=== PATIENT | male | born 1960 | race Caucasian/White ===

== ENCOUNTER 2020-11-11 09:45 | Inpatient (IN) | payer BC, SELFPAY ==
[2020-11-11] VITALS (10 sets, daily range): BP systolic 91–133; BP diastolic 55–73; PULSE 76–99; RESP 13–18; TEMP 36.5–36.7; O2SAT 94–99; BMI 23.7
--- NOTE | ~2020-11-11 | XR_ITS ---
EXAMINATION: XR FOOT, RIGHT CLINICAL INFORMATION: Wound. Evaluate for osteomyelitis. COMPARISON: None TECHNIQUE: Right foot is imaged in 3 views. There is a our pointing towards the lateral foot at level metatarsals. FINDINGS: There is no visible acute or healing fracture, dislocation, or destructive process. There is no periostitis. No gas tracking in the soft tissues. Bony attenuation appears normal. There is bulky circumscribed ossification in the distal Achilles along with posterior and borderline plantar calcaneal spur. The retrocalcaneal recess is preserved. XR/XR foot RT min 3V IMPRESSION: 1. No fracture or destructive process. No gas tracking in soft tissues. 2. Calcaneal spurs with ossification distal Achilles.
--- NOTE | 2020-11-11 10:53 | ED_ITS ---
HPI - General Adult General Chief complaint: Extremity Injury, Lower Stated complaint: rt foot pain ?ulcer Time Seen by Provider: 11/11/20 10:27 Source: patient Mode of arrival: ambulatory Limitations: no limitations History of Present Illness HPI narrative: 60-year-old male with a past medical history of coronary artery disease status post CABG, high cholesterol, hypertension, AFib on AC therapy, IDDM here with complaints of wound to the right foot. Patient tells me that he noticed a blister initially about 4 days ago and then over the last few days he has had redness and swelling and increasing pain over the site. He denies any fevers or chills. 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 Related Data Home Medications Medication Instructions Recorded Confirmed apixaban 5 mg tablet (Eliquis) 1 tab PO BID 11/11/20 11/11/20 aspirin 81 mg tablet 81 mg PO DAILY 11/11/20 11/11/20 atorvastatin 80 mg tablet 1 tab PO DAILY 11/11/20 11/11/20 carvedilol 6.25 mg tablet 1 tab PO BID 11/11/20 11/11/20 dapagliflozin 10 mg tablet 1 tab PO DAILY 11/11/20 11/11/20 (Farxiga) insulin glargine 100 unit/mL (3 40 unit SUBCUT BEDTIME 11/11/20 11/11/20 mL) subcutaneous pen (Basaglar KwikPen U-100 Insulin) lisinopril 10 mg tablet 1 tab PO DAILY 11/11/20 11/11/20 metformin 850 mg tablet 1 tab PO BID 11/11/20 11/11/20 tamsulosin 0.4 mg capsule 1 cap PO DAILY 11/11/20 11/11/20 Allergies Allergy/AdvReac Type Severity Reaction Status Date / Time codeine [Codeine] AdvReac Unknown SHAKING Unverified 10/31/19 15:56 codine Allergy Unknown Uncoded 11/15/18 00:00 Review of Systems Review of Systems: Yes all other systems are reviewed and are negative Constitutional: Constitutional: Reports no additional constitutional complaints, Denies body ache(s), Denies chills, Denies fever(s), Denies hea dache(s) and Denies weakness Eyes: Eyes: Reports no additional eye complaints and Denies change in vision ENT: Reports system reviewed and no additional complaints, except as documented, Denies dizziness, Denies headache(s), Denies nasal congestion, Denies nasal discharge and Denies neck pain Cardiovascular: Cardiovascular: Reports no additional cardiovascular complaints, Denies chest pain, Denies leg edema and Denies dyspnea Respiratory: Respiratory: Reports no additional respiratory complaints, Denies cough and Denies dyspnea Gastrointestinal: Gastrointestinal: Reports no additional gastrointestinal complaints, Denies abdominal pain, Denies diarrhea, Denies nausea and Denies vomiting Genitourinary: Genitourinary: Denies urinary incontinence Musculoskeletal: Musculoskeletal: Reports no additional musculoskeletal complaints, Denies back pain, Denies arthralgias, Denies joint swelling, Denies neck pain, Denies numbness and Denies tingling Integumentary/Breasts: Skin/Breast: Reports system reviewed and no additional complaints, except as docu, Reports swelling, Reports erythema and Denies rash Neurologic: Reports system reviewed and no additional complaints, except as documented, Denies Abnormal speech present, Denies dizziness, Denies headache (s), Denies numbness, Denies tingling and Denies weakness [facility] Past Medical History Attestation statement: The following information was validated with the patient. Source: old records reviewed and nursing notes reviewed Medical History CAD (coronary artery disease) Diabetes HLD (hyperlipidemia) HTN (hypertension) PAF (paroxysmal atrial fibrillation) Surgical History Hx of CABG Family History Family History (Updated 11/11/20 @ 14:03 by Fred Brand MD) Mother Colon cancer Father Diabetes Social History Social History Patient Tobacco Use Status: Current someday Tobacco user Smoked in Last 30 Days: Yes Advance Directives: No Physical Exam Vital Signs: Vital Signs: Last Vital Signs Temp 97.9 F 11/11/20 12:14 Pulse 81 11/11/20 13:07 Resp 18 11/11/20 13:07 BP 106/68 11/11/20 13:07 Pulse Ox 97 11/11/20 12:14 Body Mass Index 23.7 Const: General: cooperative, healthy appearing, comfortable and no acute distress Orientation/consciousness: patient oriented x3 Limitations: no limitations HENMT: Head: Yes normal to inspection Ears: hearing grossly normal bilaterally General nose exam: Normal external nose present Face and sinus: Yes normal facial exam Mouth: Normal oral and palatal mucosa present Throat: Yes posterior oropharynx normal Eyes: General: appearance normal, both eyes and all related structures Pupils: Equal, round and reactive pupils present Neck: Neck: Yes normal visual inspection Chest: Chest palpation & inspection: normal inspection of the chest Resp: Effort & Inspection: normal respiratory effort Auscultation: clear to auscultation bilaterally Cardio: Rate: regular rate Rhythm: regular rhythm Peripheral pulses: Peripheral pulses 2+ throughout GI: Inspection: Yes normal to inspection Palpation (GI): Soft to palpation and nontender Auscultation: normal bowel sounds Back/Spine/Pelvis: Thoracic/Lumbar Spine: thoracic and lumbar spine normal to inspection Skin: General skin exam: no rashes or lesions noted Neuro: General: patient oriented x3, no focal motor deficits and normal sensation to monofilament Cranial nerves: Yes Equal, round and reactive pupils present Cognition (Neuro): normal cognition Speech: No Abnormal speech present Gait exam (Neuro): Normal gait present Motor exam (neuro): 5/5 motor strength present throughout Extrem: Other: Warmth, redness, tenderness over the dorsal aspect of the foot. Palpable pulses. Sensation is intact General: Yes normal to inspection Course Course Course Narrative: 60-year-old male who is an insulin-dependent diabetic care with a wound to the right foot with redness, swelling, pain on exam. Exam is consistent with the diabetic wound with a local cellulitis. The patient will need labs including blood cultures and lactic acid, x-ray of the foot. At this time infection is suspected. Antibiotics ordered. Patient will require admission 1220-call out to medicine to discuss for admission. Medical Decision Making Medical Records Medical records reviewed: Yes I reviewed the patient's medical records. Lab Data Lab results reviewed: Yes I reviewed the patient's lab results. Result diagrams: 11/11/20 11:07 11/11/20 11:07 Labs: Lab Results 11/11/20 11/11/20 11/11/20 Range/Units 11:06 11:06 11:07 WBC 15.6 H (4.8-10.8) X10*3/uL RBC 4.37 L (4.60-5.80) X10*6/uL Hgb 14.2 (14.0-18.0) g/dl Hct 42.6 (42-52) % MCV 97.5 (80-98) fL MCH 32.5 (27.0-33.0) pg MCHC 33.3 (31.0-36.0) g/dl RDW 12.7 (11.0-16.0) % Plt Count 262 (160-400) X10*3/uL MPV 10.0 (9.4-12.4) fL Immature Gran % (Auto) 0.4 (0.0-0.4) % Neut % (Auto) 68.4 (45-73) % Lymph % (Auto) 18.1 L (20-40) % [place] % (Auto) 10.7 (2-11) % Eos % (Auto) 2.0 (0-4) % Baso % (Auto) 0.4 (0-2) % Lymph # (Auto) 2.8 (1.2-4.9) X10*3/uL [place] # (Auto) 1.7 H (0.1-1.2) X10*3/uL Eos # (Auto) 0.3 (0.0-0.4) X10*3/uL Baso # (Auto) 0.1 (0.0-0.2) X10*3/uL Abs Immat Gran (auto) 0.07 H (0.00-0.03) X10*3/uL Absolute Neuts (auto) 10.7 H (2.0-8.3) X10*3/uL Absolute Nucleated RBC 0.000 (0.0-0.012) X10*3/uL Nucleated RBC % (auto) 0.0 (0.0-0.2) /100WBC Smear Tech's Comments VERIFIED Sodium (135-145) mmol/L Potassium (3.3-5.1) mmol/L Chloride (96-108) mmol/L Carbon Dioxide (22-29) mmol/L Anion Gap (12-20) BUN (9-16) mg/dL Creatinine (0.5-1.4) mg/dL Estim Creat Clear Calc Estimated GFR Random Glucose (60-115) mg/dL Lactic Acid 1.2 (0.5-2.0) mmol/L Calcium (8.4-10.2) mg/dL Total Bilirubin (0.0-1.0) mg/dL Direct Bilirubin (0.0-0.5) mg/dL AST (5-37) U/L ALT (0-40) U/L Alkaline Phosphatase (39-117) U/L Total Protein (6.5-8.0) g/dL Albumin (3.5-5.0) g/dL COVID-19 (PAULINE) Negative (Negative) COVID-19 Clin Com See Note 11/11/20 Range/Units 11:07 WBC (4.8-10.8) X10*3/uL RBC (4.60-5.80) X10*6/uL Hgb (14.0-18.0) g/dl Hct (42-52) % MCV (80-98) fL MCH (27.0-33.0) pg MCHC (31.0-36.0) g/dl RDW (11.0-16.0) % Plt Count (160-400) X10*3/uL MPV (9.4-12.4) fL Immature Gran % (Auto) (0.0-0.4) % Neut % (Auto) (45-73) % Lymph % (Auto) (20-40) % [place] % (Auto) (2-11) % Eos % (Auto) (0-4) % Baso % (Auto) (0-2) % Lymph # (Auto) (1.2-4.9) X10*3/uL [place] # (Auto) (0.1-1.2) X10*3/uL Eos # (Auto) (0.0-0.4) X10*3/uL Baso # (Auto) (0.0-0.2) X10*3/uL Abs Immat Gran (auto) (0.00-0.03) X10*3/uL Absolute Neuts (auto) (2.0-8.3) X10*3/uL Absolute Nucleated RBC (0.0-0.012) X10*3/uL Nucleated RBC % (auto) (0.0-0.2) /100WBC Smear Tech's Comments Sodium 138 (135-145) mmol/L Potassium 4.1 (3.3-5.1) mmol/L Chloride 105 (96-108) mmol/L Carbon Dioxide 24 (22-29) mmol/L Anion Gap 13 (12-20) BUN 16 (9-16) mg/dL Creatinine 1.10 (0.5-1.4) mg/dL Estim Creat Clear Calc 78.6 Estimated GFR > 60 Random Glucose 165 H (60-115) mg/dL Lactic Acid (0.5-2.0) mmol/L Calcium 9.2 (8.4-10.2) mg/dL Total Bilirubin < 0.2 (0.0-1.0) mg/dL Direct Bilirubin < 0.2 (0.0-0.5) mg/dL AST 10 (5-37) U/L ALT < 6 (0-40) U/L Alkaline Phosphatase 136 H (39-117) U/L Total Protein 6.8 (6.5-8.0) g/dL Albumin 4.2 (3.5-5.0) g/dL COVID-19 (PAULINE) (Negative) COVID-19 Clin Com Imaging Data foot xray: Attestation: I personally reviewed and interpreted this imaging study as follows: Radiologist's impression: [place] [id number] XRay Report Signed Patient: Mik Roblero MR#: [id number] : 1960 Acct:[id number] Age/Sex: 60 / M ADM Date: 11/11/20 Loc: HO.ED Attending Dr: Ordering Physician: Heather Rios NP Date of Service: 11/11/20 Procedure(s): XR foot RT min 3V Accession Number(s): [id number] cc: Heather Rios NP~ EXAMINATION: XR FOOT, RIGHT CLINICAL INFORMATION: Wound. Evaluate for osteomyelitis.? COMPARISON: None? TECHNIQUE: Right foot is imaged in 3 views. There is a our pointing towards the lateral foot at level metatarsals. FINDINGS: There is no visible acute or healing fracture, dislocation, or destructive process. There is no periostitis. No gas tracking in the soft tissues. Bony attenuation appears normal. There is bulky circumscribed ossification in the distal Achilles along with posterior and borderline plantar calcaneal spur. The retrocalcaneal recess is preserved.? XR/XR foot RT min 3V IMPRESSION: ? 1. No fracture or destructive process. No gas tracking in soft tissues. 2. Calcaneal spurs with ossification distal Achilles. ? Discharge Plan Discharge Clinical Impression: Diabetic ulcer of foot associated with diabetes mellitus due to underlying condition, limited to breakdown of skin, Cellulitis, Leukocytosis Patient Disposition: Admitted As Inpatient Prescriptions: No Action atorvastatin 80 mg tablet 1 tab PO DAILY RF: 0 carvedilol 6.25 mg tablet 1 tab PO BID RF: 0 metformin 850 mg tablet 1 tab PO BID RF: 0 tamsulosin 0.4 mg capsule 1 cap PO DAILY RF: 0 lisinopril 10 mg tablet 1 tab PO DAILY RF: 0 Basaglmanoj Martinez U-100 Insulin 100 unit/mL (3 mL) insulin pen 40 unit subcut BEDTIME RF: 0 Eliquis 5 mg tablet 1 tab PO BID RF: 0 Farxiga 10 mg tablet 1 tab PO DAILY RF: 0 aspirin 81 mg Tablet 81 mg PO DAILY RF: 0
[2020-11-11] MEDS: Morphine Sulfate 4 MG/ML CARTRIDGE IVPUSH ×2 (11:18→12:02)
[2020-11-11 11:19] LABS: Basophils Absolute Auto 0.1 X10*3/uL (0.0-0.2); Basophils Percent Auto 0.4 % (0-2); Eosinophils Absolute Auto 0.3 X10*3/uL (0.0-0.4); Hematocrit 42.6 % (42-52); Hemoglobin 14.2 g/dl (14.0-18.0); Imm Gran Abs Auto 0.07 X10*3/uL (0.00-0.03); Imm Gran Pct Auto 0.4 % (0.0-0.4); Lymphocytes Absolute Auto 2.8 X10*3/uL (1.2-4.9); Lymphocytes Percent Auto 18.1 % (20-40); MANUAL DIFF FLAG SCAN; Mean Corpuscular HGB Conc 33.3 g/dl (31.0-36.0); Mean Corpuscular Hemoglobin 32.5 pg (27.0-33.0); Mean Corpuscular Volume 97.5 fL (80-98); Monocytes Absolute Auto 1.7 X10*3/uL (0.1-1.2); Monocytes Percent Auto 10.7 % (2-11); Neutrophils Absolute Auto 10.7 X10*3/uL (2.0-8.3); Neutrophils Percent Auto 68.4 % (45-73); Platelet Count 262 X10*3/uL (160-400); Red Blood Count 4.37 X10*6/uL (4.60-5.80); Red Cell Distribution Width 12.7 % (11.0-16.0); SCAN SMEAR FLAG 1; White Blood Count 15.6 X10*3/uL (4.8-10.8)
[2020-11-11 11:24] LABS: Lactic Acid 1.2 mmol/L (0.5-2.0)
[2020-11-11 11:32] LABS: COVID-19 Test Negative (Negative); IDNOW Serial# 9DD0AD1C
[2020-11-11 11:38] LABS: Alanine Aminotransferase < 6 U/L (0-40); Albumin Level 4.2 g/dL (3.5-5.0); Alkaline Phosphatase 136 U/L (39-117); Anion Gap 13 (12-20); Aspartate Amino Transferase 10 U/L (5-37); Bilirubin Direct < 0.2 mg/dL (0.0-0.5); Bilirubin Total < 0.2 mg/dL (0.0-1.0); Blood Urea Nitrogen 16 mg/dL (9-16); Calcium 9.2 mg/dL (8.4-10.2); Carbon Dioxide 24 mmol/L (22-29); Chloride 105 mmol/L (96-108); Creatinine Clr Calc Pharmacy 78.6; Estimated Glomerular Filt Rate > 60; Glucose Random 165 mg/dL (60-115); Potassium 4.1 mmol/L (3.3-5.1); Sodium 138 mmol/L (135-145); Total Protein 6.8 g/dL (6.5-8.0)
[2020-11-11] MEDS: Piperacillin Sodium/Tazobactam 3.375 GM in 0.9 % Sodium Chloride 50 ML IV (11:53)
[2020-11-11 12:09] LABS: SLIDE REVIEW VERIFIED
[2020-11-11] MEDS: vancomycin HCL 1,250 MG in 0.9 % Sodium Chloride 250 ML 166.67 MG IV (13:06)
--- NOTE | 2020-11-11 13:59 | P.HPHOSP_ITS ---
History of Present Illness Date of Service: 11/11/20 60 year male with CAD s/p stent, diabetes controlled on insulin, HLD managed with statin, PAF rate controlled and anticoagulation with Eliquis. He presents to the ED with an infected blister that he developped from friction from his new work boot.. The area has become increasing more erythematous over the last 4 days and associated with pain. He has no fever. WBC is high. Xray of the foot is unremarkable. Review of Systems Review of Systems: Gen: no fever Resp: no sob, no cough CV: no chest, no HERNANDEZ, no leg edema GI: No n/v, no abd pain Neuro: No confusion MSK: pain in the foot Yes all other systems are reviewed and are negative [facility] Medical History CAD (coronary artery disease) Diabetes HLD (hyperlipidemia) HTN (hypertension) PAF (paroxysmal atrial fibrillation) Family History (Updated 11/11/20 @ 14:03 by Fred Brand MD) Mother Colon cancer Father Diabetes Pertinent family history: . Surgical History Hx of CABG Social History Patient Tobacco Use Status: Current someday Tobacco user Smoked in Last 30 Days: Yes Advance Directives: No Meds Allergies Allergy/AdvReac Type Severity Reaction Status Date / Time codeine [Codeine] AdvReac Unknown SHAKING Unverified 10/31/19 15:56 codine Allergy Unknown Uncoded 11/15/18 00:00 Active Medications: Current Medications Vancomycin HCl 1,250 mg/ (Sodium Chloride) 250 mls @ 166.667 mls/hr IV ONCE ONE Stop: 11/11/20 14:06 Last Admin: 11/11/20 13:06 Dose: 166.67 mls/hr Documented by: Pharmacy Consult (Consult Rx Perform Med Rec) 1 each MISCELLANE ONCE PRN PRN Reason: Consult order Home Medications Medication Instructions Recorded Confirmed Last Taken Type apixaban 5 mg tablet (Eliquis) 1 tab PO BID 11/11/20 11/11/20 11/11/20 History aspirin 81 mg tablet 81 mg PO DAILY 11/11/20 11/11/20 11/11/20 History atorvastatin 80 mg tablet 1 tab PO DAILY 11/11/20 11/11/20 11/11/20 History carvedilol 6.25 mg tablet 1 tab PO BID 11/11/20 11/11/20 11/11/20 History dapagliflozin 10 mg tablet 1 tab PO DAILY 11/11/20 11/11/20 11/11/20 History ([facility]) insulin glargine 100 unit/mL (3 40 unit SUBCUT BEDTIME 11/11/20 11/11/20 11/11/20 History mL) subcutaneous pen (Basaglar KwikPen U-100 Insulin) lisinopril 10 mg tablet 1 tab PO DAILY 11/11/20 11/11/20 11/11/20 History metformin 850 mg tablet 1 tab PO BID 11/11/20 11/11/20 11/11/20 History tamsulosin 0.4 mg capsule 1 cap PO DAILY 11/11/20 11/11/20 11/11/20 History Physical Exam Vital Signs and Narrative: Vital Signs: Last Vital Signs Temp 97.9 F 11/11/20 12:14 Pulse 81 11/11/20 13:07 Resp 18 11/11/20 13:07 BP 106/68 11/11/20 13:07 Pulse Ox 97 11/11/20 12:14 Body Mass Index 23.7 Constitutional Awake and Alert, No apparent distress Neck Supple, No lymphadenopathy Cardiovascular RRR, No M/R/G, S1 S2, No S3 S4, No pedal edema Respiratory Lungs clear, No respiratory distress Gastrointestinal Non tender, Non-distended Skin No rash Neuro: Non focal Heme/onc no lymphadenopathy Results Labs CBC and Chem 7: 11/11/20 11:07 11/11/20 11:07 Labs: Laboratory Results - last 24 hr 11/11/20 11/11/20 11/11/20 11:06 11:06 11:07 MCV 97.5 MCH 32.5 MCHC 33.3 RDW 12.7 Plt Count 262 MPV 10.0 Immature Gran % (Auto) 0.4 Neut % (Auto) 68.4 Lymph % (Auto) 18.1 L [place] % (Auto) 10.7 Eos % (Auto) 2.0 Baso % (Auto) 0.4 Lymph # (Auto) 2.8 [place] # (Auto) 1.7 H Eos # (Auto) 0.3 Baso # (Auto) 0.1 Abs Immat Gran (auto) 0.07 H Absolute Neuts (auto) 10.7 H Absolute Nucleated RBC 0.000 Nucleated RBC % (auto) 0.0 Smear Tech's Comments VERIFIED Anion Gap Estim Creat Clear Calc Estimated GFR Random Glucose Lactic Acid 1.2 Calcium Total Bilirubin Direct Bilirubin AST ALT Alkaline Phosphatase Total Protein Albumin COVID-19 (PAULINE) Negative COVID-19 Clin Com See Note 11/11/20 11:07 MCV MCH MCHC RDW Plt Count MPV Immature Gran % (Auto) Neut % (Auto) Lymph % (Auto) [place] % (Auto) Eos % (Auto) Baso % (Auto) Lymph # (Auto) [place] # (Auto) Eos # (Auto) Baso # (Auto) Abs Immat Gran (auto) Absolute Neuts (auto) Absolute Nucleated RBC Nucleated RBC % (auto) Smear Tech's Comments Anion Gap 13 Estim Creat Clear Calc 78.6 Estimated GFR > 60 Random Glucose 165 H Lactic Acid Calcium 9.2 Total Bilirubin < 0.2 Direct Bilirubin < 0.2 AST 10 ALT < 6 Alkaline Phosphatase 136 H Total Protein 6.8 Albumin 4.2 COVID-19 (PAULINE) COVID-19 Clin Com Imaging Radiologist's Impressions: Impressions Foot X-Ray 11/11/20 10:45 IMPRESSION: 1. No fracture or destructive process. No gas tracking in soft tissues. 2. Calcaneal spurs with ossification distal Achilles. Assessment and Plan (1) PAF (paroxysmal atrial fibrillation): Status: Acute (2) HLD (hyperlipidemia): Status: Acute (3) HTN (hypertension): Status: Acute (4) Hx of CABG: Status: Acute (5) CAD (coronary artery disease): Status: Acute (6) Cellulitis in diabetic foot: Status: Acute 59 yo male with CAD, HLD, DM, HTN, here with Cellulitis in diabetic foot. 1/ Cellulitis in diabetic foot, limb threatening and immunocompromised d/t diab ete -Treat with IV Doxy and Ceftriaxone -Oxycodone for pain 2/CAD--no angian, continue Statin, BB and no ASA d/t eliquis 3/PAF--rate controlled on Coreg, continue Eliquis for anticoagulation 4/ HTN--controlled, continue Lisinopril, Coreg 5/HLD--Statin 6/Diabetes--continue Metformin, lantus, Hold Farxiga (not formulary), SSI and diabetic diet 7/DVT Eliquis Quality Stroke Does the patient have a stroke diagnosis?: No VTE Prior VTE?: No VTE Risk Level:: Medical - low VTE Device Contraindication: Treatment Not Indicated VTE Drug Contraindication: N/A - Med Ordered
[2020-11-11] MEDS: cefTRIAXone sodium 1 GM in 0.9 % Sodium Chloride 50 ML IV (15:25)
[2020-11-11 16:19] LABS: Glucose, Whole Blood 157 mg/dL (60-115)
[2020-11-11] MEDS: Acetaminophen 325 MG TABLET 650 MG PO ×2 (17:36→22:42)
--- NOTE | 2020-11-11 18:50 | PC.NURSE ---
Report given to Aruna Louis. military technology specialist to coordinate transfer to floor.
[2020-11-11] MEDS: Insulin Glargine,Hum.rec.anlog 100 UNIT/ML 10 ML VIAL 40 UNIT SUBCUT (22:14)
[2020-11-11] MEDS: Apixaban 5 MG TABLET PO (22:14)
[2020-11-11] MEDS: carvediloL 6.25 MG TABLET PO (22:14)
[2020-11-11] MEDS: metFORMIN HCl 850 MG TABLET PO (22:14)
[2020-11-11] MEDS: Doxycycline Hyclate 100 MG in 0.9 % Sodium Chloride 250 ML 166.67 MG IV (22:15)
[2020-11-11 22:27] LABS: Glucose, Whole Blood 220 mg/dL (60-115)
[2020-11-11] MEDS: Insulin Lispro 100 UNIT/ML 3 ML VIAL SUBCUT (22:42)
[2020-11-12] VITALS (8 sets, daily range): BP systolic 76–114; BP diastolic 53–75; PULSE 79–97; RESP 16–18; TEMP 36.3–36.8; O2SAT 97–100
[2020-11-12 08:13] LABS: Glucose, Whole Blood 71 mg/dL (60-115)
[2020-11-12] MEDS: metFORMIN HCl 850 MG TABLET PO ×2 (09:22→21:23)
[2020-11-12] MEDS: Apixaban 5 MG TABLET PO ×2 (09:23→21:23)
[2020-11-12] MEDS: Aspirin Enteric Coated 81 MG TABLET.DR PO (09:23)
[2020-11-12] MEDS: carvediloL 6.25 MG TABLET PO (09:23)
[2020-11-12] MEDS: Atorvastatin Calcium 80 MG TABLET PO (09:23)
[2020-11-12] MEDS: lisinopriL 10 MG TABLET PO (09:23)
[2020-11-12] MEDS: Doxycycline Hyclate 100 MG in 0.9 % Sodium Chloride 250 ML 166.67 MG IV ×2 (09:24→21:22)
[2020-11-12] MEDS: 0.9 % Sodium Chloride Flush 3 ML SYRINGE IVFLUSH ×2 (09:24→14:33)
--- NOTE | 2020-11-12 10:04 | HO.PM.IMPN ---
Subjective Subjective Date of Service: 11/13/20 Interval History: Seem in f/u up cellulitis and abscess of foot, erythema is better, but has persistent pain Review of Systems no fever foot pain Physical Exam Vital Signs: Vital Signs: Last Vital Signs Temp 97.4 F 11/12/20 07:30 Pulse 86 11/12/20 07:30 Resp 18 11/12/20 07:30 BP 108/75 11/12/20 07:30 Pulse Ox 98 11/12/20 07:30 Body Mass Index 23.7 General: AO X 3, no acute distress Resp: CTA bilateral CVS: S1,S2,RRR GI: +BS, NT, no distention Skin: No rash Neuro: motor grossly intact Psych: appropriate affect Objective Data Active Medications Acetaminophen (Acetaminophen 325 Mg Tablet) 650 mg PO Q6H PRN PRN Reason: Pain, Mild (Pain Scale 1-3) Last Admin: 11/11/20 22:42 Dose: 650 mg Documented by: DREW Apixaban (Apixaban 5 Mg Tablet) 5 mg PO BID [facility] Last Admin: 11/12/20 09:23 Dose: 5 mg Documented by: PITA Aspirin (Aspirin Enteric Coated 81 Mg Tablet.) 81 mg PO DAILY [facility] Last Admin: 11/12/20 09:23 Dose: 81 mg Documented by: PITA Atorvastatin Calcium (Atorvastatin Calcium 80 Mg Tablet) 80 mg PO DAILY [facility] Last Admin: 11/12/20 09:23 Dose: 80 mg Documented by: PITA Carvedilol (Carvedilol 6.25 Mg Tablet) 6.25 mg PO BID [facility]; Protocol Last Admin: 11/12/20 09:23 Dose: 6.25 mg Documented by: PITA Doxycycline Hyclate 100 mg/ (Sodium Chloride) 250 mls @ 166.67 mls/hr IV Q12H [facility] Last Admin: 11/12/20 09:24 Dose: 166.67 mls/hr Documented by: PITA Ceftriaxone Sodium 1 gm/ (Sodium Chloride) 50 mls @ 100 mls/hr IV Q24H [facility] Last Infusion: 11/11/20 15:55 Dose: 0 mls/hr Documented by: ROCK Insulin Glargine (Insulin Glargine,Hum.Rec.Anlog 100 Unit/Ml 10 Ml Vial) 40 unit SUBCUT BEDTIME [facility] Last Admin: 11/11/20 22:14 Dose: 40 unit Documented by: DREW Insulin Human Lispro (Insulin Lispro 100 Unit/Ml 3 Ml Vial) 0 unit SUBCUT QIDACHS [facility]; Protocol Last Admin: 11/12/20 07:41 Dose: Not Given Documented by: PITA Non-Admin Reason: No Insulin Coverage Lisinopril (Lisinopril 10 Mg Tablet) 10 mg PO DAILY [facility]; Protocol Last Admin: 11/12/20 09:23 Dose: 10 mg Documented by: PITA Metformin HCl (Metformin Hcl 850 Mg Tablet) 850 mg PO BID [facility] Last Admin: 11/12/20 09:22 Dose: 850 mg Documented by: PITA Pharmacy Consult (Consult Rx Perform Med Rec) 1 each MISCELLANE ONCE PRN PRN Reason: Consult order Sodium Chloride (0.9 % Sodium Chloride Flush 3 Ml Syringe) 3 ml IVFLUSH QSHIFT [facility] Last Admin: 11/12/20 09:24 Dose: 3 ml Documented by: IPTA Tamsulosin HCl (Tamsulosin Hcl 0.4 Mg Capsule) 0.4 mg PO DAILY [facility] Labs CBC & Chem 7: 11/11/20 11:07 11/11/20 11:07 Assessment and Plan (1) Diabetic ulcer of foot associated with diabetes mellitus due to underlying condition, limited to breakdown of skin: Status: Acute (2) Cellulitis: Status: Acute Assessment and Plan: 60 yo male with? CAD, HLD, DM, HTN, here with Cellulitis in diabetic foot. 1/ Cellulitis in diabetic foot, limb threatening and immunocompromised d/t diabete -Treat with IV Doxy and Ceftriaxone -Oxycodone for pain -Surgery for possible debridment 2/CAD--no angian, continue Statin, BB and no ASA d/t eliquis 3/PAF--rate controlled on Coreg, continue Eliquis for anticoagulation 4/ HTN--controlled, continue Lisinopril, Coreg 5/HLD--Statin 6/Diabetes--continue Metformin,? lantus, Hold Farxiga (not formulary), SSI and diabetic diet 7/DVT Eliquis Quality Stroke Does the patient have a stroke diagnosis?: No VTE Prior VTE?: No VTE Risk Level:: Medical - low VTE Device Contraindication: Treatment Not Indicated VTE Drug Contraindication: N/A - Med Ordered
[2020-11-12] MEDS: oxyCODONE HCl Immed Release 5 MG TABLET PO ×3 (10:20→19:47)
--- NOTE | 2020-11-12 10:36 | MHC.CDI.CONC ---
CDI Concurrent Query Documentation Clarification: PHYSICIAN'S DOCUMENTATION REQUEST Date of Query: 11/12/20 1037 Patient Name: Mik Roblero Admit Date: 11/11/20 Dear Doctor, A review of the medical record indicates additional documentation may be needed. Please review below and update the documentation accordingly. Risk Factors/Clinical Indicators/Treatments Cellulitis in Diabetic right foot. Controlled Insulin dependent diabetic foot IV Doxy, Ceftriaxone Please clarify the relationship between these conditions: Yes, [ ] with / associated with / due to [ ] No, [ ] is not related to / associated with / due to [ ] Unable to determine Use of terms such as suspected, likely, concern for, or probable (associated with a specific diagnosis that is being evaluated, monitored, or treated as if it exists) are acceptable and can be coded in the inpatient setting, when documented at the time of discharge. Thank you, Dolores Lawton [facility], CDIS Extension: [phone] Please use your independent medical judgment in providing your response. THIS QUERY IS PART OF THE PERMANENT MEDICAL RECORD Provider Response: Other Other Diagnosis: Cellulitis in diabetes patient, possibly related to diabetes
[2020-11-12 11:53] LABS: Glucose, Whole Blood 175 mg/dL (60-115)
--- NOTE | 2020-11-12 12:03 | MHC.CM.PN ---
Addendum entered by Melissa Plascencia 11/12/20 12:05: CORRECTION: NO IMM WAS DELIVERED. PT DOES NOT HAVE MEDICARE AND IS STILL EMPLOYED Original Note: CM MET WITH PT WHO REPORTS HE LIVES WITH HIS PT REPORTS BEING INDEPENDENT WITH ALL CARE PT DENIES USE OF DME OR HOME SERVICES PT REPORTS HE HAS A HCP NAMING HIS , DEEPA, HIS AGENT PT CONFIRMS HIS PCP IS PAWEL RAYMOND. IMM DELIVERED CURRENT DC PLAN IS HOME WITH NO SERVICES PTS CAR IS IN LOT
[2020-11-12] MEDS: Insulin Lispro 100 UNIT/ML 3 ML VIAL SUBCUT (12:11)
[2020-11-12] MEDS: cefTRIAXone sodium 1 GM in 0.9 % Sodium Chloride 50 ML IV (14:31)
[2020-11-12 16:31] LABS: Glucose, Whole Blood 125 mg/dL (60-115)
[2020-11-12] MEDS: Tamsulosin HCL 0.4 MG CAPSULE PO (16:34)
[2020-11-12 20:52] LABS: Glucose, Whole Blood 139 mg/dL (60-115)
[2020-11-12] MEDS: Insulin Glargine,Hum.rec.anlog 100 UNIT/ML 10 ML VIAL 40 UNIT SUBCUT (21:22)
[2020-11-13] MEDS: oxyCODONE HCl Immed Release 5 MG TABLET PO ×5 (00:10→22:49)
[2020-11-13] MEDS: 0.9 % Sodium Chloride Flush 3 ML SYRINGE IVFLUSH ×4 (00:11→23:44)
[2020-11-13 03:37] VITALS: BP 100/52; PULSE 86; RESP 17; TEMP 36.7; O2SAT 96
[2020-11-13 07:06] VITALS: BP 123/68; PULSE 90; RESP 17; TEMP 36.2; O2SAT 99
[2020-11-13 07:27] LABS: Glucose, Whole Blood 97 mg/dL (60-115)
[2020-11-13] MEDS: carvediloL 6.25 MG TABLET PO ×2 (07:41→20:43)
[2020-11-13] MEDS: Apixaban 5 MG TABLET PO ×2 (07:42→20:43)
[2020-11-13] MEDS: metFORMIN HCl 850 MG TABLET PO ×3 (07:42→20:48)
[2020-11-13] MEDS: Atorvastatin Calcium 80 MG TABLET PO (07:42)
[2020-11-13] MEDS: lisinopriL 10 MG TABLET PO (07:42)
[2020-11-13] MEDS: Aspirin Enteric Coated 81 MG TABLET.DR PO (07:42)
[2020-11-13] MEDS: Doxycycline Hyclate 100 MG in 0.9 % Sodium Chloride 250 ML 166.66 MG IV (07:43)
[2020-11-13 11:12] VITALS: BP 100/59; PULSE 78; RESP 17; TEMP 36.9; O2SAT 98
[2020-11-13 11:29] LABS: Glucose, Whole Blood 158 mg/dL (60-115)
[2020-11-13] MEDS: Insulin Lispro 100 UNIT/ML 3 ML VIAL SUBCUT (11:44)
--- NOTE | 2020-11-13 12:19 | P.PNIM_ITS ---
Subjective Subjective Date of Service: 11/13/20 Interval History: Seen in f/u for diabetic foot ulcer. Cellulitis. Erythema seemed to be bett Review of Systems No fever Pain in the foot. Physical Exam Vital Signs: Vital Signs: Last Vital Signs Temp 98.4 F 11/13/20 11:12 Pulse 78 11/13/20 11:12 Resp 17 11/13/20 11:12 BP 100/59 L 11/13/20 11:12 Pulse Ox 98 11/13/20 11:12 Body Mass Index 23.7 General: AO X 3, no acute distress Resp: CTA bilateral CVS: S1,S2,RRR GI: +BS, NT, no distention Skin: Neuro: motor grossly intact Psych: appropriate affect Objective Data Active Medications Acetaminophen (Acetaminophen 325 Mg Tablet) 650 mg PO Q6H PRN PRN Reason: Pain, Mild (Pain Scale 1-3) Last Admin: 11/11/20 22:42 Dose: 650 mg Documented by: DREW Apixaban (Apixaban 5 Mg Tablet) 5 mg PO BID [facility] Last Admin: 11/13/20 07:42 Dose: 5 mg Documented by: CIRA Aspirin (Aspirin Enteric Coated 81 Mg Tablet.) 81 mg PO DAILY [facility] Last Admin: 11/13/20 07:42 Dose: 81 mg Documented by: CIRA Atorvastatin Calcium (Atorvastatin Calcium 80 Mg Tablet) 80 mg PO DAILY [facility] Last Admin: 11/13/20 07:42 Dose: 80 mg Documented by: CIRA Carvedilol (Carvedilol 6.25 Mg Tablet) 6.25 mg PO BID [facility]; Protocol Last Admin: 11/13/20 07:41 Dose: 6.25 mg Documented by: CIRA Doxycycline Hyclate 100 mg/ (Sodium Chloride) 250 mls @ 166.67 mls/hr IV Q12H [facility] Last Infusion: 11/13/20 09:29 Dose: 0 mls/hr Documented by: CIRA Ceftriaxone Sodium 1 gm/ (Sodium Chloride) 50 mls @ 100 mls/hr IV Q24H [facility] Last Infusion: 11/12/20 15:03 Dose: 0 mls/hr Documented by: DABCk Insulin Glargine (Insulin Glargine,Hum.Rec.Anlog 100 Unit/Ml 10 Ml Vial) 40 unit SUBCUT BEDTIME [facility] Last Admin: 11/12/20 21:22 Dose: 40 unit Documented by: DREW Insulin Human Lispro (Insulin Lispro 100 Unit/Ml 3 Ml Vial) 0 unit SUBCUT QIDACHS [facility]; Protocol Last Admin: 11/13/20 11:44 Dose: 2 unit Documented by: CIRA Lisinopril (Lisinopril 10 Mg Tablet) 10 mg PO DAILY [facility]; Protocol Last Admin: 11/13/20 07:42 Dose: 10 mg Documented by: CIRA Metformin HCl (Metformin Hcl 850 Mg Tablet) 850 mg PO BID [facility] Last Admin: 11/13/20 07:42 Dose: 850 mg Documented by: CIRA Oxycodone HCl (Oxycodone Hcl Immed Release 5 Mg Tablet) 5 mg PO Q4H PRN PRN Reason: Pain, Severe (Pain Scale 7-10) Last Admin: 11/13/20 11:43 Dose: 5 mg Documented by: CIRA Pharmacy Consult (Consult Rx Perform Med Rec) 1 each MISCELLANE ONCE PRN PRN Reason: Consult order Sodium Chloride (0.9 % Sodium Chloride Flush 3 Ml Syringe) 3 ml IVFLUSH QSHIFT [facility] Last Admin: 11/13/20 07:43 Dose: 3 ml Documented by: CIRA Tamsulosin HCl (Tamsulosin Hcl 0.4 Mg Capsule) 0.4 mg PO DAILY@1700 [facility] Last Admin: 11/12/20 16:34 Dose: 0.4 mg Documented by: PITA Labs CBC & Chem 7: 11/11/20 11:07 11/11/20 11:07 Labs: Laboratory Results - last 24 hr 11/12/20 11/12/20 11/13/20 16:20 20:24 07:05 POC Glucose 125 H 139 H 97 11/13/20 11:13 POC Glucose 158 H Microbiology Microbiology Results: Microbiology 11/11/20 11:10 Blood Culture - Preliminary Blood - Venous No growth after 24 hours. 11/11/20 11:09 Blood Culture - Preliminary Blood - Venous No growth after 24 hours. Assessment and Plan (1) Diabetic ulcer of foot associated with diabetes mellitus due to underlying condition, limited to breakdown of skin: Status: Acute (2) Cellulitis: Status: Acute Assessment and Plan: 60 yo male with? CAD, HLD, DM, HTN, here with Cellulitis in diabetic foot. 1/ Cellulitis of foot associated with diabetic , limb threatening and immunocompromised d/t diabete -Treat with IV Doxy and Ceftriaxone D3 -Oxycodone for pain -Surgery for possible debridment 2/CAD--no angian, continue Statin, BB and no ASA d/t eliquis 3/PAF--rate controlled on Coreg, continue Eliquis for anticoagulation 4/ HTN--controlled, continue Lisinopril, Coreg 5/HLD--Statin 6/Diabetes--continue Metformin,? lantus, Hold Farxiga (not formulary), SSI and diabetic diet 7/DVT Eliquis Quality Stroke Does the patient have a stroke diagnosis?: No VTE Prior VTE?: No VTE Risk Level:: Medical - low VTE Device Contraindication: Treatment Not Indicated VTE Drug Contraindication: N/A - Med Ordered
[2020-11-13] MEDS: Morphine Sulfate 4 MG/ML CARTRIDGE IVPUSH (13:21)
--- NOTE | 2020-11-13 13:40 | PM.CNGS ---
History of Present Illness Consult details Consult date: 11/13/20 Narrative: 60-year-old male referred for a right foot ulcer. He was admitted on 11/11, because of on his right foot. He was noted to have an area of cellulitis with an ulcer with an eschar as well. He is a known diabetic. He says that the area of the ulcer was very painful at that time. The scar seemed to have persisted and he was referred to me. He does state that his cellulitis has improved. He says he wears this particular working both all the time and feels that this may be ill-fitting causing the ulcer. He says his blood sugar control is ?so-so? Review of Systems Constitutional: Constitutional: Denies chills and Denies fever(s) Cardiovascular: Cardiovascular: Denies chest pain, Denies dyspnea and Denies dyspnea on exertion Respiratory: Respiratory: Denies cough, Denies dyspnea and Denies dyspnea on exertion Gastrointestinal: Gastrointestinal: Denies hematochezia and Denies change in bowel habits Genitourinary: Genitourinary: Denies hematuria and Denies difficulty urinating Musculoskeletal: Musculoskeletal: Denies back pain and Denies limited range of motion Neurologic: Denies focal weakness and Denies convulsions Psychiatric: Psychiatric: Denies depression and Denies mood swings [facility] Past Medical History Medical History (Updated 11/13/20 @ 13:43 by Kuldip Richards MD) CAD (coronary artery disease) Diabetes Eschar of foot HLD (hyperlipidemia) HTN (hypertension) PAF (paroxysmal atrial fibrillation) Family History Family History Mother Colon cancer Father Diabetes Surgical History Surgical History Hx of CABG Social History Social History Household Members: Spouse Housing: House Do you presently have visiting nurse or other home services: No Patient Tobacco Use Status: Current someday Tobacco user Tobacco use type: Cigarette Cigarettes Per Day: 3 Smoked in Last 30 Days: Yes Patient Interested in Nicotine Replacement: Yes Patient Given Instructions on How to Stop Smoking: No Use of substances other than those prescribed or required for medical reasons: No Currently Displaying Signs/Symptoms of Drug Intoxication Withdrawal: No Have you been hit, kicked, punched, or otherwise hurt by someone within the past year? If so, by whom?: No Do you feel safe in your current relationship?: Yes Is there a partner from a previous relationship who is making you feel unsafe now?: No Are you made to feel afraid or neglected: No Advance Directives: No Do you have thoughts of harming others: None Do you have a plan to hurt others: No Plan Recently lost weight without trying: No How much weight loss: Not applicable Eating poorly because of decreased appetite: No Nutrition screen score: 0 Nutrition Risks: No Nutritional Risk Poor oral hygiene: No Current occupational status: employed Meds Allergies Allergy/AdvReac Type Severity Reaction Status Date / Time codeine [Codeine] AdvReac Unknown SHAKING Unverified 10/31/19 15:56 codine Allergy Unknown Uncoded 11/15/18 00:00 Active Medications: Current Medications Acetaminophen (Acetaminophen 325 Mg Tablet) 650 mg PO Q6H PRN PRN Reason: Pain, Mild (Pain Scale 1-3) Last Admin: 11/11/20 22:42 Dose: 650 mg Documented by: Apixaban (Apixaban 5 Mg Tablet) 5 mg PO BID [facility]S [facility]CLUDE 234 BEDS AT THE [facility] Last Admin: 11/13/20 07:42 Dose: 5 mg Documented by: Aspirin (Aspirin Enteric Coated 81 Mg Tablet.Dr) 81 mg PO DAILY COUNTS INCLUDE 234 BEDS AT THE [facility] Last Admin: 11/13/20 07:42 Dose: 81 mg Documented by: Atorvastatin Calcium (Atorvastatin Calcium 80 Mg Tablet) 80 mg PO DAILY COUNTS INCLUDE 234 BEDS AT THE [facility] Last Admin: 11/13/20 07:42 Dose: 80 mg Documented by: Carvedilol (Carvedilol 6.25 Mg Tablet) 6.25 mg PO BID COUNTS INCLUDE 234 BEDS AT THE [facility]; Protocol Last Admin: 11/13/20 07:41 Dose: 6.25 mg Documented by: Doxycycline Hyclate 100 mg/ (Sodium Chloride) 250 mls @ 166.67 mls/hr IV Q12H COUNTS INCLUDE 234 BEDS AT THE [facility] Last Infusion: 11/13/20 09:29 Dose: Infused Documented by: Ceftriaxone Sodium 1 gm/ (Sodium Chloride) 50 mls @ 100 mls/hr IV Q24H COUNTS INCLUDE 234 BEDS AT THE [facility] Last Infusion: 11/12/20 15:03 Dose: Infused Documented by: Insulin Glargine (Insulin Glargine,Hum.Rec.Anlog 100 Unit/Ml 10 Ml Vial) 40 unit SUBCUT BEDTIME COUNTS INCLUDE 234 BEDS AT THE [facility] Last Admin: 11/12/20 21:22 Dose: 40 unit Documented by: Insulin Human Lispro (Insulin Lispro 100 Unit/Ml 3 Ml Vial) 0 unit SUBCUT QIDACHS COUNTS INCLUDE 234 BEDS AT THE [facility]; Protocol Last Admin: 11/13/20 11:44 Dose: 2 unit Documented by: Lisinopril (Lisinopril 10 Mg Tablet) 10 mg PO DAILY COUNTS INCLUDE 234 BEDS AT THE [facility]; Protocol Last Admin: 11/13/20 07:42 Dose: 10 mg Documented by: Metformin HCl (Metformin Hcl 850 Mg Tablet) 850 mg PO BID COUNTS INCLUDE 234 BEDS AT THE [facility] Last Admin: 11/13/20 07:42 Dose: 850 mg Documented by: Oxycodone HCl (Oxycodone Hcl Immed Release 5 Mg Tablet) 5 mg PO Q4H PRN PRN Reason: Pain, Severe (Pain Scale 7-10) Last Admin: 11/13/20 11:43 Dose: 5 mg Documented by: Pharmacy Consult (Consult Rx Perform Med Rec) 1 each MISCELLANE ONCE PRN PRN Reason: Consult order Sodium Chloride (0.9 % Sodium Chloride Flush 3 Ml Syringe) 3 ml IVFLUSH [facility] Last Admin: 11/13/20 07:43 Dose: 3 ml Documented by: Tamsulosin HCl (Tamsulosin Hcl 0.4 Mg Capsule) 0.4 mg PO DAILY@1700 COUNTS INCLUDE 234 BEDS AT THE [facility] Last Admin: 11/12/20 16:34 Dose: 0.4 mg Documented by: Home Medications Medication Instructions Recorded Confirmed Last Taken Type apixaban 5 mg tablet (Eliquis) 1 tab PO BID 11/11/20 11/11/20 11/11/20 History aspirin 81 mg tablet 81 mg PO DAILY 11/11/20 11/11/20 11/11/20 History atorvastatin 80 mg tablet 1 tab PO DAILY 11/11/20 11/11/20 11/11/20 History carvedilol 6.25 mg tablet 1 tab PO BID 11/11/20 11/11/20 11/11/20 History dapagliflozin 10 mg tablet 1 tab PO DAILY 11/11/20 11/11/20 11/11/20 History ([facility]) insulin glargine 100 unit/mL (3 40 unit SUBCUT BEDTIME 11/11/20 11/11/20 11/11/20 History mL) subcutaneous pen (Ariana Martinez U-100 Insulin) lisinopril 10 mg tablet 1 tab PO DAILY 11/11/20 11/11/20 11/11/20 History metformin 850 mg tablet 1 tab PO BID 11/11/20 11/11/20 11/11/20 History tamsulosin 0.4 mg capsule 1 cap PO DAILY 11/11/20 11/11/20 11/11/20 History Physical Exam Vital Signs: Vital Signs: Last Vital Signs Temp 98.4 F 11/13/20 11:12 Pulse 78 11/13/20 11:12 Resp 17 11/13/20 11:12 BP 100/59 L 11/13/20 11:12 Pulse Ox 98 11/13/20 11:12 Body Mass Index 23.7 Const: General: comfortable and no acute distress Orientation/consciousness: patient oriented x3 Neck: Neck: Yes no lymphadenopathy Resp: Auscultation: clear to auscultation bilaterally Cardio: Rhythm: regular rhythm GI: Palpation (GI): Soft to palpation, nontender and no guarding Neuro: General: patient oriented x3 Extrem: Other: Lateral aspect of right foot near the metatarsal so phalangeal area is note of an ulcer with the thick eschar measuring 3 cm in diameter by about 2 cm. There was note of cellulitis surrounding this ulcer. Results Labs Result diagrams: 11/11/20 11:07 11/11/20 11:07 Labs: Abnormal lab results 11/12/20 11/12/20 11/13/20 Range/Units 16:20 20:24 11:13 POC Glucose 125 H 139 H 158 H (60-115) mg/dL All other labs normal. Assessment and Plan (1) Eschar of foot: Status: Acute He has had diabetic foot ulcer with a thick eschar as described above. This seems to involve the full-thickness skin and part of subcutaneous layer. This has an associated cellulitis. I therefore explained to him it would be best to sharply debride eschar. Explained him the technique of this procedure. He understood this and agreed to proceed. He was placed in lateral decubitus position to expose the also on the right foot. He was given morphine 4 mg IV. I infiltrated the area with lidocaine 1%. This area of the ulcer was prepped and draped. I then excised this ulcer using fine scissors. Again this appeared to involved the full-thickness of skin, part of subcutaneous layer. This seemed to have some foul smell as well. I continued to do sharp excisional debridement of this entire eschar down to viable looking tissue. I then applied wet to dry dressings. I wrapped the foot in Kerlix roll. He tolerated procedure well. There were no complication noted. He will require daily dressing changes with either silver alginate or wet to dry for now. He can follow-up with me in the office down the line after discharge. I did explain to him the discharge instructions. He will likely need a visiting nurse to help with the dressings. Procedures Date of Service Date of Service: 11/13/20
[2020-11-13] MEDS: cefTRIAXone sodium 1 GM in 0.9 % Sodium Chloride 50 ML IV (14:16)
[2020-11-13] MEDS: ondansetron HCL 4 MG/2 ML VIAL IVPUSH (14:35)
[2020-11-13 15:18] VITALS: BP 102/62; PULSE 73; RESP 18; TEMP 36.1; O2SAT 98
[2020-11-13 16:05] LABS: Glucose, Whole Blood 83 mg/dL (60-115)
[2020-11-13] MEDS: Tamsulosin HCL 0.4 MG CAPSULE PO (16:34)
[2020-11-13 19:04] VITALS: BP 126/69; PULSE 79; RESP 18; TEMP 36.5; O2SAT 99
[2020-11-13 20:07] LABS: Glucose, Whole Blood 110 mg/dL (60-115)
[2020-11-13 20:43] VITALS: BP 126/69; PULSE 79
[2020-11-13] MEDS: Doxycycline Hyclate 100 MG in 0.9 % Sodium Chloride 250 ML 166.67 MG IV (20:44)
[2020-11-13] MEDS: Insulin Glargine,Hum.rec.anlog 100 UNIT/ML 10 ML VIAL 40 UNIT SUBCUT ×2 (20:45→20:47)
[2020-11-13] MEDS: Acetaminophen 325 MG TABLET 650 MG PO (21:00)
[2020-11-14] VITALS: BP 98/59; PULSE 81; RESP 18; TEMP 36.6; O2SAT 95
[2020-11-14 04:00] VITALS: BP 98/53; PULSE 84; RESP 18; TEMP 36.6; O2SAT 98
--- NOTE | 2020-11-14 04:59 | PM.DS ---
DS: Providers Provider Date of Service: 11/14/20 Date of admission: 11/11/20 14:20 Primary care physician: Arian Terrazas MD Consults: 11/12/20 10:02 Consult to General Surgery Routine Consulting Provider: Ambrose Clancy Reason for consultation: foot abscess ? need for debridment DS: Diagnosis Discharge Diagnosis (1) Eschar of foot: Status: Acute DS: Summary Hospital Course Hospital Course: 60 year male with CAD s/p stent, diabetes controlled on insulin, HLD managed with statin, PAF rate controlled and anticoagulation with? Eliquis. He presents to the ED with an infected blister that he developped from friction from his new work boot.. The area has become increasing more erythematous over the last 4 days and associated with pain. He has no fever.? WBC is high. Xray of the foot is unremarkable. Hospial course: Patient was admited and treated with IV Ceftriaxone and Doxycyline with signficant improvment, the eschar on the foot was debrided by Dr. paris who recommend wet to dry dressing or silver arginate dressing daily and to follow up with him a week. He is further instructed to avoid pressure to the area and avoid tight fitting work boots. He will be transition to oral Docyxyline for discharge. Blood cultures have been negative Time Spent with Patient Time attestation: Total time spent providing and/or coordinating discharge services: Discharge coordination time: Greater than 30 minutes Quality: Stroke Does the patient have a stroke diagnosis?: No Physical Exam Vital Signs: Vital Signs: Last Vital Signs Temp 98 F 11/14/20 04:00 Pulse 84 11/14/20 04:00 Resp 18 11/14/20 04:00 BP 98/53 L 11/14/20 04:00 Pulse Ox 98 11/14/20 04:00 Body Mass Index 23.7 General: AO X 3, no acute distress Resp: CTA bilateral CVS: S1,S2,RRR GI: +BS, NT, no distention Skin: No rash, wound d/c/i Neuro: motor grossly intact Psych: appropriate affect DS: Data Data Completed and Pending Labs on day of discharge: Laboratory Results - last 24 hr 11/13/20 11/13/20 11/13/20 07:05 11:13 15:57 POC Glucose 97 158 H 83 11/13/20 20:02 POC Glucose 110 Preliminary micro results at discharge 11/11/20 11:10 Blood Culture - Preliminary Blood - Venous No growth after 48 hours. 11/11/20 11:09 Blood Culture - Preliminary Blood - Venous No growth after 48 hours. Discharge Plan Discharge Anticipated Discharge Date/Time: 11/14/20 06:35 Patient Disposition: Home, Self-Care Discharge Diagnosis: Cellulitis of the foot Referrals: Kuldip Paris MD [Physician] - 1 Week Arian Terrazas MD [Primary Care Provider] - 1 Week Discharge Medications: New doxycycline hyclate 100 mg tablet 100 mg PO BID 14 Days Qty: 20 RF: 0 oxycodone 5 mg Tablet 5 mg PO Q4H PRN (Reason: Pain, Severe (Pain Scale 7-10)) Qty: 12 RF: 0 Continued atorvastatin 80 mg tablet 1 tab PO DAILY RF: 0 carvedilol 6.25 mg tablet 1 tab PO BID RF: 0 metformin 850 mg tablet 1 tab PO BID RF: 0 tamsulosin 0.4 mg capsule 1 cap PO DAILY RF: 0 lisinopril 10 mg tablet 1 tab PO DAILY RF: 0 Basaglar KwikPen U-100 Insulin 100 unit/mL (3 mL) insulin pen 40 unit subcut BEDTIME RF: 0 Eliquis 5 mg tablet 1 tab PO BID RF: 0 Farxiga 10 mg tablet 1 tab PO DAILY RF: 0 aspirin 81 mg Tablet 81 mg PO DAILY RF: 0 Discharge Orders: Discharge Order (Routine); Ordered 11/14/20 Ordered By: Fred Brand Diet: advance to usual diet and diabetic diet Activity on Discharge: As tolerated Stand Alone Forms: Patient Portal Discharge page Care Plan Goals: complete healing of diabetic foot ulcer and cellulitis Health Concerns: Diabetic foot ulcer and cellulitis Plan of Treatment: Take Doxycyline as recommended and follow up with your Doctor in a week, Follow up with Dr Paris in a week ?Daily dresing changes with silver alginate or wet to dry for now. Assessment: as above
[2020-11-14 07:31] VITALS: PULSE 69; TEMP 36.6
[2020-11-14] MEDS: Aspirin Enteric Coated 81 MG TABLET.DR PO (07:47)
[2020-11-14] MEDS: lisinopriL 10 MG TABLET PO (07:47)
[2020-11-14] MEDS: metFORMIN HCl 850 MG TABLET PO (07:47)
[2020-11-14] MEDS: carvediloL 6.25 MG TABLET PO (07:47)
[2020-11-14] MEDS: Apixaban 5 MG TABLET PO (07:47)
[2020-11-14] MEDS: Doxycycline Hyclate 100 MG in 0.9 % Sodium Chloride 250 ML 166.67 MG IV (07:48)
[2020-11-14 07:51] LABS: Glucose, Whole Blood 74 mg/dL (60-115)
[2020-11-14] MEDS: 0.9 % Sodium Chloride Flush 3 ML SYRINGE IVFLUSH (07:55)
--- NOTE | 2020-11-14 09:27 | MHC.CM.PN ---
Addendum entered by Melissa Plascencia 11/14/20 15:41: CM CONFIRMED WITH PTS NURSE THAT HE WAS PROVIDED WITH DRESSING MATERIALS AND EDUCATION PRIOR TO DC. [facility] ALSO MADE AWARE NO OTHER AGENCY FOUND Addendum entered by Melissa Plascencia 11/14/20 15:38: CM UNABLE TO FIND AN ACCEPTING [facility]NA THAT CAN SEE PT SOONER THAN MONDAY. Addendum entered by Melissa Plascencia 11/14/20 12:53: [facility] INDICATED THEY COULD NOT SEE PT TILL MONDAY OR MONDAY. A BROAD REFERRAL WAS SENT SEEKING A VNA THAT CAN ADMIT SOONER, HOWEVER MOST HAVE DECLINED. AWAITING REMAINING RESPONSES Original Note: PT CLEARED TO DC HOME TODAY WITH [facility] FOR [facility]. CM MET WITH PT WHO REPORTED HE HAS HAD VNA IN THE PAST AND DID NOT FIND THEM PARTICULARLY HELPFUL. PT REPORTS HIS WILL BE IN THE HOME AND CAN HELP WITH HIS DRESSING CHANGES. PT DID AGREE TO ALLOW CM TO ARRANGE FOR [facility] TO PROVIDE TEACHING, HE IS AWARE HE CAN CANCEL SERVICES AT ANY TIME. REFERRALS HAVE BEEN PLACED HOWEVER THERE ARE NO ACCEPTING AGENCIES AT THIS TIME. AWAITING FURTHER RESPONSES
== END 2020-11-14 09:45 | disposition home health service (06) | DRG 380 ==
LOC: HO.ED 14:24 → HO.EDOVER 14:50 → HO.S3 18:37
PROVIDERS: Nurse Practitioner Family; Admitting Provider Internal Medicine; Emergency Provider Emergency Medicine Emergency Medical Services; PCP Internal Medicine; Visit Provider Internal Medicine
DX: E11.621 Type 2 diabetes mellitus with foot ulcer (principal); L97.511 Non-pressure chronic ulcer of other part of right foot limited to breakdown of skin; I48.0 Paroxysmal atrial fibrillation; E11.628 Type 2 diabetes mellitus with other skin complications; L03.116 Cellulitis of left lower limb; I25.10 Atherosclerotic heart disease of native coronary artery without angina pectoris; E78.5 Hyperlipidemia, unspecified; F17.210 Nicotine dependence, cigarettes, uncomplicated; Z95.1 Presence of aortocoronary bypass graft; Z71.6 Tobacco abuse counseling; Z20.822 Contact with and (suspected) exposure to COVID-19; Z88.5 Allergy status to narcotic agent; Z79.4 Long term (current) use of insulin; Z79.82 Long term (current) use of aspirin; Z79.899 Other long term (current) drug therapy
CPT/HCPCS: 36415; 73630; 80048; 80076; 82947; 83605; 85025; 87040; 87635; 99285; J0696; J2270; J2405; J2543; J3370

== ENCOUNTER → 2020-11-19 11:22 | Outpatient (BNVA) | payer BC, SELFPAY | PROVIDERS: PCP Internal Medicine; Visit Provider Surgery ==

== ENCOUNTER → 2020-11-20 15:36 | Outpatient (BNVA) | payer BC, SELFPAY | PROVIDERS: PCP Internal Medicine; Visit Provider Surgery ==

== ENCOUNTER 2020-11-27 08:08 | Day surgery (SDC) | payer BC, SELFPAY ==
--- NOTE | 2020-11-26 14:31 | P.CONAN_ITS ---
Documented by User: Ya Suero NP 11/26/20 14:34 HPI - Anesthesia Eval Consult details Narrative: 60yo M for Right Excisional Debridement of Foot Ulcer Cardiac cleared Eliquis for afib - ok to continue per gen surg PMFSH Active Problems Active Problems: All Active Problems (Updated 11/24/20 @ 15:51 by Kuldip Richards MD) Pressure ulcer, unstageable, with eschar (Acute) Diabetic ulcer of foot associated with diabetes mellitus due to underlying condition, limited to breakdown of skin (Acute) Cellulitis (Acute) Past Medical History Medical History (Updated 11/27/20 @ 12:13 by Deborah Mojica MD) CAD (coronary artery disease) Cellulitis in diabetic foot Diabetes Eschar of foot HLD (hyperlipidemia) HTN (hypertension) PAF (paroxysmal atrial fibrillation) Pressure ulcer, unstageable, with eschar Family History Family History Mother Colon cancer Father Diabetes Surgical History Surgical History (Updated 11/27/20 @ 12:10 by Deborah Mojica MD) History of surgery on upper extremity Hx of CABG Hx of vascular surgery Social History Social History Household Members: Spouse Housing: House Do you presently have visiting nurse or other home services: No Patient Tobacco Use Status: Current someday Tobacco user Tobacco use type: Cigarette Cigarettes Per Day: 3 Current occupational status: employed Meds Allergies Allergy/AdvReac Type Severity Reaction Status Date / Time codeine [Codeine] AdvReac Unknown SHAKING Verified 11/19/20 15:59 Home Medications Medication Instructions Recorded Confirmed Last Taken Type apixaban 5 mg tablet (Eliquis) 1 tab PO BID 11/11/20 11/20/20 11/26/20 History aspirin 81 mg tablet 81 mg PO DAILY 11/11/20 11/20/20 11/26/20 History atorvastatin 80 mg tablet 1 tab PO DAILY 11/11/20 11/20/20 11/11/20 History carvedilol 6.25 mg tablet 1 tab PO BID 11/11/20 11/20/20 11/11/20 History dapagliflozin 10 mg tablet 1 tab PO DAILY 11/11/20 11/20/20 11/11/20 History ([facility]) insulin glargine 100 unit/mL (3 40 unit SUBCUT BEDTIME 11/11/20 11/20/20 11/11/20 History mL) subcutaneous pen (Basaglar KwikPen U-100 Insulin) lisinopril 10 mg tablet 1 tab PO DAILY 11/11/20 11/20/20 11/11/20 History metformin 850 mg tablet 1 tab PO BID 11/11/20 11/20/20 11/11/20 History tamsulosin 0.4 mg capsule 1 cap PO DAILY 11/11/20 11/20/20 11/11/20 History Exam Exam Date and Time: November 26, 2020 1431 Pertinent Lab Results Pertinent Lab Results: Laboratory Tests 11/11/20 11/11/20 11:07 11:07 WBC 15.6 H Hgb 14.2 Hct 42.6 Plt Count 262 Sodium 138 Potassium 4.1 Chloride 105 Carbon Dioxide 24 BUN 16 Creatinine 1.10 Assessment and Plan Assessment Anesthesia Assessment: Chart Reviewed Documented by User: Deborah Mojica MD 11/27/20 12:16 [facility] Past Medical History Medical History (Updated 11/27/20 @ 12:13 by Deborah Mojica MD) CAD (coronary artery disease) Cellulitis in diabetic foot Diabetes Eschar of foot HLD (hyperlipidemia) HTN (hypertension) PAF (paroxysmal atrial fibrillation) Pressure ulcer, unstageable, with eschar Family History Family History Mother Colon cancer Father Diabetes Family history of problems with anesthesia: No Surgical History Surgical History (Updated 11/27/20 @ 12:10 by Deborah Mojica MD) History of surgery on upper extremity Hx of CABG Hx of vascular surgery History of Problems with Anesthesia: No Social History Social History Household Members: Spouse Housing: House Do you presently have visiting nurse or other home services: No Patient Tobacco Use Status: Current someday Tobacco user Tobacco use type: Cigarette Cigarettes Per Day: 3 Current occupational status: employed Meds Allergies Allergy/AdvReac Type Severity Reaction Status Date / Time codeine [Codeine] AdvReac Unknown SHAKING Verified 11/19/20 15:59 Home Medications Medication Instructions Recorded Confirmed Last Taken Type apixaban 5 mg tablet (Eliquis) 1 tab PO BID 11/11/20 11/20/20 11/26/20 History aspirin 81 mg tablet 81 mg PO DAILY 11/11/20 11/20/20 11/26/20 History atorvastatin 80 mg tablet 1 tab PO DAILY 11/11/20 11/20/20 11/11/20 History carvedilol 6.25 mg tablet 1 tab PO BID 11/11/20 11/20/20 11/11/20 History dapagliflozin 10 mg tablet 1 tab PO DAILY 11/11/20 11/20/20 11/11/20 History ([facility]) insulin glargine 100 unit/mL (3 40 unit SUBCUT BEDTIME 11/11/20 11/20/20 11/11/20 History mL) subcutaneous pen (Basaglar KwikPen U-100 Insulin) lisinopril 10 mg tablet 1 tab PO DAILY 11/11/20 11/20/20 11/11/20 History metformin 850 mg tablet 1 tab PO BID 11/11/20 11/20/20 11/11/20 History tamsulosin 0.4 mg capsule 1 cap PO DAILY 11/11/20 11/20/20 11/11/20 History Exam Height,Weight and Vital Signs: Height 6 ft Weight 71.668 kg Vital Signs Temp Pulse Resp BP Pulse Ox 98.3 F 102 H 18 155/78 H 96 11/27/20 08:19 11/27/20 08:19 11/27/20 08:19 11/27/20 08:19 11/27/20 08:19 Pertinent Lab Results Pertinent Lab Results: Laboratory Tests 11/11/20 11/11/20 11:07 11:07 WBC 15.6 H Hgb 14.2 Hct 42.6 Plt Count 262 Sodium 138 Potassium 4.1 Chloride 105 Carbon Dioxide 24 BUN 16 Creatinine 1.10 Lab Results 11/27/20 Range/Units 08:15 POC Glucose 106 (60-115) mg/dL Airway Mallampati Class: II TM Dist: >3cm Neck ROM: Full Denture: Upper and Lower Loose/Missing/Broken Teeth: Yes (Edentulous) Heart: RRR Lungs: CTAB Assessment and Plan Assessment Anesthesia Assessment: Anesthesia Plan Discussed Final Anesthetic Review Family History of Problems with Anesthesia: No History of Problems with Anesthesia: No NPO: Yes ASA Class: III Final Preanesthetic Review: No Changes in Pt Med Stat, Meds/Allgs Chart Reviewed, Consent Obtained/Reviewed and Anes Risks/Benef Reviewed Patient Risk: Intermediate Procedure Risk: Low Assessment/Block/Sedation in SS: Assess/Block/Sedation-SS Anesthetic Plan Anesthetic Plan: GA Disposition: Standard PACU
[2020-11-27] VITALS (7 sets, daily range): BP systolic 93–155; BP diastolic 54–78; PULSE 85–102; RESP 16–20; TEMP 36.5–37.1; O2SAT 95–100; BMI 21.4
[2020-11-27 08:22] LABS: Glucose, Whole Blood 106 mg/dL (60-115)
[2020-11-27] MEDS: Lactated Ringers 1,000 ML 50 ML IVCONT (08:37)
--- NOTE | 2020-11-27 09:47 | MHC.SHP ---
Pre-Procedural Eval Section A Date of Service: 11/27/20 Section B Chief Complaint: pressure ulcer, unstageable, with eschar Allergies: Allergies Allergy/AdvReac Type Severity Reaction Status Date / Time codeine [Codeine] AdvReac Unknown SHAKING Verified 11/19/20 15:59 Plan I have reviewed the history and physical and performed a pertinent physical examination on my patient. No changes have occurred unless specified.
--- NOTE | 2020-11-27 10:37 | P.OP_ITS ---
Operative Note Operative Note Date of Service: 11/27/20 Narrative: Preop diagnosis: right foot ulcer with eschar Postop diagnosis right foot ulcer with eschar Procedure: Excisional debridement, right foot ulcer with eschar, including skin, subcutaneous fat and soft tissue Surgeon: Kuldip Richards MD [employer] Architect: DIANNA Levy The patient is a 60-year-old male, known diabetic, with an ulcer on the foot near the metatarsophalangeal area. He had been seen in the office and was noted to have a thick eschar. I had attempted to debride this in the office but he had significant pain and tenderness. I therefore scheduled him for excisional debridement in the operating room under anesthesia. He understood the technique of the procedure. He was ordered risks, benefits, and alternatives. He was brought to the operating room placed supine under general anesthesia via under mask airway. The right foot was prepped and draped in the usual sterile fashion. A surgical time-out was done. The patient cefazolin 2 g IV preoperatively. Examination of the right foot revealed the ulcer on the lateral aspect as described above. There was note of a thick eschar dark, dry, measuring about 3 x 2 cm. I proceeded to excise this sharply using a blade 15. As well as make curved Khan scissors. I removed this entire eschar including the underline tissue he did not appear viable. The distal metatarsal was actually visible and I had to use a curette to gently debride this as well. Some of these tissue were sent for pathology. I then irrigated the area. I noticed that there was minimal bleeding. The entire debrided surface was 4 x 3 cm at the end. I applied wet to dry dressings and wrapped the foot with Kerlix roll. The procedure was then completed The patient tolerated procedure well. There were no complications noted. Estimated blood loss was about less than 1 cc. The patient was then extubated and transferred to the recovery room with stable vital signs. I will refer the patient for vascular workup as well to Dr. Alas.
== END 2020-11-27 12:09 | disposition home or self-care (01) ==
PROVIDERS: PCP Internal Medicine; Visit Provider Surgery
PROC: (CPT 11044; principal; 2020-11-27 09:40)
DX: E11.621 Type 2 diabetes mellitus with foot ulcer (principal); L97.519 Non-pressure chronic ulcer of other part of right foot with unspecified severity; I10 Essential (primary) hypertension; I48.0 Paroxysmal atrial fibrillation; I25.10 Atherosclerotic heart disease of native coronary artery without angina pectoris; Z79.01 Long term (current) use of anticoagulants; Z79.82 Long term (current) use of aspirin; Z79.84 Long term (current) use of oral hypoglycemic drugs; Z79.899 Other long term (current) drug therapy; Z88.5 Allergy status to narcotic agent
CPT/HCPCS: 11044; 82947; 88304; J0690; J2370; J2405; J3010

== ENCOUNTER → 2020-12-08 12:51 | Outpatient (BNVA) | payer BC, SELFPAY | PROVIDERS: PCP Internal Medicine; Visit Provider Surgery Vascular Surgery ==

== ENCOUNTER 2020-12-08 13:37 | Inpatient (IN) | payer BC, SELFPAY ==
--- NOTE | ~2020-12-08 | NM_ITS ---
Myocardial perfusion study Indication: Preoperative cardiovascular exam to vascular surgery Technique: The patient was brought in for a Lexiscan perfusion study on 12/11/2020. Patient performed low-level exercise and was injected 0.4 mg of Lexiscan intravenously. Within a minute of injection, 25 mCi of sestamibi was given intravenously. Images were obtained using the SPECT gamma camera interlaced with the gating device. Images were obtained in supine position. Resting perfusion study was performed on 12/12/2020. Patient was administered 25 mCi of sestamibi intravenously at rest. Images were then obtained in supine position. Images obtained with and without CT attenuation. Total DLP 79 mGy-cm. Images were processed with the software and compared side to side in short axis, horizontal long axis and vertical long axis views. Findings: The stress perfusion study showed nonattenuated images show absent uptake in the basal inferior wall and mildly to moderately reduced uptake in the mid and apical inferior as well as mildly reduced uptake in the inferoseptal wall of the LV myocardium. Remainder of the LV myocardium is normally perfused. Attenuated corrected images show moderately reduced uptake in the apex as well as mildly reduced uptake in the inferoapical. Absent uptake in the basal inferior and mildly reduced uptake in the mid inferior wall of the LV myocardium. Is also moderately reduced uptake in the distal inferoseptal wall of the LV myocardium.. The gated study shows low normal LV systolic function with calculated LVEF of 50%. LV cavity is mildly dilated size. The gated study shows absent wall thickening and contraction of basal inferior segments with reduced wall motion of the mid inferior wall of the LV myocardium.. Resting study shows nontender images show absent uptake in the basal inferior wall of the LV myocardium with improved uptake in the inferoapical and distal septum of the LV myocardium. This findings are confirmed on attenuated corrected images. Gating at rest reveals basal and mid inferior wall motion abnormality with ejection fraction at 54%. The findings are consistent with basal inferior myocardial infarct segments with reversible ischemia of inferoapical and distal septum of the LV myocardium.. NM/NM ayan perf SPECT rest & str Impression: 1. Myocardial perfusion imaging study shows basal inferior myocardial infarct with ischemia and inferoapical and distal septum of the myocardium in RCA territory 2. Gated LVEF is 50% 3. Transient ischemic dilatation not present EKG is nondiagnostic for ischemia
--- NOTE | ~2020-12-08 | US_ITS ---
EXAMINATION: NONINVASIVE ASSESSMENT OF THE ARTERIES OF BOTH LOWER EXTREMITIES WITH PVR EXAM AND BILATERAL LOWER EXTREMITY DUPLEX CLINICAL INFORMATION: Nonhealing ulcer right foot TECHNIQUE: Ankle pulse volume recordings, ankle pressure measurements and ankle brachial indices were obtained of the lower extremity arterial system bilaterally in addition to duplex Doppler techniques with wave form analysis and measurement of velocities in the common femoral, profunda femoral, superficial femoral, popliteal and tibial arteries. The study was performed only at rest. COMPARISON: None FINDINGS: a) AT REST: RIGHT LE. The right ankle-brachial index is: 0.5 2. Right ankle pressure: Decreased 3. Right ankle PVR waveform: Dampened 4. Right direct duplex Doppler findings: There is evidence of atherosclerotic disease. There is severe narrowing of the distal superficial femoral artery. Multiple SFA collateral vessels are seen. * Common femoral artery: 150 cm/s, Diastolic flow reversal: No. Biphasic. * Superficial femoral artery (proximal, mid, distal): 96, 81 and 415 cm/s, Diastolic flow reversal: No. * Popliteal artery: 46 cm/s, Diastolic flow reversal: No. Biphasic. * Posterior tibial artery: 46 cm/s, Diastolic flow reversal: No. Monophasic. There is increased peak systolic velocity in the visualized proximal profunda femoral artery measuring 232 cm/s. LEFT LE. The left ankle-brachial index is: 0.7 2. Left ankle pressure: Decreased 3. Left ankle PVR waveform: Dampened 4. Left direct duplex Doppler findings: There is evidence of atherosclerotic disease. There is a patent bypass graft from the left common femoral artery/proximal superficial artery to the proximal posterior tibial artery. This demonstrates decreased monophasic flow distally. * Common femoral artery: 115 cm/s, Diastolic flow reversal: Yes * Superficial femoral artery (proximal, mid, distal): Occluded : * Popliteal artery: Occluded * Posterior tibial artery: 34 cm/s, Diastolic flow reversal: No. Monophasic VINCE Reference: * >0.97-1.25 = normal - no significant arterial disease * 0.75-0.96 = mild peripheral arterial disease * 0.5-0.74 = moderate peripheral arterial disease * <0.50 = severe peripheral arterial disease US/US arterial duplex LE BI IMPRESSION: Right: The right VINCE is 0.5 suggestive of moderate to severe atherosclerotic disease. Hemodynamically significant right distal SFA stenosis and visualized collateral vessels. Increased peak systolic velocity in the visualized proximal profunda femoral artery. Left: Occluded [place] left SFA and popliteal arteries. Patent left common femoral/proximal superficial femoral to posterior tibial artery bypass graft. The graft has decreased monophasic flow distally. There is decreased monophasic flow in the [place] left posterior tibial artery. The left VINCE is 0.7 suggestive of moderate obstructive atherosclerotic disease.
--- NOTE | ~2020-12-08 | CT_ITS ---
EXAMINATION: CT ANGIOGRAPHY LEGS WITH RUNOFF CLINICAL INFORMATION: Postop right femoropopliteal bypass. Question occluded bypass. COMPARISON: Previous angiogram 12/10/[address] of the abdomen and pelvis December 2016 TECHNIQUE: Axial images through the abdomen and pelvis and bilateral lower extremities following 100 mL Omnipaque 350 intravenous contrast. Sagittal and coronal reconstructions on the technologist workstation were performed. This CT examination was performed using dose optimization techniques as appropriate, variously including the following: *Automated exposure control *Adjustment of mA and/or kV according to patient size (this includes techniques or standardized protocols for targeted exams where dose is matched to indication/reason for exam; i.e. extremities or head) *Use of iterative reconstruction technique DLP: 757 mGy-cm FINDINGS: Vascular: There is evidence of severe atherosclerotic disease. There is significant atherosclerotic plaque seen in the mid and distal abdominal aorta. No focal aortic stenosis is seen. There is a moderate stenosis at the origin of the celiac axis. The celiac axis is otherwise patent. The SMA and GRANT are patent. There are single patent renal arteries bilaterally. There is a mild to moderate stenosis at the origin of the right common iliac artery. There are moderate to severe segmental stenoses of the right external iliac artery. There is no significant plaque and mild stenosis of the distal right external iliac left proximal right common femoral artery. There is a diffuse disease of the right internal iliac artery. There is a mild stenosis of the proximal left common iliac artery. There is a short segment stent in the mid and distal left common iliac artery is patent. There are mild to moderate segmental stenoses of the left external iliac artery. The left internal iliac artery is patent. The left common femoral artery is patent. Right: There is plaque and mild stenosis of the distal right external iliac artery/origin of the right common femoral artery. The remainder of the right common femoral artery is 8. There is a stenosis at the origin of the right profunda. There is severe diffuse disease of the [place] right SFA with segmental severe stenoses. There is a occlusion of the distal SFA. There is a new right femoral to above-knee popliteal bypass graft. No contrast opacification of the graft is seen suggestive of an occluded graft.. There is air in the surrounding soft tissues likely related to recent surgery. No fluid collection is seen. There is a severe disease/stenosis of the proximal above-knee popliteal artery. The more distal popliteal artery is small in caliber but patent. There is two-vessel anterior tibial and peroneal artery runoff to the right lower leg. Left: There is a mild stenosis of the distal left external iliac artery/origin of the left common femoral artery. The left common femoral artery is otherwise patent. The left profunda is patent. The left [place] SFA is occluded. There are several osseous densities in the left [place] SFA. There is a left common femoral to below-knee popliteal artery bypass graft that is patent. There is severe disease of the left above-knee popliteal artery. There is question of a stenosis of the below-knee popliteal artery at the distal anastomosis. There is three-vessel runoff to the left lower leg. Nonvascular:. There is dependent atelectasis at the lung bases. Liver and gallbladder are unremarkable. The spleen is unremarkable. The pancreas is unremarkable. The adrenal glands are unremarkable. There is a 2 cm cyst in the lower pole the right kidney. There may be a right extrarenal pelvis. There is mild left hydronephrosis. Left ureter does not appear dilated. There is a Champion catheter in the bladder. There is a small amount of urine seen in the bladder. The bladder wall appears diffusely thickened. The prostate gland does not appear enlarged. There is stool throughout the colon suggestive of constipation. Small and large bowel is otherwise unremarkable. The appendix is not seen. No ascites is seen. There is shotty right inguinal lymphadenopathy. No enlarged lymph nodes are seen. There is skin moris over the right groin and right medial thigh. Review at bone windows demonstrates mild degenerative changes of the spine. CT/CT angio abd aorta runoff IMPRESSION: Severe atherosclerotic disease of the abdominal aorta. No focal stenosis. Right: Mild proximal right common iliac stenosis. Moderate a segmental right external iliac stenoses. Mild stenosis of plaque at the junction of the distal right external iliac artery and origin of the right common femoral artery. The remainder of the right common femoral artery is patent. Severely diseased [place] SFA with multiple segmental segmental stenoses and distal SFA occlusion. Stenosis at the origin of the right profunda. Occluded right femoral to above-knee popliteal bypass graft. Severely diseased above-knee popliteal artery. Small caliber but patent below-knee popliteal artery. Two-vessel anterior tibial and peroneal artery runoff to the right lower leg. Left: Stent in the left common iliac artery. Moderate segmental left external iliac stenoses area of mild stenosis at the distal left external iliac/proximal common femoral artery. Patent profunda. Occluded left SFA. Patent left femoropopliteal vein graft found below-knee pop. Question stenosis of the below-knee popliteal artery at the distal anastomosis. Three-vessel runoff to the left lower leg. Nonvascular: Right renal cysts. Mild left hydronephrosis. This may represent a mild left UPJ obstruction. Champion catheter in the bladder. The bladder wall is diffusely thickened. Constipation. Findings were discussed with Dr. Evette siddiqui at the completion of the exam.
--- NOTE | ~2020-12-08 | XR_ITS ---
EXAMINATION: XR FOOT, RIGHT CLINICAL INFORMATION: Cellulitis. Rule out osteomyelitis. COMPARISON: None TECHNIQUE: AP, lateral, and oblique views of the right foot. FINDINGS: The ankle mortise and subtalar joints are normal. There is a small calcaneal heel and moderate-sized retrocalcaneal enthesophytes. The soft tissues are normal. XR/XR foot RT min 3V IMPRESSION: Large retrocalcaneal enthesophyte. Small calcaneal heel enthesophyte.
--- NOTE | ~2020-12-08 | US_ITS ---
EXAMINATION: NONINVASIVE ASSESSMENT OF THE ARTERIES OF BOTH LOWER EXTREMITIES WITH PVR EXAM AND BILATERAL LOWER EXTREMITY DUPLEX CLINICAL INFORMATION: Nonhealing ulcer right foot TECHNIQUE: Ankle pulse volume recordings, ankle pressure measurements and ankle brachial indices were obtained of the lower extremity arterial system bilaterally in addition to duplex Doppler techniques with wave form analysis and measurement of velocities in the common femoral, profunda femoral, superficial femoral, popliteal and tibial arteries. The study was performed only at rest. COMPARISON: None FINDINGS: a) AT REST: RIGHT LE. The right ankle-brachial index is: 0.5 2. Right ankle pressure: Decreased 3. Right ankle PVR waveform: Dampened 4. Right direct duplex Doppler findings: There is evidence of atherosclerotic disease. There is severe narrowing of the distal superficial femoral artery. Multiple SFA collateral vessels are seen. * Common femoral artery: 150 cm/s, Diastolic flow reversal: No. Biphasic. * Superficial femoral artery (proximal, mid, distal): 96, 81 and 415 cm/s, Diastolic flow reversal: No. * Popliteal artery: 46 cm/s, Diastolic flow reversal: No. Biphasic. * Posterior tibial artery: 46 cm/s, Diastolic flow reversal: No. Monophasic. There is increased peak systolic velocity in the visualized proximal profunda femoral artery measuring 232 cm/s. LEFT LE. The left ankle-brachial index is: 0.7 2. Left ankle pressure: Decreased 3. Left ankle PVR waveform: Dampened 4. Left direct duplex Doppler findings: There is evidence of atherosclerotic disease. There is a patent bypass graft from the left common femoral artery/proximal superficial artery to the proximal posterior tibial artery. This demonstrates decreased monophasic flow distally. * Common femoral artery: 115 cm/s, Diastolic flow reversal: Yes * Superficial femoral artery (proximal, mid, distal): Occluded : * Popliteal artery: Occluded * Posterior tibial artery: 34 cm/s, Diastolic flow reversal: No. Monophasic VINCE Reference: * >0.97-1.25 = normal - no significant arterial disease * 0.75-0.96 = mild peripheral arterial disease * 0.5-0.74 = moderate peripheral arterial disease * <0.50 = severe peripheral arterial disease US/US VINCE complete IMPRESSION: Right: The right VINCE is 0.5 suggestive of moderate to severe atherosclerotic disease. Hemodynamically significant right distal SFA stenosis and visualized collateral vessels. Increased peak systolic velocity in the visualized proximal profunda femoral artery. Left: Occluded [place] left SFA and popliteal arteries. Patent left common femoral/proximal superficial femoral to posterior tibial artery bypass graft. The graft has decreased monophasic flow distally. There is decreased monophasic flow in the [place] left posterior tibial artery. The left VINCE is 0.7 suggestive of moderate obstructive atherosclerotic disease.
[2020-12-08 13:43] VITALS: BP 108/74; PULSE 88; RESP 16; TEMP 36.6; O2SAT 98; BMI 22.5
--- NOTE | 2020-12-08 14:32 | ECG_ITS ---
Test Reason : lower extremity Blood Pressure : / mmHG Vent. Rate : 075 BPM Atrial Rate : 075 BPM P-R Int : 148 ms QRS Dur : 096 ms QT Int : 372 ms P-R-T Axes : 078 071 067 degrees QTc Int : 415 ms Normal sinus rhythm Normal ECG T wave inversion no longer evident in Inferior leads Referred By: Tom Nolasco Electronically Signed By:EDISON KING MD
--- NOTE | 2020-12-08 14:48 | ED.GENADULT ---
HPI - General Adult General Chief complaint: Extremity Injury, Lower Stated complaint: rt foot ulcer Time Seen by Provider: 12/08/20 14:08 Source: patient Mode of arrival: ambulatory Limitations: no limitations History of Present Illness HPI narrative: 60-year-old male came in for evaluation of diabetic infected foot. 60-year-old male with history of peripheral vascular disease, diabetes, chronic right foot ulcer, the wound has been followed by general surgery/vascular surgery. Due to worsening of the ulcer despite the recent debridement by Dr. Richards patient was sent to the ED for further evaluation. Related Data Home Medications Medication Instructions Recorded Confirmed apixaban 5 mg tablet (Eliquis) 1 tab PO BID 11/11/20 12/08/20 aspirin 81 mg tablet 81 mg PO DAILY 11/11/20 12/08/20 atorvastatin 80 mg tablet 1 tab PO DAILY 11/11/20 12/08/20 carvedilol 6.25 mg tablet 1 tab PO BID 11/11/20 12/08/20 dapagliflozin 10 mg tablet 1 tab PO DAILY 11/11/20 12/08/20 (Farxiga) insulin glargine 100 unit/mL (3 40 unit SUBCUT BEDTIME 11/11/20 12/08/20 mL) subcutaneous pen (Basaglar KwikPen U-100 Insulin) lisinopril 10 mg tablet 1 tab PO DAILY 11/11/20 12/08/20 metformin 850 mg tablet 1 tab PO BID 11/11/20 12/08/20 tamsulosin 0.4 mg capsule 1 cap PO DAILY 11/11/20 12/08/20 gabapentin 300 mg capsule 300 mg PO TID 12/08/20 12/08/20 Previous Rx's Medication Instructions Recorded ondansetron HCl 4 mg tablet 4 mg PO Q8H PRN #10 tab 11/30/20 (Zofran) oxycodone-acetaminophen 5 mg-325 2 tab PO Q4-6H PRN #30 tab 12/07/20 mg tablet (Percocet) Allergies Allergy/AdvReac Type Severity Reaction Status Date / Time codeine [Codeine] AdvReac Unknown SHAKING Verified 12/08/20 12:57 Review of Systems Review of Systems: All other systems are reviewed and are negative Constitutional: Reports as per HPI and Reports no additional constitutional complaints Eyes: Reports as per HPI and Reports no additional eye complaints Reports system reviewed and no additional complaints, except as documented Cardiovascular: Reports as per HPI and Reports no additional cardiovascular complaints Respiratory: Reports as per HPI and Reports no additional respiratory complaints Gastrointestinal: Reports as per HPI and Reports no additional gastrointestinal complaints Genitourinary: Reports no additional female genitourinary complaints Musculoskeletal: Reports no additional musculoskeletal complaints Skin/Breast: Reports system reviewed and no additional complaints, except as docu Psychiatric: Reports no additional psychiatric complaints Endocrine: Reports no additional endocrine complaints Hematologic/Lymphatic: Reports no additional hematologic/lymphatic complaints Allergic/Immunologic: Reports no additional allergic/immunologic complaints Reports system reviewed and no additional complaints, except as documented and Reports Abnormal speech present [facility] Past Medical History Medical History CAD (coronary artery disease) Cellulitis in diabetic foot Diabetes Eschar of foot HLD (hyperlipidemia) HTN (hypertension) PAF (paroxysmal atrial fibrillation) Pressure ulcer, unstageable, with eschar Surgical History History of surgery on upper extremity Hx of CABG Hx of vascular surgery Family History Family History Mother Colon cancer Father Diabetes Social History Social History Household Members: Spouse Housing: House Do you presently have visiting nurse or other home services: No Patient Tobacco Use Status: Current someday Tobacco user Tobacco use type: Cigarette Cigarettes Per Day: 3 Advance Directives: No Current occupational status: employed Physical Exam Vital Signs: Vital Signs: Last Vital Signs Temp 97.7 F 12/08/20 15:29 Pulse 75 12/08/20 15:29 Resp 18 12/08/20 15:29 BP 93/52 L 12/08/20 15:29 Pulse Ox 98 12/08/20 15:29 Body Mass Index 22.5 Vital signs have been reviewed as appeared to be correct. Blood pressure normal. Heart rate normal. Respiration rate normal. Temperature normal. Oxygen saturation normal. Appearance: Alert. Oriented X3. No acute distress. Head: Normal external exam. Normocephalic. Atraumatic. No Byrne signs noted. No raccoon eyes noted Eyes: PERRLA. EOMI. Conjunctiva and sclera normal. Eyelids normal. ENT: TM's Normal. Pharynx normal. Uvula midline. Moist mucous membranes. No trismus noted. No drooling noted. No muffled voice noted. Neck: Normal inspection. Neck supple. FROM. No adenopathy. Thyroid Normal. No meningeal signs. No neck mass noted. CVS: Normal heart rate and rhythm. Heart sound normal. No murmurs noted. Pulses normal throughout. Respiratory: No respiratory distress. Painless inspiration. Breath sounds normal. No wheezes/rales/rhonchi noted. Chest nontender. No accessory muscle usage noted or decreased air movement noted. Abdomen: Soft and nontender. Bowel sounds normal in all 4 quadrants. No distention noted. No organomegaly noted. No visible injury noted. Back: No CVA tenderness. Full range of motion noted. Skin: Skin warm and dry. Normal skin color. Normal skin turgor. No rashes/lesions/lacerations noted. Extremities: Right foot exam: Dorsal 4 x 5 cm area of erythema, redness, hotness with ulcerative lesion at the middle, no DP/PT pulsation, darkening of right 5th toe (wet gangrene). Neuro: Oriented X 3. Cranial nerve exam: II-XII are grossly intact No motor deficit. No sensory deficit. Reflexes normal. Course Course Course Narrative: Assessment and plan. Right foot cellulitis with chronic right foot ulcer. Patient will need vascular procedure to ensure blood supply to the right foot, case discussed with Dr. Alas who recommended to admit the patient treat medically 1st and he will consult as an inpatient. Medical Decision Making Medical Records Medical records reviewed: Yes I reviewed the patient's medical records. Lab Data Lab results reviewed: Yes I reviewed the patient's lab results. Result diagrams: 12/08/20 15:06 12/08/20 15:06 Labs: Lab Results 12/08/20 12/08/20 12/08/20 Range/Units 14:55 15:06 15:06 WBC 15.3 H (4.8-10.8) X10*3/uL RBC 4.31 L (4.60-5.80) X10*6/uL Hgb 13.5 L (14.0-18.0) g/dl Hct 41.5 L (42-52) % MCV 96.3 (80-98) fL MCH 31.3 (27.0-33.0) pg MCHC 32.5 (31.0-36.0) g/dl RDW 12.3 (11.0-16.0) % Plt Count 427 H D (160-400) X10*3/uL MPV 9.2 L (9.4-12.4) fL Immature Gran % (Auto) 0.5 H (0.0-0.4) % Neut % (Auto) 67.1 (45-73) % Lymph % (Auto) 21.2 (20-40) % [place] % (Auto) 8.1 (2-11) % Eos % (Auto) 2.8 (0-4) % Baso % (Auto) 0.3 (0-2) % Lymph # (Auto) 3.2 (1.2-4.9) X10*3/uL [place] # (Auto) 1.2 (0.1-1.2) X10*3/uL Eos # (Auto) 0.4 (0.0-0.4) X10*3/uL Baso # (Auto) 0.1 (0.0-0.2) X10*3/uL Abs Immat Gran (auto) 0.07 H (0.00-0.03) X10*3/uL Absolute Neuts (auto) 10.2 H (2.0-8.3) X10*3/uL Absolute Nucleated RBC 0.000 (0.0-0.012) X10*3/uL Nucleated RBC % (auto) 0.0 (0.0-0.2) /100WBC Sodium 136 (135-145) mmol/L Potassium 4.9 (3.3-5.1) mmol/L Chloride 99 (96-108) mmol/L Carbon Dioxide 28 (22-29) mmol/L Anion Gap 14 (12-20) BUN 24 H (9-16) mg/dL Creatinine 0.98 (0.5-1.4) mg/dL Estim Creat Clear Calc 83.2 Estimated GFR > 60 Random Glucose 139 H (60-115) mg/dL Lactic Acid (0.5-2.0) mmol/L Calcium 9.1 (8.4-10.2) mg/dL Total Bilirubin (0.0-1.0) mg/dL Direct Bilirubin (0.0-0.5) mg/dL AST (5-37) U/L ALT (0-40) U/L Alkaline Phosphatase (39-117) U/L Total Protein (6.5-8.0) g/dL Albumin (3.5-5.0) g/dL Lipase (8-78) U/L COVID-19 (PAULINE) Negative (Negative) COVID-19 Clin Com See Note 12/08/20 12/08/20 Range/Units 15:06 15:06 WBC (4.8-10.8) X10*3/uL RBC (4.60-5.80) X10*6/uL Hgb (14.0-18.0) g/dl Hct (42-52) % MCV (80-98) fL MCH (27.0-33.0) pg MCHC (31.0-36.0) g/dl RDW (11.0-16.0) % Plt Count (160-400) X10*3/uL MPV (9.4-12.4) fL Immature Gran % (Auto) (0.0-0.4) % Neut % (Auto) (45-73) % Lymph % (Auto) (20-40) % [place] % (Auto) (2-11) % Eos % (Auto) (0-4) % Baso % (Auto) (0-2) % Lymph # (Auto) (1.2-4.9) X10*3/uL [place] # (Auto) (0.1-1.2) X10*3/uL Eos # (Auto) (0.0-0.4) X10*3/uL Baso # (Auto) (0.0-0.2) X10*3/uL Abs Immat Gran (auto) (0.00-0.03) X10*3/uL Absolute Neuts (auto) (2.0-8.3) X10*3/uL Absolute Nucleated RBC (0.0-0.012) X10*3/uL Nucleated RBC % (auto) (0.0-0.2) /100WBC Sodium (135-145) mmol/L Potassium (3.3-5.1) mmol/L Chloride (96-108) mmol/L Carbon Dioxide (22-29) mmol/L Anion Gap (12-20) BUN (9-16) mg/dL Creatinine (0.5-1.4) mg/dL Estim Creat Clear Calc Estimated GFR Random Glucose (60-115) mg/dL Lactic Acid 1.1 (0.5-2.0) mmol/L Calcium (8.4-10.2) mg/dL Total Bilirubin 0.2 (0.0-1.0) mg/dL Direct Bilirubin < 0.2 (0.0-0.5) mg/dL AST 14 (5-37) U/L ALT 9 (0-40) U/L Alkaline Phosphatase 122 H (39-117) U/L Total Protein 7.5 (6.5-8.0) g/dL Albumin 4.2 (3.5-5.0) g/dL Lipase 29 (8-78) U/L COVID-19 (PAULINE) (Negative) COVID-19 Clin Com Imaging Data Right foot x-ray: Radiologist's impression: Large retrocalcaneal? enthesophyte. ? Small calcaneal heel enthesophyte. Discharge Plan Discharge Clinical Impression: Diabetic foot ulcer, Cellulitis, Peripheral vascular disease Patient Disposition: Admitted As Inpatient
[2020-12-08] MEDS: Morphine Sulfate 2 MG/ML CARTRIDGE 1 MG IVPUSH (15:08)
[2020-12-08] MEDS: Piperacillin Sodium/Tazobactam 3.375 GM in 0.9 % Sodium Chloride 50 ML IV ×2 (15:10→20:50)
[2020-12-08 15:13] LABS: MANUAL DIFF FLAG NO
[2020-12-08] MEDS: 0.9 % Sodium Chloride 1,000 ML 999 ML IVCONT (15:13)
[2020-12-08 15:14] LABS: Basophils Absolute Auto 0.1 X10*3/uL (0.0-0.2); Basophils Percent Auto 0.3 % (0-2); Eosinophils Absolute Auto 0.4 X10*3/uL (0.0-0.4); Eosinophils Percent Auto 2.8 % (0-4); Hematocrit 41.5 % (42-52); Hemoglobin 13.5 g/dl (14.0-18.0); Imm Gran Abs Auto 0.07 X10*3/uL (0.00-0.03); Imm Gran Pct Auto 0.5 % (0.0-0.4); Lymphocytes Absolute Auto 3.2 X10*3/uL (1.2-4.9); Lymphocytes Percent Auto 21.2 % (20-40); Mean Corpuscular HGB Conc 32.5 g/dl (31.0-36.0); Mean Corpuscular Hemoglobin 31.3 pg (27.0-33.0); Mean Corpuscular Volume 96.3 fL (80-98); Mean Platelet Volume 9.2 fL (9.4-12.4); Monocytes Absolute Auto 1.2 X10*3/uL (0.1-1.2); Monocytes Percent Auto 8.1 % (2-11); Neutrophils Absolute Auto 10.2 X10*3/uL (2.0-8.3); Neutrophils Percent Auto 67.1 % (45-73); Platelet Count 427 X10*3/uL (160-400); Red Blood Count 4.31 X10*6/uL (4.60-5.80); Red Cell Distribution Width 12.3 % (11.0-16.0); White Blood Count 15.3 X10*3/uL (4.8-10.8)
[2020-12-08 15:17] LABS: COVID-19 Test Negative (Negative); IDNOW Serial# 9DD0AD1C
[2020-12-08 15:28] LABS: Anion Gap 14 (12-20); Blood Urea Nitrogen 24 mg/dL (9-16); Calcium 9.1 mg/dL (8.4-10.2); Carbon Dioxide 28 mmol/L (22-29); Chloride 99 mmol/L (96-108); Creatinine Clr Calc Pharmacy 83.2; Estimated Glomerular Filt Rate > 60; Glucose Random 139 mg/dL (60-115); Potassium 4.9 mmol/L (3.3-5.1); Sodium 136 mmol/L (135-145)
[2020-12-08 15:29] VITALS: BP 93/52; PULSE 75; RESP 18; TEMP 36.5; O2SAT 98
[2020-12-08 15:31] LABS: Alanine Aminotransferase 9 U/L (0-40); Albumin Level 4.2 g/dL (3.5-5.0); Alkaline Phosphatase 122 U/L (39-117); Aspartate Amino Transferase 14 U/L (5-37); Bilirubin Direct < 0.2 mg/dL (0.0-0.5); Bilirubin Total 0.2 mg/dL (0.0-1.0); Lipase 29 U/L (8-78); Total Protein 7.5 g/dL (6.5-8.0)
[2020-12-08 15:32] LABS: Lactic Acid 1.1 mmol/L (0.5-2.0)
[2020-12-08] MEDS: vancomycin HCL 1,000 MG in 0.9 % Sodium Chloride 250 ML 270 MG IV (16:02)
--- NOTE | 2020-12-08 16:48 | PM.IMHP ---
History of Present Illness Date of Service: 12/08/20 Attending physician on admission: Tristen Canales Chief Complaint: Right foot pain 60-year-old male with history of peripheral vascular disease, diabetes on insulin, coronary artery disease status post stent recently discharged from [facility] on 11/14/20, after being treated for right foot cellulitis, and right foot ulcer, patient recently underwent debridement of right toe ulcer by Dr. Richards, patient came to emergency room due to worsening redness of right foot, and swelling, associated with significant pain , he also complaining of associated chills, no fevers, patient has been sleeping on a recliner since unable to sleep flat due to significant pain in right foot, emergency room physician discussed case with Dr. Alas who recommended to admit patient for further vascular testing, labs showed elevated WBC count, x-ray foot obtained that showed large retrocalcaneal enthesophyte. Review of Systems Review of Systems: General no headache no dizziness. no fever ,positive chills. CVS no chest pain, no palpitation. Respiratory no cough, no sputum production ,no respiratory distress. Gastrointestinal no nausea, no vomiting, no abdominal pain Yes all other systems are reviewed and are negative [facility] Medical History CAD (coronary artery disease) Cellulitis in diabetic foot Diabetes Eschar of foot HLD (hyperlipidemia) HTN (hypertension) PAF (paroxysmal atrial fibrillation) Pressure ulcer, unstageable, with eschar Family History Mother Colon cancer Father Diabetes Pertinent family history: No family history of premature coronary artery disease Surgical History History of surgery on upper extremity Hx of CABG Hx of vascular surgery Social History Household Members: Spouse Housing: House Do you presently have visiting nurse or other home services: No Patient Tobacco Use Status: Current someday Tobacco user Tobacco use type: Cigarette Cigarettes Per Day: 3 Advance Directives: No Current occupational status: employed Meds Allergies Allergy/AdvReac Type Severity Reaction Status Date / Time codeine [Codeine] AdvReac Unknown SHAKING Verified 12/08/20 12:57 Active Medications: Current Medications Acetaminophen (Acetaminophen 325 Mg Tablet) 650 mg PO Q6H PRN PRN Reason: Pain, Mild (Pain Scale 1-3) Apixaban (Apixaban 5 Mg Tablet) 5 mg PO BID [facility] Atorvastatin Calcium (Atorvastatin Calcium 80 Mg Tablet) 80 mg PO DAILY [facility] Carvedilol (Carvedilol 3.125 Mg Tablet) 3.125 mg PO BID [facility]; Protocol Dextrose (Dextrose 50 % 25 Gm/50 Ml Vial) 25 gm IVPUSH Q15M PRN; Protocol PRN Reason: per Hypoglycemia Standing Ord. Glucose (Glucose Gel 15 Gm Gel..Gram.) 15 gm PO Q15M PRN; Protocol PRN Reason: per Hypoglycemia Standing Ord. Piperacillin Sod/Tazobactam (Sod 3.375 gm/ Sodium Chloride) 50 mls @ 100 mls/hr IV Q6H [facility] Vancomycin HCl 1,000 mg/ (Sodium Chloride) 270 mls @ 270 mls/hr IV Q12H [facility] Insulin Human Lispro (Insulin Lispro 100 Unit/Ml 3 Ml Vial) 0 unit SUBCUT QIDACHS [facility]; Protocol Magnesium Hydroxide (Milk Of Magnesia 30 Ml Oral.Susp) 30 ml PO DAILY PRN PRN Reason: Constipation Morphine Sulfate (Morphine Sulfate 4 Mg/Ml Cartridge) 4 mg IVPUSH Q4H PRN; Protocol PRN Reason: Pain, Severe (Pain Scale 7-10) Ondansetron HCl (Ondansetron Hcl 4 Mg/2 Ml Vial) 4 mg IVPUSH Q8H PRN PRN Reason: Nausea and Vomiting Pharmacy Consult (Consult Rx Perform Med Rec) 1 each MISCELLANE ONCE PRN PRN Reason: Consult order Pharmacy Consult (Consult Rx Vancomycin Dosing) 1 each MISCELLANE DAILY PRN PRN Reason: Consult order Sodium Chloride (0.9 % Sodium Chloride Flush 3 Ml Syringe) [address] [facility] Tamsulosin HCl (Tamsulosin Hcl 0.4 Mg Capsule) 0.4 mg PO DAILY [facility] Home Medications Medication Instructions Recorded Confirmed Last Taken Type apixaban 5 mg tablet (Eliquis) 1 tab PO BID 11/11/20 12/08/20 11/26/20 History aspirin 81 mg tablet 81 mg PO DAILY 11/11/20 12/08/20 11/26/20 History atorvastatin 80 mg tablet 1 tab PO DAILY 11/11/20 12/08/20 11/11/20 History carvedilol 6.25 mg tablet 1 tab PO BID 11/11/20 12/08/20 11/11/20 History dapagliflozin 10 mg tablet 1 tab PO DAILY 11/11/20 12/08/20 11/11/20 History ([facility]) insulin glargine 100 unit/mL (3 40 unit SUBCUT BEDTIME 11/11/20 12/08/20 11/11/20 History mL) subcutaneous pen (Basaglar KwikPen U-100 Insulin) lisinopril 10 mg tablet 1 tab PO DAILY 11/11/20 12/08/20 11/11/20 History metformin 850 mg tablet 1 tab PO BID 11/11/20 12/08/20 11/11/20 History tamsulosin 0.4 mg capsule 1 cap PO DAILY 11/11/20 12/08/20 11/11/20 History gabapentin 300 mg capsule 300 mg PO TID 12/08/20 12/08/20 Unknown History Physical Exam Vital Signs and Narrative: Vital Signs: Last Vital Signs Temp 97.7 F 12/08/20 15:29 Pulse 75 12/08/20 15:29 Resp 18 12/08/20 15:29 BP 93/52 L 12/08/20 15:29 Pulse Ox 98 12/08/20 15:29 Body Mass Index 22.5 Const: Other: General alert oriented x3, no acute distress. Neck supple no JVD. CVS regular rate rhythm, Respiratory lungs clear to auscultation, no respiratory distress, no wheeze, no rhonchi. Gastrointestinal abdomen soft, nontender, bowel sounds audible, no guarding , no rigidity. Extremities bilateral pitting edema, right foot significant erythema dorsum of foot, purplish discoloration right small toe, tenderness to palpation, small open ulcer lateral margin right toe, no drainage noted, loss of hair Neuro nonfocal,speech clear. Skin no rash Psych appropriate affect Results Labs CBC and Chem 7: 12/08/20 15:06 12/08/20 15:06 Labs: Laboratory Results - last 24 hr 12/08/20 12/08/20 12/08/20 14:55 15:06 15:06 MCV 96.3 MCH 31.3 MCHC 32.5 RDW 12.3 Plt Count 427 H D MPV 9.2 L Immature Gran % (Auto) 0.5 H Neut % (Auto) 67.1 Lymph % (Auto) 21.2 [place] % (Auto) 8.1 Eos % (Auto) 2.8 Baso % (Auto) 0.3 Lymph # (Auto) 3.2 [place] # (Auto) 1.2 Eos # (Auto) 0.4 Baso # (Auto) 0.1 Abs Immat Gran (auto) 0.07 H Absolute Neuts (auto) 10.2 H Absolute Nucleated RBC 0.000 Nucleated RBC % (auto) 0.0 Anion Gap 14 Estim Creat Clear Calc 83.2 Estimated GFR > 60 Random Glucose 139 H Lactic Acid Calcium 9.1 Total Bilirubin Direct Bilirubin AST ALT Alkaline Phosphatase Total Protein Albumin Lipase COVID-19 (PAULINE) Negative COVID-19 Clin Com See Note 12/08/20 12/08/20 15:06 15:06 MCV MCH MCHC RDW Plt Count MPV Immature Gran % (Auto) Neut % (Auto) Lymph % (Auto) [place] % (Auto) Eos % (Auto) Baso % (Auto) Lymph # (Auto) [place] # (Auto) Eos # (Auto) Baso # (Auto) Abs Immat Gran (auto) Absolute Neuts (auto) Absolute Nucleated RBC Nucleated RBC % (auto) Anion Gap Estim Creat Clear Calc Estimated GFR Random Glucose Lactic Acid 1.1 Calcium Total Bilirubin 0.2 Direct Bilirubin < 0.2 AST 14 ALT 9 Alkaline Phosphatase 122 H Total Protein 7.5 Albumin 4.2 Lipase 29 COVID-19 (PAULINE) COVID-19 Clin Com Imaging Radiologist's Impressions: Impressions Foot X-Ray 12/08/20 15:05 IMPRESSION: Large retrocalcaneal enthesophyte. Small calcaneal heel enthesophyte. Assessment and Plan (1) Peripheral vascular disease: Status: Acute (2) Diabetic foot ulcer: Status: Acute (3) Hx of vascular surgery: Status: Acute (4) Cellulitis: Status: Acute 59 yo male with? CAD, HLD, DM, HTN, recently discharged from [facility] after being treated for right foot cellulitis with diabetic foot ulcer, patient noted to have worsening redness swelling and pain therefore presented to [place] ER and now being admitted for recurrent cellulitis and right small toe gangrene. 1/right foot Cellulitis /foot ulcer and right small toe gangrene in immunocompromised d/t diabetese No evidence of sepsis, elevated WBC count Will admit patient to medical floor will place him on IV Zosyn and vancomycin sarah underlying peripheral vascular disease will consult Dr. Alas for further testing Will place on oxycodone and IV morphine for pain control Will place on insulin sliding scale for better blood sugar control. Follow blood culture 2/CAD no chest pain, will continue Statin, lower dose of beta-blockers due to soft blood pressure, continue eliquis, hold aspirin 3/hypertension noticed to have soft blood pressure will hold lisinopril and lower dose of Coreg follow BP closely 4/hyperlipidemia continue statin 5/Diabetes as per patient blood sugars in 200s at home currently blood sugars around 100 will hold metformin and Farxiga (not formulary), will place on SSI and diabetic diet, will check hemoglobin A1c 6/DVT prophylaxis on Eliquis Quality Stroke Does the patient have a stroke diagnosis?: No VTE Prior VTE?: No VTE Risk Level:: Medical - moderate - high VTE Device Contraindication: Treatment Not Indicated VTE Drug Contraindication: N/A - Med Ordered
--- NOTE | 2020-12-08 17:09 | PHA.PROG ---
Admission Date/Time: December 08, 2020 16:38 Indication: Cellulitis w/ diabetic foot infection Weight in k.296 kg Adjusted body weight in K.679 [place] body weight in K.6 Serum Creatinine - Last 168 Hours 12/08/20 15:06 Creatinine 0.98 Estimated CrCl and GFR - Last 168 Hours 12/08/20 15:06 Estim Creat Clear Calc 83.2 Estimated GFR > 60 Vancomycin Loading Dose: 1000 mg Current Vancomycin Dosing Regimen: 750 mg Q12H Date and Time for next Vancomycin Level to be drawn: 12/09 @ 2300 Pharmacist Comments on Vancomycin Plan: Vancomycin 1000 mg given in the ED 12/08 @ 1602 Start maintenance dose in 8 hours to make up for low load dose. Given 750 mg Q12H on 12/09 at 0000. Expected AUC 443 with a trough of 14.4. Trough to be drawn prior to 4th dose Pharmacy to monitor renal function daily Thalia Gaviria PharmD Vancomycin dosing will take advantage of [employer] as a clinical decision support tool that uses Bayesian modeling to calculate individual patient's pharmacokinetic parameters and forecast the patient's drug concentration time course with the target goal AUC 24 range of 400 - 600 mg/L/hr.
[2020-12-08 18:19] VITALS: BP 100/63; PULSE 68; RESP 16; TEMP 36.6; O2SAT 99
[2020-12-08] MEDS: Morphine Sulfate 4 MG/ML CARTRIDGE IVPUSH (19:45)
[2020-12-08] MEDS: ondansetron HCL 4 MG/2 ML VIAL IVPUSH (19:45)
[2020-12-08 19:58] VITALS: BP 112/62; PULSE 75; RESP 15; TEMP 36.3; O2SAT 97
[2020-12-08 20:05] LABS: Glucose, Whole Blood 50 mg/dL (60-115)
[2020-12-08 20:30] LABS: Glucose, Whole Blood 71 mg/dL (60-115)
[2020-12-08 20:48] VITALS: BP 112/62; PULSE 75
[2020-12-08] MEDS: carvediloL 3.125 MG TABLET PO (20:48)
[2020-12-08] MEDS: Apixaban 5 MG TABLET PO (20:48)
[2020-12-08] MEDS: 0.9 % Sodium Chloride Flush 3 ML SYRINGE IVFLUSH (20:50)
[2020-12-08] MEDS: Tamsulosin HCL 0.4 MG CAPSULE PO (21:20)
[2020-12-08] MEDS: Acetaminophen 325 MG TABLET 650 MG PO (22:05)
[2020-12-08] MEDS: oxyCODONE HCl Immed Release 5 MG TABLET PO (22:05)
[2020-12-08 23:33] VITALS: BP 94/53; PULSE 80; RESP 16; TEMP 36.5; O2SAT 97
[2020-12-08] MEDS: vancomycin HCL 750 MG in 0.9 % Sodium Chloride 250 ML 265 MG IV (23:36)
[2020-12-09] MEDS: Morphine Sulfate 4 MG/ML CARTRIDGE IVPUSH ×5 (01:27→21:57)
[2020-12-09] MEDS: Piperacillin Sodium/Tazobactam 3.375 GM in 0.9 % Sodium Chloride 50 ML IV ×4 (02:07→21:59)
[2020-12-09] MEDS: oxyCODONE HCl Immed Release 5 MG TABLET 10 MG PO (03:30)
[2020-12-09 03:53] VITALS: BP 146/63; PULSE 80; RESP 17; TEMP 36.4; O2SAT 98
[2020-12-09 06:17] LABS: MANUAL DIFF FLAG NO
[2020-12-09 06:21] LABS: Basophils Percent Auto 0.3 % (0-2); Eosinophils Absolute Auto 0.5 X10*3/uL (0.0-0.4); Eosinophils Percent Auto 3.9 % (0-4); Hematocrit 38.4 % (42-52); Hemoglobin 12.3 g/dl (14.0-18.0); Imm Gran Abs Auto 0.05 X10*3/uL (0.00-0.03); Imm Gran Pct Auto 0.4 % (0.0-0.4); Lymphocytes Absolute Auto 2.1 X10*3/uL (1.2-4.9); Lymphocytes Percent Auto 17.8 % (20-40); Mean Corpuscular Hemoglobin 31.5 pg (27.0-33.0); Mean Corpuscular Volume 98.2 fL (80-98); Mean Platelet Volume 9.4 fL (9.4-12.4); Monocytes Absolute Auto 1.4 X10*3/uL (0.1-1.2); Monocytes Percent Auto 11.7 % (2-11); Neutrophils Absolute Auto 7.9 X10*3/uL (2.0-8.3); Neutrophils Percent Auto 65.9 % (45-73); Platelet Count 368 X10*3/uL (160-400); Red Blood Count 3.91 X10*6/uL (4.60-5.80); Red Cell Distribution Width 12.4 % (11.0-16.0)
[2020-12-09 06:36] LABS: Anion Gap 11 (12-20); Blood Urea Nitrogen 21 mg/dL (9-16); Calcium 8.9 mg/dL (8.4-10.2); Carbon Dioxide 29 mmol/L (22-29); Chloride 101 mmol/L (96-108); Creatinine Clr Calc Pharmacy 90.6; Estimated Glomerular Filt Rate > 60; Glucose Random 102 mg/dL (60-115); Potassium 5.4 mmol/L (3.3-5.1); Sodium 136 mmol/L (135-145)
--- NOTE | 2020-12-09 06:37 | MHC.PIE ---
late entry P: at 12/08, pt c/o pain and not due for the prn Morphine yet 09/22 I: Dr. Murillo was notified and Oxycodone 5 mg po was ordered E: PT verbalized some effect. P:[id number] pt c/o unrelieved pain 08/22 even after prn Morphine. I Dr. Murillo was notified and ordered Oxycodone 10 mg po E: Pt was asleep when revisited
[2020-12-09 07:25] VITALS: BP 95/55; PULSE 81; RESP 17; TEMP 36.4; O2SAT 99
[2020-12-09 07:28] LABS: Estimated Average Glucose 206 mg/dL; Hemoglobin A1c % 8.8 %
[2020-12-09 07:50] LABS: Glucose, Whole Blood 109 mg/dL (60-115)
[2020-12-09] MEDS: Tamsulosin HCL 0.4 MG CAPSULE PO (08:12)
[2020-12-09] MEDS: carvediloL 3.125 MG TABLET PO ×2 (08:12→22:03)
[2020-12-09] MEDS: Apixaban 5 MG TABLET PO (08:12)
[2020-12-09] MEDS: Atorvastatin Calcium 80 MG TABLET PO (08:12)
[2020-12-09] MEDS: 0.9 % Sodium Chloride Flush 3 ML SYRINGE IVFLUSH ×3 (08:13→22:05)
--- NOTE | 2020-12-09 09:09 | MHC.CM.PN ---
CM MET WITH PT WHO REPORTS HE LIVES AT HOME WITH HIS AND IS INDEPENDENT WITH CARE [facility] PT REPORTS HE USES NO DME. PT REPORTS BEING ACTIVE WITH [facility] SINCE LAST DC. PT CONFIRMS HIS PCP IS PAWEL RAYMOND PT REPORTS HE HAS A HCP NAMING HIS , DEEPA, HIS AGENT CURRENT DC PLAN IS HOME WITH RESUMPTION OF [facility] TO TRANSPORT
--- NOTE | 2020-12-09 10:15 | P.CONGS_ITS ---
History of Present Illness Consult details Consult date: 12/09/20 Reason for consult: wound care Narrative: 60-year-old gentleman who originally presented to the office yesterday with a nonhealing left leg 5th toe ulcer. He has a history diabetic foot ulcer and peripheral vascular disease. He has actually had right-sided fem distal bypass by Dr. Tobin at [facility]. He had an acute infection with cellulitis and drainage from that 5th toe. He was subsequently sent for admission. He feels significantly better. He has been started on antibiotics. Review of Systems Review of Systems: Yes all other systems are reviewed and are negative Constitutional: Constitutional: Reports no additional constitutional comp laints ENT: Reports Normal hearing present Cardiovascular: Cardiovascular: Denies chest pain, Denies chest pain at rest, Denies chest pain with activity and Denies pedal edema Respiratory: Respiratory: Denies cough Gastrointestinal: Gastrointestinal: Denies abdominal pain Musculoskeletal: Musculoskeletal: Denies abnormal gait, Denies muscle cramps and Denies radiating pain into limb Integumentary/Breasts: Skin/Breast: Denies skin ulcer and Denies wounds Neurologic: Reports Normal hearing present and Denies abnormal gait Psychiatric: Psychiatric: Reports no additional psychiatric complaints PMFSH Past Medical History Medical History CAD (coronary artery disease) Cellulitis in diabetic foot Diabetes Eschar of foot HLD (hyperlipidemia) HTN (hypertension) PAF (paroxysmal atrial fibrillation) Pressure ulcer, unstageable, with eschar Family History Family History Mother Colon cancer Father Diabetes Surgical History Surgical History History of surgery on upper extremity Hx of CABG Hx of vascular surgery Social History Social History Household Members: Spouse Housing: House Do you presently have visiting nurse or other home services: Yes Patient Tobacco Use Status: Current everyday Tobacco user Tobacco use type: Cigarette Cigarettes Per Day: 3 Advance Directives Date on File: 12/08/20 Current occupational status: employed Meds Allergies Allergy/AdvReac Type Severity Reaction Status Date / Time codeine [Codeine] AdvReac Unknown SHAKING Verified 12/08/20 12:57 Active Medications: Current Medications Acetaminophen (Acetaminophen 325 Mg Tablet) 650 mg PO Q6H PRN PRN Reason: Pain, Mild (Pain Scale 1-3) Last Admin: 12/08/20 22:05 Dose: 650 mg Documented by: Apixaban (Apixaban 5 Mg Tablet) 5 mg PO BID [facility] Last Admin: 12/09/20 08:12 Dose: 5 mg Documented by: Atorvastatin Calcium (Atorvastatin Calcium 80 Mg Tablet) 80 mg PO DAILY [facility] Last Admin: 12/09/20 08:12 Dose: 80 mg Documented by: Carvedilol (Carvedilol 3.125 Mg Tablet) 3.125 mg PO BID [facility]; Protocol Last Admin: 12/09/20 08:12 Dose: 3.125 mg Documented by: Dextrose (Dextrose 50 % 25 Gm/50 Ml Vial) 25 gm IVPUSH Q15M PRN; Protocol PRN Reason: per Hypoglycemia Standing Ord. Glucose (Glucose Gel 15 Gm Gel..Gram.) 15 gm PO Q15M PRN; Protocol PRN Reason: per Hypoglycemia Standing Ord. Piperacillin Sod/Tazobactam (Sod 3.375 gm/ Sodium Chloride) 50 mls @ 100 mls/hr IV Q6H [facility] Last Infusion: 12/09/20 08:57 Dose: Infused Documented by: Vancomycin HCl 750 mg/ Sodium (Chloride) 265 mls @ 265 mls/hr IV Q12H [facility] Last Infusion: 12/09/20 00:47 Dose: Infused Documented by: Insulin Human Lispro (Insulin Lispro 100 Unit/Ml 3 Ml Vial) 0 unit SUBCUT QIDACHS [facility]; Protocol Last Admin: 12/09/20 08:11 Dose: Not Given Documented by: Magnesium Hydroxide (Milk Of Magnesia 30 Ml Oral.Susp) 30 ml PO DAILY PRN PRN Reason: Constipation Morphine Sulfate (Morphine Sulfate 4 Mg/Ml Cartridge) 4 mg IVPUSH Q4H PRN; Protocol PRN Reason: Pain, Severe (Pain Scale 7-10) Last Admin: 12/09/20 08:12 Dose: 4 mg Documented by: Ondansetron HCl (Ondansetron Hcl 4 Mg/2 Ml Vial) 4 mg IVPUSH Q8H PRN PRN Reason: Nausea and Vomiting Last Admin: 12/08/20 19:45 Dose: 4 mg Documented by: Pharmacy Consult (Consult Rx Perform Med Rec) 1 each MISCELLANE ONCE PRN PRN Reason: Consult order Pharmacy Consult (Consult Rx Vancomycin Dosing) 1 each MISCELLANE DAILY PRN PRN Reason: Consult order Sodium Chloride (0.9 % Sodium Chloride Flush 3 Ml Syringe) 3 ml IVFLUSH QSHIFT [facility] Last Admin: 12/09/20 08:13 Dose: 3 ml Documented by: Tamsulosin HCl (Tamsulosin Hcl 0.4 Mg Capsule) 0.4 mg PO DAILY [facility] Last Admin: 12/09/20 08:12 Dose: 0.4 mg Documented by: Home Medications Medication Instructions Recorded Confirmed Last Taken Type apixaban 5 mg tablet (Eliquis) 1 tab PO BID 11/11/20 12/08/20 11/26/20 History aspirin 81 mg tablet 81 mg PO DAILY 11/11/20 12/08/20 11/26/20 History atorvastatin 80 mg tablet 1 tab PO DAILY 11/11/20 12/08/20 11/11/20 History carvedilol 6.25 mg tablet 1 tab PO BID 11/11/20 12/08/20 11/11/20 History dapagliflozin 10 mg tablet 1 tab PO DAILY 11/11/20 12/08/20 11/11/20 History (Farxiga) insulin glargine 100 unit/mL (3 40 unit SUBCUT BEDTIME 11/11/20 12/08/20 11/11/20 History mL) subcutaneous pen (Basaglar KwikPen U-100 Insulin) lisinopril 10 mg tablet 1 tab PO DAILY 11/11/20 12/08/20 11/11/20 History metformin 850 mg tablet 1 tab PO BID 11/11/20 12/08/20 11/11/20 History tamsulosin 0.4 mg capsule 1 cap PO DAILY 11/11/20 12/08/20 11/11/20 History gabapentin 300 mg capsule 300 mg PO TID 12/08/20 12/08/20 Unknown History Physical Exam Vital Signs: Vital Signs: Last Vital Signs Temp 97.5 F 12/09/20 07:25 Pulse 81 12/09/20 07:25 Resp 17 12/09/20 07:25 BP 95/55 L 12/09/20 07:25 Pulse Ox 99 12/09/20 07:25 Body Mass Index 22.5 Const: General: cooperative, healthy appearing and comfortable Orientation/consciousness: oriented to person, oriented to place and oriented to time HENMT: Head: Yes normal to inspection Neck: Neck: Yes normal visual inspection Carotids: no bruits Chest: Chest palpation & inspection: normal inspection of the chest Resp: Effort & Inspection: normal respiratory effort and able to speak in complete sentences Auscultation: clear to auscultation bilaterally, no c rackles, no rales, no rhonchi and no wheezes Cardio: Rate: regular rate Rhythm: regular rhythm Heart sounds: S1 normal heart sound present and S2 normal heart sound present Bruits: no carotid bruits Peripheral pulses: Peripheral pulses 2+ throughout GI: Inspection: Yes normal to inspection Skin: Other: Nonhealing [id number] toe ulcer Wounds: no wounds Hair: normal Neuro: General: oriented to person, oriented to place and oriented to time Cranial nerves: Yes CN's II-XII intact bilaterally and Yes Normal hearing present Cognition (Neuro): normal cognition Motor exam (neuro): 5/5 motor strength present throughout Extrem: Other: venous exam: No significant superficial varicosities or spider telangiectasias, minimal edema General: No clubbing, No cyanosis and No edema Psych: Appearance: grossly normal Mental Status: mental status grossly normal Speech and movement: Normal speech and movement present Results Labs Result diagrams: 12/09/20 05:51 12/09/20 05:51 Labs: Abnormal lab results 12/08/20 12/08/20 12/08/20 Range/Units 15:06 15:06 15:06 WBC 15.3 H (4.8-10.8) X10*3/uL RBC 4.31 L (4.60-5.80) X10*6/uL Hgb 13.5 L (14.0-18.0) g/dl Hct 41.5 L (42-52) % MCV (80-98) fL Plt Count 427 H D (160-400) X10*3/uL MPV 9.2 L (9.4-12.4) fL Immature Gran % (Auto) 0.5 H (0.0-0.4) % Lymph % (Auto) (20-40) % Graves % (Auto) (2-11) % Graves # (Auto) (0.1-1.2) X10*3/uL Eos # (Auto) (0.0-0.4) X10*3/uL Abs Immat Gran (auto) 0.07 H (0.00-0.03) X10*3/uL Absolute Neuts (auto) 10.2 H (2.0-8.3) X10*3/uL Potassium (3.3-5.1) mmol/L Anion Gap (12-20) BUN 24 H (9-16) mg/dL POC Glucose (60-115) mg/dL Random Glucose 139 H (60-115) mg/dL Alkaline Phosphatase 122 H (39-117) U/L 12/08/20 12/09/20 12/09/20 Range/Units 20:01 05:51 05:51 WBC 12.0 H (4.8-10.8) X10*3/uL RBC 3.91 L (4.60-5.80) X10*6/uL Hgb 12.3 L (14.0-18.0) g/dl Hct 38.4 L (42-52) % MCV 98.2 H (80-98) fL Plt Count (160-400) X10*3/uL MPV (9.4-12.4) fL Immature Gran % (Auto) (0.0-0.4) % Lymph % (Auto) 17.8 L (20-40) % Graves % (Auto) 11.7 H (2-11) % Graves # (Auto) 1.4 H (0.1-1.2) X10*3/uL Eos # (Auto) 0.5 H (0.0-0.4) X10*3/uL Abs Immat Gran (auto) 0.05 H (0.00-0.03) X10*3/uL Absolute Neuts (auto) (2.0-8.3) X10*3/uL Potassium 5.4 H (3.3-5.1) mmol/L Anion Gap 11 L (12-20) BUN 21 H (9-16) mg/dL POC Glucose 50 L* (60-115) mg/dL Random Glucose (60-115) mg/dL Alkaline Phosphatase (39-117) U/L Short CBC 12/08/20 12/09/20 Range/Units 15:06 05:51 WBC 15.3 H 12.0 H (4.8-10.8) X10*3/uL Hgb 13.5 L 12.3 L (14.0-18.0) g/dl Hct 41.5 L 38.4 L (42-52) % Plt Count 427 H D 368 (160-400) X10*3/uL BMP 12/08/20 12/09/20 15:06 05:51 Sodium 136 136 Potassium 4.9 5.4 H Chloride 99 101 Carbon Dioxide 28 29 BUN 24 H 21 H Creatinine 0.98 0.90 Calcium 9.1 8.9 Liver Function 12/08/20 Range/Units 15:06 Total Bilirubin 0.2 (0.0-1.0) mg/dL Direct Bilirubin < 0.2 (0.0-0.5) mg/dL AST 14 (5-37) U/L ALT 9 (0-40) U/L Alkaline Phosphatase 122 H (39-117) U/L Albumin 4.2 (3.5-5.0) g/dL All other labs normal. Assessment and Plan (1) Peripheral vascular disease: Status: Acute Patient notes nonhealing right foot ulcer. He is clinically improving and antibiotics seem to be helping. I have discussed the pathophysiology of peripheral vascular disease with the patient. I have also discussed risk factor modification. Arterial testing is pending. the patient would benefit from a rightleg endovascular peripheral angiogram with possible angioplasty, stent, and/or atherectomy. This has been discussed in detail with the patient along with risks, benefits, and complications. This includes but is not limited to bleeding, infection, heart attack, need for emergent surgical repair, limb ischemia, blood vessel damage, bleeding, puncture, kidney injury, bruising, allergic reaction, and skin reaction. The patient demonstrates a clear understanding. We will schedule for tomorrow. Thank you for allowing us to assist in this patient's care. Procedures Date of Service Date of Service: 12/09/20
--- NOTE | 2020-12-09 10:37 | P.CDIC_ITS ---
CDI Concurrent Query Documentation Clarification: PHYSICIAN'S DOCUMENTATION REQUEST Date of Query: 12/09/20 1037 Patient Name: Mik Roblero Admit Date: 12/08/20 Dear Doctor, A review of the medical record indicates additional documentation may be indicated. Please review below and update the documentation accordingly. Clinical Indicators: Risk Factors/Clinical Indicators/Treatments Per H&P: Right foot cellulitis/foot ulcer and right small toe gangrene due to diabetes Per Vascular consult: Acute PVD Based on the above, could you please provide, in the Progress Notes, further information regarding the ulcer/wound: * Type (etiology) of ulcer/wound: * Diabetic ulcer * Venous stasis ulcer * Arterial (ischemic) ulcer * Other * Unable to determine * For a non-pressure ulcer, please indicate the depth/severity: * Limited to the breakdown of skin * With fat layer exposed * With necrosis of muscle * With necrosis of bone * Other * Unable to determine *Source: National Pressure Ulcer Advisory Panel (NPUAP) Use of terms such as suspected, likely, concern for, or probable (associated with a specific diagnosis that is being evaluated, monitored, or treated as if it exists) are acceptable and can be coded in the inpatient setting, when docume nted at the time of discharge. Thank you, Rosalie Solorio RN Extension: [phone] Please use your independent medical judgment in providing your response. THIS QUERY IS PART OF THE PERMANENT MEDICAL RECORD Provider Response: Other Other Diagnosis: See note
--- NOTE | 2020-12-09 10:37 | MHC.CDI.CONC ---
CDI Concurrent Query Documentation Clarification: PHYSICIAN'S DOCUMENTATION REQUEST Date of Query: 12/09/20 1037 Patient Name: Mik Roblero Admit Date: 12/08/20 Dear Doctor, A review of the medical record indicates additional documentation may be indicated. Please review below and update the documentation accordingly. Clinical Indicators: Risk Factors/Clinical Indicators/Treatments Per H&P: Right foot cellulitis/foot ulcer and right small toe gangrene due to diabetes Per Vascular consult: Acute PVD Based on the above, could you please provide, in the Progress Notes, further information regarding the ulcer/wound: Type (etiology) of ulcer/wound: Diabetic ulcer Venous stasis ulcer Arterial (ischemic) ulcer Other Unable to determine For a non-pressure ulcer, please indicate the depth/severity: Limited to the breakdown of skin With fat layer exposed With necrosis of muscle With necrosis of bone Other Unable to determine *Source: National Pressure Ulcer Advisory Panel (NPUAP) Use of terms such as suspected, likely, concern for, or probable (associated with a specific diagnosis that is being evaluated, monitored, or treated as if it exists) are acceptable and can be coded in the inpatient setting, when documented at the time of discharge. Thank you, Rosalie Solorio RN Extension: [phone] Please use your independent medical judgment in providing your response. THIS QUERY IS PART OF THE PERMANENT MEDICAL RECORD Provider Response: Other Other Diagnosis: See note
--- NOTE | 2020-12-09 11:29 | P.PNIM_ITS ---
Subjective Subjective Date of Service: 12/09/20 Interval History: Being followed for right foot cellulitis and nonhealing diabetic ulcer, feeling better this morning with less pain and swelling slept well, noted to have serosanguineous drainage, no fevers, no chills no acute issues overnight. Review of Systems General no headache no dizziness. no fever ,no chills.? CVS no chest pain, no palpitation.? Respiratory no cough, no sputum production ,no respiratory distress.? Gastrointestinal no nausea, no vomiting, no abdominal pain Yes all other systems are reviewed and are negative Physical Exam Vital Signs: Vital Signs: Last Vital Signs Temp 97.5 F 12/09/20 07:25 Pulse 81 12/09/20 07:25 Resp 17 12/09/20 07:25 BP 95/55 L 12/09/20 07:25 Pulse Ox 99 12/09/20 07:25 Body Mass Index 22.5 General alert oriented x3, no acute distress.? Neck? supple no JVD. CVS? regular rate rhythm, Respiratory lungs clear to auscultation, no respiratory distress, no wheeze, no rhonchi. Gastrointestinal abdomen soft, nontender, bowel sounds audible, no guarding , no rigidity. Extremities bilateral pitting edema, decreased swelling and erythema dorsum of f oot, purplish discoloration right small toe, tenderness to palpation, small open ulcer lateral margin right toe, unable to specify depth, Serosanguineous drainage Neuro nonfocal,speech clear. Skin no rash Psych appropriate affect Objective Data Active Medications Acetaminophen (Acetaminophen 325 Mg Tablet) 650 mg PO Q6H PRN PRN Reason: Pain, Mild (Pain Scale 1-3) Last Admin: 12/08/20 22:05 Dose: 650 mg Documented by: AGAILLaz Apixaban (Apixaban 5 Mg Tablet) 5 mg PO BID [facility] Last Admin: 12/09/20 08:12 Dose: 5 mg Documented by: ANGIE Atorvastatin Calcium (Atorvastatin Calcium 80 Mg Tablet) 80 mg PO DAILY [facility] Last Admin: 12/09/20 08:12 Dose: 80 mg Documented by: ANGIE Carvedilol (Carvedilol 3.125 Mg Tablet) 3.125 mg PO BID [facility]; Protocol Last Admin: 12/09/20 08:12 Dose: 3.125 mg Documented by: ANGIE Dextrose (Dextrose 50 % 25 Gm/50 Ml Vial) 25 gm IVPUSH Q15M PRN; Protocol PRN Reason: per Hypoglycemia Standing Ord. Glucose (Glucose Gel 15 Gm Gel..Gram.) 15 gm PO Q15M PRN; Protocol PRN Reason: per Hypoglycemia Standing Ord. Piperacillin Sod/Tazobactam (Sod 3.375 gm/ Sodium Chloride) 50 mls @ 100 mls/hr IV Q6H [facility] Last Infusion: 12/09/20 08:57 Dose: 0 mls/hr Documented by: ANGIE Vancomycin HCl 750 mg/ Sodium (Chloride) 265 mls @ 265 mls/hr IV Q12H [facility] Last Infusion: 12/09/20 00:47 Dose: 0 mls/hr Documented by: CASTILM Sodium Chloride (Ns) 1,000 mls @ 100 mls/hr IVCONT .Q10H [facility] Insulin Human Lispro (Insulin Lispro 100 Unit/Ml 3 Ml Vial) 0 unit SUBCUT Q IDACHS [facility]; Protocol Last Admin: 12/09/20 08:11 Dose: Not Given Documented by: ANGIE Non-Admin Reason: No Insulin Coverage Magnesium Hydroxide (Milk Of Magnesia 30 Ml Oral.Susp) 30 ml PO DAILY PRN PRN Reason: Constipation Morphine Sulfate (Morphine Sulfate 4 Mg/Ml Cartridge) 4 mg IVPUSH Q4H PRN; Protocol PRN Reason: Pain, Severe (Pain Scale 7-10) Last Admin: 12/09/20 08:12 Dose: 4 mg Documented by: ANGIE Ondansetron HCl (Ondansetron Hcl 4 Mg/2 Ml Vial) 4 mg IVPUSH Q8H PRN PRN Reason: Nausea and Vomiting Last Admin: 12/08/20 19:45 Dose: 4 mg Documented by: SWEETIE Pharmacy Consult (Consult Rx Perform Med Rec) 1 each MISCELLANE ONCE PRN PRN Reason: Consult order Pharmacy Consult (Consult Rx Vancomycin Dosing) 1 each MISCELLANE DAILY PRN PRN Reason: Consult order Sodium Chloride (0.9 % Sodium Chloride Flush 3 Ml Syringe) 3 ml IVFLUSH QSHIFT [facility] Last Admin: 12/09/20 08:13 Dose: 3 ml Documented by: ANGIE Tamsulosin HCl (Tamsulosin Hcl 0.4 Mg Capsule) 0.4 mg PO DAILY [facility] Last Admin: 12/09/20 08:12 Dose: 0.4 mg Documented by: ANGIE Labs CBC & Chem 7: 12/09/20 05:51 12/09/20 05:51 Labs: Laboratory Results - last 24 hr 12/08/20 12/08/20 12/08/20 14:55 15:06 15:06 MCV 96.3 MCH 31.3 MCHC 32.5 RDW 12.3 Plt Count 427 H D MPV 9.2 L Immature Gran % (Auto) 0.5 H Neut % (Auto) 67.1 Lymph % (Auto) 21.2 Winston % (Auto) 8.1 Eos % (Auto) 2.8 Baso % (Auto) 0.3 Lymph # (Auto) 3.2 Winston # (Auto) 1.2 Eos # (Auto) 0.4 Baso # (Auto) 0.1 Abs Immat Gran (auto) 0.07 H Absolute Neuts (auto) 10.2 H Absolute Nucleated RBC 0.000 Nucleated RBC % (auto) 0.0 Anion Gap 14 Estim Creat Clear Calc 83.2 Estimated GFR > 60 POC Glucose Random Glucose 139 H Estimat Average Glucose Hemoglobin A1c % Lactic Acid Calcium 9.1 Total Bilirubin Direct Bilirubin AST ALT Alkaline Phosphatase Total Protein Albumin Lipase COVID-19 (PAULINE) Negative COVID-19 [employer] See Note 12/08/20 12/08/20 12/08/20 15:06 15:06 20:01 MCV MCH MCHC RDW Plt Count MPV Immature Gran % (Auto) Neut % (Auto) Lymph % (Auto) Winston % (Auto) Eos % (Auto) Baso % (Auto) Lymph # (Auto) Winston # (Auto) Eos # (Auto) Baso # (Auto) Abs Immat Gran (auto) Absolute Neuts (auto) Absolute Nucleated RBC Nucleated RBC % (auto) Anion Gap Estim Creat Clear Calc Estimated GFR POC Glucose 50 L* Random Glucose Estimat Average Glucose Hemoglobin A1c % Lactic Acid 1.1 Calcium Total Bilirubin 0.2 Direct Bilirubin < 0.2 AST 14 ALT 9 Alkaline Phosphatase 122 H Total Protein 7.5 Albumin 4.2 Lipase 29 COVID-19 (PAULINE) COVID-19 Clin Com 12/08/20 12/09/20 12/09/20 20:26 05:51 05:51 MCV 98.2 H MCH 31.5 MCHC 32.0 RDW 12.4 Plt Count 368 MPV 9.4 Immature Gran % (Auto) 0.4 Neut % (Auto) 65.9 Lymph % (Auto) 17.8 L Winston % (Auto) 11.7 H Eos % (Auto) 3.9 Baso % (Auto) 0.3 Lymph # (Auto) 2.1 Winston # (Auto) 1.4 H Eos # (Auto) 0.5 H Baso # (Auto) 0.0 Abs Immat Gran (auto) 0.05 H Absolute Neuts (auto) 7.9 Absolute Nucleated RBC 0.000 Nucleated RBC % (auto) 0.0 Anion Gap 11 L Estim Creat Clear Calc 90.6 Estimated GFR > 60 POC Glucose 71 Random Glucose 102 Estimat Average Glucose Hemoglobin A1c % Lactic Acid Calcium 8.9 Total Bilirubin Direct Bilirubin AST ALT Alkaline Phosphatase Total Protein Albumin Lipase COVID-19 (PAULINE) COVID-19 [employer] 12/09/20 12/09/20 05:51 07:28 MCV MCH MCHC RDW Plt Count MPV Immature Gran % (Auto) Neut % (Auto) Lymph % (Auto) Winston % (Auto) Eos % (Auto) Baso % (Auto) Lymph # (Auto) Winston # (Auto) Eos # (Auto) Baso # (Auto) Abs Immat Gran (auto) Absolute Neuts (auto) Absolute Nucleated RBC Nucleated RBC % (auto) Anion Gap Estim Creat Clear Calc Estimated GFR POC Glucose 109 Random Glucose Estimat Average Glucose 206 Hemoglobin A1c % 8.8 Lactic Acid Calcium Total Bilirubin Direct Bilirubin AST ALT Alkaline Phosphatase Total Protein Albumin Lipase COVID-19 (PAULINE) COVID-19 Clin [employer] Assessment and Plan (1) Diabetic foot ulcer: Status: Acute (2) Peripheral vascular disease: Status: Acute (3) Cellulitis: Status: Acute Assessment and Plan: 59 yo male with? CAD, HLD, DM, HTN, recently discharged from [facility] after being treated for right foot cellulitis with diabetic foot ulcer, patient noted to have worsening redness swelling and pain therefore presented to [place] ER and now being admitted for recurrent cellulitis and right small toe gangrene. 1/right foot Cellulitis /nonhealing foot ulcer and right small toe gangrene d/t diabetes Unable to specify depth of small diabetic foot ulcer Feeling better this morning with less pain and swelling, noted to have serosanguineous drainage ?? No evidence of sepsis, WBC trending down, no fevers overnight ?? on IV Zosyn and vancomycin day 2 follow BMP and vanco level closely ?? Patient seen by Dr. Alas duplex scan lower extremity obtained report pending, likely will undergo angioplasty tomorrow ?? Continue current pain medication with oxycodone and IV morphine ?? blood culture x2 pending Foot x-ray showed no osteo, will check CRP, ESR ,obtain ID eval 2/CAD no chest pain, will continue Statin, BP remains soft on low-dose beta- blockers hold Eliquis 3/hypertension noticed to have soft blood pressure will hold lisinopril and continue low-dose Coreg 3.125 mg b.i.d. follow BP closely 4/hyperlipidemia continue statin 5/Diabetes as per patient blood sugars in 200s at home currently blood sugars low,will hold metformin and Farxiga (not formulary), will place on SSI and diabetic diet, hemoglobin A1c 8.8 6/DVT prophylaxis were placed on Quality Stroke Does the patient have a stroke diagnosis?: No VTE Prior VTE?: No VTE Risk Level:: Medical - moderate - high VTE Device Contraindication: Treatment Not Indicated VTE Drug Contraindication: N/A - Med Ordered
[2020-12-09 12:00] LABS: Glucose, Whole Blood 136 mg/dL (60-115)
[2020-12-09 12:03] LABS: INTERNATIONAL NORM RATIO 1.1 (0.9-1.1); Prothrombin Time 12.1 SEC (9.9-13.0)
[2020-12-09 12:05] LABS: Partial Thromboplastin Time 45.2 SEC (24.1-38.0)
[2020-12-09] MEDS: vancomycin HCL 750 MG in 0.9 % Sodium Chloride 250 ML 265 MG IV (12:10)
[2020-12-09 16:13] LABS: Glucose, Whole Blood 197 mg/dL (60-115)
[2020-12-09] MEDS: Insulin Lispro 100 UNIT/ML 3 ML VIAL SUBCUT (16:30)
[2020-12-09 19:23] VITALS: BP 109/70; PULSE 86; RESP 15; TEMP 36.9; O2SAT 98
[2020-12-09 20:26] LABS: Glucose, Whole Blood 173 mg/dL (60-115)
[2020-12-09 22:03] VITALS: BP 140/65; PULSE 92
[2020-12-09 23:38] VITALS: BP 104/60; PULSE 88; RESP 17; TEMP 36.5; O2SAT 96
[2020-12-09 23:42] LABS: Vancomycin Trough 11.6 mcg/mL (10.0-20.0)
[2020-12-10] VITALS (13 sets, daily range): BP systolic 111–137; BP diastolic 64–75; PULSE 80–94; RESP 14–20; TEMP 36.5–37.2; O2SAT 95–100
[2020-12-10] MEDS: vancomycin HCL 750 MG in 0.9 % Sodium Chloride 250 ML 265 MG IV ×2 (00:24→11:41)
[2020-12-10] MEDS: Morphine Sulfate 4 MG/ML CARTRIDGE IVPUSH ×4 (01:51→21:55)
[2020-12-10] MEDS: Piperacillin Sodium/Tazobactam 3.375 GM in 0.9 % Sodium Chloride 50 ML IV ×4 (02:02→21:51)
[2020-12-10 06:40] LABS: Creatinine Clr Calc Pharmacy 83.2; Estimated Glomerular Filt Rate > 60
[2020-12-10 06:57] LABS: Glucose, Whole Blood 138 mg/dL (60-115)
--- NOTE | 2020-12-10 07:55 | PC.NURSE ---
Skin/Wound assessment completed. Patient has an unstageable diabetic ulcer to right later foot with 5th toe cellulitis. Silver alginate applied covered with gauze and roll gauze. No other skin issues or open areas noted at this time.
--- NOTE | 2020-12-10 09:52 | W.PM.OPN ---
Operative Note Operative Note Date of Service: 12/10/20 Narrative: Angiogram report from [facility] Preoperative diagnosis: Atherosclerosis of right lower extremity with nonhealing ulcer Postoperative diagnosis: Same Procedure: 1. Ultrasound-guided right common femoral access 2. Right lower extremity runoff Surgeon:Juan Francisco Alas M.D., FACS, RPVI Movie Theater Manager:None Anesthesia: Local with moderate conscious sedation. Total intraservice moderate sedation time was 37 minutes. I monitored the patient's level of consciousness and physiologic status continuously throughout the procedure. Specimens:none Drains:none Estimated blood loss: Less than 10 ml Implant: None Indications: 60-year-old gentleman presents to the hospital with a nonhealing right lower extremity ulcer. Of note he had a prior left-sided fem distal bypass performed at [facility]. He now presents for endovascular intervention of the right lower extremity. The patient has signed the informed consent after reviewing risks, complications, benefits, and alternatives previously discussed with the patient. The patient was given the opportunity to ask any additional questions or voice any concerns. All questions were answered to the patient's satisfaction. Procedure in detail: Patient was brought to the angiography suite prior to which a time-out was called for patient identification and site verification. Bilateral groins were prepped and draped in the standard surgical fashion. Under ultrasound guidance rightcommon femoral was punctured with micro puncture needle and wire. This was a downhill stick a precision 4 Swiss sheath was then placed. Micro wire was advanced down the vessel which ended up being the profundus femorals. We subsequently were able to remove the inner cannula with the [address] Runoff study was then undertaken through the 4 Swiss sheath. No intervention was possible. At this time sheath was removed and 10 minutes of direct pressure was held. Patient tolerated the procedure well returned to recovery with stable vitals. Interpretation of films: 1. Ultrasound demonstrates appropriate femoral puncture. Image of which was saved. 2. Right Leg Common femoral artery: High-grade stenosis, Seen on ultrasound as well Profundus Femoris: No significant disease Superficial femoral artery: Total occlusion with reconstitution at the above knee popliteal Popliteal artery (p1,p2,p3): Patent Anterior tibial artery: Patent to the level of the ankle Peroneal artery: Patent to the level of the ankle Posterior tibial artery: Occluded Dorsalis pedis/plantar arch: Difficult to reflux contrast down Conclusion: 1. Successful diagnostic angiogram. There is a total occlusion the SFA. We will need to develop in-line flow for wound healing. The patient will require fem-pop bypass. We will obtain cardiac risk stratification as soon as possible. 2. Anticoagulation status: No change This note is constructed using voice recognition software. While every effort has been made to ensure accuracy, unhairing inspector errors may have been included. Thank you for allowing me to participate in the care of your patient. Yours sincerely, Juan Francisco Alas MD, FACS, R.P.V.I.
[2020-12-10 11:34] LABS: Glucose, Whole Blood 119 mg/dL (60-115)
[2020-12-10] MEDS: Tamsulosin HCL 0.4 MG CAPSULE PO (11:40)
[2020-12-10] MEDS: carvediloL 3.125 MG TABLET PO ×2 (11:40→20:23)
[2020-12-10 11:55] LABS: Anion Gap 11 (12-20); Blood Urea Nitrogen 17 mg/dL (9-16); C Reactive Protein 1.05 mg/dL (< or = 0.50); Calcium 8.7 mg/dL (8.4-10.2); Carbon Dioxide 28 mmol/L (22-29); Chloride 101 mmol/L (96-108); Creatinine Clr Calc Pharmacy 93.7; Estimated Glomerular Filt Rate > 60; Glucose Random 125 mg/dL (60-115); Potassium 4.9 mmol/L (3.3-5.1); Sodium 135 mmol/L (135-145)
[2020-12-10 12:26] LABS: Erythrocyte Sedimentation Rate 34 MM/HR (0-15)
--- NOTE | 2020-12-10 13:00 | CA_ITS ---
Transthoracic Echocardiogram Patient (Last, First, Middle): Mik Roblero H Gender: Male Date of : 1960 Age: 60 Procedure Date: 12/10/2020 Procedure Type: Transthoracic Echocardiogram Location[place] [facility] [place] Height: 182.88 cm Weight: 75.3 kg BSA: 1.97 m2 Heart Rate: bpm BP: 113 / 67 mmHg Solvent Recoverer: LEXIS Stoll MD: Domenico Muro MD Symptoms: preop eval, h/o CAD Study Quality: Fair Conclusions: - Normal left ventricular size, thickness, and systolic function. The visually estimated ejection fraction is between 55-60%. There is evidence of regional wall motion abnormalities. - The apical inferior and mid inferior segments are hypokinetic. - The basal inferior segment is akinetic. Findings Left Ventricle Normal left ventricular size, thickness, and systolic function. The visually estimated ejection fraction is between 55-60%. There is evidence of regional wall motion abnormalities. Abnormal diastolic function is noted. Spectral Doppler is indicative of a pseudonormal filling pattern. E/E prime ratio is between 8 and 15 consistent with indeterminate filling pressures. Wall Motion Rest Echo Findings The apical inferior and mid inferior segments are hypokinetic. The basal inferior segment is akinetic. Right Ventricle Normal right ventricular cavity size and systolic function. Atria The left atrium is likely dilated. The right atrium is normal in size. Aortic Valve The aortic valve structure and function is likely normal. There is no aortic valve stenosis. There is no aortic valve regurgitation. Mitral Valve The mitral valve appears normal. There is no mitral valve regurgitation. There is no mitral valve stenosis. Pulmonic Valve The pulmonic valve is likely normal. Tricuspid Valve Normal tricuspid valve structure and function. There is trace tricuspid valve regurgitation. Tricuspid regurgitation envelope is inadequate for calculation of right ventricular systolic pressure. Normal right atrial pressure. Great Vessels The pulmonary artery was not well visualized. Venous The inferior vena cava is normal in size and collapses greater than 50% with inspiration. Pericardium/Pleural There is no evidence of pericardial effusion. Prior Study Comparison Changes noted compared to prior study dated: 11/08/2018. EF has improved. Inferior RWMA present. Measurements 2D Linear Measurements IVSd: 0.81 0.6-0.9/0.6-1.0 cm LVIDd: 4.77 3.9-5.3/4.2-5.9 cm LVIDd Index: 2.42 2.4-3.2/2.2-3.1 cm/m2 LVIDs: 3.69 2.0-3.6 cm LVPWd: 0.87 0.7-1.1 cm Ao Root: 3.60 2.1-3.5 cm LA Diam: 3.20 2.7-3.8/3.0-4.0 cm LAIDs Index: 1.62 1.5-2.3 cm/m2 LV Mass: 165.94 67-162/88-224 g LV Mass Index: 84.23 43-95/49-115 g/m2 LVOT Diam: 2.20 3.0+(-)1.3 cm 2D Systolic Function EF 4C: 48.00 >55% EF 2C: 53.30 >55% Mitral Valve MV Pk E: 0.99 MV PK A: 0.90 MV Decel Time: 206.00 E/A: 1.10 E'Lateral: 15.60 E'Medial: 7.72 E/E' Med: 12.80 E/E' Lat: 6.30 PHT: 60.00 MVA PHT: 3.67 Decel Yolo: 4.80 Aortic Valve AoV Pk Duke: 1.08 AoV Mn Duke: 0.68 AoV VTI: 0.16 AoV Pk Grad: 5.00 Aov Mn Grad: 2.00 ALEKS Cont.VTI: 4.12 LVOT LVOT Pk Duke: 0.91 LVOT Mn Duke: 0.57 LVOT VTI: 0.18 LVOT Pk Grad: 3.00 LVOT Mn Grad: 2.00 LVOT Diam: 2.20 LVOT Area: 3.80 Diastolic Function MV Pk E: 0.99 MV Pk A: 0.90 E/A: 1.10 E'Medial: 7.72 E/E' Med: 12.80 E' Laterial: 15.60 E/E' Lat: 6.30 Right Ventricle TAPSE (mm): 1.87 TVS' Duke: 11.00 Tricuspid Valve RA Press: 3.00 Great Vessels Aorta Ao Root-2D: 3.60 2.0-3.7 cm Ao Asc: 3.10 2.1-3.4 cm Updated in Other Vendor System with Status of Final Domenico Muro MD electronically signed on 12/10/2020 7:49:31 PM with status of Final
--- NOTE | 2020-12-10 13:08 | HO.VASCPN ---
Subjective Subjective Date of Service: 12/10/20 Patient reports: no new complaints and pain is less Interval history: Patient has undergone right lower extremity angiogram with downhill stick on the right lower extremity. Appears to be doing extremely well postprocedure. Pain seems to be better controlled today. He has had no postprocedure issues. Resting comfortably in bed. Physical Exam Vital Signs: Vital Signs: Last Vital Signs Temp 97.8 F 12/10/20 11:44 Pulse 84 12/10/20 11:44 Resp 20 12/10/20 11:44 BP 123/75 12/10/20 11:44 Pulse Ox 98 12/10/20 11:44 Body Mass Index 22.5 Const: General: cooperative, healthy appearing and no acute distress Orientation/consciousness: oriented to person, oriented to place and oriented to time HENMT: Head: Yes normal to inspection Neck: Carotids: no bruits Chest: Chest palpation & inspection: normal inspection of the chest Resp: Effort & Inspection: normal respiratory effort and able to speak in complete sentences Auscultation: clear to auscultation bilaterally Cardio: Rate: regular rate Heart sounds: S1 normal heart sound present and S2 normal heart sound present GI: Inspection: Yes normal to inspection Skin: Other: Right 5th toe ulcer General skin exam: no rashes or lesions noted Wounds: wounds noted Neuro: General: oriented to person, oriented to place, oriented to time and CN's II-XI intact bilaterally Extrem: General: Yes normal to inspection, Yes full ROM and Yes no clubbing, cyanosis or edema Psych: Appearance: grossly normal and well kempt Speech and movement: Normal speech and movement present Affect: normal affect Progress Note: A&P Assessment and plan (1) Peripheral vascular disease: Status: Acute Assessment and Plan: Patient doing well status post diagnostic angiogram. He is in need for fem-pop bypass. This was discussed in detail with he the patient and his who was at bedside. They demonstrated an understanding of this. In addition I did discuss that he is at a high risk of loss of toe. We will await cardiac risk stratification. Thank you for allowing us to assist in his care Fall Risk Details Current Medications: Current Medications Acetaminophen (Acetaminophen 325 Mg Tablet) 650 mg PO Q6H PRN PRN Reason: Pain, Mild (Pain Scale 1-3) Last Admin: 12/08/20 22:05 Dose: 650 mg Documented by: Atorvastatin Calcium (Atorvastatin Calcium 80 Mg Tablet) 80 mg PO DAILY [facility] Last Admin: 12/10/20 10:54 Dose: Not Given Documented by: Carvedilol (Carvedilol 3.125 Mg Tablet) 3.125 mg PO BID [facility]; Protocol Last Admin: 12/10/20 11:40 Dose: 3.125 mg Documented by: Dextrose (Dextrose 50 % 25 Gm/50 Ml Vial) 25 gm IVPUSH Q15M PRN; Protocol PRN Reason: per Hypoglycemia Standing Ord. Glucose (Glucose Gel 15 Gm Gel..Gram.) 15 gm PO Q15M PRN; Protocol PRN Reason: per Hypoglycemia Standing Ord. Piperacillin Sod/Tazobactam (Sod 3.375 gm/ Sodium Chloride) 50 mls @ 100 mls/hr IV Q6H [facility] Last Infusion: 12/10/20 09:38 Dose: Infused Documented by: Vancomycin HCl 750 mg/ Sodium (Chloride) 265 mls @ 265 mls/hr IV Q12H [facility] Last Infusion: 12/10/20 12:41 Dose: Infused Documented by: Sodium Chloride (Ns) 1,000 mls @ 100 mls/hr IVCONT .Q10H [facility] Last Admin: 12/10/20 07:27 Dose: Not Given Documented by: Insulin Human Lispro (Insulin Lispro 100 Unit/Ml 3 Ml Vial) 0 unit SUBCUT QIDACHS [facility]; Protocol Last Admin: 12/10/20 11:29 Dose: Not Given Documented by: Magnesium Hydroxide (Milk Of Magnesia 30 Ml Oral.Susp) 30 ml PO DAILY PRN PRN Reason: Constipation Morphine Sulfate (Morphine Sulfate 4 Mg/Ml Cartridge) 4 mg IVPUSH Q4H PRN; Protocol PRN Reason: Pain, Severe (Pain Scale 7-10) Last Admin: 12/10/20 09:14 Dose: 4 mg Documented by: Ondansetron HCl (Ondansetron Hcl 4 Mg/2 Ml Vial) 4 mg IVPUSH Q8H PRN PRN Reason: Nausea and Vomiting Last Admin: 12/08/20 19:45 Dose: 4 mg Documented by: Oxycodone HCl (Oxycodone Hcl Immed Release 5 Mg Tablet) 5 mg PO Q4H PRN PRN Reason: Pain, Moderate (Pain Scale 4-6 Pharmacy Consult (Consult Rx Perform Med Rec) 1 each MISCELLANE ONCE PRN PRN Reason: Consult order Pharmacy Consult (Consult Rx Vancomycin Dosing) 1 each MISCELLANE DAILY PRN PRN Reason: Consult order Sodium Chloride (0.9 % Sodium Chloride Flush 3 Ml Syringe) 3 ml IVFLUSH QSHIFT [facility] Last Admin: 12/10/20 08:04 Dose: Not Given Documented by: Tamsulosin HCl (Tamsulosin Hcl 0.4 Mg Capsule) 0.4 mg PO DAILY [facility] Last Admin: 12/10/20 11:40 Dose: 0.4 mg Documented by: Time Spent With Patient Time: Total time spent is greater than 50% in coordination of care (as documented) at patient's floor/unit and/or counseling patient: Time with patient: 15 - 24 minutes Procedures Date of Service Date of Service: 12/10/20 Quality Stroke Does the patient have a stroke diagnosis?: No VTE Prior VTE?: No VTE Risk Level:: Medical - moderate - high VTE Device Contraindication: Treatment Not Indicated VTE Drug Contraindication: N/A - Med Ordered
[2020-12-10] MEDS: oxyCODONE HCl Immed Release 5 MG TABLET PO ×2 (13:29→20:24)
[2020-12-10] MEDS: Milk of Magnesia 30 ML ORAL.SUSP PO (13:35)
--- NOTE | 2020-12-10 14:00 | HO.PM.IMPN ---
Subjective Subjective Date of Service: 12/10/20 Interval History: Being followed for right toe gangrene and right foot cellulitis, feels better less pain, no acute overnight issues,just return from rt leg angiogram. Review of Systems General no headache, no dizziness,no fever ,no chills.? CVS no chest pain, no palpitation.? Respiratory no cough, no sputum production ,no respiratory distress.? Gastrointestinal no nausea, no vomiting, no abdominal pain Yes all other systems are reviewed and are negative Physical Exam Vital Signs: Vital Signs: Last Vital Signs Temp 97.8 F 12/10/20 11:44 Pulse 84 12/10/20 11:44 Resp 20 12/10/20 11:44 BP 123/75 12/10/20 11:44 Pulse Ox 98 12/10/20 11:44 Body Mass Index 22.5 General alert oriented x3, no acute distress.? Neck? supple, no JVD. CVS? regular rate rhythm, Respiratory lungs clear to auscultation, no respiratory distress, no wheeze, no rhonchi. Gastrointestinal abdomen soft, nontender, bowel sounds audible, no guarding , no rigidity. Extremities bilateral pitting edema improving, decreased swelling and erythema dorsum of foot, purplish discoloration right small toe, open ulcer lateral margin right toe, unable to specify depth,Serosanguineous drainage Neuro nonfocal,speech clear. Skin no rash Psych appropriate affect Objective Data Active Medications Acetaminophen (Acetaminophen 325 Mg Tablet) 650 mg PO Q6H PRN PRN Reason: Pain, Mild (Pain Scale 1-3) Last Admin: 12/08/20 22:05 Dose: 650 mg Documented by: ARGENIS Atorvastatin Calcium (Atorvastatin Calcium 80 Mg Tablet) 80 mg PO DAILY COUNTS INCLUDE 234 BEDS AT THE [facility] Last Admin: 12/10/20 10:54 Dose: Not Given Documented by: REMA Non-Admin Reason: surgery Carvedilol (Carvedilol 3.125 Mg Tablet) 3.125 mg PO BID COUNTS INCLUDE 234 BEDS AT THE [facility]; Protocol Last Admin: 12/10/20 11:40 Dose: 3.125 mg Documented by: REMA Dextrose (Dextrose 50 % 25 Gm/50 Ml Vial) 25 gm IVPUSH Q15M PRN; Protocol PRN Reason: per Hypoglycemia Standing Ord. Glucose (Glucose Gel 15 Gm Gel..Gram.) 15 gm PO Q15M PRN; Protocol PRN Reason: per Hypoglycemia Standing Ord. Piperacillin Sod/Tazobactam (Sod 3.375 gm/ Sodium Chloride) 50 mls @ 100 mls/hr IV Q6H COUNTS INCLUDE 234 BEDS AT THE [facility] Last Infusion: 12/10/20 09:38 Dose: 0 mls/hr Documented by: REMA Vancomycin HCl 750 mg/ Sodium (Chloride) 265 mls @ 265 mls/hr IV Q12H COUNTS INCLUDE 234 BEDS AT THE [facility] Last Infusion: 12/10/20 12:41 Dose: 0 mls/hr Documented by: REMA Sodium Chloride (Ns) 1,000 mls @ 100 mls/hr IVCONT .Q10H COUNTS INCLUDE 234 BEDS AT THE [facility] Last Admin: 12/10/20 07:27 Dose: Not Given Documented by: COTEMA Non-Admin Reason: Off Unit: Surgery Insulin Human Lispro (Insulin Lispro 100 Unit/Ml 3 Ml Vial) 0 unit SUBCUT QIDACHS COUNTS INCLUDE 234 BEDS AT THE [facility]; Protocol Last Admin: 12/10/20 11:29 Dose: Not Given Documented by: REMA Non-Admin Reason: No Insulin Coverage Magnesium Hydroxide (Milk Of Magnesia 30 Ml Oral.Susp) 30 ml PO DAILY PRN PRN Reason: Constipation Last Admin: 12/10/20 13:35 Dose: 30 ml Documented by: REMA Morphine Sulfate (Morphine Sulfate 4 Mg/Ml Cartridge) 4 mg IVPUSH Q4H PRN; Protocol PRN Reason: Pain, Severe (Pain Scale 7-10) Last Admin: 12/10/20 09:14 Dose: 4 mg Documented by: HANS Ondansetron HCl (Ondansetron Hcl 4 Mg/2 Ml Vial) 4 mg IVPUSH Q8H PRN PRN Reason: Nausea and Vomiting Last Admin: 12/08/20 19:45 Dose: 4 mg Documented by: SWEETIE Oxycodone HCl (Oxycodone Hcl Immed Release 5 Mg Tablet) 5 mg PO Q4H PRN PRN Reason: Pain, Moderate (Pain Scale 4-6 Last Admin: 12/10/20 13:29 Dose: 5 mg Documented by: REMA Pharmacy Consult (Consult Rx Perform Med Rec) 1 each MISCELLANE ONCE PRN PRN Reason: Consult order Pharmacy Consult (Consult Rx Vancomycin Dosing) 1 each MISCELLANE DAILY PRN PRN Reason: Consult order Sodium Chloride (0.9 % Sodium Chloride Flush 3 Ml Syringe) 3 ml IVFLUSH QSHIFT COUNTS INCLUDE 234 BEDS AT THE [facility] Last Admin: 12/10/20 08:04 Dose: Not Given Documented by: ESTER Non-Admin Reason: Off Unit: Surgery Tamsulosin HCl (Tamsulosin Hcl 0.4 Mg Capsule) 0.4 mg PO DAILY COUNTS INCLUDE 234 BEDS AT THE [facility] Last Admin: 12/10/20 11:40 Dose: 0.4 mg Documented by: REMA Labs CBC & Chem 7: 12/09/20 05:51 12/10/20 11:32 Labs: Laboratory Results - last 24 hr 12/09/20 12/09/20 12/09/20 16:06 20:22 22:58 ESR Anion Gap Estim Creat Clear Calc Estimated GFR POC Glucose 197 H 173 H Random Glucose Calcium C-Reactive Protein Vancomycin Trough 11.6 12/10/20 12/10/20 12/10/20 05:48 06:52 11:28 ESR Anion Gap Estim Creat Clear Calc 83.2 Estimated GFR > 60 POC Glucose 138 H 119 H Random Glucose Calcium C-Reactive Protein Vancomycin Trough 12/10/20 12/10/20 11:32 11:32 ESR 34 H Anion Gap 11 L Estim Creat Clear Calc 93.7 Estimated GFR > 60 POC Glucose Random Glucose 125 H Calcium 8.7 C-Reactive Protein 1.05 H Vancomycin Trough Microbiology Microbiology Results: Microbiology 12/08/20 15:06 Blood Culture - Preliminary Blood - Venous No growth after 24 hours. 12/08/20 15:06 Blood Culture - Preliminary Blood - Venous No growth after 24 hours. Assessment and Plan (1) Peripheral vascular disease: Status: Acute (2) Diabetic foot ulcer: Status: Acute (3) Cellulitis: Status: Acute Assessment and Plan: 59 yo male with? CAD, HLD, DM, HTN, recently discharged from [facility] after being treated for right foot cellulitis with diabetic foot ulcer, patient noted to have worsening redness swelling and pain therefore presented to [place] [facility] and now being admitted for recurrent cellulitis and right small toe gangrene. 1/Right foot Cellulitis /nonhealing foot ulcer and right small toe gangrene d/t diabetes ?? Unable to specify depth of small diabetic foot ulcer ?? Feeling better with less pain and swelling ?? No evidence of sepsis, WBC trending down, no fevers overnight ?? on IV Zosyn and vancomycin day 3, stable renal function and vanco level ESR and CRP not significantly elevated ?? Patient seen by Dr. Alas duplex scan lower extremity showed moderate to severe atherosclerotic disease right lower extremity, status post abdominal angiogram this morning Case discussed with Dr. Alas plan is for fem-pop bypass on Monday, will obtain preop clearance by Cardiology ?? Continue current pain medication with oxycodone and IV morphine ?? blood culture x2 no growth in 24 hours ?? Foot x-ray showed no osteo, await ID input 2/CAD no chest pain, will continue Statin, BP remains soft on low-dose beta-blockers hold Eliquis for above surgery, continue asa. 3/hypertension noticed to have soft blood pressure will hold lisinopril and continue low-dose Coreg 3.125 mg b.i.d. follow BP closely 4/hyperlipidemia continue statin 5/Diabetes as per patient blood sugars in 200s at home currently blood sugars low,will hold metformin and Farxiga (not formulary), will place on SSI and diabetic diet, hemoglobin A1c 8.8 6/DVT prophylaxis were placed on Quality Stroke Does the patient have a stroke diagnosis?: No VTE Prior VTE?: No VTE Risk Level:: Medical - moderate - high VTE Device Contraindication: Treatment Not Indicated VTE Drug Contraindication: N/A - Med Ordered
[2020-12-10] MEDS: 0.9 % Sodium Chloride 1,000 ML 100 ML IVCONT (15:40)
[2020-12-10] MEDS: 0.9 % Sodium Chloride Flush 3 ML SYRINGE IVFLUSH (15:44)
[2020-12-10] MEDS: Aspirin Enteric Coated 81 MG TABLET.DR PO (15:44)
[2020-12-10 16:22] LABS: Glucose, Whole Blood 214 mg/dL (60-115)
--- NOTE | 2020-12-10 16:45 | PM.CNCAR ---
History of Present Illness History of Present Illness Date of Service: 12/10/20 Requesting physician: Tristen Canales Chief complaint: Right foot cellulitis nonhealing wound/gangrenous Narrative: 60-year-old gentleman who has background history of peripheral vascular disease with previous left fem-pop bypass as well as triple-vessel disease for which he underwent bypass surgery in 2019. He had EF of 35-40% before surgery and it improved to 55% to 60% based on echocardiography done today. He is denying any exertional chest discomfort shortness of breath but it appears he has been quite inactive. He is a dump truck driver off highway mostly and does not do any significant physical exertion. He noticed foot blister on the right small toe and it progressed over the last 2 days to gangrene. He underwent angiography by Dr. Alas and needs a fem-pop bypass on the right side. We have been asked to assess for cardiovascular risk. He is denying any symptoms otherwise. [facility] Past Medical History Medical History (Updated 12/10/20 @ 16:47 by Domenico Muro MD) CAD (coronary artery disease) Cellulitis in diabetic foot Diabetes Eschar of foot HLD (hyperlipidemia) HTN (hypertension) PAF (paroxysmal atrial fibrillation) Pressure ulcer, unstageable, with eschar Family History Family History Mother Colon cancer Father Diabetes Surgical History Surgical History (Updated 12/10/20 @ 16:47 by Domenico Muro MD) History of surgery on upper extremity Hx of CABG Hx of vascular surgery Social History Social History Household Members: Spouse Housing: House Do you presently have visiting nurse or other home services: Yes Patient Tobacco Use Status: Current everyday Tobacco user Tobacco use type: Cigarette Cigarettes Per Day: 3 Advance Directives Date on File: 12/08/20 Current occupational status: employed Meds Allergies Allergy/AdvReac Type Severity Reaction Status Date / Time codeine [Codeine] AdvReac Unknown SHAKING Verified 12/08/20 12:57 Active Medications: Current Medications Acetaminophen (Acetaminophen 325 Mg Tablet) 650 mg PO Q6H PRN PRN Reason: Pain, Mild (Pain Scale 1-3) Last Admin: 12/08/20 22:05 Dose: 650 mg Documented by: Aspirin (Aspirin Enteric Coated 81 Mg Tablet.) 81 mg PO DAILY [facility] Last Admin: 12/10/20 15:44 Dose: 81 mg Documented by: Atorvastatin Calcium (Atorvastatin Calcium 80 Mg Tablet) 80 mg PO DAILY [facility] Last Admin: 12/10/20 10:54 Dose: Not Given Documented by: Carvedilol (Carvedilol 3.125 Mg Tablet) 3.125 mg PO BID [facility]; Protocol Last Admin: 12/10/20 11:40 Dose: 3.125 mg Documented by: Dextrose (Dextrose 50 % 25 Gm/50 Ml Vial) 25 gm IVPUSH Q15M PRN; Protocol PRN Reason: per Hypoglycemia Standing Ord. Glucose (Glucose Gel 15 Gm Gel..Gram.) 15 gm PO Q15M PRN; Protocol PRN Reason: per Hypoglycemia Standing Ord. Piperacillin Sod/Tazobactam (Sod 3.375 gm/ Sodium Chloride) 50 mls @ 100 mls/hr IV Q6H [facility] Last Infusion: 12/10/20 16:16 Dose: Infused Documented by: Vancomycin HCl 750 mg/ Sodium (Chloride) 265 mls @ 265 mls/hr IV Q12H [facility] Last Infusion: 12/10/20 12:41 Dose: Infused Documented by: Sodium Chloride (Ns) 1,000 mls @ 100 mls/hr IVCONT .Q10H [facility] Last Admin: 12/10/20 15:40 Dose: 100 mls/hr Documented by: Insulin Human Lispro (Insulin Lispro 100 Unit/Ml 3 Ml Vial) 0 unit SUBCUT QIDACHS [facility]; Protocol Last Admin: 12/10/20 11:29 Dose: Not Given Documented by: Magnesium Hydroxide (Milk Of Magnesia 30 Ml Oral.Susp) 30 ml PO DAILY PRN PRN Reason: Constipation Last Admin: 12/10/20 13:35 Dose: 30 ml Documented by: Morphine Sulfate (Morphine Sulfate 4 Mg/Ml Cartridge) 4 mg IVPUSH Q4H PRN; Protocol PRN Reason: Pain, Severe (Pain Scale 7-10) Last Admin: 12/10/20 09:14 Dose: 4 mg Documented by: Ondansetron HCl (Ondansetron Hcl 4 Mg/2 Ml Vial) 4 mg IVPUSH Q8H PRN PRN Reason: Nausea and Vomiting Last Admin: 12/08/20 19:45 Dose: 4 mg Documented by: Oxycodone HCl (Oxycodone Hcl Immed Release 5 Mg Tablet) 5 mg PO Q4H PRN PRN Reason: Pain, Moderate (Pain Scale 4-6 Last Admin: 12/10/20 13:29 Dose: 5 mg Documented by: Pharmacy Consult (Consult Rx Perform Med Rec) 1 each MISCELLANE ONCE PRN PRN Reason: Consult order Pharmacy Consult (Consult Rx Vancomycin Dosing) 1 each MISCELLANE DAILY PRN PRN Reason: Consult order Sodium Chloride (0.9 % Sodium Chloride Flush 3 Ml Syringe) [facility] Last Admin: 12/10/20 15:44 Dose: 3 ml Documented by: Tamsulosin HCl (Tamsulosin Hcl 0.4 Mg Capsule) 0.4 mg PO DAILY [facility] Last Admin: 12/10/20 11:40 Dose: 0.4 mg Documented by: Home Medications Medication Instructions Recorded Confirmed Last Taken Type apixaban 5 mg tablet (Eliquis) 1 tab PO BID 11/11/20 12/08/20 11/26/20 History aspirin 81 mg tablet 81 mg PO DAILY 11/11/20 12/08/20 11/26/20 History atorvastatin 80 mg tablet 1 tab PO DAILY 11/11/20 12/08/20 11/11/20 History carvedilol 6.25 mg tablet 1 tab PO BID 11/11/20 12/08/20 11/11/20 History dapagliflozin 10 mg tablet 1 tab PO DAILY 11/11/20 12/08/20 11/11/20 History (Farxiga) insulin glargine 100 unit/mL (3 40 unit SUBCUT BEDTIME 11/11/20 12/08/20 11/11/20 History mL) subcutaneous pen (Basaglar KwikPen U-100 Insulin) lisinopril 10 mg tablet 1 tab PO DAILY 11/11/20 12/08/20 11/11/20 History metformin 850 mg tablet 1 tab PO BID 11/11/20 12/08/20 11/11/20 History tamsulosin 0.4 mg capsule 1 cap PO DAILY 11/11/20 12/08/20 11/11/20 History gabapentin 300 mg capsule 300 mg PO TID 12/08/20 12/08/20 Unknown History Physical Exam Vital Signs: Vital Signs: Last Vital Signs Temp 98.8 F 12/10/20 15:20 Pulse 88 12/10/20 15:20 Resp 16 12/10/20 15:20 BP 131/71 12/10/20 15:20 Pulse Ox 98 12/10/20 15:20 Body Mass Index 22.5 GENERAL APPEARANCE: in no acute distress, pleasant. NECK: no carotid bruit, no jugular venous distention. SKIN: no suspicious lesions, warm and dry. HEART: no murmurs, regular rate and rhythm. LUNGS: clear to auscultation bilaterally. ABDOMEN: soft, nontender. EXTREMITIES: Right foot dressed. NEUROLOGIC: No gross deficits, AAO X 3 Results Labs and Meds Result diagrams: 12/09/20 05:51 12/10/20 11:32 Lab results: Laboratory Results - last 24 hr 12/09/20 12/09/20 12/10/20 20:22 22:58 05:48 ESR Sodium Potassium Chloride Carbon Dioxide Anion Gap BUN Creatinine 0.98 Estim Creat Clear Calc 83.2 Estimated GFR > 60 POC Glucose 173 H Random Glucose Calcium C-Reactive Protein Vancomycin Trough 11.6 12/10/20 12/10/20 12/10/20 06:52 11:28 11:32 ESR 34 H Sodium Potassium Chloride Carbon Dioxide Anion Gap BUN Creatinine Estim Creat Clear Calc Estimated GFR POC Glucose 138 H 119 H Random Glucose Calcium C-Reactive Protein Vancomycin Trough 12/10/20 12/10/20 11:32 16:00 ESR Sodium 135 Potassium 4.9 Chloride 101 Carbon Dioxide 28 Anion Gap 11 L BUN 17 H Creatinine 0.87 Estim Creat Clear Calc 93.7 Estimated GFR > 60 POC Glucose 214 H Random Glucose 125 H Calcium 8.7 C-Reactive Protein 1.05 H Vancomycin Trough Assessment and Plan (1) Peripheral vascular disease: Status: Acute (2) CAD (coronary artery disease): Status: Acute (3) Hx of CABG: Status: Acute Pleasant 60-year-old gentleman with background of tobacco abuse and peripheral vascular disease who underwent left fem-pop bypass surgery many years ago in [place]. He also has multivessel coronary artery disease underwent bypass surgery in 2019. He is now presenting with right foot gangrene involving the 5th toe and angiography is done and he requires fem-pop bypass on the right side. He is post bypass and his echocardiography today showed EF of 55-60% with inferior wall motion abnormality. It appears his previous stress testing has shown inferior infarct. He is not physically very active. I think we need to do a Lexiscan. Please keep him NPO and we will try to do this tomorrow. Continue baby aspirin. Eliquis should be stopped and he should be started on heparin drip till he gets surgery. Thank you for allowing me to participate in the care of your patient. Please feel free to contact me if you have any questions. Procedures Date of Service Date of Service: 12/10/20
[2020-12-10] MEDS: Insulin Lispro 100 UNIT/ML 3 ML VIAL SUBCUT ×2 (17:11→20:23)
[2020-12-10 20:14] LABS: Glucose, Whole Blood 198 mg/dL (60-115)
[2020-12-11] VITALS: BP 119/70; PULSE 87; RESP 20; TEMP 36.2; O2SAT 98
[2020-12-11] MEDS: vancomycin HCL 750 MG in 0.9 % Sodium Chloride 250 ML 265 MG IV (00:21)
[2020-12-11] MEDS: oxyCODONE HCl Immed Release 5 MG TABLET PO ×4 (00:21→23:17)
[2020-12-11] MEDS: Piperacillin Sodium/Tazobactam 3.375 GM in 0.9 % Sodium Chloride 50 ML IV ×4 (02:38→20:14)
[2020-12-11] MEDS: 0.9 % Sodium Chloride 1,000 ML 100 ML IVCONT (02:39)
[2020-12-11 06:32] LABS: Creatinine Clr Calc Pharmacy 99.4; Estimated Glomerular Filt Rate > 60
[2020-12-11 07:55] VITALS: BP 129/71; PULSE 81; RESP 17; TEMP 36.3; O2SAT 98
[2020-12-11 08:01] LABS: Glucose, Whole Blood 171 mg/dL (60-115)
[2020-12-11] MEDS: carvediloL 3.125 MG TABLET PO ×2 (08:23→20:14)
[2020-12-11] MEDS: Tamsulosin HCL 0.4 MG CAPSULE PO (08:23)
[2020-12-11] MEDS: Atorvastatin Calcium 80 MG TABLET PO (08:23)
[2020-12-11] MEDS: Aspirin Enteric Coated 81 MG TABLET.DR PO (08:24)
[2020-12-11] MEDS: 0.9 % Sodium Chloride Flush 3 ML SYRINGE IVFLUSH ×2 (08:24→15:57)
--- NOTE | 2020-12-11 09:30 | CA_ITS ---
Acquisition Time: 2020-12-11 10:01:20 Total Exercise Time: 00:02:00 Test Indications: PREOP Medications: SEE CHART Protocol: LEXISCAN Max HR: 127 BPM 80% of Pred: 158 BPM Max BP: 126/060 mmHG Max Work Load: 1.0 METS Pharmacological stress test with Lexiscan injection, without anginal symptoms, without arrythmia, with normotensive response to exercise, with nondiagnostic EKG for ischemia. Nuclear images pending. Test reviewed with Dr Muro. Referred By: Domenico Muro Overread By: JESSICA WILSON
--- NOTE | 2020-12-11 10:37 | HO.VASCPN ---
Subjective Subjective Date of Service: 12/11/20 Patient reports: no new complaints and feels better Interval history: Pleasant 60-year-old gentleman for follow-up regarding nonhealing right lower extremity ulcer. He had undergone angiogram yesterday with no postprocedure issues. In addition he is currently undergoing cardiac risk stratification. At the time of my visit he was actually headed down for cardiac testing. He notes that the pain and discomfort have improved since admission. He now presents for vascular follow-up. Physical Exam Vital Signs: Vital Signs: Last Vital Signs Temp 97.4 F 12/11/20 07:55 Pulse 81 12/11/20 07:55 Resp 17 12/11/20 07:55 BP 129/71 12/11/20 07:55 Pulse Ox 98 12/11/20 07:55 Body Mass Index 22.5 Const: General: cooperative, healthy appearing and no acute distress Orientation/consciousness: oriented to person, oriented to place and oriented to time HENMT: Head: Yes normal to inspection Neck: Carotids: no bruits Chest: Chest palpation & inspection: normal inspection of the chest Resp: Effort & Inspection: normal respiratory effort and able to speak in complete sentences Auscultation: clear to auscultation bilaterally Cardio: Rate: regular rate Heart sounds: S1 normal heart sound present and S2 normal heart sound present GI: Inspection: Yes normal to inspection Skin: General skin exam: no rashes or lesions noted Wounds: wounds noted (Right 5th toe ischemic) Neuro: General: oriented to person, oriented to place, oriented to time and CN's II-XI intact bilaterally Extrem: General: Yes normal to inspection, Yes full ROM and Yes no clubbing, cyanosis or edema Psych: Appearance: grossly normal and well kempt Speech and movement: Normal speech and movement present Affect: normal affect Progress Note: A&P Assessment and plan (1) PAD (peripheral artery disease): Status: Acute Assessment and Plan: In short patient has a chronic total occlusion of the right SFA. The patient will require right side femoral to popliteal bypass. Risks benefits complications were discussed in detail with the patient including but not limited to bleeding, infection, ischemia, limb loss, and . He demonstrated a clear understanding. We will await final cardiac risk stratification. He will be maintained on antibiotics through the weekend. Plan is for surgery for Monday. Thank you for allowing us to assist in his care. Fall Risk Details Current Medications: Current Medications Acetaminophen (Acetaminophen 325 Mg Tablet) 650 mg PO Q6H PRN PRN Reason: Pain, Mild (Pain Scale 1-3) Last Admin: 12/08/20 22:05 Dose: 650 mg Documented by: Aspirin (Aspirin Enteric Coated 81 Mg Tablet.) 81 mg PO DAILY [facility] Last Admin: 12/11/20 08:24 Dose: 81 mg Documented by: Atorvastatin Calcium (Atorvastatin Calcium 80 Mg Tablet) 80 mg PO DAILY [facility] Last Admin: 12/11/20 08:23 Dose: 80 mg Documented by: Carvedilol (Carvedilol 3.125 Mg Tablet) 3.125 mg PO BID [facility]; Protocol Last Admin: 12/11/20 08:23 Dose: 3.125 mg Documented by: Dextrose (Dextrose 50 % 25 Gm/50 Ml Vial) 25 gm IVPUSH Q15M PRN; Protocol PRN Reason: per Hypoglycemia Standing Ord. Glucose (Glucose Gel 15 Gm Gel..Gram.) 15 gm PO Q15M PRN; Protocol PRN Reason: per Hypoglycemia Standing Ord. Piperacillin Sod/Tazobactam (Sod 3.375 gm/ Sodium Chloride) 50 mls @ 100 mls/hr IV Q6H [facility] Last Infusion: 12/11/20 09:20 Dose: Infused Documented by: Vancomycin HCl 750 mg/ Sodium (Chloride) 265 mls @ 265 mls/hr IV Q12H [facility] Last Infusion: 12/11/20 01:27 Dose: Infused Documented by: Insulin Human Lispro (Insulin Lispro 100 Unit/Ml 3 Ml Vial) 0 unit SUBCUT QIDACHS [facility]; Protocol Last Admin: 12/11/20 08:24 Dose: Not Given Documented by: Magnesium Hydroxide (Milk Of Magnesia 30 Ml Oral.Susp) 30 ml PO DAILY PRN PRN Reason: Constipation Last Admin: 12/10/20 13:35 Dose: 30 ml Documented by: Morphine Sulfate (Morphine Sulfate 4 Mg/Ml Cartridge) 4 mg IVPUSH Q4H PRN; Protocol PRN Reason: Pain, Severe (Pain Scale 7-10) Last Admin: 12/10/20 21:55 Dose: 4 mg Documented by: Ondansetron HCl (Ondansetron Hcl 4 Mg/2 Ml Vial) 4 mg IVPUSH Q8H PRN PRN Reason: Nausea and Vomiting Last Admin: 12/08/20 19:45 Dose: 4 mg Documented by: Oxycodone HCl (Oxycodone Hcl Immed Release 5 Mg Tablet) 5 mg PO Q4H PRN PRN Reason: Pain, Moderate (Pain Scale 4-6 Last Admin: 12/11/20 09:49 Dose: 5 mg Documented by: Pharmacy Consult (Consult Rx Perform Med Rec) 1 each MISCELLANE ONCE PRN PRN Reason: Consult order Pharmacy Consult (Consult Rx Vancomycin Dosing) 1 each MISCELLANE DAILY PRN PRN Reason: Consult order Sodium Chloride (0.9 % Sodium Chloride Flush 3 Ml Syringe) 3 ml IVFLUSH QSHIFT [facility] Last Admin: 12/11/20 08:24 Dose: 3 ml Documented by: Tamsulosin HCl (Tamsulosin Hcl 0.4 Mg Capsule) 0.4 mg PO DAILY [facility] Last Admin: 12/11/20 08:23 Dose: 0.4 mg Documented by: Time Spent With Patient Time: Total time spent is greater than 50% in coordination of care (as documented) at patient's floor/unit and/or counseling patient: Time with patient: 15 - 24 minutes Procedures Date of Service Date of Service: 12/11/20 Quality Stroke Does the patient have a stroke diagnosis?: No VTE Prior VTE?: No VTE Risk Level:: Medical - moderate - high VTE Device Contraindication: Treatment Not Indicated VTE Drug Contraindication: N/A - Med Ordered
--- NOTE | 2020-12-11 10:53 | P.PNCA_ITS ---
Subjective Subjective Date of Service: 12/11/20 <CARMELO Brown - Last Filed: 12/11/20 11:23> 12/12/20 <Domenico Muro MD - Last Filed: 12/12/20 12:24> Principal diagnosis: Diabetic foot ulcer, Preop, CAD/ CABG hx <CARMELO Brown - Last Filed: 12/11/20 11:23> Interval history: Cardiology follow up for CAD, preop. Seen at 0945. Today he reports feeling well. Having less discomfort from right foot. No chest pain, palpitation, shortness of breath, dizziness. Slept well. NPO for stress test this am. <CARMELO Brown - Last Filed: 12/11/20 11:23> Review of Systems Review of Systems as above <CARMELO Brown - Last Filed: 12/11/20 11:23> Physical Exam Vital Signs: Last Vital Signs Temp 97.4 F 12/11/20 07:55 Pulse 81 12/11/20 07:55 Resp 17 12/11/20 07:55 BP 129/71 12/11/20 07:55 Pulse Ox 98 12/11/20 07:55 Body Mass Index 22.5 <CARMELO Brown - Last Filed: 12/11/20 11:23> Const General: cooperative, no acute distress, alert and awake <CARMELO Brown - Last Filed: 12/11/20 11:23> Orientation/consciousness: patient oriented x3 <CARMELO Brown - Last Filed: 12/11/20 11:23> Neck Neck: Yes normal visual inspection and Yes no JVD <CARMELO Brown - Last Filed: 12/11/20 11:23> Resp Effort & Inspection: normal respiratory effort, able to speak in complete sentences and not labored <CARMELO Brown - Last Filed: 12/11/20 11:23> Auscultation: clear to auscultation bilaterally, no crackles, no rales, no rhonchi and no wheezes <CARMELO Brown - Last Filed: 12/11/20 11:23> Cardio Palpation: normal PMI <CARMELO Brown - Last Filed: 12/11/20 11:23> Rate: regular rate <CARMELO Brown - Last Filed: 12/11/20 11:23> Rhythm: regular rhythm <Cinda Wood CARMELO - Last Filed: 12/11/20 11:23> Heart sounds: S1 normal heart sound present and S2 normal heart sound present <Cinda WoodCARLINENeeraj - Last Filed: 12/11/20 11:23> GI Inspection: Yes normal to inspection <CARMELO Brown - Last Filed: 12/11/20 11:23> Neuro General: patient oriented x3 <Cinda Wood CARMELO - Last Filed: 12/11/20 11:23> Extrem Other: dry dressing over right foot, +2 pitting edema noted in lower extremeties. <Cinda Wood CARMELO - Last Filed: 12/11/20 11:23> Results Labs and Meds Result diagrams: : 12/12/20 05:49 12/12/20 05:49 <Cinda Wood CARMELO - Last Filed: 12/11/20 11:23> Lab results: Laboratory Results - last 24 hr 12/10/20 12/10/20 12/10/20 11:28 11:32 11:32 ESR 34 H Sodium 135 Potassium 4.9 Chloride 101 Carbon Dioxide 28 Anion Gap 11 L BUN 17 H Creatinine 0.87 Estim Creat Clear Calc 93.7 Estimated GFR > 60 POC Glucose 119 H Random Glucose 125 H Calcium 8.7 C-Reactive Protein 1.05 H 12/10/20 12/10/20 12/11/20 16:00 20:07 05:45 ESR Sodium Potassium Chloride Carbon Dioxide Anion Gap BUN Creatinine 0.82 Estim Creat Clear Calc 99.4 Estimated GFR > 60 POC Glucose 214 H 198 H Random Glucose Calcium C-Reactive Protein 12/11/20 07:55 ESR Sodium Potassium Chloride Carbon Dioxide Anion Gap BUN Creatinine Estim Creat Clear Calc Estimated GFR POC Glucose 171 H Random Glucose Calcium C-Reactive Protein <Cinda WoodEFFIEC - Last Filed: 12/11/20 11:23> Progress Note: A&P Assessment and plan (1) Pre-operative cardiovascular examination: Status: Acute <CARMELO Brown - Last Filed: 12/11/20 11:23> Assessment and Plan: Preop for fem pop bypass right leg on 12/14/20. Hx of CAD with 3 vess el CABG 07/2018. Echo shows EF 55-60%, WMA inferiorly. Hx of prior inferior SD. No reports of anginal symptoms. Activity limited by foot condition. 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 Pharmacological nuclear stress test being performed - Stress images today and Rest images tomorrow. Cardiac risk stratification to be completed once results are available. <CARMELO Brown - Last Filed: 12/11/20 11:23> (2) CAD (coronary artery disease): Status: Acute <CARMELO Brown - Last Filed: 12/11/20 11:23> Assessment and Plan: Stable at present without anginal symptoms. EKG 12/08/20 shows SR, no acute ST/ T wave abn, rate 75. Continue aspirin, atorvastatin, carvedilol. <CARMELO Brown - Last Filed: 12/11/20 11:23> (3) Hx of CABG: Status: Acute <CARMELO Brown - Last Filed: 12/11/20 11:23> Assessment and Plan: 07/2018 GOMEZ to LAD, SVG to PDA, SVG to OM1. <EFFIE BrownC - Last Filed: 12/11/20 11:23> (4) PAF (paroxysmal atrial fibrillation): Status: Acute <EFFIE BrownC - Last Filed: 12/11/20 11:23> Assessment and Plan: Hx of PAF. Maze procedure at time of CABG. EKG and Tele this admit shows SR, no afib. No reports of heart palpitation. Continue Carvedilol for heart rate control. Has been on Eliquis for anticoagulation currently held due to plan for surgery. CHADVASc 3. Discussed anticoagulation with Dr Alas and he would like a heparin drip for anticoagulation for the weekend. Hospitalist notified. <EFFIE BrownC - Last Filed: 12/11/20 11:23> (5) Diabetic foot ulcer: Status: Acute <CARMELO Brown - Last Filed: 12/11/20 11:23> Assessment and Plan: Followed by hospitalist and Dr Alas <CARMELO Brown - Last Filed: 12/11/20 11:23> Fall Risk Details Current Medications: Current Medications Acetaminophen (Acetaminophen 325 Mg Tablet) 650 mg PO Q6H PRN PRN Reason: Pain, Mild (Pain Scale 1-3) Last Admin: 12/08/20 22:05 Dose: 650 mg Documented by: Aspirin (Aspirin Enteric Coated 81 Mg Tablet.) 81 mg PO DAILY [facility] Last Admin: 12/11/20 08:24 Dose: 81 mg Documented by: Atorvastatin Calcium (Atorvastatin Calcium 80 Mg Tablet) 80 mg PO DAILY [facility] Last Admin: 12/11/20 08:23 Dose: 80 mg Documented by: Carvedilol (Carvedilol 3.125 Mg Tablet) 3.125 mg PO BID [facility]; Protocol Last Admin: 12/11/20 08:23 Dose: 3.125 mg Documented by: Dextrose (Dextrose 50 % 25 Gm/50 Ml Vial) 25 gm IVPUSH Q15M PRN; Protocol PRN Reason: per Hypoglycemia Standing Ord. Glucose (Glucose Gel 15 Gm Gel..Gram.) 15 gm PO Q15M PRN; Protocol PRN Reason: per Hypoglycemia Standing Ord. Piperacillin Sod/Tazobactam (Sod 3.375 gm/ Sodium Chloride) 50 mls @ 100 mls/hr IV Q6H [facility] Last Infusion: 12/11/20 09:20 Dose: Infused Documented by: Vancomycin HCl 750 mg/ Sodium (Chloride) 265 mls @ 265 mls/hr IV Q12H [facility] Last Infusion: 12/11/20 01:27 Dose: Infused Documented by: Insulin Human Lispro (Insulin Lispro 100 Unit/Ml 3 Ml Vial) 0 unit SUBCUT QIDACHS [facility]; Protocol Last Admin: 12/11/20 08:24 Dose: Not Given Documented by: Magnesium Hydroxide (Milk Of Magnesia 30 Ml Oral.Susp) 30 ml PO DAILY PRN PRN Reason: Constipation Last Admin: 12/10/20 13:35 Dose: 30 ml Documented by: Morphine Sulfate (Morphine Sulfate 4 Mg/Ml Cartridge) 4 mg IVPUSH Q4H PRN; Pro tocol PRN Reason: Pain, Severe (Pain Scale 7-10) Last Admin: 12/10/20 21:55 Dose: 4 mg Documented by: Ondansetron HCl (Ondansetron Hcl 4 Mg/2 Ml Vial) 4 mg IVPUSH Q8H PRN PRN Reason: Nausea and Vomiting Last Admin: 12/08/20 19:45 Dose: 4 mg Documented by: Oxycodone HCl (Oxycodone Hcl Immed Release 5 Mg Tablet) 5 mg PO Q4H PRN PRN Reason: Pain, Moderate (Pain Scale 4-6 Last Admin: 12/11/20 09:49 Dose: 5 mg Documented by: Pharmacy Consult (Consult Rx Perform Med Rec) 1 each MISCELLANE ONCE PRN PRN Reason: Consult order Pharmacy Consult (Consult Rx Vancomycin Dosing) 1 each MISCELLANE DAILY PRN PRN Reason: Consult order Sodium Chloride (0.9 % Sodium Chloride Flush 3 Ml Syringe) 3 ml IVFLUSH [facility] Last Admin: 12/11/20 08:24 Dose: 3 ml Documented by: Tamsulosin HCl (Tamsulosin Hcl 0.4 Mg Capsule) 0.4 mg PO DAILY [facility] Last Admin: 12/11/20 08:23 Dose: 0.4 mg Documented by: <CARMELO Brown - Last Filed: 12/11/20 11:23> Time Spent With Patient Time: Total time spent is greater than 50% in coordination of care (as documented) at patient's floor/unit and/or counseling patient: <CARMELO Brown - Last Filed: 12/11/20 11:23> Time with patient: 15 - 24 minutes <CARMELO Brown - Last Filed: 12/11/20 11:23> Progress Note: Quality Stroke Does the patient have a stroke diagnosis?: No <CARMELO Brown - Last Filed: 12/11/20 11:23> Procedures Date of Service Date of Service: 12/11/20 <CARMELO Brown - Last Filed: 12/11/20 11:23>
[2020-12-11 11:30] LABS: Glucose, Whole Blood 204 mg/dL (60-115)
[2020-12-11] MEDS: Insulin Lispro 100 UNIT/ML 3 ML VIAL SUBCUT ×3 (11:54→20:35)
--- NOTE | 2020-12-11 11:55 | HO.PM.IMPN ---
Subjective Subjective Date of Service: 12/11/20 Interval History: Being followed for right toe gangrene and right foot cellulitis, and significant peripheral vascular disease, patient feels significantly better less right foot pain and swelling wants to know if he can be discharged home today and return back Monday night for fem pop bypass on Monday, no other acute issues overnight, is NPO for stress test today. Review of Systems General no headache, no dizziness,no fever ,no chills.? CVS no chest pain, no palpitation.? Respiratory no cough, no sputum production ,no respiratory distress.? Gastrointestinal no nausea, no vomiting, no abdominal pain Yes all other systems are reviewed and are negative Physical Exam Vital Signs: Vital Signs: Last Vital Signs Temp 97.4 F 12/11/20 07:55 Pulse 81 12/11/20 07:55 Resp 17 12/11/20 07:55 BP 129/71 12/11/20 07:55 Pulse Ox 98 12/11/20 07:55 Body Mass Index 22.5 General alert oriented x3, no acute distress.? Neck? supple, no JVD. CVS? regular rate rhythm, Respiratory lungs clear to auscultation, no respiratory distress, no wheeze, no rhonchi. Gastrointestinal abdomen soft, nontender, bowel sounds audible, no guarding , no rigidity. Extremities bilateral pitting edema improved, swelling and erythema dorsum of foot resolved, persistent purplish discoloration right small toe, open ulcer lateral margin right toe, unable to specify depth Neuro nonfocal,speech clear. Skin no rash Psych appropriate affect Objective Data Active Medications Acetaminophen (Acetaminophen 325 Mg Tablet) 650 mg PO Q6H PRN PRN Reason: Pain, Mild (Pain Scale 1-3) Last Admin: 12/08/20 22:05 Dose: 650 mg Documented by: ARGENIS Aspirin (Aspirin Enteric Coated 81 Mg Tablet.) 81 mg PO DAILY [facility] Last Admin: 12/11/20 08:24 Dose: 81 mg Documented by: BLAKE Atorvastatin Calcium (Atorvastatin Calcium 80 Mg Tablet) 80 mg PO DAILY [facility] Last Admin: 12/11/20 08:23 Dose: 80 mg Documented by: BLAKE Carvedilol (Carvedilol 3.125 Mg Tablet) 3.125 mg PO BID [facility]; Protocol Last Admin: 12/11/20 08:23 Dose: 3.125 mg Documented by: BLAKE Dextrose (Dextrose 50 % 25 Gm/50 Ml Vial) 25 gm IVPUSH Q15M PRN; Protocol PRN Reason: per Hypoglycemia Standing Ord. Glucose (Glucose Gel 15 Gm Gel..Gram.) 15 gm PO Q15M PRN; Protocol PRN Reason: per Hypoglycemia Standing Ord. Heparin Sodium (Porcine) (Heparin Sodium,Porcine 5,000 Unit/Ml Vial) 3,000 unit 40 unit/kg (3000 unit) IVPUSH PROTOCOL BOLUS PRN; Protocol PRN Reason: 40 unit/kg - Heparin Protocol Heparin Sodium (Porcine) (Heparin Sodium,Porcine 5,000 Unit/Ml Vial) 6,000 unit 80 unit/kg (6000 unit) IVPUSH PROTOCOL BOLUS PRN; Protocol PRN Reason: 80 unit/kg - Heparin Protocol Piperacillin Sod/Tazobactam (Sod 3.375 gm/ Sodium Chloride) 50 mls @ 100 mls/hr IV Q6H [facility] Last Infusion: 12/11/20 09:20 Dose: 100 mls/hr Documented by: BLAKE Vancomycin HCl 750 mg/ Sodium (Chloride) 265 mls @ 265 mls/hr IV Q12H [facility] Last Infusion: 12/11/20 01:27 Dose: 0 mls/hr Documented by: KAYLEEN Heparin Sodium/Sodium Chloride () 25,000 unit in 250 mls @ 0 mls/hr IVCONT .Q0M [facility]; Protocol Insulin Human Lispro (Insulin Lispro 100 Unit/Ml 3 Ml Vial) 0 unit SUBCUT QIDACHS [facility]; Protocol Last Admin: 12/11/20 11:54 Dose: 4 unit Documented by: BLAKE Magnesium Hydroxide (Milk Of Magnesia 30 Ml Oral.Susp) 30 ml PO DAILY PRN PRN Reason: Constipation Last Admin: 12/10/20 13:35 Dose: 30 ml Documented by: IGLESLaz Morphine Sulfate (Morphine Sulfate 4 Mg/Ml Cartridge) 4 mg IVPUSH Q4H PRN; Protocol PRN Reason: Pain, Severe (Pain Scale 7-10) Last Admin: 12/10/20 21:55 Dose: 4 mg Documented by: JANIS Ondansetron HCl (Ondansetron Hcl 4 Mg/2 Ml Vial) 4 mg IVPUSH Q8H PRN PRN Reason: Nausea and Vomiting Last Admin: 12/08/20 19:45 Dose: 4 mg Documented by: SWEETIE Oxycodone HCl (Oxycodone Hcl Immed Release 5 Mg Tablet) 5 mg PO Q4H PRN PRN Reason: Pain, Moderate (Pain Scale 4-6 Last Admin: 12/11/20 09:49 Dose: 5 mg Documented by: EVONNE Pharmacy Consult (Consult Rx Perform Med Rec) 1 each MISCELLANE ONCE PRN PRN Reason: Consult order Pharmacy Consult (Consult Rx Vancomycin Dosing) 1 each MISCELLANE DAILY PRN PRN Reason: Consult order Sodium Chloride (0.9 % Sodium Chloride Flush 3 Ml Syringe) 3 ml IVFLUSH QSHIFT [facility] Last Admin: 12/11/20 08:24 Dose: 3 ml Documented by: BLAKE Tamsulosin HCl (Tamsulosin Hcl 0.4 Mg Capsule) 0.4 mg PO DAILY [facility] Last Admin: 12/11/20 08:23 Dose: 0.4 mg Documented by: BLAKE Labs CBC & Chem 7: 12/09/20 05:51 12/11/20 05:45 Labs: Laboratory Results - last 24 hr 12/10/20 12/10/20 12/10/20 11:32 11:32 16:00 ESR 34 H Anion Gap 11 L Estim Creat Clear Calc 93.7 Estimated GFR > 60 POC Glucose 214 H Random Glucose 125 H Calcium 8.7 C-Reactive Protein 1.05 H 12/10/20 12/11/20 12/11/20 20:07 05:45 07:55 ESR Anion Gap Estim Creat Clear Calc 99.4 Estimated GFR > 60 POC Glucose 198 H 171 H Random Glucose Calcium C-Reactive Protein 12/11/20 11:23 ESR Anion Gap Estim Creat Clear Calc Estimated GFR POC Glucose 204 H Random Glucose Calcium C-Reactive Protein Microbiology Microbiology Results: Microbiology 12/08/20 15:06 Blood Culture - Preliminary Blood - Venous No growth after 48 hours. 12/08/20 15:06 Blood Culture - Preliminary Blood - Venous No growth after 48 hours. Assessment and Plan (1) PAF (paroxysmal atrial fibrillation): Status: Acute (2) CAD (coronary artery disease): Status: Acute (3) Hx of CABG: Status: Acute (4) Peripheral vascular disease: Status: Acute (5) Diabetic foot ulcer: Status: Acute (6) Cellulitis: Status: Acute Assessment and Plan: 59 yo male with? CAD, HLD, DM, HTN, recently discharged from [facility] after being treated for right foot cellulitis with diabetic foot ulcer, patient noted to have worsening redness swelling and pain therefore presented to [place] ER and now being admitted for recurrent cellulitis and right small toe gangrene. 1/Right foot Cellulitis /nonhealing foot ulcer and right small toe gangrene d/t diabetes ?? Feeling better , no complain of pain today swelling improved ?? No evidence of sepsis, WBC trending down, no fevers overnight ?? on IV Zosyn and vancomycin day 4, stable renal function and vanco level ?? ESR and CRP not significantly elevated ?? Duplex scan lower extremity showed moderate to severe atherosclerotic disease right lower extremity, status post abdominal angiogram that showed total occlusion of SFA ?? Patient scheduled for fem-pop bypass on Monday by Dr. Alas Patient undergoing Lexiscan test by Cardiology with underlying history of coronary artery disease and prior CABG, echo showed stable EF Will place patient on heparin protocol, since Eliquis is on hold for surgery Will DC IV fluid ?? Continue current pain medication with oxycodone and IV morphine ?? blood culture x2 no growth in 24 hours 2/CAD/history of paroxysmal atrial fibrillation, no chest pain, will continue Statin, BP remains soft on low-dose beta-blockers, hold Eliquis for above surgery, continue asa. 3/hypertension noticed to have soft blood pressure will hold lisinopril and continue low-dose Coreg 3.125 mg b.i.d. follow BP closely 4/hyperlipidemia continue statin 5/Diabetes as per patient blood sugars in 200s at home currently blood sugars low,will hold metformin and Farxiga (not formulary), will place on SSI and diabetic diet, hemoglobin A1c 8.8 6/DVT prophylaxis were placed on Quality Stroke Does the patient have a stroke diagnosis?: No VTE Prior VTE?: No VTE Risk Level:: Medical - moderate - high VTE Device Contraindication: Treatment Not Indicated VTE Drug Contraindication: N/A - Med Ordered
--- NOTE | 2020-12-11 11:56 | MHC.CM.PN ---
PLAN IS FOR FEM-TO-POP BYPASS ON Monday12/14/20 CASE MANAGEMENT AVAILABLE FOR DISCHARGE NEEDS.
[2020-12-11 12:04] LABS: Vancomycin Trough 11.6 mcg/mL (10.0-20.0)
--- NOTE | 2020-12-11 12:11 | PC.NURSE ---
Skin/Wound assessment completed. Patient has a necrotic diabetic ulcer to right lateral 5th metatarsal base with a bright red/purple toe. Triad applied covered with non woven gauze and roll gauze. DR. Alas on board. No other skin issues noted at this note.
[2020-12-11] MEDS: Milk of Magnesia 30 ML ORAL.SUSP PO (12:19)
[2020-12-11 12:36] VITALS: BMI 22.8
[2020-12-11] MEDS: vancomycin HCL 1,000 MG in 0.9 % Sodium Chloride 250 ML 270 MG IV ×2 (12:45→23:17)
[2020-12-11 13:11] LABS: PTT Heparin Drip 38.7 SEC (53-77.9)
--- NOTE | 2020-12-11 13:55 | W.PM.IDCN ---
History of Present Illness Data of Consult Service Date: 12/11/20 Requesting physician: Tristen Canales Primary Care Provider: Arian Terrazas MD HPI Reason for consult: nonhealing right foot ulcer,cellulitis He presents with right foot ulcer nonhealing. He was sent in by Dr Richards who had been debriding ulcer and still not healing. He also has some cellulitis. He has no fever or chills. XRay shows no osteomyelitis and ESR is 33 Review of Systems Review of Systems: Yes all other systems are reviewed and are negative [facility] Past Medical History Medical History CAD (coronary artery disease) Cellulitis in diabetic foot Diabetes Eschar of foot HLD (hyperlipidemia) HTN (hypertension) PAF (paroxysmal atrial fibrillation) Pressure ulcer, unstageable, with eschar Family History Family History Mother Colon cancer Father Diabetes Family history: reviewed and not pertinent Surgical History Surgical History History of surgery on upper extremity Hx of CABG Hx of vascular surgery Social History Social History Household Members: Spouse Housing: House Do you presently have visiting nurse or other home services: Yes Patient Tobacco Use Status: Current everyday Tobacco user Tobacco use type: Cigarette Cigarettes Per Day: 3 Advance Directives Date on File: 12/08/20 Current occupational status: employed Meds Allergies Allergy/AdvReac Type Severity Reaction Status Date / Time codeine [Codeine] AdvReac Unknown SHAKING Verified 12/08/20 12:57 Active Medications: Current Medications Acetaminophen (Acetaminophen 325 Mg Tablet) 650 mg PO Q6H PRN PRN Reason: Pain, Mild (Pain Scale 1-3) Last Admin: 12/08/20 22:05 Dose: 650 mg Documented by: Aspirin (Aspirin Enteric Coated 81 Mg Tablet.) 81 mg PO DAILY [facility] Last Admin: 12/11/20 08:24 Dose: 81 mg Documented by: Atorvastatin Calcium (Atorvastatin Calcium 80 Mg Tablet) 80 mg PO DAILY [facility] Last Admin: 12/11/20 08:23 Dose: 80 mg Documented by: Carvedilol (Carvedilol 3.125 Mg Tablet) 3.125 mg PO BID [facility]; Protocol Last Admin: 12/11/20 08:23 Dose: 3.125 mg Documented by: Dextrose (Dextrose 50 % 25 Gm/50 Ml Vial) 25 gm IVPUSH Q15M PRN; Protocol PRN Reason: per Hypoglycemia Standing Ord. Glucose (Glucose Gel 15 Gm Gel..Gram.) 15 gm PO Q15M PRN; Protocol PRN Reason: per Hypoglycemia Standing Ord. Heparin Sodium (Porcine) (Heparin Sodium,Porcine 5,000 Unit/Ml Vial) 3,000 unit 40 unit/kg (3000 unit) IVPUSH PROTOCOL BOLUS PRN; Protocol PRN Reason: 40 unit/kg - Heparin Protocol Heparin Sodium (Porcine) (Heparin Sodium,Porcine 5,000 Unit/Ml Vial) 6,000 unit 80 unit/kg (6000 unit) IVPUSH PROTOCOL BOLUS PRN; Protocol PRN Reason: 80 unit/kg - Heparin Protocol Piperacillin Sod/Tazobactam (Sod 3.375 gm/ Sodium Chloride) 50 mls @ 100 mls/hr IV Q6H [facility] Last Infusion: 12/11/20 09:20 Dose: Infused Documented by: Heparin Sodium/Sodium Chloride () 25,000 unit in 250 mls @ 0 mls/hr IVCONT .Q0M [facility]; Protocol Vancomycin HCl 1,000 mg/ (Sodium Chloride) 270 mls @ 270 mls/hr IV Q12H [facility] Last Admin: 12/11/20 12:45 Dose: 270 mls/hr Documented by: Insulin Human Lispro (Insulin Lispro 100 Unit/Ml 3 Ml Vial) 0 unit SUBCUT QIDACHS [facility]; Protocol Last Admin: 12/11/20 11:54 Dose: 4 unit Documented by: Magnesium Hydroxide (Milk Of Magnesia 30 Ml Oral.Susp) 30 ml PO DAILY PRN PRN Reason: Constipation Last Admin: 12/11/20 12:19 Dose: 30 ml Documented by: Morphine Sulfate (Morphine Sulfate 4 Mg/Ml Cartridge) 4 mg IVPUSH Q4H PRN; Protocol PRN Reason: Pain, Severe (Pain Scale 7-10) Last Admin: 12/10/20 21:55 Dose: 4 mg Documented by: Ondansetron HCl (Ondansetron Hcl 4 Mg/2 Ml Vial) 4 mg IVPUSH Q8H PRN PRN Reason: Nausea and Vomiting Last Admin: 12/08/20 19:45 Dose: 4 mg Documented by: Oxycodone HCl (Oxycodone Hcl Immed Release 5 Mg Tablet) 5 mg PO Q4H PRN PRN Reason: Pain, Moderate (Pain Scale 4-6 Last Admin: 12/11/20 09:49 Dose: 5 mg Documented by: Pharmacy Consult (Consult Rx Perform Med Rec) 1 each MISCELLANE ONCE PRN PRN Reason: Consult order Pharmacy Consult (Consult Rx Vancomycin Dosing) 1 each MISCELLANE DAILY PRN PRN Reason: Consult order Sodium Chloride (0.9 % Sodium Chloride Flush 3 Ml Syringe) 3 ml IVFLUSH [facility] Last Admin: 12/11/20 08:24 Dose: 3 ml Documented by: Tamsulosin HCl (Tamsulosin Hcl 0.4 Mg Capsule) 0.4 mg PO DAILY [facility] Last Admin: 12/11/20 08:23 Dose: 0.4 mg Documented by: Home Medications Medication Instructions Recorded Confirmed Last Taken Type apixaban 5 mg tablet (Eliquis) 1 tab PO BID 11/11/20 12/08/20 11/26/20 History aspirin 81 mg tablet 81 mg PO DAILY 11/11/20 12/08/20 11/26/20 History atorvastatin 80 mg tablet 1 tab PO DAILY 11/11/20 12/08/20 11/11/20 History carvedilol 6.25 mg tablet 1 tab PO BID 11/11/20 12/08/20 11/11/20 History dapagliflozin 10 mg tablet 1 tab PO DAILY 11/11/20 12/08/20 11/11/20 History (Farxiga) insulin glargine 100 unit/mL (3 40 unit SUBCUT BEDTIME 11/11/20 12/08/20 11/11/20 History mL) subcutaneous pen (Basaglar KwikPen U-100 Insulin) lisinopril 10 mg tablet 1 tab PO DAILY 11/11/20 12/08/20 11/11/20 History metformin 850 mg tablet 1 tab PO BID 11/11/20 12/08/20 11/11/20 History tamsulosin 0.4 mg capsule 1 cap PO DAILY 11/11/20 12/08/20 11/11/20 History gabapentin 300 mg capsule 300 mg PO TID 12/08/20 12/08/20 Unknown History Physical Exam Vital Signs: Vital Signs: Last Vital Signs Temp 97.4 F 12/11/20 07:55 Pulse 81 12/11/20 07:55 Resp 17 12/11/20 07:55 BP 129/71 12/11/20 07:55 Pulse Ox 98 12/11/20 07:55 Body Mass Index 22.8 Const: General: cooperative HENMT: Head: Yes normal to inspection Mouth: Normal oral and palatal mucosa present Resp: Effort & Inspection: normal respiratory effort Cardio: Rate: regular rate Rhythm: regular rhythm GI: Palpation (GI): Soft to palpation and nontender Skin: General skin exam: no rashes or lesions noted Extrem: Other: right foot nonhealing ulcer,1cm,area wrapped,some rubor/cellulitis around dorsum foot Results Labs CBC & Chem 7: 12/09/20 05:51 12/11/20 05:45 Labs: BMP 12/11/20 05:45 Creatinine 0.82 Microbiology Microbiology Results: Microbiology 12/08/20 15:06 Blood - Venous Blood Culture - Preliminary No growth after 48 hours. 12/08/20 15:06 Blood - Venous Blood Culture - Preliminary No growth after 48 hours. Assessment and Plan (1) Diabetic foot ulcer: Status: Acute He is being seen by Vascular. There is likely vascular ulcer with some surrounding rubor and cellulitis. He has no bacteremia He has low ESR and no evidence osteomyelitis on XR (2) Peripheral vascular disease: Status: Acute May give antibiotics through weekend. He is getting fem/pop and likely this will help with ulcer and he does need IV antibiotics until cellulitis resolving (few days) and then po Doxycycline for a week possibly
[2020-12-11] MEDS: Heparin Sodium,Porcine/1/2NS 25,000 UNIT/250 ML IV.SOLN 9.04 UNIT IVCONT (14:12)
[2020-12-11 15:49] VITALS: BP 126/64; PULSE 79; RESP 18; TEMP 36.7; O2SAT 98
[2020-12-11 16:59] LABS: Glucose, Whole Blood 196 mg/dL (60-115)
[2020-12-11 20:13] LABS: PTT Heparin Drip 45.5 SEC (53-77.9)
[2020-12-11 20:14] VITALS: BP 126/64; PULSE 79
[2020-12-11] MEDS: Morphine Sulfate 4 MG/ML CARTRIDGE IVPUSH (20:15)
[2020-12-11 20:35] LABS: Glucose, Whole Blood 295 mg/dL (60-115)
[2020-12-11] MEDS: Heparin Sodium,Porcine 5,000 UNIT/ML VIAL 3000 UNIT IVPUSH (20:35)
[2020-12-12] VITALS: BP 101/59; PULSE 75; RESP 18; TEMP 36.7; O2SAT 98
[2020-12-12 03:21] LABS: PTT Heparin Drip 54.5 SEC (53-77.9)
[2020-12-12] MEDS: Morphine Sulfate 4 MG/ML CARTRIDGE IVPUSH ×5 (03:44→23:51)
[2020-12-12] MEDS: Piperacillin Sodium/Tazobactam 3.375 GM in 0.9 % Sodium Chloride 50 ML IV ×4 (03:44→21:09)
[2020-12-12] MEDS: Milk of Magnesia 30 ML ORAL.SUSP PO (03:54)
[2020-12-12 06:15] LABS: Hematocrit 37.3 % (42-52); Hemoglobin 12.1 g/dl (14.0-18.0); Mean Corpuscular HGB Conc 32.4 g/dl (31.0-36.0); Mean Corpuscular Hemoglobin 30.9 pg (27.0-33.0); Mean Corpuscular Volume 95.2 fL (80-98); Mean Platelet Volume 9.5 fL (9.4-12.4); Platelet Count 370 X10*3/uL (160-400); Red Blood Count 3.92 X10*6/uL (4.60-5.80); Red Cell Distribution Width 12.1 % (11.0-16.0); White Blood Count 9.5 X10*3/uL (4.8-10.8)
[2020-12-12 06:16] LABS: Prothrombin Time 11.1 SEC (9.9-13.0)
[2020-12-12 06:40] LABS: Creatinine Clr Calc Pharmacy 96.3; Estimated Glomerular Filt Rate > 60
[2020-12-12 07:19] VITALS: BP 125/75; PULSE 68; RESP 18; TEMP 36.2; O2SAT 98
[2020-12-12 07:37] LABS: Glucose, Whole Blood 175 mg/dL (60-115)
[2020-12-12] MEDS: Insulin Lispro 100 UNIT/ML 3 ML VIAL SUBCUT ×4 (08:16→21:10)
[2020-12-12] MEDS: Aspirin Enteric Coated 81 MG TABLET.DR PO (08:17)
[2020-12-12] MEDS: carvediloL 3.125 MG TABLET PO (08:17)
[2020-12-12] MEDS: Atorvastatin Calcium 80 MG TABLET PO (08:18)
[2020-12-12] MEDS: Tamsulosin HCL 0.4 MG CAPSULE PO (08:18)
[2020-12-12] MEDS: 0.9 % Sodium Chloride Flush 3 ML SYRINGE IVFLUSH ×2 (08:27→16:57)
[2020-12-12 09:51] LABS: PTT Heparin Drip 50.3 SEC (53-77.9)
[2020-12-12] MEDS: Heparin Sodium,Porcine 5,000 UNIT/ML VIAL 3000 UNIT IVPUSH (10:21)
[2020-12-12 11:29] LABS: Glucose, Whole Blood 180 mg/dL (60-115)
[2020-12-12] MEDS: oxyCODONE HCl Immed Release 5 MG TABLET PO (12:10)
[2020-12-12] MEDS: vancomycin HCL 1,000 MG in 0.9 % Sodium Chloride 250 ML 270 MG IV ×2 (12:16→23:50)
--- NOTE | 2020-12-12 12:25 | PM.PNCARD ---
Subjective Subjective Date of Service: 12/12/20 Principal diagnosis: Diabetic foot ulcer, Preop, CAD/ CABG hx Interval history: Feeling good. He has finishes stress test today. Result is pending. Physical Exam Vital Signs: Last Vital Signs Temp 97.2 F 12/12/20 07:19 Pulse 68 12/12/20 07:19 Resp 18 12/12/20 07:19 BP 125/75 12/12/20 07:19 Pulse Ox 98 12/12/20 07:19 Body Mass Index 22.8 GENERAL APPEARANCE: in no acute distress, pleasant. NECK: no carotid bruit, no jugular venous distention. SKIN: no suspicious lesions, warm and dry. HEART: no murmurs, regular rate and rhythm. LUNGS: clear to auscultation bilaterally. ABDOMEN: soft, nontender. EXTREMITIES:? Right foot dressed.? NEUROLOGIC: No gross deficits, AAO X 3 Results Labs and Meds Result diagrams: 12/12/20 05:49 12/12/20 05:49 Lab results: Laboratory Results - last 24 hr 12/11/20 12/11/20 12/11/20 12:52 16:54 19:50 WBC RBC Hgb Hct MCV MCH MCHC RDW Plt Count MPV Absolute Nucleated RBC Nucleated RBC % (auto) PT INR PTT (Heparin Protocol) 38.7 L 45.5 L Creatinine Estim Creat Clear Calc Estimated GFR POC Glucose 196 H 12/11/20 12/12/20 12/12/20 20:27 02:50 05:49 WBC 9.5 RBC 3.92 L Hgb 12.1 L Hct 37.3 L MCV 95.2 MCH 30.9 MCHC 32.4 RDW 12.1 Plt Count 370 MPV 9.5 Absolute Nucleated RBC 0.000 Nucleated RBC % (auto) 0.0 PT INR PTT (Heparin Protocol) 54.5 Creatinine Estim Creat Clear Calc Estimated GFR POC Glucose 295 H 12/12/20 12/12/20 12/12/20 05:49 05:49 07:16 WBC RBC Hgb Hct MCV MCH MCHC RDW Plt Count MPV Absolute Nucleated RBC Nucleated RBC % (auto) PT 11.1 INR 1.0 PTT (Heparin Protocol) Creatinine 0.86 Estim Creat Clear Calc 96.3 Estimated GFR > 60 POC Glucose 175 H 12/12/20 12/12/20 09:12 11:13 WBC RBC Hgb Hct MCV MCH MCHC RDW Plt Count MPV Absolute Nucleated RBC Nucleated RBC % (auto) PT INR PTT (Heparin Protocol) 50.3 L Creatinine Estim Creat Clear Calc Estimated GFR POC Glucose 180 H Progress Note: A&P Assessment and plan (1) PAF (paroxysmal atrial fibrillation): Status: Acute (2) Hx of CABG: Status: Acute (3) Peripheral vascular disease: Status: Acute Assessment and Plan: Pleasant 60-year-old gentleman who is here with wound on right foot with angiography showing significant vascular disease. He is in need of vascular surgery. He previously had a fem-pop bypass on the left side and [place] many years ago. Also has history of CABG in 2019. Echocardiography showing inferior wall motion abnormality and it looks like he is stress test previously showed infarct in the inferior wall. We need to review stress test to risk stratify him. We will follow along with you. Thank you for allowing me to participate in the care of your patient. Please feel free to contact me if you have any questions. Fall Risk Details Current Medications: Current Medications Acetaminophen (Acetaminophen 325 Mg Tablet) 650 mg PO Q6H PRN PRN Reason: Pain, Mild (Pain Scale 1-3) Last Admin: 12/08/20 22:05 Dose: 650 mg Documented by: Aspirin (Aspirin Enteric Coated 81 Mg Tablet.) 81 mg PO DAILY [facility] Last Admin: 12/12/20 08:17 Dose: 81 mg Documented by: Atorvastatin Calcium (Atorvastatin Calcium 80 Mg Tablet) 80 mg PO DAILY [facility] Last Admin: 12/12/20 08:18 Dose: 80 mg Documented by: Carvedilol (Carvedilol 3.125 Mg Tablet) 3.125 mg PO BID [facility]; Protocol Last Admin: 12/12/20 08:17 Dose: 3.125 mg Documented by: Dextrose (Dextrose 50 % 25 Gm/50 Ml Vial) 25 gm IVPUSH Q15M PRN; Protocol PRN Reason: per Hypoglycemia Standing Ord. Glucose (Glucose Gel 15 Gm Gel..Gram.) 15 gm PO Q15M PRN; Protocol PRN Reason: per Hypoglycemia Standing Ord. Heparin Sodium (Porcine) (Heparin Sodium,Porcine 5,000 Unit/Ml Vial) 3,000 unit 40 unit/kg (3000 unit) IVPUSH PROTOCOL BOLUS PRN; Protocol PRN Reason: 40 unit/kg - Heparin Protocol Last Admin: 12/12/20 10:21 Dose: 3,000 unit Documented by: Heparin Sodium (Porcine) (Heparin Sodium,Porcine 5,000 Unit/Ml Vial) 6,000 unit 80 unit/kg (6000 unit) IVPUSH PROTOCOL BOLUS PRN; Protocol PRN Reason: 80 unit/kg - Heparin Protocol Piperacillin Sod/Tazobactam (Sod 3.375 gm/ Sodium Chloride) 50 mls @ 100 mls/hr IV Q6H [facility] Last Infusion: 12/12/20 09:06 Dose: Infused Documented by: Heparin Sodium/Sodium Chloride () 25,000 unit in 250 mls @ 0 mls/hr IVCONT .Q0M [facility]; Protocol Last Titration: 12/12/20 10:19 Dose: 16 units/kg/hr, 12.05 mls/hr Documented by: Vancomycin HCl 1,000 mg/ (Sodium Chloride) 270 mls @ 270 mls/hr IV Q12H [facility] Last Admin: 12/12/20 12:16 Dose: 270 mls/hr Documented by: Insulin Human Lispro (Insulin Lispro 100 Unit/Ml 3 Ml Vial) 0 unit SUBCUT QIDACHS [facility]; Protocol Last Admin: 12/12/20 12:07 Dose: 2 unit Documented by: Magnesium Hydroxide (Milk Of Magnesia 30 Ml Oral.Susp) 30 ml PO DAILY PRN PRN Reason: Constipation Last Admin: 12/12/20 03:54 Dose: 30 ml Documented by: Morphine Sulfate (Morphine Sulfate 4 Mg/Ml Cartridge) 4 mg IVPUSH Q4H PRN; Protocol PRN Reason: Pain, Severe (Pain Scale 7-10) Last Admin: 12/12/20 08:17 Dose: 4 mg Documented by: Ondansetron HCl (Ondansetron Hcl 4 Mg/2 Ml Vial) 4 mg IVPUSH Q8H PRN PRN Reason: Nausea and Vomiting Last Admin: 12/08/20 19:45 Dose: 4 mg Documented by: Oxycodone HCl (Oxycodone Hcl Immed Release 5 Mg Tablet) 5 mg PO Q4H PRN PRN Reason: Pain, Moderate (Pain Scale 4-6 Last Admin: 12/12/20 12:10 Dose: 5 mg Documented by: Pharmacy Consult (Consult Rx Perform Med Rec) 1 each MISCELLANE ONCE PRN PRN Reason: Consult order Pharmacy Consult (Consult Rx Vancomycin Dosing) 1 each MISCELLANE DAILY PRN PRN Reason: Consult order Sodium Chloride (0.9 % Sodium Chloride Flush 3 Ml Syringe) 3 ml IVFLUSH QSHIFT [facility] Last Admin: 12/12/20 08:27 Dose: 3 ml Documented by: Tamsulosin HCl (Tamsulosin Hcl 0.4 Mg Capsule) 0.4 mg PO DAILY [facility] Last Admin: 12/12/20 08:18 Dose: 0.4 mg Documented by: Time Spent With Patient Time: Total time spent is greater than 50% in coordination of care (as documented) at patient's floor/unit and/or counseling patient: Time with patient: 15 - 24 minutes Progress Note: Quality Stroke Does the patient have a stroke diagnosis?: No Procedures Date of Service Date of Service: 12/12/20
--- NOTE | 2020-12-12 13:31 | HO.PM.IMPN ---
Subjective Subjective Date of Service: 12/12/20 Interval History: Being followed for right toe gangrene and right foot cellulitis, and significant peripheral vascular disease, patient feels significantly better , but developed right foot pain therefore was sitting most of the day and night in last 24 hours therefore noted to have bilateral leg swelling, feel pain is better this morning. Review of Systems General no headache, no dizziness,no fever ,no chills.? CVS no chest pain, no palpitation.? Respiratory no cough, no sputum production ,no respiratory distress.? Gastrointestinal no nausea, no vomiting, no abdominal pain, no diarrhea Yes all other systems are reviewed and are negative Physical Exam Vital Signs: Vital Signs: Last Vital Signs Temp 97.2 F 12/12/20 07:19 Pulse 68 12/12/20 07:19 Resp 18 12/12/20 07:19 BP 125/75 12/12/20 07:19 Pulse Ox 98 12/12/20 07:19 Body Mass Index 22.8 General alert orie nted x3, no acute distress.? Neck? s upple, no JVD. CVS ? regular rate rhy thm, Respiratory l ungs clear to ausc ultation, no respi ratory distress, n o wheeze, no rhonc hi. Gastrointestin al abdomen soft, n ontender, bowel so unds audible, no g uarding , no rigid ity. Extremities b ilateral pitting e rosalee worsened toda y, swelling and er ythema dorsum of f oot improved, pers istent purplish di scoloration right small toe, open ul cer lateral margin right toe, unable to specify depth Neuro nonfocal,spe ech clear. Skin no rash Psych approp riate affect Objective Data Active Medications Acetaminophen (Acetaminophen 325 Mg Tablet) 650 mg PO Q6H PRN PRN Reason: Pain, Mild (Pain Scale 1-3) Last Admin: 12/08/20 22:05 Dose: 650 mg Documented by: ARGENIS Aspirin (Aspirin Enteric Coated 81 Mg Tablet.) 81 mg PO DAILY [facility] Last Admin: 12/12/20 08:17 Dose: 81 mg Documented by: ANGIE Atorvastatin Calcium (Atorvastatin Calcium 80 Mg Tablet) 80 mg PO DAILY [facility] Last Admin: 12/12/20 08:18 Dose: 80 mg Documented by: ANGIE Carvedilol (Carvedilol 3.125 Mg Tablet) 3.125 mg PO BID [facility]; Protocol Last Admin: 12/12/20 08:17 Dose: 3.125 mg Documented by: ANGIE Dextrose (Dextrose 50 % 25 Gm/50 Ml Vial) 25 gm IVPUSH Q15M PRN; Protocol PRN Reason: per Hypoglycemia Standing Ord. Glucose (Glucose Gel 15 Gm Gel..Gram.) 15 gm PO Q15M PRN; Protocol PRN Reason: per Hypoglycemia Standing Ord. Heparin Sodium (Porcine) (Heparin Sodium,Porcine 5,000 Unit/Ml Vial) 3,000 unit 40 unit/kg (3000 unit) IVPUSH PROTOCOL BOLUS PRN; Protocol PRN Reason: 40 unit/kg - Heparin Protocol Last Admin: 12/12/20 10:21 Dose: 3,000 unit Documented by: ANGIE Heparin Sodium (Porcine) (Heparin Sodium,Porcine 5,000 Unit/Ml Vial) 6,000 unit 80 unit/kg (6000 unit) IVPUSH PROTOCOL BOLUS PRN; Protocol PRN Reason: 80 unit/kg - Heparin Protocol Piperacillin Sod/Tazobactam (Sod 3.375 gm/ Sodium Chloride) 50 mls @ 100 mls/hr IV Q6H [facility] Last Infusion: 12/12/20 09:06 Dose: 0 mls/hr Documented by: ANGIE Heparin Sodium/Sodium Chloride () 25,000 unit in 250 mls @ 0 mls/hr IVCONT .Q0M [facility]; Protocol Last Titration: 12/12/20 10:19 Dose: 16 units/kg/hr, 12.05 mls/hr Documented by: ANGIE Cosigned by: SOHAIL Vancomycin HCl 1,000 mg/ (Sodium Chloride) 270 mls @ 270 mls/hr IV Q12H [facility] Last Admin: 12/12/20 12:16 Dose: 270 mls/hr Documented by: ANGIE Insulin Human Lispro (Insulin Lispro 100 Unit/Ml 3 Ml Vial) 0 unit SUBCUT QIDACHS [facility]; Protocol Last Admin: 12/12/20 12:07 Dose: 2 unit Documented by: ANGIE Magnesium Hydroxide (Milk Of Magnesia 30 Ml Oral.Susp) 30 ml PO DAILY PRN PRN Reason: Constipation Last Admin: 12/12/20 03:54 Dose: 30 ml Documented by: BLANKA Morphine Sulfate (Morphine Sulfate 4 Mg/Ml Cartridge) 4 mg IVPUSH Q4H PRN; Protocol PRN Reason: Pain, Severe (Pain Scale 7-10) Last Admin: 12/12/20 08:17 Dose: 4 mg Documented by: ANGIE Ondansetron HCl (Ondansetron Hcl 4 Mg/2 Ml Vial) 4 mg IVPUSH Q8H PRN PRN Reason: Nausea and Vomiting Last Admin: 12/08/20 19:45 Dose: 4 mg Documented by: SWEETIE Oxycodone HCl (Oxycodone Hcl Immed Release 5 Mg Tablet) 5 mg PO Q4H PRN PRN Reason: Pain, Moderate (Pain Scale 4-6 Last Admin: 12/12/20 12:10 Dose: 5 mg Documented by: ANGIE Pharmacy Consult (Consult Rx Perform Med Rec) 1 each MISCELLANE ONCE PRN PRN Reason: Consult order Pharmacy Consult (Consult Rx Vancomycin Dosing) 1 each MISCELLANE DAILY PRN PRN Reason: Consult order Sodium Chloride (0.9 % Sodium Chloride Flush 3 Ml Syringe) 3 ml IVFLUSH QSHIFT [facility] Last Admin: 12/12/20 08:27 Dose: 3 ml Documented by: ANGIE Tamsulosin HCl (Tamsulosin Hcl 0.4 Mg Capsule) 0.4 mg PO DAILY [facility] Last Admin: 12/12/20 08:18 Dose: 0.4 mg Documented by: ANGIE Labs CBC & Chem 7: 12/12/20 05:49 12/12/20 05:49 Labs: Laboratory Results - last 24 hr 12/11/20 12/11/20 12/11/20 16:54 19:50 20:27 MCV MCH MCHC RDW Plt Count MPV Absolute Nucleated RBC Nucleated RBC % (auto) PT INR PTT (Heparin Protocol) 45.5 L Estim Creat Clear Calc Estimated GFR POC Glucose 196 H 295 H 12/12/20 12/12/20 12/12/20 02:50 05:49 05:49 MCV 95.2 MCH 30.9 MCHC 32.4 RDW 12.1 Plt Count 370 MPV 9.5 Absolute Nucleated RBC 0.000 Nucleated RBC % (auto) 0.0 PT 11.1 INR 1.0 PTT (Heparin Protocol) 54.5 Estim Creat Clear Calc Estimated GFR POC Glucose 12/12/20 12/12/20 12/12/20 05:49 07:16 09:12 MCV MCH MCHC RDW Plt Count MPV Absolute Nucleated RBC Nucleated RBC % (auto) PT INR PTT (Heparin Protocol) 50.3 L Estim Creat Clear Calc 96.3 Estimated GFR > 60 POC Glucose 175 H 12/12/20 11:13 MCV MCH MCHC RDW Plt Count MPV Absolute Nucleated RBC Nucleated RBC % (auto) PT INR PTT (Heparin Protocol) Estim Creat Clear Calc Estimated GFR POC Glucose 180 H Assessment and Plan (1) PAF (paroxysmal atrial fibrillation): Status: Acute (2) Hx of CABG: Status: Acute (3) Cellulitis: Status: Acute Assessment and Plan: 59 yo male with? CAD, HLD, DM, HTN, recently discharged from [facility] after being treated for right foot cellulitis with diabetic foot ulcer, patient noted to have worsening redness swelling and pain therefore presented to [place] ER and now being admitted for recurrent cellulitis and right small toe gangrene. 1/Right foot Cellulitis /nonhealing foot ulcer and right small toe gangrene d/t diabetes ?? Feeling better , had pain overnight therefore was sitting most night now with worsening swelling both legs ?? No evidence of sepsis, WBC trending down, no fevers overnight ?? on IV Zosyn and vancomycin day 5, stable renal function and vanco level follon renal function and vanco trough ?? ESR and CRP not significantly elevated ?? Duplex scan lower extremity showed moderate to severe atherosclerotic disease right lower extremity, status post abdominal angiogram that showed total occlusion of SFA ?? Patient scheduled for fem-pop bypass on Monday by Dr. Alas ?? Patient undergoing Lexiscan test by Cardiology with underlying history of coronary artery disease and prior CABG, echo showed stable EF ?? cont on heparin protocol, since Eliquis is on hold for surgery ?? Continue current pain medication with oxycodone and IV morphine ?? blood culture x2 no growth in 24 hours 2/CAD/history of paroxysmal atrial fibrillation, no chest pain, will continue Statin, BP remains soft on low-dose beta-blockers, hold Eliquis for above surgery, continue asa. 3/hypertension bp stable on on low-dose Coreg 3.125 mg b.i.d. follow BP closely hold lisinopril. 4/hyperlipidemia continue statin 5/Diabetes as per patient blood sugars in 200s at home currently blood sugars low,will hold metformin and Farxiga (not formulary), cont. SSI and diabetic diet, hemoglobin A1c 8.8 6/DVT prophylaxis on hepain drip Quality Stroke Does the patient have a stroke diagnosis?: No VTE Prior VTE?: No VTE Risk Level:: Medical - moderate - high VTE Device Contraindication: Treatment Not Indicated VTE Drug Contraindication: N/A - Med Ordered
[2020-12-12] MEDS: Heparin Sodium,Porcine/1/2NS 25,000 UNIT/250 ML IV.SOLN 12.05 UNIT IVCONT (13:36)
[2020-12-12 15:34] VITALS: BP 98/57; PULSE 77; RESP 16; TEMP 36.3; O2SAT 99
[2020-12-12 16:24] LABS: Glucose, Whole Blood 217 mg/dL (60-115)
[2020-12-12 16:33] LABS: PTT Heparin Drip 72.5 SEC (53-77.9)
[2020-12-12 20:11] LABS: Glucose, Whole Blood 269 mg/dL (60-115)
[2020-12-12 21:10] VITALS: BP 95/57; PULSE 77
[2020-12-12 23:15] LABS: PTT Heparin Drip 77.6 SEC (53-77.9)
[2020-12-12 23:16] LABS: Vancomycin Trough 16.8 mcg/mL (10.0-20.0)
[2020-12-13] VITALS: BP 102/62; PULSE 72; RESP 16; TEMP 36.1; O2SAT 97
[2020-12-13] MEDS: Piperacillin Sodium/Tazobactam 3.375 GM in 0.9 % Sodium Chloride 50 ML IV ×4 (02:58→20:43)
[2020-12-13 06:30] LABS: PTT Heparin Drip 79.3 SEC (53-77.9)
[2020-12-13 06:49] LABS: Creatinine Clr Calc Pharmacy 95.2; Estimated Glomerular Filt Rate > 60
[2020-12-13 07:19] VITALS: BP 97/61; PULSE 77; RESP 18; TEMP 36.2; O2SAT 96
[2020-12-13] MEDS: Morphine Sulfate 4 MG/ML CARTRIDGE IVPUSH (07:28)
[2020-12-13] MEDS: 0.9 % Sodium Chloride Flush 3 ML SYRINGE IVFLUSH ×2 (07:29→14:52)
[2020-12-13 07:35] LABS: Glucose, Whole Blood 215 mg/dL (60-115)
--- NOTE | 2020-12-13 08:13 | P.PNVS_ITS ---
Subjective Subjective Date of Service: 12/13/20 Patient reports: no new complaints, feels better and pain is less Interval history: Patient seen and examined. No significant events overnight. Appears that the pain has significantly improved. He is in good spirits this morning. He is up in a chair. He is eager to undergo surgery tomorrow to improve the circulation to his right leg. Now for routine vascular follow-up Physical Exam Vital Signs: Vital Signs: Last Vital Signs Temp 97.2 F 12/13/20 07:19 Pulse 77 12/13/20 07:19 Resp 18 12/13/20 07:19 BP 97/61 12/13/20 07:19 Pulse Ox 96 12/13/20 07:19 Body Mass Index 22.8 Const: General: cooperative, healthy appearing and no acute distress Orientation/consciousness: oriented to person, oriented to place and oriented to time HENMT: Head: Yes normal to inspection Neck: Carotids: no bruits Chest: Chest palpation & inspection: normal inspection of the chest Resp: Effort & Inspection: normal respiratory effort and able to speak in complete sentences Auscultation: clear to auscultation bilaterally Cardio: Rate: regular rate Heart sounds: S1 normal heart sound present and S2 normal heart sound present GI: Inspection: Yes normal to inspection Skin: General skin exam: no rashes or lesions noted Wounds: wounds noted (Right 5th toe) Neuro: General: oriented to person, oriented to place, oriented to time and CN's II-XI intact bilaterally Extrem: General: Yes normal to inspection, Yes full ROM and Yes no clubbing, cyanosis or edema Psych: Appearance: grossly normal and well kempt Speech and movement: Normal speech and movement present Affect: normal affect Progress Note: A&P Assessment and plan (1) PAD (peripheral artery disease): Status: Acute Assessment and Plan: In short patient has critical limb ischemia. He has right SFA occlusive disease. The patient will require right-sided femoral to popliteal bypass. Risks benefits complications including but not limited to bleeding, infection, ischemia, limb loss, and were discussed in detail with the patient. He demonstrated clear understanding and would like to proceed. He is scheduled for tomorrow at approximately 11:00. Final cardiac risk stratification is pending. Thank you for allowing us to assist in his care. Fall Risk Details Current Medications: Current Medications Acetaminophen (Acetaminophen 325 Mg Tablet) 650 mg PO Q6H PRN PRN Reason: Pain, Mild (Pain Scale 1-3) Last Admin: 12/08/20 22:05 Dose: 650 mg Documented by: Aspirin (Aspirin Enteric Coated 81 Mg Tablet.) 81 mg PO DAILY [facility] Last Admin: 12/12/20 08:17 Dose: 81 mg Documented by: Atorvastatin Calcium (Atorvastatin Calcium 80 Mg Tablet) 80 mg PO DAILY [facility] Last Admin: 12/12/20 08:18 Dose: 80 mg Documented by: Carvedilol (Carvedilol 3.125 Mg Tablet) 3.125 mg PO BID [facility]; Protocol Last Admin: 12/12/20 21:10 Dose: Not Given Documented by: Dextrose (Dextrose 50 % 25 Gm/50 Ml Vial) 25 gm IVPUSH Q15M PRN; Protocol PRN Reason: per Hypoglycemia Standing Ord. Glucose (Glucose Gel 15 Gm Gel..Gram.) 15 gm PO Q15M PRN; Protocol PRN Reason: per Hypoglycemia Standing Ord. Heparin Sodium (Porcine) (Heparin Sodium,Porcine 5,000 Unit/Ml Vial) 3,000 unit 40 unit/kg (3000 unit) IVPUSH PROTOCOL BOLUS PRN; Protocol PRN Reason: 40 unit/kg - Heparin Protocol Last Admin: 12/12/20 10:21 Dose: 3,000 unit Documented by: Heparin Sodium (Porcine) (Heparin Sodium,Porcine 5,000 Unit/Ml Vial) 6,000 unit 80 unit/kg (6000 unit) IVPUSH PROTOCOL BOLUS PRN; Protocol PRN Reason: 80 unit/kg - Heparin Protocol Piperacillin Sod/Tazobactam (Sod 3.375 gm/ Sodium Chloride) 50 mls @ 100 mls/hr IV Q6H [facility] Last Infusion: 12/13/20 04:11 Dose: Infused Documented by: Heparin Sodium/Sodium Chloride () 25,000 unit in 250 mls @ 0 mls/hr IVCONT .Q0M [facility]; Protocol Last Titration: 12/13/20 07:02 Dose: 14 units/kg/hr, 10.54 mls/hr Documented by: Vancomycin HCl 1,000 mg/ (Sodium Chloride) 270 mls @ 270 mls/hr IV Q12H [facility] Last Infusion: 12/13/20 00:59 Dose: Infused Documented by: Insulin Human Lispro (Insulin Lispro 100 Unit/Ml 3 Ml Vial) 0 unit SUBCUT QIDACHS [facility]; Protocol Last Admin: 12/12/20 21:10 Dose: 6 unit Documented by: Magnesium Hydroxide (Milk Of Magnesia 30 Ml Oral.Susp) 30 ml PO DAILY PRN PRN Reason: Constipation Last Admin: 12/12/20 03:54 Dose: 30 ml Documented by: Morphine Sulfate (Morphine Sulfate 4 Mg/Ml Cartridge) 4 mg IVPUSH Q4H PRN; Protocol PRN Reason: Pain, Severe (Pain Scale 7-10) Last Admin: 12/13/20 07:28 Dose: 4 mg Documented by: Ondansetron HCl (Ondansetron Hcl 4 Mg/2 Ml Vial) 4 mg IVPUSH Q8H PRN PRN Reason: Nausea and Vomiting Last Admin: 12/08/20 19:45 Dose: 4 mg Documented by: Oxycodone HCl (Oxycodone Hcl Immed Release 5 Mg Tablet) 5 mg PO Q4H PRN PRN Reason: Pain, Moderate (Pain Scale 4-6 Last Admin: 12/12/20 12:10 Dose: 5 mg Documented by: Pharmacy Consult (Consult Rx Perform Med Rec) 1 each MISCELLANE ONCE PRN PRN Reason: Consult order Pharmacy Consult (Consult Rx Vancomycin Dosing) 1 each MISCELLANE DAILY PRN PRN Reason: Consult order Sodium Chloride (0.9 % Sodium Chloride Flush 3 Ml Syringe) 3 ml IVFLUSH [facility] Last Admin: 12/13/20 07:29 Dose: 3 ml Documented by: Tamsulosin HCl (Tamsulosin Hcl 0.4 Mg Capsule) 0.4 mg PO DAILY [facility] Last Admin: 12/12/20 08:18 Dose: 0.4 mg Documented by: Time Spent With Patient Time: Total time spent is greater than 50% in coordination of care (as documented) at patient's floor/unit and/or counseling patient: Time with patient: 15 - 24 minutes Procedures Date of Service Date of Service: 12/13/20 Quality Stroke Does the patient have a stroke diagnosis?: No VTE Prior VTE?: No VTE Risk Level:: Medical - moderate - high VTE Device Contraindication: Treatment Not Indicated VTE Drug Contraindication: N/A - Med Ordered
[2020-12-13] MEDS: Insulin Lispro 100 UNIT/ML 3 ML VIAL SUBCUT ×4 (08:21→20:44)
[2020-12-13] MEDS: Aspirin Enteric Coated 81 MG TABLET.DR PO (08:25)
[2020-12-13] MEDS: Tamsulosin HCL 0.4 MG CAPSULE PO (08:25)
[2020-12-13] MEDS: carvediloL 3.125 MG TABLET PO ×2 (08:25→20:43)
[2020-12-13] MEDS: Atorvastatin Calcium 80 MG TABLET PO (08:25)
[2020-12-13 11:48] LABS: Glucose, Whole Blood 193 mg/dL (60-115)
[2020-12-13] MEDS: Heparin Sodium,Porcine/1/2NS 25,000 UNIT/250 ML IV.SOLN 10.54 UNIT IVCONT (12:07)
[2020-12-13] MEDS: vancomycin HCL 1,000 MG in 0.9 % Sodium Chloride 250 ML 270 MG IV (12:12)
[2020-12-13] MEDS: oxyCODONE HCl Immed Release 5 MG TABLET PO ×3 (12:19→22:44)
[2020-12-13 12:46] LABS: PTT Heparin Drip 61.4 SEC (53-77.9)
--- NOTE | 2020-12-13 12:51 | P.PNIM_ITS ---
Subjective Subjective Date of Service: 12/13/20 Interval History: Patient being followed for right foot cellulitis and peripheral vascular disease, is scheduled to undergo fem pop bypass surgery tomorrow, offers no acute complaints right leg swelling and pain is significantly better today tolerating diet no nausea, no vomiting, no fevers. Review of Systems General no headache, no dizziness,no fever ,no chills.? CVS no chest pain, no palpitation.? Respiratory no cough, no sob ,no respiratory distress.? Gastrointestinal no nausea, no vomiting, no abdominal pain, no diarrhea Yes all other systems are reviewed and are negative Physical Exam Vital Signs: Vital Signs: Last Vital Signs Temp 97.2 F 12/13/20 07:19 Pulse 77 12/13/20 07:19 Resp 18 12/13/20 07:19 BP 97/61 12/13/20 07:19 Pulse Ox 96 12/13/20 07:19 Body Mass Index 22.8 General alert oriented x3, no acute distress.? Neck? supple, no JVD. CVS? regular rate rhythm, Respiratory lungs clear to auscultation, no respiratory distress, no wheeze, no rhonchi. Gastrointestinal abdomen soft, nontender, bowel sounds audible, no guarding , no rigidity. Extremities bilateral pitting edema improved, swelling and erythema dorsum of foot resolved, persistent purplish discoloration rightsmall toe, open ulcer lateral margin?right toe, unable?to specify depth Bilateral lower extremity edema fluctuates depending on how long patient has been sitting for Neuro nonfocal,speech clear. Skin no?rash Psych appropriate affect ? Objective Data Active Medications Acetaminophen (Acetaminophen 325 Mg Tablet) 650 mg PO Q6H PRN PRN Reason: Pain, Mild (Pain Scale 1-3) Last Admin: 12/08/20 22:05 Dose: 650 mg Documented by: ARGENIS Aspirin (Aspirin Enteric Coated 81 Mg Tablet.) 81 mg PO DAILY [facility] Last Admin: 12/13/20 08:25 Dose: 81 mg Documented by: ANGIE Atorvastatin Calcium (Atorvastatin Calcium 80 Mg Tablet) 80 mg PO DAILY [facility] Last Admin: 12/13/20 08:25 Dose: 80 mg Documented by: ANGIE Carvedilol (Carvedilol 3.125 Mg Tablet) 3.125 mg PO BID [facility]; Protocol Last Admin: 12/13/20 08:25 Dose: 3.125 mg Documented by: ANGIE Dextrose (Dextrose 50 % 25 Gm/50 Ml Vial) 25 gm IVPUSH Q15M PRN; Protocol PRN Reason: per Hypoglycemia Standing Ord. Glucose (Glucose Gel 15 Gm Gel..Gram.) 15 gm PO Q15M PRN; Protocol PRN Reason: per Hypoglycemia Standing Ord. Heparin Sodium (Porcine) (Heparin Sodium,Porcine 5,000 Unit/Ml Vial) 3,000 unit 40 unit/kg (3000 unit) IVPUSH PROTOCOL BOLUS PRN; Protocol PRN Reason: 40 unit/kg - Heparin Protocol Last Admin: 12/12/20 10:21 Dose: 3,000 unit Documented by: ANGIE Heparin Sodium (Porcine) (Heparin Sodium,Porcine 5,000 Unit/Ml Vial) 6,000 unit 80 unit/kg (6000 unit) IVPUSH PROTOCOL BOLUS PRN; Protocol PRN Reason: 80 unit/kg - Heparin Protocol Piperacillin Sod/Tazobactam (Sod 3.375 gm/ Sodium Chloride) 50 mls @ 100 mls/hr IV Q6H [facility] Last Infusion: 12/13/20 09:15 Dose: 0 mls/hr Documented by: ANGIE Heparin Sodium/Sodium Chloride () 25,000 unit in 250 mls @ 0 mls/hr IVCONT .Q0M [facility]; Protocol Last Admin: 12/13/20 12:07 Dose: 14 units/kg/hr, 10.54 mls/hr Documented by: ANGIE Cosigned by: GOPI Vancomycin HCl 1,000 mg/ (Sodium Chloride) 270 mls @ 270 mls/hr IV Q12H [facility] Last Admin: 12/13/20 12:12 Dose: 270 mls/hr Documented by: ANGIE Insulin Human Lispro (Insulin Lispro 100 Unit/Ml 3 Ml Vial) 0 unit SUBCUT QIDACHS [facility]; Protocol Last Admin: 12/13/20 12:11 Dose: 2 unit Documented by: ANGIE Magnesium Hydroxide (Milk Of Magnesia 30 Ml Oral.Susp) 30 ml PO DAILY PRN PRN Reason: Constipation Last Admin: 12/12/20 03:54 Dose: 30 ml Documented by: BLANKA Morphine Sulfate (Morphine Sulfate 4 Mg/Ml Cartridge) 4 mg IVPUSH Q4H PRN; Protocol PRN Reason: Pain, Severe (Pain Scale 7-10) Last Admin: 12/13/20 07:28 Dose: 4 mg Documented by: ANGIE Ondansetron HCl (Ondansetron Hcl 4 Mg/2 Ml Vial) 4 mg IVPUSH Q8H PRN PRN Reason: Nausea and Vomiting Last Admin: 12/08/20 19:45 Dose: 4 mg Documented by: MANIKAL Oxycodone HCl (Oxycodone Hcl Immed Release 5 Mg Tablet) 5 mg PO Q4H PRN PRN Reason: Pain, Moderate (Pain Scale 4-6 Last Admin: 12/13/20 12:19 Dose: 5 mg Documented by: ANGIE Pharmacy Consult (Consult Rx Perform Med Rec) 1 each MISCELLANE ONCE PRN PRN Reason: Consult order Pharmacy Consult (Consult Rx Vancomycin Dosing) 1 each MISCELLANE DAILY PRN PRN Reason: Consult order Sodium Chloride (0.9 % Sodium Chloride Flush 3 Ml Syringe) [address] [facility] Last Admin: 12/13/20 07:29 Dose: 3 ml Documented by: ANGIE Tamsulosin HCl (Tamsulosin Hcl 0.4 Mg Capsule) 0.4 mg PO DAILY [facility] Last Admin: 12/13/20 08:25 Dose: 0.4 mg Documented by: ANGIE Labs CBC & Chem 7: 12/12/20 05:49 12/13/20 05:54 Labs: Laboratory Results - last 24 hr 12/12/20 12/12/20 12/12/20 16:16 16:20 20:02 PTT (Heparin Protocol) 72.5 D Estim Creat Clear Calc Estimated GFR POC Glucose 217 H 269 H Vancomycin Trough Blood Type Antibody Screen 12/12/20 12/12/20 12/13/20 22:47 22:47 05:54 PTT (Heparin Protocol) 77.6 79.3 H Estim Creat Clear Calc Estimated GFR POC Glucose Vancomycin Trough 16.8 Blood Type Antibody Screen 12/13/20 12/13/20 12/13/20 05:54 07:17 09:10 PTT (Heparin Protocol) Estim Creat Clear Calc 95.2 Estimated GFR > 60 POC Glucose 215 H Vancomycin Trough Blood Type O Positive Antibody Screen NEGATIVE 12/13/20 12/13/20 11:43 12:22 PTT (Heparin Protocol) 61.4 D Estim Creat Clear Calc Estimated GFR POC Glucose 193 H Vancomycin Trough Blood Type Antibody Screen Assessment and Plan (1) PAF (paroxysmal atrial fibrillation): Status: Acute (2) CAD (coronary artery disease): Status: Acute (3) Hx of CABG: Status: Acute (4) Peripheral vascular disease: Status: Acute (5) Diabetic foot ulcer: Status: Acute (6) Cellulitis: Status: Acute Assessment and Plan: 59 yo male with? CAD, HLD, DM, HTN, recently discharged from [facility] after being treated for right foot cellulitis with diabetic foot ulcer, patient noted to have worsening redness swelling and pain therefore presented to [place] ER and now being admitted for recurrent cellulitis and right small toe gangrene. 1/Right foot Cellulitis /nonhealing foot ulcer and right small toe gangrene d/t diabetes ?? Feeling better , good pain control, swelling both lower extremities improved ?? No evidence of sepsis, WBC normalized, no fevers overnight ?? on IV Zosyn and vancomycin day 6, stable renal function and vanco level follow renal function and vanco trough ?? ESR and CRP not significantly elevated ?? Duplex scan lower extremity showed moderate to severe atherosclerotic disease right lower extremity, status post abdominal angiogram that showed total o cclusion of SFA ?? Patient scheduled for fem-pop bypass on Dec [address] Alas ?? follow report of Lexiscan test nuclear report pending, echo showed stable EF ?? cont on iv heparin protocol, since Eliquis is on hold for surgery ?? Continue current pain medication with oxycodone ?? blood culture x2 no growth in 48 hours 2/CAD/history of paroxysmal atrial fibrillation, no chest pain, will continue Statin, BP remains soft on low-dose beta-blockers, hold Eliquis for above surgery, continue asa. 3/hypertension bp stable on on low-dose Coreg 3.125 mg b.i.d.(home dose of Coreg 6.25 b.i.d.) follow BP closely , lisinopril held 4/hyperlipidemia continue statin 5/Diabetes as per patient blood sugars in 200s at home , blood sugars around 200, hold metformin and Farxiga (not formulary), cont. SSI adjust dosage and diabetic diet, hemoglobin A1c 8.8 6/DVT prophylaxis? on hepain drip Quality Stroke Does the patient have a stroke diagnosis?: No VTE Prior VTE?: No VTE Risk Level:: Medical - moderate - high VTE Device Contraindication: Treatment Not Indicated VTE Drug Contraindication: N/A - Med Ordered
[2020-12-13 15:36] VITALS: BP 105/70; PULSE 78; RESP 15; TEMP 36.1; O2SAT 98
[2020-12-13 16:20] LABS: Glucose, Whole Blood 234 mg/dL (60-115)
[2020-12-13 18:48] LABS: PTT Heparin Drip 50.9 SEC (53-77.9)
[2020-12-13] MEDS: Heparin Sodium,Porcine 5,000 UNIT/ML VIAL 3000 UNIT IVPUSH (19:19)
[2020-12-13 20:01] LABS: Glucose, Whole Blood 209 mg/dL (60-115)
[2020-12-13 20:43] VITALS: BP 105/70; PULSE 78
[2020-12-14] VITALS (25 sets, daily range): BP systolic 104–148; BP diastolic 50–83; PULSE 74–95; RESP 12–20; TEMP 36–36.8; O2SAT 95–100
--- NOTE | 2020-12-14 | ECG_ITS ---
Test Reason : post op ekg Blood Pressure : / mmHG Vent. Rate : 077 BPM Atrial Rate : 077 BPM P-R Int : 160 ms QRS Dur : 094 ms QT Int : 374 ms P-R-T Axes : 085 076 081 degrees QTc Int : 423 ms Normal sinus rhythm Nonspecific ST abnormality Abnormal ECG ST more depressed Inferior leads Referred By: Dayo Orozco Electronically Signed By:EDISON KING MD
[2020-12-14] MEDS: vancomycin HCL 1,000 MG in 0.9 % Sodium Chloride 250 ML 270 MG IV ×2 (00:32→17:31)
[2020-12-14] MEDS: Piperacillin Sodium/Tazobactam 3.375 GM in 0.9 % Sodium Chloride 50 ML IV ×4 (04:14→23:27)
[2020-12-14 07:28] LABS: Glucose, Whole Blood 171 mg/dL (60-115)
[2020-12-14] MEDS: Atorvastatin Calcium 80 MG TABLET PO (08:21)
[2020-12-14] MEDS: carvediloL 3.125 MG TABLET PO ×2 (08:21→20:22)
[2020-12-14] MEDS: Tamsulosin HCL 0.4 MG CAPSULE PO (08:21)
[2020-12-14] MEDS: oxyCODONE HCl Immed Release 5 MG TABLET PO ×2 (08:21→23:28)
[2020-12-14 10:06] LABS: Creatinine Clr Calc Pharmacy 99.8; Estimated Glomerular Filt Rate > 60
--- NOTE | 2020-12-14 10:09 | P.PNCA_ITS ---
Subjective Subjective Date of Service: 12/14/20 Principal diagnosis: Preoperative cardiovascular examination Interval history: Patient has no cardiac symptoms. Denies any chest pain or shortness of breath recently although limited exercise activity. Myocardial per fusion imaging shows basal inferior infarct with minimal ischemia in the inferoapical and inferoseptal wall of the LV myocardium in the RCA territory. No EKG changes. Echocardiogram consistent with the basal inferior myocardial infarction with preserved ejection fraction. Patient is scheduled to undergo surgery this a.m. Review of Systems Constitutional: Reports no additional constitutional complaints Cardiovascular: Reports no additional cardiovascular complaints Respiratory: Reports no additional respiratory complaints Gastrointestinal: Reports no additional gastrointestinal complaints Musculoskeletal: Reports no additional musculoskeletal complaints Skin/Breast: Reports system reviewed and no additional complaints, except as docu Reports system reviewed and no additional complaints, except as documented Physical Exam Vital Signs: Last Vital Signs Temp 97.9 F 12/14/20 07:15 Pulse 74 12/14/20 07:15 Resp 18 12/14/20 07:15 BP 117/69 12/14/20 07:15 Pulse Ox 96 12/14/20 07:15 Body Mass Index 22.8 Neck Neck: Yes trachea midline, Yes supple and Yes no JVD Resp Effort & Inspection: normal respiratory effort Auscultation: clear to auscultation bilaterally Cardio Jugular venous distension: no JVD Palpation: normal PMI Rate: regular rate Rhythm: regular rhythm Heart sounds: S1 normal heart sound present, S2 normal heart sound present, no click, no gallops, no murmurs and no rubs GI Auscultation: normal bowel sounds Skin General skin exam: no rashes or lesions noted Neuro General: no focal motor deficits Results Labs and Meds Result diagrams: 12/12/20 05:49 12/14/20 09:40 Lab results: Laboratory Results - last 24 hr 12/13/20 12/13/20 12/13/20 09:10 11:43 12:22 PTT (Heparin Protocol) 61.4 D Creatinine Estim Creat Clear Calc Estimated GFR POC Glucose 193 H Blood Type O Positive Antibody Screen NEGATIVE 12/13/20 12/13/20 12/13/20 16:12 18:32 19:51 PTT (Heparin Protocol) 50.9 L Creatinine Estim Creat Clear Calc Estimated GFR POC Glucose 234 H 209 H Blood Type Antibody Screen 12/14/20 12/14/20 07:13 09:40 PTT (Heparin Protocol) Creatinine 0.83 Estim Creat Clear Calc 99.8 Estimated GFR > 60 POC Glucose 171 H Blood Type Antibody Screen Impression: ? 1.? Myocardial perfusion imaging study shows basal inferior myocardial infarct with ischemia and inferoapical and distal septum of the myocardium in RCA territory 2.? Gated LVEF is 50% 3. Transient ischemic dilatation not present Imaging Radiologist's impression: Impressions Myocardial Perfusion Scan [facility] 12/11/20 16:43 Impression: 1. Myocardial perfusion imaging study shows basal inferior myocardial infarct with ischemia and inferoapical and distal septum of the myocardium in RCA territory 2. Gated LVEF is 50% 3. Transient ischemic dilatation not present EKG is nondiagnostic for ischemia Progress Note: A&P Assessment and plan (1) Pre-operative cardiovascular examination: Status: Acute Assessment and Plan: Preoperative cardiovascular risk stratification in middle-aged man with critical limb ischemia to undergo urgent right fem-pop bypass surgery under general anesthesia. Patient has no active cardiac symptoms and no active EKG changes or signs of myocardial ischemia. Myocardial perfusion imaging is abnormal suggest mireille of infarcted myocardium the basal inferior wall consistent with echocardiogram as well as some ischemia in the inferoapical and inferoseptal wall. Given these findings and his limited exercise capacity, he is optimized to surgery but with intermediate to high risk for perioperative cardiovascular morbidity mortality. Close monitoring during anesthesia and surgery with complete EKG monitoring and close hemodynamic monitoring with regular blood pressure check and avoidance of hypertension and significant blood loss. Replete blood volume as much as possible. Continue all medications in the perioperative period including beta-blockers and statins. Resume aspirin therapy as soon as possible as surgically deemed so. 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 Please consult us in the perioperative time if needed. Postoperative EKG as well as close cardiac monitoring on IMC/ICU as required. Fall Risk Details Current Medications: Current Medications Acetaminophen (Acetaminophen 325 Mg Tablet) 650 mg PO Q6H PRN PRN Reason: Pain, Mild (Pain Scale 1-3) Last Admin: 12/08/20 22:05 Dose: 650 mg Documented by: Aspirin (Aspirin Enteric Coated 81 Mg Tablet.) 81 mg PO DAILY [facility] Last Admin: 12/14/20 08:22 Dose: Not Given Documented by: Atorvastatin Calcium (Atorvastatin Calcium 80 Mg Tablet) 80 mg PO DAILY [facility] Last Admin: 12/14/20 08:21 Dose: 80 mg Documented by: Carvedilol (Carvedilol 3.125 Mg Tablet) 3.125 mg PO BID [facility]; Protocol Last Admin: 12/14/20 08:21 Dose: 3.125 mg Documented by: Dextrose (Dextrose 50 % 25 Gm/50 Ml Vial) 25 gm IVPUSH Q15M PRN; Protocol PRN Reason: per Hypoglycemia Standing Ord. Glucose (Glucose Gel 15 Gm Gel..Gram.) 15 gm PO Q15M PRN; Protocol PRN Reason: per Hypoglycemia Standing Ord. Heparin Sodium (Porcine) (Heparin Sodium,Porcine 5,000 Unit/Ml Vial) 3,000 unit 40 unit/kg (3000 unit) IVPUSH PROTOCOL BOLUS PRN; Protocol PRN Reason: 40 unit/kg - Heparin Protocol Last Admin: 12/13/20 19:19 Dose: 3,000 unit Documented by: Heparin Sodium (Porcine) (Heparin Sodium,Porcine 5,000 Unit/Ml Vial) 6,000 unit 80 unit/kg (6000 unit) IVPUSH PROTOCOL BOLUS PRN; Protocol PRN Reason: 80 unit/kg - Heparin Protocol Piperacillin Sod/Tazobactam (Sod 3.375 gm/ Sodium Chloride) 50 mls @ 100 mls/hr IV Q6H [facility] Last Infusion: 12/14/20 08:51 Dose: Infused Documented by: Heparin Sodium/Sodium Chloride () 25,000 unit in 250 mls @ 0 mls/hr IVCONT .Q0M [facility]; Protocol Last Titration: 12/14/20 09:56 Dose: Infused Documented by: Vancomycin HCl 1,000 mg/ (Sodium Chloride) 270 mls @ 270 mls/hr IV Q12H [facility] Last Infusion: 12/14/20 01:49 Dose: Infused Documented by: Insulin Human Lispro (Insulin Lispro 100 Unit/Ml 3 Ml Vial) 0 unit SUBCUT QIDACHS [facility]; Protocol Last Admin: 12/14/20 07:39 Dose: Not Given Documented by: Magnesium Hydroxide (Milk Of Magnesia 30 Ml Oral.Susp) 30 ml PO DAILY PRN PRN Reason: Constipation Last Admin: 12/12/20 03:54 Dose: 30 ml Documented by: Ondansetron HCl (Ondansetron Hcl 4 Mg/2 Ml Vial) 4 mg IVPUSH Q8H PRN PRN Reason: Nausea and Vomiting Last Admin: 12/08/20 19:45 Dose: 4 mg Documented by: Oxycodone HCl (Oxycodone Hcl Immed Release 5 Mg Tablet) 5 mg PO Q4H PRN PRN Reason: Pain, Moderate (Pain Scale 4-6 Last Admin: 12/14/20 08:21 Dose: 5 mg Documented by: Pharmacy Consult (Consult Rx Perform Med Rec) 1 each MISCELLANE ONCE PRN PRN Reason: Consult order Pharmacy Consult (Consult Rx Vancomycin Dosing) 1 each MISCELLANE DAILY PRN PRN Reason: Consult order Sodium Chloride (0.9 % Sodium Chloride Flush 3 Ml Syringe) 3 [facility] Last Admin: 12/14/20 07:39 Dose: Not Given Documented by: Tamsulosin HCl (Tamsulosin Hcl 0.4 Mg Capsule) 0.4 mg PO DAILY [facility] Last Admin: 12/14/20 08:21 Dose: 0.4 mg Documented by: Time Spent With Patient Time: Total time spent is greater than 50% in coordination of care (as documented) at patient's floor/unit and/or counseling patient: Time with patient: 25 - 35 minutes Progress Note: Quality Stroke Does the patient have a stroke diagnosis?: No Procedures Date of Service Date of Service: 12/14/20
--- NOTE | 2020-12-14 10:14 | MHC.CM.PN ---
nurse hospice spiritual care coordinator note electronic medical record reviewed =. patient with foot cellulitis and PVD, scheduled for fem -pop today, CONTINUES ON IV ABX X2 And iv analgeics, onsite case manager to continue to follow for discharge needs discharge plan home with resumption of thhe hvna vs possible str (request from physician to be evaluated by physical thearpy
[2020-12-14 10:46] LABS: Glucose, Whole Blood 152 mg/dL (60-115)
--- NOTE | 2020-12-14 10:54 | HO.ANESPROP2 ---
[facility] Active Problems Active Problems: All Active Problems (Updated 12/11/20 @ 10:58 by Cinda Wood NP-C) PAF (paroxysmal atrial fibrillation) (Acute) Pre-operative cardiovascular examination (Acute) CAD (coronary artery disease) (Acute) Hx of CABG (Acute) Peripheral vascular disease (Acute) Diabetic foot ulcer (Acute) PAD (peripheral artery disease) (Acute) History of surgery on upper extremity (Acute) Hx of vascular surgery (Acute) Pressure ulcer, unstageable, with eschar (Acute) Diabetic ulcer of foot associated with diabetes mellitus due to underlying condition, limited to breakdown of skin (Acute) Cellulitis (Acute) Past Medical History Medical History CAD (coronary artery disease) Cellulitis in diabetic foot Diabetes Eschar of foot HLD (hyperlipidemia) HTN (hypertension) PAF (paroxysmal atrial fibrillation) Pressure ulcer, unstageable, with eschar Family History Family History Mother Colon cancer Father Diabetes Family history of problems with anesthesia: No Surgical History Surgical History History of surgery on upper extremity Hx of CABG Hx of vascular surgery History of Problems with Anesthesia: No Social History Social History Household Members: Spouse Housing: House Do you presently have visiting nurse or other home services: Yes Patient Tobacco Use Status: Current everyday Tobacco user Tobacco use type: Cigarette Cigarettes Per Day: 3 Advance Directives Date on File: 12/08/20 Current occupational status: employed Meds Allergies Allergy/AdvReac Type Severity Reaction Status Date / Time codeine [Codeine] AdvReac Unknown SHAKING Verified 12/08/20 12:57 Active Medications: Current Medications Acetaminophen (Acetaminophen 325 Mg Tablet) 650 mg PO Q6H PRN PRN Reason: Pain, Mild (Pain Scale 1-3) Last Admin: 12/08/20 22:05 Dose: 650 mg Documented by: Aspirin (Aspirin Enteric Coated 81 Mg Tablet.) 81 mg PO DAILY [facility] Last Admin: 12/14/20 08:22 Dose: Not Given Documented by: Atorvastatin Calcium (Atorvastatin Calcium 80 Mg Tablet) 80 mg PO DAILY [facility] Last Admin: 12/14/20 08:21 Dose: 80 mg Documented by: Carvedilol (Carvedilol 3.125 Mg Tablet) 3.125 mg PO BID [facility]; Protocol Last Admin: 12/14/20 08:21 Dose: 3.125 mg Documented by: Dextrose (Dextrose 50 % 25 Gm/50 Ml Vial) 25 gm IVPUSH Q15M PRN; Protocol PRN Reason: per Hypoglycemia Standing Ord. Glucose (Glucose Gel 15 Gm Gel..Gram.) 15 gm PO Q15M PRN; Protocol PRN Reason: per Hypoglycemia Standing Ord. Heparin Sodium (Porcine) (Heparin Sodium,Porcine 5,000 Unit/Ml Vial) 3,000 unit 40 unit/kg (3000 unit) IVPUSH PROTOCOL BOLUS PRN; Protocol PRN Reason: 40 unit/kg - Heparin Protocol Last Admin: 12/13/20 19:19 Dose: 3,000 unit Documented by: Heparin Sodium (Porcine) (Heparin Sodium,Porcine 5,000 Unit/Ml Vial) 6,000 unit 80 unit/kg (6000 unit) IVPUSH PROTOCOL BOLUS PRN; Protocol PRN Reason: 80 unit/kg - Heparin Protocol Piperacillin Sod/Tazobactam (Sod 3.375 gm/ Sodium Chloride) 50 mls @ 100 mls/hr IV Q6H [facility] Last Infusion: 12/14/20 08:51 Dose: Infused Documented by: Heparin Sodium/Sodium Chloride () 25,000 unit in 250 mls @ 0 mls/hr IVCONT .Q0M [facility]; Protocol Last Titration: 12/14/20 09:56 Dose: Infused Documented by: Vancomycin HCl 1,000 mg/ (Sodium Chloride) 270 mls @ 270 mls/hr IV Q12H [facility] Last Infusion: 12/14/20 01:49 Dose: Infused Documented by: Insulin Human Lispro (Insulin Lispro 100 Unit/Ml 3 Ml Vial) 0 unit SUBCUT QIDACHS [facility]; Protocol Last Admin: 12/14/20 10:41 Dose: Not Given Documented by: Magnesium Hydroxide (Milk Of Magnesia 30 Ml Oral.Susp) 30 ml PO DAILY PRN PRN Reason: Constipation Last Admin: 12/12/20 03:54 Dose: 30 ml Documented by: Ondansetron HCl (Ondansetron Hcl 4 Mg/2 Ml Vial) 4 mg IVPUSH Q8H PRN PRN Reason: Nausea and Vomiting Last Admin: 12/08/20 19:45 Dose: 4 mg Documented by: Oxycodone HCl (Oxycodone Hcl Immed Release 5 Mg Tablet) 5 mg PO Q4H PRN PRN Reason: Pain, Moderate (Pain Scale 4-6 Last Admin: 12/14/20 08:21 Dose: 5 mg Documented by: Pharmacy Consult (Consult Rx Perform Med Rec) 1 each MISCELLANE ONCE PRN PRN Reason: Consult order Pharmacy Consult (Consult Rx Vancomycin Dosing) 1 each MISCELLANE DAILY PRN PRN Reason: Consult order Sodium Chloride (0.9 % Sodium Chloride Flush 3 Ml Syringe) 3 ml IVFLUSH QSHIFT [facility] Last Admin: 12/14/20 07:39 Dose: Not Given Documented by: Tamsulosin HCl (Tamsulosin Hcl 0.4 Mg Capsule) 0.4 mg PO DAILY [facility] Last Admin: 12/14/20 08:21 Dose: 0.4 mg Documented by: Home Medications Medication Instructions Recorded Confirmed Last Taken Type apixaban 5 mg tablet (Eliquis) 1 tab PO BID 11/11/20 12/08/20 11/26/20 History aspirin 81 mg tablet 81 mg PO DAILY 11/11/20 12/08/20 11/26/20 History atorvastatin 80 mg tablet 1 tab PO DAILY 11/11/20 12/08/20 11/11/20 History carvedilol 6.25 mg tablet 1 tab PO BID 11/11/20 12/08/20 11/11/20 History dapagliflozin 10 mg tablet 1 tab PO DAILY 11/11/20 12/08/20 11/11/20 History (Farxiga) insulin glargine 100 unit/mL (3 40 unit SUBCUT BEDTIME 11/11/20 12/08/20 11/11/20 History mL) subcutaneous pen (Basaglar KwikPen U-100 Insulin) lisinopril 10 mg tablet 1 tab PO DAILY 11/11/20 12/08/20 11/11/20 History metformin 850 mg tablet 1 tab PO BID 11/11/20 12/08/20 11/11/20 History tamsulosin 0.4 mg capsule 1 cap PO DAILY 11/11/20 12/08/20 11/11/20 History gabapentin 300 mg capsule 300 mg PO TID 12/08/20 12/08/20 Unknown History Exam Exam Date and Time: December 14, 2020 1054 Height,Weight and Vital Signs: Height 6 ft Weight 76.5 kg Last Vital Signs Temp 97.9 F 12/14/20 07:15 Pulse 74 12/14/20 07:15 Resp 18 12/14/20 07:15 BP 117/69 12/14/20 07:15 Pulse Ox 96 12/14/20 07:15 Pertinent Lab Results Pertinent Lab Results: Laboratory Tests 12/08/20 12/08/20 12/08/20 14:55 15:06 15:06 WBC 15.3 H RBC 4.31 L Hgb 13.5 L Hct 41.5 L MCV 96.3 MCH 31.3 MCHC 32.5 RDW 12.3 Plt Count 427 H D MPV 9.2 L Immature Gran % (Auto) 0.5 H Neut % (Auto) 67.1 Lymph % (Auto) 21.2 [place] % (Auto) 8.1 Eos % (Auto) 2.8 Baso % (Auto) 0.3 Lymph # (Auto) 3.2 [place] # (Auto) 1.2 Eos # (Auto) 0.4 Baso # (Auto) 0.1 Abs Immat Gran (auto) 0.07 H Absolute Neuts (auto) 10.2 H Absolute Nucleated RBC 0.000 Nucleated RBC % (auto) 0.0 ESR PT INR APTT PTT (Heparin Protocol) Sodium 136 Potassium 4.9 Chloride 99 Carbon Dioxide 28 Anion Gap 14 BUN 24 H Creatinine 0.98 Estim Creat Clear Calc 83.2 Estimated GFR > 60 POC Glucose Random Glucose 139 H Estimat Average Glucose Hemoglobin A1c % Lactic Acid Calcium 9.1 Total Bilirubin Direct Bilirubin AST ALT Alkaline Phosphatase C-Reactive Protein Total Protein Albumin Lipase Vancomycin Trough COVID-19 (PAULINE) Negative COVID-19 Clin Com See Note Blood Type Antibody Screen 12/08/20 12/08/20 12/08/20 15:06 15:06 20:01 WBC RBC Hgb Hct MCV MCH MCHC RDW Plt Count MPV Immature Gran % (Auto) Neut % (Auto) Lymph % (Auto) [place] % (Auto) Eos % (Auto) Baso % (Auto) Lymph # (Auto) [place] # (Auto) Eos # (Auto) Baso # (Auto) Abs Immat Gran (auto) Absolute Neuts (auto) Absolute Nucleated RBC Nucleated RBC % (auto) ESR PT INR APTT PTT (Heparin Protocol) Sodium Potassium Chloride Carbon Dioxide Anion Gap BUN Creatinine Estim Creat Clear Calc Estimated GFR POC Glucose 50 L* Random Glucose Estimat Average Glucose Hemoglobin A1c % Lactic Acid 1.1 Calcium Total Bilirubin 0.2 Direct Bilirubin < 0.2 AST 14 ALT 9 Alkaline Phosphatase 122 H C-Reactive Protein Total Protein 7.5 Albumin 4.2 Lipase 29 Vancomycin Trough COVID-19 (PAULINE) COVID-19 [employer] Blood Type Antibody Screen 12/08/20 12/09/20 12/09/20 20:26 05:51 05:51 WBC 12.0 H RBC 3.91 L Hgb 12.3 L Hct 38.4 L MCV 98.2 H MCH 31.5 MCHC 32.0 RDW 12.4 Plt Count 368 MPV 9.4 Immature Gran % (Auto) 0.4 Neut % (Auto) 65.9 Lymph % (Auto) 17.8 L [place] % (Auto) 11.7 H Eos % (Auto) 3.9 Baso % (Auto) 0.3 Lymph # (Auto) 2.1 [place] # (Auto) 1.4 H Eos # (Auto) 0.5 H Baso # (Auto) 0.0 Abs Immat Gran (auto) 0.05 H Absolute Neuts (auto) 7.9 Absolute Nucleated RBC 0.000 Nucleated RBC % (auto) 0.0 ESR PT INR APTT PTT (Heparin Protocol) Sodium 136 Potassium 5.4 H Chloride 101 Carbon Dioxide 29 Anion Gap 11 L BUN 21 H Creatinine 0.90 Estim Creat Clear Calc 90.6 Estimated GFR > 60 POC Glucose 71 Random Glucose 102 Estimat Average Glucose Hemoglobin A1c % Lactic Acid Calcium 8.9 Total Bilirubin Direct Bilirubin AST ALT Alkaline Phosphatase C-Reactive Protein Total Protein Albumin Lipase Vancomycin Trough COVID-19 (PAULINE) COVID-19 [employer] Blood Type Antibody Screen 12/09/20 12/09/20 12/09/20 05:51 07:28 11:50 WBC RBC Hgb Hct MCV MCH MCHC RDW Plt Count MPV Immature Gran % (Auto) Neut % (Auto) Lymph % (Auto) [place] % (Auto) Eos % (Auto) Baso % (Auto) Lymph # (Auto) [place] # (Auto) Eos # (Auto) Baso # (Auto) Abs Immat Gran (auto) Absolute Neuts (auto) Absolute Nucleated RBC Nucleated RBC % (auto) ESR PT 12.1 INR 1.1 APTT 45.2 H PTT (Heparin Protocol) Sodium Potassium Chloride Carbon Dioxide Anion Gap BUN Creatinine Estim Creat Clear Calc Estimated GFR POC Glucose 109 Random Glucose Estimat Average Glucose 206 Hemoglobin A1c % 8.8 Lactic Acid Calcium Total Bilirubin Direct Bilirubin AST ALT Alkaline Phosphatase C-Reactive Protein Total Protein Albumin Lipase Vancomycin Trough COVID-19 (PAULINE) COVID-19 [employer] Blood Type Antibody Screen 12/09/20 12/09/20 12/09/20 11:55 16:06 20:22 WBC RBC Hgb Hct MCV MCH MCHC RDW Plt Count MPV Immature Gran % (Auto) Neut % (Auto) Lymph % (Auto) [place] % (Auto) Eos % (Auto) Baso % (Auto) Lymph # (Auto) [place] # (Auto) Eos # (Auto) Baso # (Auto) Abs Immat Gran (auto) Absolute Neuts (auto) Absolute Nucleated RBC Nucleated RBC % (auto) ESR PT INR APTT PTT (Heparin Protocol) Sodium Potassium Chloride Carbon Dioxide Anion Gap BUN Creatinine Estim Creat Clear Calc Estimated GFR POC Glucose 136 H 197 H 173 H Random Glucose Estimat Average Glucose Hemoglobin A1c % Lactic Acid Calcium Total Bilirubin Direct Bilirubin AST ALT Alkaline Phosphatase C-Reactive Protein Total Protein Albumin Lipase Vancomycin Trough COVID-19 (PAULINE) COVID-19 [employer] Blood Type Antibody Screen 12/09/20 12/10/20 12/10/20 22:58 05:48 06:52 WBC RBC Hgb Hct MCV MCH MCHC RDW Plt Count MPV Immature Gran % (Auto) Neut % (Auto) Lymph % (Auto) [place] % (Auto) Eos % (Auto) Baso % (Auto) Lymph # (Auto) [place] # (Auto) Eos # (Auto) Baso # (Auto) Abs Immat Gran (auto) Absolute Neuts (auto) Absolute Nucleated RBC Nucleated RBC % (auto) ESR PT INR APTT PTT (Heparin Protocol) Sodium Potassium Chloride Carbon Dioxide Anion Gap BUN Creatinine 0.98 Estim Creat Clear Calc 83.2 Estimated GFR > 60 POC Glucose 138 H Random Glucose Estimat Average Glucose Hemoglobin A1c % Lactic Acid Calcium Total Bilirubin Direct Bilirubin AST ALT Alkaline Phosphatase C-Reactive Protein Total Protein Albumin Lipase Vancomycin Trough 11.6 COVID-19 (PAULINE) [employer] Blood Type Antibody Screen 12/10/20 12/10/2012/10/21 11:28 11:32 11:32 WBC RBC Hgb Hct MCV MCH MCHC RDW Plt Count MPV Immature Gran % (Auto) Neut % (Auto) Lymph % (Auto) [place] % (Auto) Eos % (Auto) Baso % (Auto) Lymph # (Auto) [place] # (Auto) Eos # (Auto) Baso # (Auto) Abs Immat Gran (auto) Absolute Neuts (auto) Absolute Nucleated RBC Nucleated RBC % (auto) ESR 34 H PT INR APTT PTT (Heparin Protocol) Sodium 135 Potassium 4.9 Chloride 101 Carbon Dioxide 28 Anion Gap 11 L BUN 17 H Creatinine 0.87 Estim Creat Clear Calc 93.7 Estimated GFR > 60 POC Glucose 119 H Random Glucose 125 H Estimat Average Glucose Hemoglobin A1c % Lactic Acid Calcium 8.7 Total Bilirubin Direct Bilirubin AST ALT Alkaline Phosphatase C-Reactive Protein 1.05 H Total Protein Albumin Lipase Vancomycin Trough COVID-19 (PAULINE) [employer] Blood Type Antibody Screen 12/10/20 12/10/20 12/11/20 16:00 20:07 05:45 WBC RBC Hgb Hct MCV MCH MCHC RDW Plt Count MPV Immature Gran % (Auto) Neut % (Auto) Lymph % (Auto) [place] % (Auto) Eos % (Auto) Baso % (Auto) Lymph # (Auto) [place] # (Auto) Eos # (Auto) Baso # (Auto) Abs Immat Gran (auto) Absolute Neuts (auto) Absolute Nucleated RBC Nucleated RBC % (auto) ESR PT INR APTT PTT (Heparin Protocol) Sodium Potassium Chloride Carbon Dioxide Anion Gap BUN Creatinine 0.82 Estim Creat Clear Calc 99.4 Estimated GFR > 60 POC Glucose 214 H 198 H Random Glucose Estimat Average Glucose Hemoglobin A1c % Lactic Acid Calcium Total Bilirubin Direct Bilirubin AST ALT Alkaline Phosphatase C-Reactive Protein Total Protein Albumin Lipase Vancomycin Trough COVID-19 (PAULINE) COVID-19 [employer] Blood Type Antibody Screen 12/11/20 12/11/20 12/11/20 07:55 11:19 11:23 WBC RBC Hgb Hct MCV MCH MCHC RDW Plt Count MPV Immature Gran % (Auto) Neut % (Auto) Lymph % (Auto) [place] % (Auto) Eos % (Auto) Baso % (Auto) Lymph # (Auto) [place] # (Auto) Eos # (Auto) Baso # (Auto) Abs Immat Gran (auto) Absolute Neuts (auto) Absolute Nucleated RBC Nucleated RBC % (auto) ESR PT INR APTT PTT (Heparin Protocol) Sodium Potassium Chloride Carbon Dioxide Anion Gap BUN Creatinine Estim Creat Clear Calc Estimated GFR POC Glucose 171 H 204 H Random Glucose Estimat Average Glucose Hemoglobin A1c % Lactic Acid Calcium Total Bilirubin Direct Bilirubin AST ALT Alkaline Phosphatase C-Reactive Protein Total Protein Albumin Lipase Vancomycin Trough 11.6 COVID-19 (PAULINE) COVID-[address] [facility] Blood Type Antibody Screen 12/11/20 12/11/20 12/11/20 12:52 16:54 19:50 WBC RBC Hgb Hct MCV MCH MCHC RDW Plt Count MPV Immature Gran % (Auto) Neut % (Auto) Lymph % (Auto) [place] % (Auto) Eos % (Auto) Baso % (Auto) Lymph # (Auto) [place] # (Auto) Eos # (Auto) Baso # (Auto) Abs Immat Gran (auto) Absolute Neuts (auto) Absolute Nucleated RBC Nucleated RBC % (auto) ESR PT INR APTT PTT (Heparin Protocol) 38.7 L 45.5 L Sodium Potassium Chloride Carbon Dioxide Anion Gap BUN Creatinine Estim Creat Clear Calc Estimated GFR POC Glucose 196 H Random Glucose Estimat Average Glucose Hemoglobin A1c % Lactic Acid Calcium Total Bilirubin Direct Bilirubin AST ALT Alkaline Phosphatase C-Reactive Protein Total Protein Albumin Lipase Vancomycin Trough COVID-19 (PAULINE) COVID-19 [employer] Blood Type Antibody Screen 12/11/20 12/12/20 12/12/20 20:27 02:50 05:49 WBC 9.5 RBC 3.92 L Hgb 12.1 L Hct 37.3 L MCV 95.2 MCH 30.9 MCHC 32.4 RDW 12.1 Plt Count 370 MPV 9.5 Immature Gran % (Auto) Neut % (Auto) Lymph % (Auto) [place] % (Auto) Eos % (Auto) Baso % (Auto) Lymph # (Auto) [place] # (Auto) Eos # (Auto) Baso # (Auto) Abs Immat Gran (auto) Absolute Neuts (auto) Absolute Nucleated RBC 0.000 Nucleated RBC % (auto) 0.0 ESR PT INR APTT PTT (Heparin Protocol) 54.5 Sodium Potassium Chloride Carbon Dioxide Anion Gap BUN Creatinine Estim Creat Clear Calc Estimated GFR POC Glucose 295 H Random Glucose Estimat Average Glucose Hemoglobin A1c % Lactic Acid Calcium Total Bilirubin Direct Bilirubin AST ALT Alkaline Phosphatase C-Reactive Protein Total Protein Albumin Lipase Vancomycin Trough COVID-19 (PAULINE) COVID-19 [facility] Blood Type Antibody Screen 12/12/20 12/12/20 12/12/20 05:49 05:49 07:16 WBC RBC Hgb Hct MCV MCH MCHC RDW Plt Count MPV Immature Gran % (Auto) Neut % (Auto) Lymph % (Auto) [place] % (Auto) Eos % (Auto) Baso % (Auto) Lymph # (Auto) [place] # (Auto) Eos # (Auto) Baso # (Auto) Abs Immat Gran (auto) Absolute Neuts (auto) Absolute Nucleated RBC Nucleated RBC % (auto) ESR PT 11.1 INR 1.0 APTT PTT (Heparin Protocol) Sodium Potassium Chloride Carbon Dioxide Anion Gap BUN Creatinine 0.86 Estim Creat Clear Calc 96.3 Estimated GFR > 60 POC Glucose 175 H Random Glucose Estimat Average Glucose Hemoglobin A1c % Lactic Acid Calcium Total Bilirubin Direct Bilirubin AST ALT Alkaline Phosphatase C-Reactive Protein Total Protein Albumin Lipase Vancomycin Trough COVID-19 (PAULINE) COVID-19 [facility] Blood Type Antibody Screen 12/12/20 12/12/20 12/12/20 09:12 11:13 16:16 WBC RBC Hgb Hct MCV MCH MCHC RDW Plt Count MPV Immature Gran % (Auto) Neut % (Auto) Lymph % (Auto) [place] % (Auto) Eos % (Auto) Baso % (Auto) Lymph # (Auto) [place] # (Auto) Eos # (Auto) Baso # (Auto) Abs Immat Gran (auto) Absolute Neuts (auto) Absolute Nucleated RBC Nucleated RBC % (auto) ESR PT INR APTT PTT (Heparin Protocol) 50.3 L 72.5 D Sodium Potassium Chloride Carbon Dioxide Anion Gap BUN Creatinine Estim Creat Clear Calc Estimated GFR POC Glucose 180 H Random Glucose Estimat Average Glucose Hemoglobin A1c % Lactic Acid Calcium Total Bilirubin Direct Bilirubin AST ALT Alkaline Phosphatase C-Reactive Protein Total Protein Albumin Lipase Vancomycin Trough COVID-19 (PAULINE) COVID-19 [facility] Blood Type Antibody Screen 12/12/20 12/12/20 12/12/20 16:20 20:02 22:47 WBC RBC Hgb Hct MCV MCH MCHC RDW Plt Count MPV Immature Gran % (Auto) Neut % (Auto) Lymph % (Auto) [place] % (Auto) Eos % (Auto) Baso % (Auto) Lymph # (Auto) [place] # (Auto) Eos # (Auto) Baso # (Auto) Abs Immat Gran (auto) Absolute Neuts (auto) Absolute Nucleated RBC Nucleated RBC % (auto) ESR PT INR APTT PTT (Heparin Protocol) Sodium Potassium Chloride Carbon Dioxide Anion Gap BUN Creatinine Estim Creat Clear Calc Estimated GFR POC Glucose 217 H 269 H Random Glucose Estimat Average Glucose Hemoglobin A1c % Lactic Acid Calcium Total Bilirubin Direct Bilirubin AST ALT Alkaline Phosphatase C-Reactive Protein Total Protein Albumin Lipase Vancomycin Trough 16.8 COVID-19 (PAULINE) [employer] Blood Type Antibody Screen 12/12/20 12/13/20 12/13/20 22:47 05:54 05:54 WBC RBC Hgb Hct MCV MCH MCHC RDW Plt Count MPV Immature Gran % (Auto) Neut % (Auto) Lymph % (Auto) [place] % (Auto) Eos % (Auto) Baso % (Auto) Lymph # (Auto) [place] # (Auto) Eos # (Auto) Baso # (Auto) Abs Immat Gran (auto) Absolute Neuts (auto) Absolute Nucleated RBC Nucleated RBC % (auto) ESR PT INR APTT PTT (Heparin Protocol) 77.6 79.3 H Sodium Potassium Chloride Carbon Dioxide Anion Gap BUN Creatinine 0.87 Estim Creat Clear Calc 95.2 Estimated GFR > 60 POC Glucose Random Glucose Estimat Average Glucose Hemoglobin A1c % Lactic Acid Calcium Total Bilirubin Direct Bilirubin AST ALT Alkaline Phosphatase C-Reactive Protein Total Protein Albumin Lipase Vancomycin Trough COVID-19 (PAULINE) COVID-19 [employer] Blood Type Antibody Screen 12/13/20 12/13/20 12/13/20 07:17 09:10 11:43 WBC RBC Hgb Hct MCV MCH MCHC RDW Plt Count MPV Immature Gran % (Auto) Neut % (Auto) Lymph % (Auto) [place] % (Auto) Eos % (Auto) Baso % (Auto) Lymph # (Auto) [place] # (Auto) Eos # (Auto) Baso # (Auto) Abs Immat Gran (auto) Absolute Neuts (auto) Absolute Nucleated RBC Nucleated RBC % (auto) ESR PT INR APTT PTT (Heparin Protocol) Sodium Potassium Chloride Carbon Dioxide Anion Gap BUN Creatinine Estim Creat Clear Calc Estimated GFR POC Glucose 215 H 193 H Random Glucose Estimat Average Glucose Hemoglobin A1c % Lactic Acid Calcium Total Bilirubin Direct Bilirubin AST ALT Alkaline Phosphatase C-Reactive Protein Total Protein Albumin Lipase Vancomycin Trough COVID-19 (PAULINE) COVID-19 [facility] Blood Type O Positive Antibody Screen NEGATIVE 12/13/20 12/13/20 12/13/20 12:22 16:12 18:32 WBC RBC Hgb Hct MCV MCH MCHC RDW Plt Count MPV Immature Gran % (Auto) Neut % (Auto) Lymph % (Auto) [place] % (Auto) Eos % (Auto) Baso % (Auto) Lymph # (Auto) [place] # (Auto) Eos # (Auto) Baso # (Auto) Abs Immat Gran (auto) Absolute Neuts (auto) Absolute Nucleated RBC Nucleated RBC % (auto) ESR PT INR APTT PTT (Heparin Protocol) 61.4 D 50.9 L Sodium Potassium Chloride Carbon Dioxide Anion Gap BUN Creatinine Estim Creat Clear Calc Estimated GFR POC Glucose 234 H Random Glucose Estimat Average Glucose Hemoglobin A1c % Lactic Acid Calcium Total Bilirubin Direct Bilirubin AST ALT Alkaline Phosphatase C-Reactive Protein Total Protein Albumin Lipase Vancomycin Trough COVID-19 (PAULINE) COVID-19 [facility] Blood Type Antibody Screen 12/13/20 12/14/20 12/14/20 19:51 07:13 09:40 WBC RBC Hgb Hct MCV MCH MCHC RDW Plt Count MPV Immature Gran % (Auto) Neut % (Auto) Lymph % (Auto) [place] % (Auto) Eos % (Auto) Baso % (Auto) Lymph # (Auto) [place] # (Auto) Eos # (Auto) Baso # (Auto) Abs Immat Gran (auto) Absolute Neuts (auto) Absolute Nucleated RBC Nucleated RBC % (auto) ESR PT INR APTT PTT (Heparin Protocol) Sodium Potassium Chloride Carbon Dioxide Anion Gap BUN Creatinine 0.83 Estim Creat Clear Calc 99.8 Estimated GFR > 60 POC Glucose 209 H 171 H Random Glucose Estimat Average Glucose Hemoglobin A1c % Lactic Acid Calcium Total Bilirubin Direct Bilirubin AST ALT Alkaline Phosphatase C-Reactive Protein Total Protein Albumin Lipase Vancomycin Trough COVID-19 (PAULINE) COVID-19 [facility] Blood Type Antibody Screen 12/14/20 10:42 WBC RBC Hgb Hct MCV MCH MCHC RDW Plt Count MPV Immature Gran % (Auto) Neut % (Auto) Lymph % (Auto) [place] % (Auto) Eos % (Auto) Baso % (Auto) Lymph # (Auto) [place] # (Auto) Eos # (Auto) Baso # (Auto) Abs Immat Gran (auto) Absolute Neuts (auto) Absolute Nucleated RBC Nucleated RBC % (auto) ESR PT INR APTT PTT (Heparin Protocol) Sodium Potassium Chloride Carbon Dioxide Anion Gap BUN Creatinine Estim Creat Clear Calc Estimated GFR POC Glucose 152 H Random Glucose Estimat Average Glucose Hemoglobin A1c % Lactic Acid Calcium Total Bilirubin Direct Bilirubin AST ALT Alkaline Phosphatase C-Reactive Protein Total Protein Albumin Lipase Vancomycin Trough COVID-19 (PAULINE) COVID-19 [facility] Blood Type Antibody Screen Airway Mallampati Class: II (Edentulous) TM Dist: >3cm Neck ROM: Full Denture: Upper and Lower Loose/Missing/Broken Teeth: No Heart: RRR Lungs: CTA Assessment and Plan Assessment Anesthesia Assessment: Anesthesia Plan Discussed and Chart Reviewed Final Anesthetic Review Family History of Problems with Anesthesia: No History of Problems with Anesthesia: No NPO: Yes ASA Class: III Final Preanesthetic Review: Meds/Allgs Chart Reviewed, Consent Obtained/Reviewed and Anes Risks/Benef Reviewed Patient Risk: High Procedure Risk: High Anesthetic Plan Anesthetic Plan: GA Disposition: Inp. Admit - ICU
[2020-12-14] MEDS: Lactated Ringers 1,000 ML 50 ML IVCONT (11:08)
[2020-12-14 11:34] LABS: Vancomycin Trough 18.9 mcg/mL (10.0-20.0)
--- NOTE | 2020-12-14 13:04 | P.PNIM_ITS ---
Subjective Subjective Date of Service: 12/14/20 Interval History: No acute issues overnight; preop for right fem-pop bypass graft this a.m. Physical Exam Vital Signs: Vital Signs: Last Vital Signs Temp 97.4 F 12/14/20 10:56 Pulse 81 12/14/20 10:56 Resp 16 12/14/20 10:56 BP 144/83 H 12/14/20 10:56 Pulse Ox 98 12/14/20 10:56 Body Mass Index 22.8 Const: Other: No acute distress HENMT: Other: Oropharynx clear; membranes moist Resp: Other: Clear to auscultation bilaterally no rales rhonchi or wheezes Cardio: Other: No S4 positive S1-S2 no S3 murmurs of scalp GI: Other: Soft nontender nondistended normoactive bowel sounds x4 quadrants Extrem: Other: Bilateral pitting edema; right foot erythematous dorsal aspect a bulky dressing in place Objective Data Active Medications Acetaminophen (Acetaminophen 325 Mg Tablet) 650 mg PO Q6H PRN PRN Reason: Pain, Mild (Pain Scale 1-3) Last Admin: 12/08/20 22:05 Dose: 650 mg Documented by: ARGENIS Acetaminophen (Acetaminophen 325 Mg Tablet) 650 mg PO ONCE PRN PRN Reason: Pain, Mild (Pain Scale 1-3) Albuterol Sulfate (Albuterol Sulfate (0.083%) 2.5 Mg/3 Ml Vial.Neb) 2.5 mg INHALE ONCE PRN PRN Reason: Wheezing Aspirin (Aspirin Enteric Coated 81 Mg Tablet.) 81 mg PO DAILY [facility] Last Admin: 12/14/20 08:22 Dose: Not Given Documented by: EVONNE Non-Admin Reason: pre op Atorvastatin Calcium (Atorvastatin Calcium 80 Mg Tablet) 80 mg PO DAILY [facility] Last Admin: 12/14/20 08:21 Dose: 80 mg Documented by: EVONNE Carvedilol (Carvedilol 3.125 Mg Tablet) 3.125 mg PO BID [facility]; Protocol Last Admin: 12/14/20 08:21 Dose: 3.125 mg Documented by: EVONNE Dextrose (Dextrose 50 % 25 Gm/50 Ml Vial) 25 gm IVPUSH Q15M PRN; Protocol PRN Reason: per Hypoglycemia Standing Ord. Fentanyl (Fentanyl Citrate/Pf 100 Mcg/2 Ml Vial) 50 mcg IVPUSH Q5M PRN; Protocol PRN Reason: Pain, Severe (Pain Scale 7-10) Fentanyl (Fentanyl Citrate/Pf 100 Mcg/2 Ml Vial) 25 mcg IVPUSH Q5M PRN; Protocol PRN Reason: Pain, Moderate (Pain Scale 4-6 Glucose (Glucose Gel 15 Gm Gel..Gram.) 15 gm PO Q15M PRN; Protocol PRN Reason: per Hypoglycemia Standing Ord. Heparin Sodium (Porcine) (Heparin Sodium,Porcine 5,000 Unit/Ml Vial) 3,000 unit 40 unit/kg (3000 unit) IVPUSH PROTOCOL BOLUS PRN; Protocol PRN Reason: 40 unit/kg - Heparin Protocol Last Admin: 12/13/20 19:19 Dose: 3,000 unit Documented by: DREW Heparin Sodium (Porcine) (Heparin Sodium,Porcine 5,000 Unit/Ml Vial) 6,000 unit 80 unit/kg (6000 unit) IVPUSH PROTOCOL BOLUS PRN; Protocol PRN Reason: 80 unit/kg - Heparin Protocol Piperacillin Sod/Tazobactam (Sod 3.375 gm/ Sodium Chloride) 50 mls @ 100 mls/hr IV Q6H [facility] Last Infusion: 12/14/20 08:51 Dose: 100 mls/hr Documented by: EVONNE Heparin Sodium/Sodium Chloride () 25,000 unit in 250 mls @ 0 mls/hr IVCONT .Q0M [facility]; Protocol Last Titration: 12/14/20 09:56 Dose: 0 units/kg/hr, 0 mls/hr Documented by: EVONNE Cosigned by: BLAKE Vancomycin HCl 1,000 mg/ (Sodium Chloride) 270 mls @ 270 mls/hr IV Q12H [facility] Last Infusion: 12/14/20 01:49 Dose: 0 mls/hr Documented by: DREW Lactated Ringer's (Lr) 1,000 mls @ 50 mls/hr IVCONT .Q20H [facility] Last Admin: 12/14/20 11:08 Dose: 50 mls/hr Documented by: KAYLA Insulin Human Lispro (Insulin Lispro 100 Unit/Ml 3 Ml Vial) 0 unit SUBCUT QIDACHS [facility]; Protocol Last Admin: 12/14/20 10:41 Dose: Not Given Documented by: EVONNE Non-Admin Reason: Off Unit: Surgery Magnesium Hydroxide (Milk Of Magnesia 30 Ml Oral.Susp) 30 ml PO DAILY PRN PRN Reason: Constipation Last Admin: 12/12/20 03:54 Dose: 30 ml Documented by: BLANKA Ondansetron HCl (Ondansetron Hcl 4 Mg/2 Ml Vial) 4 mg IVPUSH Q8H PRN PRN Reason: Nausea and Vomiting Last Admin: 12/08/20 19:45 Dose: 4 mg Documented by: SWEETIE Ondansetron HCl (Ondansetron Hcl 4 Mg/2 Ml Vial) 4 mg IVPUSH ONCE PRN PRN Reason: Nausea and Vomiting Oxycodone HCl (Oxycodone Hcl Immed Release 5 Mg Tablet) 5 mg PO Q4H PRN PRN Reason: Pain, Moderate (Pain Scale 4-6 Last Admin: 12/14/20 08:21 Dose: 5 mg Documented by: EVONNE Oxycodone HCl (Oxycodone Hcl Immed Release 5 Mg Tablet) 10 mg PO ONCE PRN PRN Reason: Pain, Severe (Pain Scale 7-10) Oxycodone HCl (Oxycodone Hcl Immed Release 5 Mg Tablet) 5 mg PO ONCE PRN PRN Reason: Pain, Severe (Pain Scale 7-10) Pharmacy Consult (Consult Rx Perform Med Rec) 1 each MISCELLANE ONCE PRN PRN Reason: Consult order Pharmacy Consult (Consult Rx Vancomycin Dosing) 1 each MISCELLANE DAILY PRN PRN Reason: Consult order Sodium Chloride (0.9 % Sodium Chloride Flush 3 Ml Syringe) [facility] Last Admin: 12/14/20 07:39 Dose: Not Given Documented by: EVONNE Non-Admin Reason: IV Running Tamsulosin HCl (Tamsulosin Hcl 0.4 Mg Capsule) 0.4 mg PO DAILY [facility] Last Admin: 12/14/20 08:21 Dose: 0.4 mg Documented by: EVONNE Labs CBC & Chem 7: 12/12/20 05:49 12/14/20 09:40 Labs: Laboratory Results - last 24 hr 12/13/20 12/13/20 12/13/20 16:12 18:32 19:51 PTT (Heparin Protocol) 50.9 L Estim Creat Clear Calc Estimated GFR POC Glucose 234 H 209 H Vancomycin Trough 12/14/20 12/14/20 12/14/20 07:13 09:40 10:42 PTT (Heparin Protocol) Estim Creat Clear Calc 99.8 Estimated GFR > 60 POC Glucose 171 H 152 H Vancomycin Trough 12/14/20 11:00 PTT (Heparin Protocol) Estim Creat Clear Calc Estimated GFR POC Glucose Vancomycin Trough 18.9 Microbiology Microbiology Results: Microbiology 12/08/20 15:06 Blood Culture - Final Blood - Venous No growth after 5 days. 12/08/20 15:06 Blood Culture - Final Blood - Venous No growth after 5 days. Assessment and Plan (1) Peripheral vascular disease: Status: Acute (2) PAF (paroxysmal atrial fibrillation): Status: Acute (3) CAD (coronary artery disease): Status: Acute Assessment and Plan: 59 yo male with? CAD, HLD, DM, HTN, recently discharged from [facility] after being treated for right foot cellulitis with diabetic foot ulcer, patient noted to have worsening redness swelling and pain therefore presented to [place] ER and now being admitted for recurrent cellulitis and right small toe gangrene. To OR for fem-pop bypass graft by Dr. Alas 1.Right foot Cellulitis /nonhealing foot ulcer and right small toe gangrene d/t diabetes ?? IV Zosyn and vancomycin day 6; stable renal function . ? Duplex scan lower extremity showed moderate to severe atherosclerotic disease right lower extremity; status post abdominal angiogram that showed total occlusion of SFA; OR today ?? 2.CAD/history of paroxysmal atrial fibrillation Myocardial perfusion imaging shows basal inferior infarct with minimal ischemia in the inferoapical and inferoseptal wall of the LV myocardium in the RCA territory.? No EKG changes.? Echocardiogram consistent with the basal inferior myocardial infarction with preserved ejection fraction.? Patient is scheduled to undergo surgery this a.m. 3.Hypertension Continue [place] Reg; adjust as indicated 4.Hyperlipidemia Continue statin 5. Type 2 diabetes Metformin and Farxiga on hold. Will cover with sliding scale and adjust as indicated. Resume oral therapies when medically indicated 6.DVT prophylaxis? on hepain drip Quality Stroke Does the patient have a stroke diagnosis?: No VTE Prior VTE?: No VTE Risk Level:: Medical - moderate - high VTE Device Contraindication: Treatment Not Indicated VTE Drug Contraindication: N/A - Med Ordered
[2020-12-14] MEDS: oxyCODONE HCl Immed Release 5 MG TABLET 10 MG PO (15:14)
[2020-12-14] MEDS: HYDROmorphone HCl 0.5 MG/0.5 ML SYRINGE 0.25 MG IVPUSH ×2 (15:14→15:29)
--- NOTE | 2020-12-14 16:17 | W.PM.OPN ---
Operative Note Operative Note Date of Service: 12/14/20 Narrative: Operative note by [facility] Preoperative diagnosis: Atherosclerosis with nonhealing right lower extremity ulcer Postoperative diagnosis: Same Procedure:1 right-sided femoral to above knee popliteal bypass 2 thrombectomy of popliteal artery Surgeon:Juan Francisco Alas M.D. Elementary Assistant Principal: Dr. Clancy Anesthesia: General Specimens: 1 Drains: None Estimated blood loss: 100 cc Indications: Mik is a 60-year-old gentleman with history significant for smoking has a nonhealing right 5th toe ulcer. He had undergone endovascular diagnostic angiogram. He had a total occlusion of the SFA. He now presents for fem-pop bypass. The patient has signed the informed consent after reviewing risks, complications, benefits, and alternatives previously discussed with the patient. The patient was given the opportunity to ask any additional questions or voice any concerns. All questions were answered to the patient's satisfaction. Procedure in detail: Patient was brought to the operating room prior to which a time-out was called for patient identification site verification. Right leg was prepped and draped in standard surgical fashion. We then performed a right femoral cutdown in a longitudinal manner. We got down to the inguinal ligament. And we were then able to find the common femoral artery. This was dissected clear. We placed a silastic loop around that in also isolated out the side branches. Once this was accomplished we turned our attention down lower and we had isolated out in the common femoral as well the profundus and SFA. We then turned our attention to the above knee popliteal. We made an incision in the groove on the medial aspect of the thigh. We dissected between the vastus medialis in-situ aureus. We were able to get into the fascial plane. This was dissected free. Under Doppler guidance we were then able to find at the popliteal artery. Once this was accomplished we then isolated this with silastic loops. Once this was accomplished we had created a tunnel. 5000 units of systemic heparin was administered. After 5 minutes of circulation time we then clamped the common femoral profundus and SFA. Arteriotomy was created. We then performed a local endarterectomy of the common femoral down to the profundus femorals. Extensive fluid was made on this [place] 6 x 80 graft. Once it was trimmed to appropriate size we did a circumferential anastomosis using a [place] CV6 suture. Once this was accomplished adequate hemostasis was achieved we flushed through the graft. We then tunnel the graft. In a similar fashion we isolated out the popliteal. We created proximal and distal control with a silastic loops. And we made arteriotomy. Distal it was a very poor flow through the popliteal. We then did a pass with a 3. Cyndi. It appeared to have very clear flow once this was done. We then sutured on the graft once again it was trimmed down to appropriate size and circumferentially anastomosed with a CV 6 suture. Once this was accomplished adequate hemostasis was achieved. We then placed Tisseel sealant. We reapproximated the deep layer using 2 0 poly Sorb, superficial layer with 3-0 poly Sorb, and finally skin with skin clips. Sterile dressings were applied. At the end the case sponge instrument counts were correct. Patient tolerated the procedure well. Returned to recovery with stable vitals. This note is constructed using voice recognition software. While every effort has been made to ensure accuracy, imaging aide errors may have been included. Thank you for allowing me to participate in the care of your patient. Yours sincerely, Juan Francisco Alas MD, FACS, R.P.V.I.
--- NOTE | 2020-12-14 16:41 | W.PM.CCCN ---
History of Present Illness Data of Consult Service Date: 12/14/20 Requesting physician: Juan Francisco Alas Primary Care Provider: Arian Terrazas MD [facility] Reason for consult: Status post CABG/ischemic right lower extremity/nonhealing ulcer 60-year-old male smoker with diabetes and hyperlipidemia and hypertension status post CABG presents with ischemic limb threat nonhealing ulcer for a femoral popliteal bypass Bedside echo shows globally normal systolic wall motion of the left ventricle with normal right ventricular size and function and no primary valve or pericardial disease Stable baseline EKG without significant ST-T change on this 1st postoperative day Review of Systems Review of Systems: Yes all other systems are reviewed and are negative PMFSH Past Medical History Medical History CAD (coronary artery disease) Cellulitis in diabetic foot Diabetes Eschar of foot HLD (hyperlipidemia) HTN (hypertension) PAF (paroxysmal atrial fibrillation) Pressure ulcer, unstageable, with eschar Family History Family History Mother Colon cancer Father Diabetes Family history: reviewed and not pertinent Surgical History Surgical History History of surgery on upper extremity Hx of CABG Hx of vascular surgery Social History Social History Household Members: Spouse Housing: House Do you presently have visiting nurse or other home services: Yes Patient Tobacco Use Status: Current everyday Tobacco user Tobacco use type: Cigarette Cigarettes Per Day: 3 Advance Directives Date on File: 12/08/20 Current occupational status: employed Meds Allergies Allergy/AdvReac Type Severity Reaction Status Date / Time codeine [Codeine] AdvReac Unknown SHAKING Verified 12/08/20 12:57 Active Medications: Current Medications Acetaminophen (Acetaminophen 325 Mg Tablet) 650 mg PO Q6H PRN PRN Reason: Pain, Mild (Pain Scale 1-3) Last Admin: 12/08/20 22:05 Dose: 650 mg Documented by: Aspirin (Aspirin Enteric Coated 81 Mg Tablet.) 81 mg PO DAILY [facility] Last Admin: 12/14/20 08:22 Dose: Not Given Documented by: Atorvastatin Calcium (Atorvastatin Calcium 80 Mg Tablet) 80 mg PO DAILY [facility] Last Admin: 12/14/20 08:21 Dose: 80 mg Documented by: Carvedilol (Carvedilol 3.125 Mg Tablet) 3.125 mg PO BID [facility]; Protocol Last Admin: 12/14/20 08:21 Dose: 3.125 mg Documented by: Dextrose (Dextrose 50 % 25 Gm/50 Ml Vial) 25 gm IVPUSH Q15M PRN; Protocol PRN Reason: per Hypoglycemia Standing Ord. Fentanyl (Fentanyl Citrate/Pf 100 Mcg/2 Ml Vial) 50 mcg IVPUSH Q5M PRN; Protocol PRN Reason: Pain, Severe (Pain Scale 7-10) Fentanyl (Fentanyl Citrate/Pf 100 Mcg/2 Ml Vial) 25 mcg IVPUSH Q5M PRN; Protocol PRN Reason: Pain, Moderate (Pain Scale 4-6 Glucose (Glucose Gel 15 Gm Gel..Gram.) 15 gm PO Q15M PRN; Protocol PRN Reason: per Hypoglycemia Standing Ord. Hydromorphone HCl (Hydromorphone Hcl 0.5 Mg/0.5 Ml Syringe) 0.5 mg IVPUSH Q5M PRN; Protocol PRN Reason: Pain, Severe (Pain Scale 7-10) Hydromorphone HCl (Hydromorphone Hcl 0.5 Mg/0.5 Ml Syringe) 0.25 mg IVPUSH Q5M PRN; Protocol PRN Reason: Pain, Severe (Pain Scale 7-10) Last Admin: 12/14/20 15:29 Dose: 0.25 mg Documented by: Piperacillin Sod/Tazobactam (Sod 3.375 gm/ Sodium Chloride) 50 mls @ 100 mls/hr IV Q6H [facility] Last Infusion: 12/14/20 08:51 Dose: Infused Documented by: Vancomycin HCl 1,000 mg/ (Sodium Chloride) 270 mls @ 270 mls/hr IV Q12H [facility] Last Infusion: 12/14/20 01:49 Dose: Infused Documented by: Lactated Ringer's (Lr) 1,000 mls @ 50 mls/hr IVCONT .Q20H [facility] Last Admin: 12/14/20 11:08 Dose: 50 mls/hr Documented by: Sodium Chloride (Ns) 1,000 mls @ 80 mls/hr IVCONT .[id number] [facility] Heparin Sodium/Sodium Chloride () 25,000 unit in 250 mls @ 5 mls/hr IVCONT .Q24H [facility] Insulin Human Lispro (Insulin Lispro 100 Unit/Ml 3 Ml Vial) 0 unit SUBCUT QIDACHS [facility]; Protocol Last Admin: 12/14/20 10:41 Dose: Not Given Documented by: Magnesium Hydroxide (Milk Of Magnesia 30 Ml Oral.Susp) 30 ml PO DAILY PRN PRN Reason: Constipation Last Admin: 12/12/20 03:54 Dose: 30 ml Documented by: Morphine Sulfate (Morphine Sulfate 2 Mg/Ml Cartridge) 2 mg IVPUSH Q4H PRN; Protocol PRN Reason: Pain, Severe (Pain Scale 7-10) Ondansetron HCl (Ondansetron Hcl 4 Mg/2 Ml Vial) 4 mg IVPUSH Q8H PRN PRN Reason: Nausea and Vomiting Last Admin: 12/08/20 19:45 Dose: 4 mg Documented by: Oxycodone HCl (Oxycodone Hcl Immed Release 5 Mg Tablet) 5 mg PO Q4H PRN PRN Reason: Pain, Moderate (Pain Scale 4-6 Last Admin: 12/14/20 08:21 Dose: 5 mg Documented by: Pharmacy Consult (Consult Rx Perform Med Rec) 1 each MISCELLANE ONCE PRN PRN Reason: Consult order Pharmacy Consult (Consult Rx Vancomycin Dosing) 1 each MISCELLANE DAILY PRN PRN Reason: Consult order Sodium Chloride (0.9 % Sodium Chloride Flush 3 Ml Syringe) [facility] Last Admin: 12/14/20 07:39 Dose: Not Given Documented by: Sodium Chloride (0.9 % Sodium Chloride Flush 3 Ml Syringe) 3 ml IVFLUSH [facility] Tamsulosin HCl (Tamsulosin Hcl 0.4 Mg Capsule) 0.4 mg PO DAILY [facility] Last Admin: 12/14/20 08:21 Dose: 0.4 mg Documented by: Home Medications Medication Instructions Recorded Confirmed Last Taken Type apixaban 5 mg tablet (Eliquis) 1 tab PO BID 11/11/20 12/08/20 11/26/20 History aspirin 81 mg tablet 81 mg PO DAILY 11/11/20 12/08/20 11/26/20 History atorvastatin 80 mg tablet 1 tab PO DAILY 11/11/20 12/08/20 11/11/20 History carvedilol 6.25 mg tablet 1 tab PO BID 11/11/20 12/08/20 11/11/20 History dapagliflozin 10 mg tablet 1 tab PO DAILY 11/11/20 12/08/20 11/11/20 History (Farxiga) insulin glargine 100 unit/mL (3 40 unit SUBCUT BEDTIME 11/11/20 12/08/20 11/11/20 History mL) subcutaneous pen (Basaglar KwikPen U-100 Insulin) lisinopril 10 mg tablet 1 tab PO DAILY 11/11/20 12/08/20 11/11/20 History metformin 850 mg tablet 1 tab PO BID 11/11/20 12/08/20 11/11/20 History tamsulosin 0.4 mg capsule 1 cap PO DAILY 11/11/20 12/08/20 11/11/20 History gabapentin 300 mg capsule 300 mg PO TID 12/08/20 12/08/20 Unknown History Physical Exam Vital Signs: Vital Signs: Last Vital Signs Temp 97.6 F 12/14/20 15:46 Pulse 81 12/14/20 16:26 Resp 18 12/14/20 16:26 BP 123/51 L 12/14/20 16:26 Pulse Ox 97 12/14/20 16:26 Body Mass Index 22.8 Right lower extremity still call but there is no acrocyanosis and no livedo Rest of the skin is intact Cardiac exam per bedside echo within normal limits no neck vein distension and good bilateral carotid upstrokes Chest with diminished bilateral breath sounds but no accessory muscle use and no adventitious sounds Abdomen benign with no organomegaly Results Labs CBC & Chem 7: 12/16/20 04:25 12/16/20 04:25 Labs: BMP 12/14/20 09:40 Creatinine 0.83 Microbiology Microbiology Results: Microbiology 12/08/20 15:06 Blood - Venous Blood Culture - Final No growth after 5 days. 12/08/20 15:06 Blood - Venous Blood Culture - Final No growth after 5 days. Assessment and Plan (1) PAF (paroxysmal atrial fibrillation): Status: Acute (2) CAD (coronary artery disease): Status: Acute (3) Hx of CABG: Status: Acute (4) Peripheral vascular disease: Status: Acute (5) Diabetic foot ulcer: Status: Acute (6) PAD (peripheral artery disease): Status: Acute (7) Hx of vascular surgery: Status: Acute (8) Diabetic ulcer of foot associated with diabetes mellitus due to underlying condition, limited to breakdown of skin: Status: Acute (9) Cellulitis: Status: Acute Established baseline EKG and echo to follow if there were any chest symptoms and thus far stable postoperatively and will follow blood pressures for control using his arterial line Antibiotics as above
[2020-12-14] MEDS: HYDROmorphone HCl 0.5 MG/0.5 ML SYRINGE IVPUSH ×3 (17:17→22:17)
[2020-12-14] MEDS: 0.9 % Sodium Chloride Flush 3 ML SYRINGE IVFLUSH (17:19)
[2020-12-14] MEDS: 0.9 % Sodium Chloride 1,000 ML 80 ML IVCONT (17:38)
[2020-12-14] MEDS: Heparin Sodium,Porcine/1/2NS 25,000 UNIT/250 ML IV.SOLN 5 UNIT IVCONT (17:48)
[2020-12-14 18:01] LABS: Glucose, Whole Blood 124 mg/dL (60-115)
[2020-12-14 20:17] LABS: Glucose, Whole Blood 155 mg/dL (60-115)
--- NOTE | 2020-12-14 21:09 | PC.NURSE ---
Dr. Alas called and asked for the patient to be NPO after midnight in preparation for surgery tomorrow. He asked about PT pulse and right foot appearance. Was already aware of coolness and no PT pulse.
[2020-12-14] MEDS: Acetaminophen 325 MG TABLET 650 MG PO (23:28)
[2020-12-15] VITALS (34 sets, daily range): BP systolic 90–162; BP diastolic 48–70; PULSE 78–101; RESP 11–18; TEMP 36.8–37.7; O2SAT 93–99; BMI 24.9
[2020-12-15] MEDS: HYDROmorphone HCl 0.5 MG/0.5 ML SYRINGE IVPUSH (00:35)
[2020-12-15] MEDS: HYDROmorphone HCl 1 MG/ML SYRINGE IVPUSH ×7 (02:24→22:22)
[2020-12-15] MEDS: 0.9 % Sodium Chloride 1,000 ML 80 ML IVCONT ×3 (03:32→17:29)
[2020-12-15] MEDS: vancomycin HCL 1,000 MG in 0.9 % Sodium Chloride 250 ML 270 MG IV ×2 (05:21→17:39)
[2020-12-15] MEDS: Piperacillin Sodium/Tazobactam 3.375 GM in 0.9 % Sodium Chloride 50 ML IV ×3 (05:21→22:29)
[2020-12-15 05:50] LABS: Basophils Percent Auto 0.3 % (0-2); Eosinophils Absolute Auto 0.3 X10*3/uL (0.0-0.4); Eosinophils Percent Auto 2.3 % (0-4); Hematocrit 30.2 % (42.0-52.0); Hemoglobin 9.9 g/dl (14.0-18.0); Imm Gran Abs Auto 0.05 X10*3/uL (0.00-0.03); Imm Gran Pct Auto 0.4 % (0.0-0.4); Lymphocytes Absolute Auto 1.7 X10*3/uL (1.2-4.9); MANUAL DIFF FLAG SCAN; Mean Corpuscular HGB Conc 32.8 g/dl (31.0-36.0); Mean Corpuscular Hemoglobin 31.2 pg (27.0-33.0); Mean Corpuscular Volume 95.3 fL (80.0-98.0); Mean Platelet Volume 9.6 fL (9.4-12.4); Monocytes Absolute Auto 1.5 X10*3/uL (0.1-1.2); Monocytes Percent Auto 12.9 % (2-11); Neutrophils Absolute Auto 8.31 x10*3/uL (2.0-8.3); Neutrophils Percent Auto 70.1 % (45-73); Platelet Count 318 X10*3/uL (160-400); Red Blood Count 3.17 X10*6/uL (4.60-5.80); Red Cell Distribution Width 12.1 % (11.0-16.0); SCAN SMEAR FLAG 1; White Blood Count 11.9 X10*3/uL (4.8-10.8)
[2020-12-15 05:54] LABS: Prothrombin Time 11.1 SEC (9.9-13.0)
[2020-12-15 05:55] LABS: Anion Gap 10 (12-20); Blood Urea Nitrogen 10 mg/dL (9-16); Calcium 8.1 mg/dL (8.4-10.2); Carbon Dioxide 27 mmol/L (22-29); Chloride 102 mmol/L (96-108); Creatinine Clr Calc Pharmacy 115.1; Estimated Glomerular Filt Rate > 60; Glucose Random 159 mg/dL (60-115); Potassium 4.3 mmol/L (3.3-5.1); Sodium 135 mmol/L (135-145)
[2020-12-15 06:10] LABS: SLIDE REVIEW VERIFIED
[2020-12-15 07:43] LABS: Glucose, Whole Blood 171 mg/dL (60-115)
[2020-12-15] MEDS: Atorvastatin Calcium 80 MG TABLET PO (07:48)
[2020-12-15] MEDS: Tamsulosin HCL 0.4 MG CAPSULE PO (07:48)
[2020-12-15] MEDS: carvediloL 3.125 MG TABLET PO ×2 (07:48→19:51)
[2020-12-15] MEDS: Insulin Lispro 100 UNIT/ML 3 ML VIAL SUBCUT (07:49)
--- NOTE | 2020-12-15 09:51 | P.PNCA_ITS ---
Subjective Subjective Date of Service: 12/15/20 <CARMELO Brown - Last Filed: 12/15/20 10:13> 12/15/20 <Chaim Lane MD - Last Filed: 12/15/20 12:26> Principal diagnosis: CAD, PAF hx, s/p op right Fem pop bypass <CARMELO Brown - Last Filed: 12/15/20 10:13> Interval history: Cardiology follow up for post op cardiac eval. Seen at 0845. Today he reports much discomfort from his right leg. States it is as bad as when he came in. Dr Alas present and pt will be getting a CTA of leg for eval. No report of chest pains, sob, palpitation, dizziness. <CARMELO Brown - Last Filed: 12/15/20 10:13> Review of Systems Review of Systems as above <CARMELO Brown - Last Filed: 12/15/20 10:13> Yes all other systems are reviewed and are negative <CARMELO Brown - Last Filed: 12/15/20 10:13> Physical Exam Vital Signs: Last Vital Signs Temp 98.4 F 12/15/20 08:00 Pulse 78 12/15/20 09:00 Resp 12 12/15/20 09:00 BP 111/52 L 12/15/20 09:00 Pulse Ox 97 12/15/20 09:00 Body Mass Index 24.9 <CARMELO Brown - Last Filed: 12/15/20 10:13> Const General: cooperative, no acute distress, alert and awake <CARMELO Brown - Last Filed: 12/15/20 10:13> Orientation/consciousness: patient oriented x3 <CARMELO Brown - Last Filed: 12/15/20 10:13> Neck Neck: Yes normal visual inspection and Yes no JVD <CARMELO Brown - Last Filed: 12/15/20 10:13> Resp Effort & Inspection: normal respiratory effort, able to speak in complete sentences and not labored <CARMELO Brown - Last Filed: 12/15/20 10:13> Auscultation: clear to auscultation bilaterally, no rales, no rhonchi and no wheezes <Cinda Wood [facility] - Last Filed: 12/15/20 10:13> Cardio Palpation: normal PMI <Cindaashly Wood [facility] - Last Filed: 12/15/20 10:13> Rate: regular rate [facility] - Last Filed: 12/15/20 10:13> Rhythm: regular rhythm <[facility] - Last Filed: 12/15/20 10:13> Heart sounds: S1 normal heart sound present and S2 normal heart sound present <[facility] - Last Filed: 12/15/20 10:13> GI Inspection: Yes normal to inspection <[facility] - Last Filed: 12/15/20 10:13> Neuro General: patient oriented x3 <[facility] - Last Filed: 12/15/20 10:13> Extrem Other: Right leg without noted cyanosis, mild coolness, surgical dressings intact. <[facility] - Last Filed: 12/15/20 10:13> General: No edema <[facility] - Last Filed: 12/15/20 10:13> Results Labs and Meds Result diagrams: : 12/15/20 05:15 12/15/20 05:15 <Cinda Israel [facility] - Last Filed: 12/15/20 10:13> Lab results: Laboratory Results - last 24 hr 12/14/20 12/14/20 12/14/20 09:40 10:42 11:00 WBC RBC Hgb Hct MCV MCH MCHC RDW Plt Count MPV Immature Gran % (Auto) Neut % (Auto) Lymph % (Auto) [place] % (Auto) Eos % (Auto) Baso % (Auto) Lymph # (Auto) [place] # (Auto) Eos # (Auto) Baso # (Auto) Abs Immat Gran (auto) Absolute Neuts (auto) Absolute Nucleated RBC Nucleated RBC % (auto) Smear Tech's Comments PT INR PTT (Heparin Protocol) Sodium Potassium Chloride Carbon Dioxide Anion Gap BUN Creatinine 0.83 Estim Creat Clear Calc 99.8 Estimated GFR > 60 POC Glucose 152 H Random Glucose Calcium Vancomycin Trough 18.9 12/14/20 12/14/20 12/15/20 17:24 20:14 05:15 WBC RBC Hgb Hct MCV MCH MCHC RDW Plt Count MPV Immature Gran % (Auto) Neut % (Auto) Lymph % (Auto) [place] % (Auto) Eos % (Auto) Baso % (Auto) Lymph # (Auto) [place] # (Auto) Eos # (Auto) Baso # (Auto) Abs Immat Gran (auto) Absolute Neuts (auto) Absolute Nucleated RBC Nucleated RBC % (auto) Smear Tech's Comments PT 11.1 INR 1.0 PTT (Heparin Protocol) 36.0 L D Sodium Potassium Chloride Carbon Dioxide Anion Gap BUN Creatinine Estim Creat Clear Calc Estimated GFR POC Glucose 124 H 155 H Random Glucose Calcium Vancomycin Trough 12/15/20 12/15/20 12/15/20 05:15 05:15 07:16 WBC 11.9 H RBC 3.17 L Hgb 9.9 L Hct 30.2 L MCV 95.3 MCH 31.2 MCHC 32.8 RDW 12.1 Plt Count 318 MPV 9.6 Immature Gran % (Auto) 0.4 Neut % (Auto) 70.1 Lymph % (Auto) 14.0 L [place] % (Auto) 12.9 H Eos % (Auto) 2.3 Baso % (Auto) 0.3 Lymph # (Auto) 1.7 [place] # (Auto) 1.5 H Eos # (Auto) 0.3 Baso # (Auto) 0.0 Abs Immat Gran (auto) 0.05 H Absolute Neuts (auto) 8.31 H Absolute Nucleated RBC 0.000 Nucleated RBC % (auto) 0.0 Smear Tech's Comments VERIFIED PT INR PTT (Heparin Protocol) Sodium 135 Potassium 4.3 Chloride 102 Carbon Dioxide 27 Anion Gap 10 L BUN 10 Creatinine 0.73 Estim Creat Clear Calc 115.1 Estimated GFR > 60 POC Glucose 171 H Random Glucose 159 H Calcium 8.1 L D Vancomycin Trough <CARMELO Brown - Last Filed: 12/15/20 10:13> Progress Note: A&P Assessment and plan (1) CAD (coronary artery disease): Status: Acute <CARMELO Brown - Last Filed: 12/15/20 10:13> Assessment and Plan: Hx of CAD with 3 vessel CABG 07/2018. Echo shows EF 55-60%, WMA inferiorly. Hx of prior inferior MO. Nuclear stress test shows basal inferior infarct with minimal ischemia inferoapical and inferoseptal- RCA territory. Underwent vascular surgery yesterday without reported cardiac complications. No anginal sounding symptoms. Tele shows stable SR, occ PVC rate 70-80. Continue current meds for stable CAD including aspirin, atorvastatin, carvedilol. <CARMELO Brown - Last Filed: 12/15/20 10:13> Hx of CAD with 3 vessel CABG 07/2018. Echo shows EF 55-60%, WMA inferiorly. Hx of prior inferior MO. Nuclear stress test shows basal inferior infarct with minimal ischemia inferoapical and inferoseptal- RCA territory. Underwent vascular surgery yesterday without reported cardiac complications. No anginal sounding symptoms. Tele shows stable SR, occ PVC rate 70-80. Continue current meds for stable CAD including aspirin, atorvastatin, carvedilol. Case discussed with Cinda Wood. Patient tolerated vascular surgery well. No recurrent chest pain at this point time. However seems like the vascular surgery may not have taken and might have to go to the OR again. If he does so, remains at intermediate to high risk for the same. Continue to avoid hypotension during surgery and in the postoperative period and treated aggressively. Also treat anemia aggressively. Continue medical therapy as prescribed. Will sign of the case and consult us if need be. Will follow up as outpatient <Chaim Lane MD - Last Filed: 12/15/20 12:26> (2) Hx of CABG: Status: Acute <CARMELO Brown - Last Filed: 12/15/20 10:13> Assessment and Plan: 07/2018 GOMEZ to LAD, SVG to PDA, SVG to OM1. <CARMELO Brown - Last Filed: 12/15/20 10:13> (3) PAF (paroxysmal atrial fibrillation): Status: Acute <CARMELO Brown - Last Filed: 12/15/20 10:13> Assessment and Plan: Hx PAF. Current suppressed. On Carvedilol for rate control. Is normally on Eliquis for anticoagulation. Eliquis currently on hold due to vascular surgery yesterday and possible need to return to OR today. No new neurological symptoms noted. Recommend restart of Eliquis as soon as clear by surgeon to do so. <CARMELO Brown - Last Filed: 12/15/20 10:13> (4) PAD (peripheral artery disease): Status: Acute <CARMELO Brown - Last Filed: 12/15/20 10:13> Assessment and Plan: Right Fem pop bypass with Dr Alas yesterday. Pt has increased discomfort today. Dr Alas following and getting CTA to eval. <CARMELO Brown - Last Filed: 12/15/20 10:13> Fall Risk Details Current Medications: Current Medications Acetaminophen (Acetaminophen 325 Mg Tablet) 650 mg PO Q6H PRN PRN Reason: Pain, Mild (Pain Scale 1-3) Last Admin: 12/14/20 23:28 Dose: 650 mg Documented by: Aspirin (Aspirin Enteric Coated 81 Mg Tablet.) 81 mg PO DAILY [facility] Last Admin: 12/15/20 07:48 Dose: Not Given Documented by: Atorvastatin Calcium (Atorvastatin Calcium 80 Mg Tablet) 80 mg PO DAILY [facility] Last Admin: 12/15/20 07:48 Dose: 80 mg Documented by: Carvedilol (Carvedilol 3.125 Mg Tablet) 3.125 mg PO BID [facility]; Protocol Last Admin: 12/15/20 07:48 Dose: 3.125 mg Documented by: Dextrose (Dextrose 50 % 25 Gm/50 Ml Vial) 25 gm IVPUSH Q15M PRN; Protocol PRN Reason: per Hypoglycemia Standing Ord. Fentanyl (Fentanyl Citrate/Pf 100 Mcg/2 Ml Vial) 50 mcg IVPUSH Q5M PRN; Protocol PRN Reason: Pain, Severe (Pain Scale 7-10) Fentanyl (Fentanyl Citrate/Pf 100 Mcg/2 Ml Vial) 25 mcg IVPUSH Q5M PRN; Protocol PRN Reason: Pain, Moderate (Pain Scale 4-6 Glucose (Glucose Gel 15 Gm Gel..Gram.) 15 gm PO Q15M PRN; Protocol PRN Reason: per Hypoglycemia Standing Ord. Hydromorphone HCl (Hydromorphone Hcl 0.5 Mg/0.5 Ml Syringe) 0.25 mg IVPUSH Q5M PRN; Protocol PRN Reason: Pain, Severe (Pain Scale 7-10) Last Admin: 12/14/20 15:29 Dose: 0.25 mg Documented by: Hydromorphone HCl (Hydromorphone Hcl 1 Mg/Ml Syringe) 1 mg IVPUSH Q2H PRN; Protocol PRN Reason: Pain, Moderate (Pain Scale 4-6 Last Admin: 12/15/20 07:59 Dose: 1 mg Documented by: Lactated Ringer's (Lr) 1,000 mls @ 50 mls/hr IVCONT .Q20H [facility] Last Infusion: 12/14/20 17:56 Dose: Infused Documented by: Sodium Chloride (Ns) 1,000 mls @ 80 mls/hr IVCONT .[id number] [facility] Last Admin: 12/15/20 05:22 Dose: 80 mls/hr Documented by: Heparin Sodium/Sodium Chloride () 25,000 unit in 250 mls @ 5 mls/hr IVCONT .Q24H [facility] Last Admin: 12/14/20 17:48 Dose: 500 unit/hr, 5 mls/hr Documented by: Piperacillin Sod/Tazobactam (Sod 3.375 gm/ Sodium Chloride) 50 mls @ 100 mls/hr IV Q6H [facility] Last Infusion: 12/15/20 06:02 Dose: Infused Documented by: Vancomycin HCl 1,000 mg/ (Sodium Chloride) 270 mls @ 270 mls/hr IV Q12H [facility] Last Infusion: 12/15/20 06:27 Dose: Infused Documented by: Insulin Human Lispro (Insulin Lispro 100 Unit/Ml 3 Ml Vial) 0 unit SUBCUT QIDACHS [facility]; Protocol Last Admin: 12/15/20 07:49 Dose: 4 unit Documented by: Magnesium Hydroxide (Milk Of Magnesia 30 Ml Oral.Susp) 30 ml PO DAILY PRN PRN Reason: Constipation Last Admin: 12/12/20 03:54 Dose: 30 ml Documented by: Morphine Sulfate (Morphine Sulfate 2 Mg/Ml Cartridge) 2 mg IVPUSH Q4H PRN; Protocol PRN Reason: Pain, Severe (Pain Scale 7-10) Ondansetron HCl (Ondansetron Hcl 4 Mg/2 Ml Vial) 4 mg IVPUSH Q8H PRN PRN Reason: Nausea and Vomiting Last Admin: 12/08/20 19:45 Dose: 4 mg Documented by: Pharmacy Consult (Consult Rx Perform Med Rec) 1 each MISCELLANE ONCE PRN PRN Reason: Consult order Pharmacy Consult (Consult Rx Vancomycin Dosing) 1 each MISCELLANE DAILY PRN PRN Reason: Consult order Sodium Chloride (0.9 % Sodium Chloride Flush 3 Ml Syringe) [facility] Last Admin: 12/15/20 07:12 Dose: Not Given Documented by: Sodium Chloride (0.9 % Sodium Chloride Flush 3 Ml Syringe) [facility] Last Admin: 12/15/20 07:12 Dose: Not Given Documented by: Tamsulosin HCl (Tamsulosin Hcl 0.4 Mg Capsule) 0.4 mg PO DAILY [facility] Last Admin: 12/15/20 07:48 Dose: 0.4 mg Documented by: <CARMELO Brown - Last Filed: 12/15/20 10:13> Time Spent With Patient Time: Total time spent is greater than 50% in coordination of care (as documented) at patient's floor/unit and/or counseling patient: 24 <CARMELO Brown - Last Filed: 12/15/20 10:13> Time with patient: 15 - 24 minutes <CARMELO Brown - Last Filed: 12/15/20 10:13> Progress Note: Quality Stroke Does the patient have a stroke diagnosis?: No <CARMELO Brown Last Filed: 12/15/20 10:13> Procedures Date of Service Date of Service: 12/15/20 <CARMELO Brown - Last Filed: 12/15/20 10:13>
--- NOTE | 2020-12-15 10:19 | P.PNVS_ITS ---
Subjective Subjective Date of Service: 12/15/20 Patient reports: no new complaints and still having pain Interval history: 60-year-old gentleman postop day 1 status post fem-pop bypass. He had been transferred to the ICU postop. Appear to be doing relatively okay. His lower extremity was a little bit cool. He was started on a heparin drip of 500 units an hour. Of note there was a signal over the graft. Overnight appeared to be relatively stable. This morning pain appears better controlled. He is hungry this morning. Physical Exam Vital Signs: Vital Signs: Last Vital Signs Temp 98.4 F 12/15/20 08:00 Pulse 85 12/15/20 10:00 Resp 15 12/15/20 10:00 BP 108/49 L 12/15/20 10:00 Pulse Ox 97 12/15/20 10:00 Body Mass Index 24.9 Const: General: cooperative, healthy appearing and no acute distress Orientation/consciousness: oriented to person, oriented to place and oriented to time HENMT: Head: Yes normal to inspection Neck: Carotids: no bruits Chest: Chest palpation & inspection: normal inspection of the chest Resp: Effort & Inspection: normal respiratory effort and able to speak in complete sentences Auscultation: clear to auscultation bilaterally Cardio: Rate: regular rate Heart sounds: S1 normal heart sound present and S2 normal heart sound present Peripheral pulses: other (Doppler signal on graft) GI: Inspection: Yes normal to inspection Skin: General skin exam: no rashes or lesions noted Wounds: no wounds Neuro: General: oriented to person, oriented to place, oriented to time and CN's II-XI intact bilaterally Extrem: General: Yes normal to inspection, Yes full ROM and Yes no clubbing, cyanosis or edema Psych: Appearance: grossly normal and well kempt Speech and movement: Normal speech and movement present Affect: normal affect Progress Note: A&P Assessment and plan (1) PAD (peripheral artery disease): Status: Acute Assessment and Plan: Postop day 1 status post fem-pop bypass. Patient appears to be relatively stable. I am concerned that the foot did not have a much better improvement status post bypass. Pain is reasonably well controlled. I have taken the liberty of ordering a CT angiogram with runoff. Will try to expedite this as soon as possible. He is being held NPO for now for possible reintervention. We will monitor his status closely. Fall Risk Details Current Medications: Current Medications Acetaminophen (Acetaminophen 325 Mg Tablet) 650 mg PO Q6H PRN PRN Reason: Pain, Mild (Pain Scale 1-3) Last Admin: 12/14/20 23:28 Dose: 650 mg Documented by: Aspirin (Aspirin Enteric Coated 81 Mg Tablet.) 81 mg PO DAILY [facility] Last Admin: 12/15/20 07:48 Dose: Not Given Documented by: Atorvastatin Calcium (Atorvastatin Calcium 80 Mg Tablet) 80 mg PO DAILY [facility] Last Admin: 12/15/20 07:48 Dose: 80 mg Documented by: Carvedilol (Carvedilol 3.125 Mg Tablet) 3.125 mg PO BID [facility]; Protocol Last Admin: 12/15/20 07:48 Dose: 3.125 mg Documented by: Dextrose (Dextrose 50 % 25 Gm/50 Ml Vial) 25 gm IVPUSH Q15M PRN; Protocol PRN Reason: per Hypoglycemia Standing Ord. Fentanyl (Fentanyl Citrate/Pf 100 Mcg/2 Ml Vial) 50 mcg IVPUSH Q5M PRN; Protocol PRN Reason: Pain, Severe (Pain Scale 7-10) Fentanyl (Fentanyl Citrate/Pf 100 Mcg/2 Ml Vial) 25 mcg IVPUSH Q5M PRN; Protocol PRN Reason: Pain, Moderate (Pain Scale 4-6 Glucose (Glucose Gel 15 Gm Gel..Gram.) 15 gm PO Q15M PRN; Protocol PRN Reason: per Hypoglycemia Standing Ord. Hydromorphone HCl (Hydromorphone Hcl 0.5 Mg/0.5 Ml Syringe) 0.25 mg IVPUSH Q5M PRN; Protocol PRN Reason: Pain, Severe (Pain Scale 7-10) Last Admin: 12/14/20 15:29 Dose: 0.25 mg Documented by: Hydromorphone HCl (Hydromorphone Hcl 1 Mg/Ml Syringe) 1 mg IVPUSH Q2H PRN; Protocol PRN Reason: Pain, Moderate (Pain Scale 4-6 Last Admin: 12/15/20 07:59 Dose: 1 mg Documented by: Lactated Ringer's (Lr) 1,000 mls @ 50 mls/hr IVCONT .Q20H [facility] Last Infusion: 12/14/20 17:56 Dose: Infused Documented by: Sodium Chloride (Ns) 1,000 mls @ 80 mls/hr IVCONT .[id number] [facility] Last Admin: 12/15/20 05:22 Dose: 80 mls/hr Documented by: Heparin Sodium/Sodium Chloride () 25,000 unit in 250 mls @ 5 mls/hr IVCONT .Q24H [facility] Last Admin: 12/14/20 17:48 Dose: 500 unit/hr, 5 mls/hr Documented by: Piperacillin Sod/Tazobactam (Sod 3.375 gm/ Sodium Chloride) 50 mls @ 100 mls/hr IV Q6H [facility] Last Infusion: 12/15/20 06:02 Dose: Infused Documented by: Vancomycin HCl 1,000 mg/ (Sodium Chloride) 270 mls @ 270 mls/hr IV Q12H [facility] Last Infusion: 12/15/20 06:27 Dose: Infused Documented by: Insulin Human Lispro (Insulin Lispro 100 Unit/Ml 3 Ml Vial) 0 unit SUBCUT QIDACHS [facility]; Protocol Last Admin: 12/15/20 07:49 Dose: 4 unit Documented by: Magnesium Hydroxide (Milk Of Magnesia 30 Ml Oral.Susp) 30 ml PO DAILY PRN PRN Reason: Constipation Last Admin: 12/12/20 03:54 Dose: 30 ml Documented by: Morphine Sulfate (Morphine Sulfate 2 Mg/Ml Cartridge) 2 mg IVPUSH Q4H PRN; Protocol PRN Reason: Pain, Severe (Pain Scale 7-10) Ondansetron HCl (Ondansetron Hcl 4 Mg/2 Ml Vial) 4 mg IVPUSH Q8H PRN PRN Reason: Nausea and Vomiting Last Admin: 12/08/20 19:45 Dose: 4 mg Documented by: Pharmacy Consult (Consult Rx Perform Med Rec) 1 each MISCELLANE ONCE PRN PRN Reason: Consult order Pharmacy Consult (Consult Rx Vancomycin Dosing) 1 each MISCELLANE DAILY PRN PRN Reason: Consult order Sodium Chloride (0.9 % Sodium Chloride Flush 3 Ml Syringe) 3 ml IVFLUSH [facility] Last Admin: 12/15/20 07:12 Dose: Not Given Documented by: Sodium Chloride (0.9 % Sodium Chloride Flush 3 Ml Syringe) 3 ml IVFLUSH [facility] Last Admin: 12/15/20 07:12 Dose: Not Given Documented by: Tamsulosin HCl (Tamsulosin Hcl 0.4 Mg Capsule) 0.4 mg PO DAILY [facility] Last Admin: 12/15/20 07:48 Dose: 0.4 mg Documented by: Time Spent With Patient Time: Total time spent is greater than 50% in coordination of care (as documented) at patient's floor/unit and/or counseling patient: Time with patient: 25 - 35 minutes Procedures Date of Service Date of Service: 12/15/20 Quality Stroke Does the patient have a stroke diagnosis?: No VTE Prior VTE?: No VTE Risk Level:: Medical - moderate - high VTE Device Contraindication: Treatment Not Indicated VTE Drug Contraindication: N/A - Med Ordered
[2020-12-15] MEDS: iohexoL 350 MG/ML 100 ML INFUS..BTL IV (10:34)
--- NOTE | 2020-12-15 11:14 | MHC.SHP ---
Pre-Procedural Eval Section A Date of Service: 12/15/20 The patient is an INPATIENT: Yes The History & Physical has been completed within 30 days and I have reviewed it.: Yes Section B Chief Complaint: Right foot cellulitis nonhealing wound/gangrenous Allergies: Allergies Allergy/AdvReac Type Severity Reaction Status Date / Time codeine [Codeine] AdvReac Unknown SHAKING Verified 12/08/20 12:57 Plan I have reviewed the history and physical and performed a pertinent physical examination on my patient. No changes have occurred unless specified.
[2020-12-15 11:49] LABS: Glucose, Whole Blood 114 mg/dL (60-115)
--- NOTE | 2020-12-15 13:15 | HO.ANESPROP2 ---
[facility] Active Problems Active Problems: All Active Problems (Updated 12/11/20 @ 10:58 by Cinda Wood NP-C) PAF (paroxysmal atrial fibrillation) (Acute) Pre-operative cardiovascular examination (Acute) CAD (coronary artery disease) (Acute) Hx of CABG (Acute) Peripheral vascular disease (Acute) Diabetic foot ulcer (Acute) PAD (peripheral artery disease) (Acute) History of surgery on upper extremity (Acute) Hx of vascular surgery (Acute) Pressure ulcer, unstageable, with eschar (Acute) Diabetic ulcer of foot associated with diabetes mellitus due to underlying condition, limited to breakdown of skin (Acute) Cellulitis (Acute) Past Medical History Medical History CAD (coronary artery disease) Cellulitis in diabetic foot Diabetes Eschar of foot HLD (hyperlipidemia) HTN (hypertension) PAF (paroxysmal atrial fibrillation) Pressure ulcer, unstageable, with eschar Family History Family History Mother Colon cancer Father Diabetes Family history of problems with anesthesia: No Surgical History Surgical History History of surgery on upper extremity Hx of CABG Hx of vascular surgery History of Problems with Anesthesia: No Social History Social History Household Members: Spouse Housing: House Do you presently have visiting nurse or other home services: Yes Patient Tobacco Use Status: Current everyday Tobacco user Tobacco use type: Cigarette Cigarettes Per Day: 3 Advance Directives Date on File: 12/08/20 Current occupational status: employed Meds Allergies Allergy/AdvReac Type Severity Reaction Status Date / Time codeine [Codeine] AdvReac Unknown SHAKING Verified 12/08/20 12:57 Active Medications: Current Medications Acetaminophen (Acetaminophen 325 Mg Tablet) 650 mg PO Q6H PRN PRN Reason: Pain, Mild (Pain Scale 1-3) Last Admin: 12/14/20 23:28 Dose: 650 mg Documented by: Aspirin (Aspirin Enteric Coated 81 Mg Tablet.) 81 mg PO DAILY [facility] Last Admin: 12/15/20 07:48 Dose: Not Given Documented by: Atorvastatin Calcium (Atorvastatin Calcium 80 Mg Tablet) 80 mg PO DAILY [facility] Last Admin: 12/15/20 07:48 Dose: 80 mg Documented by: Carvedilol (Carvedilol 3.125 Mg Tablet) 3.125 mg PO BID [facility]; Protocol Last Admin: 12/15/20 07:48 Dose: 3.125 mg Documented by: Dextrose (Dextrose 50 % 25 Gm/50 Ml Vial) 25 gm IVPUSH Q15M PRN; Protocol PRN Reason: per Hypoglycemia Standing Ord. Fentanyl (Fentanyl Citrate/Pf 100 Mcg/2 Ml Vial) 50 mcg IVPUSH Q5M PRN; Protocol PRN Reason: Pain, Severe (Pain Scale 7-10) Fentanyl (Fentanyl Citrate/Pf 100 Mcg/2 Ml Vial) 25 mcg IVPUSH Q5M PRN; Protocol PRN Reason: Pain, Moderate (Pain Scale 4-6 Glucose (Glucose Gel 15 Gm Gel..Gram.) 15 gm PO Q15M PRN; Protocol PRN Reason: per Hypoglycemia Standing Ord. Hydromorphone HCl (Hydromorphone Hcl 0.5 Mg/0.5 Ml Syringe) 0.25 mg IVPUSH Q5M PRN; Protocol PRN Reason: Pain, Severe (Pain Scale 7-10) Last Admin: 12/14/20 15:29 Dose: 0.25 mg Documented by: Hydromorphone HCl (Hydromorphone Hcl 1 Mg/Ml Syringe) 1 mg IVPUSH Q2H PRN; Protocol PRN Reason: Pain, Moderate (Pain Scale 4-6 Last Admin: 12/15/20 10:57 Dose: 1 mg Documented by: Lactated Ringer's (Lr) 1,000 mls @ 50 mls/hr IVCONT .Q20H [facility] Last Infusion: 12/14/20 17:56 Dose: Infused Documented by: Sodium Chloride (Ns) 1,000 mls @ 80 mls/hr IVCONT .[id number] [facility] Last Admin: 12/15/20 05:22 Dose: 80 mls/hr Documented by: Heparin Sodium/Sodium Chloride () 25,000 unit in 250 mls @ 5 mls/hr IVCONT .Q24H [facility] Last Admin: 12/14/20 17:48 Dose: 500 unit/hr, 5 mls/hr Documented by: Piperacillin Sod/Tazobactam (Sod 3.375 gm/ Sodium Chloride) 50 mls @ 100 mls/hr IV Q6H [facility] Last Infusion: 12/15/20 06:02 Dose: Infused Documented by: Vancomycin HCl 1,000 mg/ (Sodium Chloride) 270 mls @ 270 mls/hr IV Q12H [facility] Last Infusion: 12/15/20 06:27 Dose: Infused Documented by: Insulin Human Lispro (Insulin Lispro 100 Unit/Ml 3 Ml Vial) 0 unit SUBCUT QIDACHS [facility]; Protocol Last Admin: 12/15/20 11:50 Dose: Not Given Documented by: Magnesium Hydroxide (Milk Of Magnesia 30 Ml Oral.Susp) 30 ml PO DAILY PRN PRN Reason: Constipation Last Admin: 12/12/20 03:54 Dose: 30 ml Documented by: Morphine Sulfate (Morphine Sulfate 2 Mg/Ml Cartridge) 2 mg IVPUSH Q4H PRN; Protocol PRN Reason: Pain, Severe (Pain Scale 7-10) Ondansetron HCl (Ondansetron Hcl 4 Mg/2 Ml Vial) 4 mg IVPUSH Q8H PRN PRN Reason: Nausea and Vomiting Last Admin: 12/08/20 19:45 Dose: 4 mg Documented by: Pharmacy Consult (Consult Rx Perform Med Rec) 1 each MISCELLANE ONCE PRN PRN Reason: Consult order Pharmacy Consult (Consult Rx Vancomycin Dosing) 1 each MISCELLANE DAILY PRN PRN Reason: Consult order Sodium Chloride (0.9 % Sodium Chloride Flush 3 Ml Syringe) 3 ml IVFLUSH [facility] Last Admin: 12/15/20 07:12 Dose: Not Given Documented by: Sodium Chloride (0.9 % Sodium Chloride Flush 3 Ml Syringe) 3 ml IVFLUSH [facility] Last Admin: 12/15/20 07:12 Dose: Not Given Documented by: Tamsulosin HCl (Tamsulosin Hcl 0.4 Mg Capsule) 0.4 mg PO DAILY [facility] Last Admin: 12/15/20 07:48 Dose: 0.4 mg Documented by: Home Medications Medication Instructions Recorded Confirmed Last Taken Type apixaban 5 mg tablet (Eliquis) 1 tab PO BID 11/11/20 12/08/20 11/26/20 History aspirin 81 mg tablet 81 mg PO DAILY 11/11/20 12/08/20 11/26/20 History atorvastatin 80 mg tablet 1 tab PO DAILY 11/11/20 12/08/20 11/11/20 History carvedilol 6.25 mg tablet 1 tab PO BID 11/11/20 12/08/20 11/11/20 History dapagliflozin 10 mg tablet 1 tab PO DAILY 11/11/20 12/08/20 11/11/20 History (Farxiga) insulin glargine 100 unit/mL (3 40 unit SUBCUT BEDTIME 11/11/20 12/08/20 11/11/20 History mL) subcutaneous pen (Basaglar KwikPen U-100 Insulin) lisinopril 10 mg tablet 1 tab PO DAILY 11/11/20 12/08/20 11/11/20 History metformin 850 mg tablet 1 tab PO BID 11/11/20 12/08/20 11/11/20 History tamsulosin 0.4 mg capsule 1 cap PO DAILY 11/11/20 12/08/20 11/11/20 History gabapentin 300 mg capsule 300 mg PO TID 12/08/20 12/08/20 Unknown History Exam Exam Date and Time: December 15, 2020 1315 Height,Weight and Vital Signs: Height 6 ft Weight 83.3 kg Last Vital Signs Temp 98.7 F 12/15/20 12:00 Pulse 94 12/15/20 12:00 Resp 17 12/15/20 12:00 BP 162/67 H 12/15/20 12:00 Pulse Ox 97 12/15/20 12:00 Pertinent Lab Results Pertinent Lab Results: Laboratory Tests 12/08/20 12/08/20 12/08/20 14:55 15:06 15:06 WBC 15.3 H RBC 4.31 L Hgb 13.5 L Hct 41.5 L MCV 96.3 MCH 31.3 MCHC 32.5 RDW 12.3 Plt Count 427 H D MPV 9.2 L Immature Gran % (Auto) 0.5 H Neut % (Auto) 67.1 Lymph % (Auto) 21.2 Craig % (Auto) 8.1 Eos % (Auto) 2.8 Baso % (Auto) 0.3 Lymph # (Auto) 3.2 Craig # (Auto) 1.2 Eos # (Auto) 0.4 Baso # (Auto) 0.1 Abs Immat Gran (auto) 0.07 H Absolute Neuts (auto) 10.2 H Absolute Nucleated RBC 0.000 Nucleated RBC % (auto) 0.0 Smear Tech's Comments ESR PT INR APTT PTT (Heparin Protocol) Sodium 136 Potassium 4.9 Chloride 99 Carbon Dioxide 28 Anion Gap 14 BUN 24 H Creatinine 0.98 Estim Creat Clear Calc 83.2 Estimated GFR > 60 POC Glucose Random Glucose 139 H Estimat Average Glucose Hemoglobin A1c % Lactic Acid Calcium 9.1 Total Bilirubin Direct Bilirubin AST ALT Alkaline Phosphatase C-Reactive Protein Total Protein Albumin Lipase Vancomycin Trough COVID-19 (PAULINE) Negative COVID-19 Clin Com See Note Blood Type Antibody Screen Crossmatch 12/08/20 12/08/20 12/08/20 15:06 15:06 20:01 WBC RBC Hgb Hct MCV MCH MCHC RDW Plt Count MPV Immature Gran % (Auto) Neut % (Auto) Lymph % (Auto) Craig % (Auto) Eos % (Auto) Baso % (Auto) Lymph # (Auto) Craig # (Auto) Eos # (Auto) Baso # (Auto) Abs Immat Gran (auto) Absolute Neuts (auto) Absolute Nucleated RBC Nucleated RBC % (auto) Smear Tech's Comments ESR PT INR APTT PTT (Heparin Protocol) Sodium Potassium Chloride Carbon Dioxide Anion Gap BUN Creatinine Estim Creat Clear Calc Estimated GFR POC Glucose 50 L* Random Glucose Estimat Average Glucose Hemoglobin A1c % Lactic Acid 1.1 Calcium Total Bilirubin 0.2 Direct Bilirubin < 0.2 AST 14 ALT 9 Alkaline Phosphatase 122 H C-Reactive Protein Total Protein 7.5 Albumin 4.2 Lipase 29 Vancomycin Trough COVID-19 (PAULINE) COVID-19 Clin Com Blood Type Antibody Screen Crossmatch 12/08/20 12/09/20 12/09/20 20:26 05:51 05:51 WBC 12.0 H RBC 3.91 L Hgb 12.3 L Hct 38.4 L MCV 98.2 H MCH 31.5 MCHC 32.0 RDW 12.4 Plt Count 368 MPV 9.4 Immature Gran % (Auto) 0.4 Neut % (Auto) 65.9 Lymph % (Auto) 17.8 L Craig % (Auto) 11.7 H Eos % (Auto) 3.9 Baso % (Auto) 0.3 Lymph # (Auto) 2.1 Craig # (Auto) 1.4 H Eos # (Auto) 0.5 H Baso # (Auto) 0.0 Abs Immat Gran (auto) 0.05 H Absolute Neuts (auto) 7.9 Absolute Nucleated RBC 0.000 Nucleated RBC % (auto) 0.0 Smear Tech's Comments ESR PT INR APTT PTT (Heparin Protocol) Sodium 136 Potassium 5.4 H Chloride 101 Carbon Dioxide 29 Anion Gap 11 L BUN 21 H Creatinine 0.90 Estim Creat Clear Calc 90.6 Estimated GFR > 60 POC Glucose 71 Random Glucose 102 Estimat Average Glucose Hemoglobin A1c % Lactic Acid Calcium 8.9 Total Bilirubin Direct Bilirubin AST ALT Alkaline Phosphatase C-Reactive Protein Total Protein Albumin Lipase Vancomycin Trough COVID-19 ([facility]ULINE) COVID-19 [facility] Blood Type Antibody Screen Crossmatch 12/09/20 12/09/20 12/09/20 05:51 07:28 11:50 WBC RBC Hgb Hct MCV MCH MCHC RDW Plt Count MPV Immature Gran % (Auto) Neut % (Auto) Lymph % (Auto) Craig % (Auto) Eos % (Auto) Baso % (Auto) Lymph # (Auto) Craig # (Auto) Eos # (Auto) Baso # (Auto) Abs Immat Gran (auto) Absolute Neuts (auto) Absolute Nucleated RBC Nucleated RBC % (auto) Smear Tech's Comments ESR PT 12.1 INR 1.1 APTT 45.2 H PTT (Heparin Protocol) Sodium Potassium Chloride Carbon Dioxide Anion Gap BUN Creatinine Estim Creat Clear Calc Estimated GFR POC Glucose 109 Random Glucose Estimat Average Glucose 206 Hemoglobin A1c % 8.8 Lactic Acid Calcium Total Bilirubin Direct Bilirubin AST ALT Alkaline Phosphatase C-Reactive Protein Total Protein Albumin Lipase Vancomycin Trough COVID-19 (PAULINE) COVID-19 [facility] Blood Type Antibody Screen Crossmatch 12/09/20 12/09/20 12/09/20 11:55 16:06 20:22 WBC RBC Hgb Hct MCV MCH MCHC RDW Plt Count MPV Immature Gran % (Auto) Neut % (Auto) Lymph % (Auto) Craig % (Auto) Eos % (Auto) Baso % (Auto) Lymph # (Auto) Craig # (Auto) Eos # (Auto) Baso # (Auto) Abs Immat Gran (auto) Absolute Neuts (auto) Absolute Nucleated RBC Nucleated RBC % (auto) Smear Tech's Comments ESR PT INR APTT PTT (Heparin Protocol) Sodium Potassium Chloride Carbon Dioxide Anion Gap BUN Creatinine Estim Creat Clear Calc Estimated GFR POC Glucose 136 H 197 H 173 H Random Glucose Estimat Average Glucose Hemoglobin A1c % Lactic Acid Calcium Total Bilirubin Direct Bilirubin AST ALT Alkaline Phosphatase C-Reactive Protein Total Protein Albumin Lipase Vancomycin Trough COVID-19 (PAULINE) COVID-19 [employer] [facility] Blood Type Antibody Screen Crossmatch 12/09/20 12/10/20 12/10/20 22:58 05:48 06:52 WBC RBC Hgb Hct MCV MCH MCHC RDW Plt Count MPV Immature Gran % (Auto) Neut % (Auto) Lymph % (Auto) Craig % (Auto) Eos % (Auto) Baso % (Auto) Lymph # (Auto) Craig # (Auto) Eos # (Auto) Baso # (Auto) Abs Immat Gran (auto) Absolute Neuts (auto) Absolute Nucleated RBC Nucleated RBC % (auto) Smear Tech's Comments ESR PT INR APTT PTT (Heparin Protocol) Sodium Potassium Chloride Carbon Dioxide Anion Gap BUN Creatinine 0.98 Estim Creat Clear Calc 83.2 Estimated GFR > 60 POC Glucose 138 H Random Glucose Estimat Average Glucose Hemoglobin A1c % Lactic Acid Calcium Total Bilirubin Direct Bilirubin AST ALT Alkaline Phosphatase C-Reactive Protein Total Protein Albumin Lipase Vancomycin Trough 11.6 COVID-19 (PAULINE) COVID-19 [employer] [facility] Blood Type Antibody Screen Crossmatch 12/10/20 12/10/20 12/10/20 11:28 11:32 11:32 WBC RBC Hgb Hct MCV MCH MCHC RDW Plt Count MPV Immature Gran % (Auto) Neut % (Auto) Lymph % (Auto) Craig % (Auto) Eos % (Auto) Baso % (Auto) Lymph # (Auto) Craig # (Auto) Eos # (Auto) Baso # (Auto) Abs Immat Gran (auto) Absolute Neuts (auto) Absolute Nucleated RBC Nucleated RBC % (auto) Smear Tech's Comments ESR 34 H PT INR APTT PTT (Heparin Protocol) Sodium 135 Potassium 4.9 Chloride 101 Carbon Dioxide 28 Anion Gap 11 L BUN 17 H Creatinine 0.87 Estim Creat Clear Calc 93.7 Estimated GFR > 60 POC Glucose 119 H Random Glucose 125 H Estimat Average Glucose Hemoglobin A1c % Lactic Acid Calcium 8.7 Total Bilirubin Direct Bilirubin AST ALT Alkaline Phosphatase C-Reactive Protein 1.05 H Total Protein Albumin Lipase Vancomycin Trough COVID-19 (PAULINE) COVID-19 [employer] [facility] Blood Type Antibody Screen Crossmatch 12/10/20 12/10/20 12/11/20 16:00 20:07 05:45 WBC RBC Hgb Hct MCV MCH MCHC RDW Plt Count MPV Immature Gran % (Auto) Neut % (Auto) Lymph % (Auto) Craig % (Auto) Eos % (Auto) Baso % (Auto) Lymph # (Auto) Craig # (Auto) Eos # (Auto) Baso # (Auto) Abs Immat Gran (auto) Absolute Neuts (auto) Absolute Nucleated RBC Nucleated RBC % (auto) Smear Tech's Comments ESR PT INR APTT PTT (Heparin Protocol) Sodium Potassium Chloride Carbon Dioxide Anion Gap BUN Creatinine 0.82 Estim Creat Clear Calc 99.4 Estimated GFR > 60 POC Glucose 214 H 198 H Random Glucose Estimat Average Glucose Hemoglobin A1c % Lactic Acid Calcium Total Bilirubin Direct Bilirubin AST ALT Alkaline Phosphatase C-Reactive Protein Total Protein Albumin Lipase Vancomycin Trough COVID-19 (PAULINE) COVID-19 [employer] Blood Type Antibody Screen Crossmatch 12/11/20 12/11/20 12/11/20 07:55 11:19 11:23 WBC RBC Hgb Hct MCV MCH MCHC RDW Plt Count MPV Immature Gran % (Auto) Neut % (Auto) Lymph % (Auto) Craig % (Auto) Eos % (Auto) Baso % (Auto) Lymph # (Auto) Craig # (Auto) Eos # (Auto) Baso # (Auto) Abs Immat Gran (auto) Absolute Neuts (auto) Absolute Nucleated RBC Nucleated RBC % (auto) Smear Tech's Comments ESR PT INR APTT PTT (Heparin Protocol) Sodium Potassium Chloride Carbon Dioxide Anion Gap BUN Creatinine Estim Creat Clear Calc Estimated GFR POC Glucose 171 H 204 H Random Glucose Estimat Average Glucose Hemoglobin A1c % Lactic Acid Calcium Total Bilirubin Direct Bilirubin AST ALT Alkaline Phosphatase C-Reactive Protein Total Protein Albumin Lipase Vancomycin Trough 11.6 COVID-19 (PAULINE) COVID-19 [employer] Blood Type Antibody Screen Crossmatch 12/11/20 12/11/20 12/11/20 12:52 16:54 19:50 WBC RBC Hgb Hct MCV MCH MCHC RDW Plt Count MPV Immature Gran % (Auto) Neut % (Auto) Lymph % (Auto) Craig % (Auto) Eos % (Auto) Baso % (Auto) Lymph # (Auto) Craig # (Auto) Eos # (Auto) Baso # (Auto) Abs Immat Gran (auto) Absolute Neuts (auto) Absolute Nucleated RBC Nucleated RBC % (auto) Smear Tech's Comments ESR PT INR APTT PTT (Heparin Protocol) 38.7 L 45.5 L Sodium Potassium Chloride Carbon Dioxide Anion Gap BUN Creatinine Estim Creat Clear Calc Estimated GFR POC Glucose 196 H Random Glucose Estimat Average Glucose Hemoglobin A1c % Lactic Acid Calcium Total Bilirubin Direct Bilirubin AST ALT Alkaline Phosphatase C-Reactive Protein Total Protein Albumin Lipase Vancomycin Trough COVID-19 (PAULINE) COVID-19 [facility] Blood Type Antibody Screen Crossmatch 12/11/20 12/12/20 12/12/20 20:27 02:50 05:49 WBC 9.5 RBC 3.92 L Hgb 12.1 L Hct 37.3 L MCV 95.2 MCH 30.9 MCHC 32.4 RDW 12.1 Plt Count 370 MPV 9.5 Immature Gran % (Auto) Neut % (Auto) Lymph % (Auto) Craig % (Auto) Eos % (Auto) Baso % (Auto) Lymph # (Auto) Craig # (Auto) Eos # (Auto) Baso # (Auto) Abs Immat Gran (auto) Absolute Neuts (auto) Absolute Nucleated RBC 0.000 Nucleated RBC % (auto) 0.0 Smear Tech's Comments ESR PT INR APTT PTT (Heparin Protocol) 54.5 Sodium Potassium Chloride Carbon Dioxide Anion Gap BUN Creatinine Estim Creat Clear Calc Estimated GFR POC Glucose 295 H Random Glucose Estimat Average Glucose Hemoglobin A1c % Lactic Acid Calcium Total Bilirubin Direct Bilirubin AST ALT Alkaline Phosphatase C-Reactive Protein Total Protein Albumin Lipase Vancomycin Trough COVID-19 (PAULINE) COVID-19 [facility] Blood Type Antibody Screen Crossmatch 12/12/20 12/12/20 12/12/20 05:49 05:49 07:16 WBC RBC Hgb Hct MCV MCH MCHC RDW Plt Count MPV Immature Gran % (Auto) Neut % (Auto) Lymph % (Auto) Craig % (Auto) Eos % (Auto) Baso % (Auto) Lymph # (Auto) Craig # (Auto) Eos # (Auto) Baso # (Auto) Abs Immat Gran (auto) Absolute Neuts (auto) Absolute Nucleated RBC Nucleated RBC % (auto) Smear Tech's Comments ESR PT 11.1 INR 1.0 APTT PTT (Heparin Protocol) Sodium Potassium Chloride Carbon Dioxide Anion Gap BUN Creatinine 0.86 Estim Creat Clear Calc 96.3 Estimated GFR > 60 POC Glucose 175 H Random Glucose Estimat Average Glucose Hemoglobin A1c % Lactic Acid Calcium Total Bilirubin Direct Bilirubin AST ALT Alkaline Phosphatase C-Reactive Protein Total Protein Albumin Lipase Vancomycin Trough COVID-19 (PAULINE) COVID-19 [facility] Blood Type Antibody Screen Crossmatch 12/12/20 12/12/20 12/12/20 09:12 11:13 16:16 WBC RBC Hgb Hct MCV MCH MCHC RDW Plt Count MPV Immature Gran % (Auto) Neut % (Auto) Lymph % (Auto) Craig % (Auto) Eos % (Auto) Baso % (Auto) Lymph # (Auto) Craig # (Auto) Eos # (Auto) Baso # (Auto) Abs Immat Gran (auto) Absolute Neuts (auto) Absolute Nucleated RBC Nucleated RBC % (auto) Smear Tech's Comments ESR PT INR APTT PTT (Heparin Protocol) 50.3 L 72.5 D Sodium Potassium Chloride Carbon Dioxide Anion Gap BUN Creatinine Estim Creat Clear Calc Estimated GFR POC Glucose 180 H Random Glucose Estimat Average Glucose Hemoglobin A1c % Lactic Acid Calcium Total Bilirubin Direct Bilirubin AST ALT Alkaline Phosphatase C-Reactive Protein Total Protein Albumin Lipase Vancomycin Trough COVID-19 (PAULINE) COVID-19 [facility] Blood Type Antibody Screen Crossmatch 12/12/20 12/12/20 12/12/20 16:20 20:02 22:47 WBC RBC Hgb Hct MCV MCH MCHC RDW Plt Count MPV Immature Gran % (Auto) Neut % (Auto) Lymph % (Auto) Craig % (Auto) Eos % (Auto) Baso % (Auto) Lymph # (Auto) Craig # (Auto) Eos # (Auto) Baso # (Auto) Abs Immat Gran (auto) Absolute Neuts (auto) Absolute Nucleated RBC Nucleated RBC % (auto) Smear Tech's Comments ESR PT INR APTT PTT (Heparin Protocol) Sodium Potassium Chloride Carbon Dioxide Anion Gap BUN Creatinine Estim Creat Clear Calc Estimated GFR POC Glucose 217 H 269 H Random Glucose Estimat Average Glucose Hemoglobin A1c % Lactic Acid Calcium Total Bilirubin Direct Bilirubin AST ALT Alkaline Phosphatase C-Reactive Protein Total Protein Albumin Lipase Vancomycin Trough 16.8 COVID-19 (PAULINE) COVID-19 [facility] Blood Type Antibody Screen Crossmatch 12/12/20 12/13/20 12/13/20 22:47 05:54 05:54 WBC RBC Hgb Hct MCV MCH MCHC RDW Plt Count MPV Immature Gran % (Auto) Neut % (Auto) Lymph % (Auto) Craig % (Auto) Eos % (Auto) Baso % (Auto) Lymph # (Auto) Craig # (Auto) Eos # (Auto) Baso # (Auto) Abs Immat Gran (auto) Absolute Neuts (auto) Absolute Nucleated RBC Nucleated RBC % (auto) Smear Tech's Comments ESR PT INR APTT PTT (Heparin Protocol) 77.6 79.3 H Sodium Potassium Chloride Carbon Dioxide Anion Gap BUN Creatinine 0.87 Estim Creat Clear Calc 95.2 Estimated GFR > 60 POC Glucose Random Glucose Estimat Average Glucose Hemoglobin A1c % Lactic Acid Calcium Total Bilirubin Direct Bilirubin AST ALT Alkaline Phosphatase C-Reactive Protein Total Protein Albumin Lipase Vancomycin Trough COVID-19 (PAULINE) [facility] Blood Type Antibody Screen Crossmatch 12/13/20 12/13/20 12/13/20 07:17 09:10 11:43 WBC RBC Hgb Hct MCV MCH MCHC RDW Plt Count MPV Immature Gran % (Auto) Neut % (Auto) Lymph % (Auto) Craig % (Auto) Eos % (Auto) Baso % (Auto) Lymph # (Auto) Craig # (Auto) Eos # (Auto) Baso # (Auto) Abs Immat Gran (auto) Absolute Neuts (auto) Absolute Nucleated RBC Nucleated RBC % (auto) Smear Tech's Comments ESR PT INR APTT PTT (Heparin Protocol) Sodium Potassium Chloride Carbon Dioxide Anion Gap BUN Creatinine Estim Creat Clear Calc Estimated GFR POC Glucose 215 H 193 H Random Glucose Estimat Average Glucose Hemoglobin A1c % Lactic Acid Calcium Total Bilirubin Direct Bilirubin AST ALT Alkaline Phosphatase C-Reactive Protein Total Protein Albumin Lipase Vancomycin Trough COVID-19 (PAULINE) [id number] [employer] Blood Type O Positive Antibody Screen NEGATIVE Crossmatch See Detail 12/13/20 12/13/20 12/13/20 12:22 16:12 18:32 WBC RBC Hgb Hct MCV MCH MCHC RDW Plt Count MPV Immature Gran % (Auto) Neut % (Auto) Lymph % (Auto) Craig % (Auto) Eos % (Auto) Baso % (Auto) Lymph # (Auto) Craig # (Auto) Eos # (Auto) Baso # (Auto) Abs Immat Gran (auto) Absolute Neuts (auto) Absolute Nucleated RBC Nucleated RBC % (auto) Smear Tech's Comments ESR PT INR APTT PTT (Heparin Protocol) 61.4 D 50.9 L Sodium Potassium Chloride Carbon Dioxide Anion Gap BUN Creatinine Estim Creat Clear Calc Estimated GFR POC Glucose 234 H Random Glucose Estimat Average Glucose Hemoglobin A1c % Lactic Acid Calcium Total Bilirubin Direct Bilirubin AST ALT Alkaline Phosphatase C-Reactive Protein Total Protein Albumin Lipase Vancomycin Trough COVID-19 (PAULINE) COVID-19 [employer] Blood Type Antibody Screen Crossmatch 12/13/20 12/14/20 12/14/20 19:51 07:13 09:40 WBC RBC Hgb Hct MCV MCH MCHC RDW Plt Count MPV Immature Gran % (Auto) Neut % (Auto) Lymph % (Auto) Craig % (Auto) Eos % (Auto) Baso % (Auto) Lymph # (Auto) Craig # (Auto) Eos # (Auto) Baso # (Auto) Abs Immat Gran (auto) Absolute Neuts (auto) Absolute Nucleated RBC Nucleated RBC % (auto) Smear Tech's Comments ESR PT INR APTT PTT (Heparin Protocol) Sodium Potassium Chloride Carbon Dioxide Anion Gap BUN Creatinine 0.83 Estim Creat Clear Calc 99.8 Estimated GFR > 60 POC Glucose 209 H 171 H Random Glucose Estimat Average Glucose Hemoglobin A1c % Lactic Acid Calcium Total Bilirubin Direct Bilirubin AST ALT Alkaline Phosphatase C-Reactive Protein Total Protein Albumin Lipase Vancomycin Trough COVID-19 (PAULINE) [facility] Blood Type Antibody Screen Crossmatch 12/14/20 12/14/20 12/14/20 10:42 11:00 17:24 WBC RBC Hgb Hct MCV MCH MCHC RDW Plt Count MPV Immature Gran % (Auto) Neut % (Auto) Lymph % (Auto) Craig % (Auto) Eos % (Auto) Baso % (Auto) Lymph # (Auto) Craig # (Auto) Eos # (Auto) Baso # (Auto) Abs Immat Gran (auto) Absolute Neuts (auto) Absolute Nucleated RBC Nucleated RBC % (auto) Smear Tech's Comments ESR PT INR APTT PTT (Heparin Protocol) Sodium Potassium Chloride Carbon Dioxide Anion Gap BUN Creatinine Estim Creat Clear Calc Estimated GFR POC Glucose 152 H 124 H Random Glucose Estimat Average Glucose Hemoglobin A1c % Lactic Acid Calcium Total Bilirubin Direct Bilirubin AST ALT Alkaline Phosphatase C-Reactive Protein Total Protein Albumin Lipase Vancomycin Trough 18.9 COVID-19 (PAULINE) [facility] Blood Type Antibody Screen Crossmatch 12/14/20 12/15/20 12/15/20 20:14 05:15 05:15 WBC 11.9 H RBC 3.17 L Hgb 9.9 L Hct 30.2 L MCV 95.3 MCH 31.2 MCHC 32.8 RDW 12.1 Plt Count 318 MPV 9.6 Immature Gran % (Auto) 0.4 Neut % (Auto) 70.1 Lymph % (Auto) 14.0 L Craig % (Auto) 12.9 H Eos % (Auto) 2.3 Baso % (Auto) 0.3 Lymph # (Auto) 1.7 Craig # (Auto) 1.5 H Eos # (Auto) 0.3 Baso # (Auto) 0.0 Abs Immat Gran (auto) 0.05 H Absolute Neuts (auto) 8.31 H Absolute Nucleated RBC 0.000 Nucleated RBC % (auto) 0.0 Smear Tech's Comments VERIFIED ESR PT 11.1 INR 1.0 APTT PTT (Heparin Protocol) 36.0 L D Sodium Potassium Chloride Carbon Dioxide Anion Gap BUN Creatinine Estim Creat Clear Calc Estimated GFR POC Glucose 155 H Random Glucose Estimat Average Glucose Hemoglobin A1c % Lactic Acid Calcium Total Bilirubin Direct Bilirubin AST ALT Alkaline Phosphatase C-Reactive Protein Total Protein Albumin Lipase Vancomycin Trough COVID-19 (PAULINE) COVID-19 Clin Com Blood Type Antibody Screen Crossmatch 12/15/20 12/15/20 12/15/20 05:15 07:16 11:45 WBC RBC Hgb Hct MCV MCH MCHC RDW Plt Count MPV Immature Gran % (Auto) Neut % (Auto) Lymph % (Auto) Craig % (Auto) Eos % (Auto) Baso % (Auto) Lymph # (Auto) Craig # (Auto) Eos # (Auto) Baso # (Auto) Abs Immat Gran (auto) Absolute Neuts (auto) Absolute Nucleated RBC Nucleated RBC % (auto) Smear Tech's Comments ESR PT INR APTT PTT (Heparin Protocol) Sodium 135 Potassium 4.3 Chloride 102 Carbon Dioxide 27 Anion Gap 10 L BUN 10 Creatinine 0.73 Estim Creat Clear Calc 115.1 Estimated GFR > 60 POC Glucose 171 H 114 Random Glucose 159 H Estimat Average Glucose Hemoglobin A1c % Lactic Acid Calcium 8.1 L D Total Bilirubin Direct Bilirubin AST ALT Alkaline Phosphatase C-Reactive Protein Total Protein Albumin Lipase Vancomycin Trough COVID-19 (PAULINE) COVID-19 Clin Com Blood Type Antibody Screen Crossmatch Airway Mallampati Class: II (Edentulous) TM Dist: >3cm Neck ROM: Full Denture: Lower Loose/Missing/Broken Teeth: Yes, Upper and Lower Heart: RRR Lungs: CTA Assessment and Plan Assessment Anesthesia Assessment: Anesthesia Plan Discussed and Chart Reviewed Final Anesthetic Review Family History of Problems with Anesthesia: No History of Problems with Anesthesia: No NPO: Yes ASA Class: III and Emergency Final Preanesthetic Review: Meds/Allgs Chart Reviewed, Consent Obtained/Reviewed and Anes Risks/Benef Reviewed Patient Risk: High Procedure Risk: Intermediate Anesthetic Plan Anesthetic Plan: GA Disposition: Inp. Admit - ICU
[2020-12-15] MEDS: fentaNYL citrate/PF 100 MCG/2 ML VIAL 50 MCG IVPUSH (15:30)
[2020-12-15] MEDS: fentaNYL citrate/PF 100 MCG/2 ML VIAL 25 MCG IVPUSH (15:56)
--- NOTE | 2020-12-15 16:34 | W.PM.OPN ---
Operative Note Operative Note Date of Service: 12/15/20 Narrative: Operative note by [facility] Preoperative diagnosis: Atherosclerosis with acute right lower extremity ischemia Postoperative diagnosis: Same Procedure: 1. Revision of right above knee fem-pop bypass to right below-knee fem-pop bypass 2. Thrombectomy of graft 3. Thrombectomy of popliteal artery 4 thrombectomy anterior tibial artery 5 thrombectomy a peroneal artery Surgeon:Juan Francisco Alas M.D. Manager Technical Sales: Abdulaziz Levy Anesthesia: General Specimens: 2 Drains: None Estimated blood loss: 100 mL Indications: 60-year-old gentleman with critical limb ischemia had undergone fem-pop bypass yesterday. It had subsequently occluded. He now presents for revision. The patient has signed the informed consent after reviewing risks, complications, benefits, and alternatives previously discussed with the patient. The patient was given the opportunity to ask any additional questions or voice any concerns. All questions were answered to the patient's satisfaction. Procedure in detail: Patient was brought to the operating room prior to which a time-out was called for patient identification and site verification. Right leg was prepped and draped in standard surgical fashion. We 1st created a below knee popliteal exposure. We went a just above the head of the gastroc and between the soleal muscle heads. We exposed down through the fascia into the popliteal artery. This was clearly identified. It was subsequently isolated with silastic loops. Once this was accomplished we re-exposed the above knee popliteal artery. The prior incision was opened. We went down to the prior graft. We identified the popliteal artery and the anastomotic area. Once this was exposed we clamped the ends of the graft. This was then transected. The remaining stump was oversewn with a 6 0 Burke suture. We then administered 5000 units of systemic heparin. Prior to the administration we had created a tunnel from the above knee popliteal to the below-knee popliteal region. Once the heparin was administered and after 5 minutes of circulation time thrombectomy of the graft all the way up to the common femoral artery was then undertaken. We we thrombectomized with a 5 Cyndi. Significant clot was removed. We established good flow. We then anastomosed a new extension of the Burke Propaten 6 x 50 graft. This was trimmed to make appropriate and to and anastomosis. We created 2 separate opposite sites where 6 0 Burke suture was brought into place and tied down. We then brought the suture half way across to the other side and tied it down to avoid pursestring. Once this was complete adequate hemostasis was achieved. Good flow was established through the graft. Graft was brought through the tunnel. It was trimmed to appropriate size. We then turned our attention to the below-knee popliteal. This was isolated with silastic loops. Arteriotomy was then created. There was very poor flow at this point. We then subsequently placed a 3 Cyndi proximally and distally and evacuated thrombus from the popliteal artery we directed it down the peroneal artery and this was us subsequently evacuated at we also directed it down the anterior tibial artery and clot was removed from there as well. Once this was all accomplished we circumferentially anastomosed the graft to the popliteal artery with a Burke CV6 suture. Once this was accomplished adequate hemostasis was achieved. We thoroughly irrigated out the incision sites. Doppler check was done at the conclusion of the case. We were able to augment the vessel after checking with occlusion of the graft. Seem to be functioning well. Deep layer was reapproximated using 2 0 Polysorb superficial layer with 3-0 poly Sorb in finally skin with skin clips. Sterile dressings were applied. At the end the case sponge instrument counts were correct. Patient tolerated the procedure well. Returned to recovery with stable vitals. This note is constructed using voice recognition software. While every effort has been made to ensure accuracy, senior embedded software engineer errors may have been included. Thank you for allowing me to participate in the care of your patient. Yours sincerely, Juan Francisco Alas MD, FACS, R.P.V.I.
--- NOTE | 2020-12-15 16:38 | P.PNCC_ITS ---
Subjective Subjective Date of Service: 12/15/20 Interval History: He return to the OR today because of persistent ischemic pain and function loss of right foot and angiogram revealed that there was still obstruction at the popliteal level further down so there were going to extend the prosthetic bypass graft and the leg is mildly improved in temperature certainly diminished pain at this point No chest complaints Critical Care Time (minutes): 45 Physical Exam Vital Signs: Vital Signs: Last Vital Signs Temp 98.4 F 12/15/20 16:05 Pulse 90 12/15/20 16:05 Resp 16 12/15/20 16:05 BP 117/56 L 12/15/20 16:05 Pulse Ox 99 12/15/20 16:05 Body Mass Index 24.9 Awake and alert and nonfocal neurologically Cardiac exam with good bilateral carotid upstrokes in normal sinus rhythm and no neck vein distension Chest is clear no adventitious sounds Abdomen soft with no organomegaly Objective Data Labs CBC & Chem 7: 12/16/20 04:25 12/16/20 04:25 Labs: Laboratory Results - last 24 hr 12/13/20 12/14/20 12/14/20 09:10 17:24 20:14 WBC RBC Hgb Hct MCV MCH MCHC RDW Plt Count MPV Immature Gran % (Auto) Neut % (Auto) Lymph % (Auto) [place] % (Auto) Eos % (Auto) Baso % (Auto) Lymph # (Auto) [place] # (Auto) Eos # (Auto) Baso # (Auto) Abs Immat Gran (auto) Absolute Neuts (auto) Absolute Nucleated RBC Nucleated RBC % (auto) Smear Tech's Comments PT INR PTT (Heparin Protocol) Sodium Potassium Chloride Carbon Dioxide Anion Gap BUN Creatinine Estim Creat Clear Calc Estimated GFR POC Glucose 124 H 155 H Random Glucose Calcium Blood Type O Positive Antibody Screen NEGATIVE Crossmatch See Detail 12/15/20 12/15/20 12/15/20 05:15 05:15 05:15 WBC 11.9 H RBC 3.17 L Hgb 9.9 L Hct 30.2 L MCV 95.3 MCH 31.2 MCHC 32.8 RDW 12.1 Plt Count 318 MPV 9.6 Immature Gran % (Auto) 0.4 Neut % (Auto) 70.1 Lymph % (Auto) 14.0 L [place] % (Auto) 12.9 H Eos % (Auto) 2.3 Baso % (Auto) 0.3 Lymph # (Auto) 1.7 [place] # (Auto) 1.5 H Eos # (Auto) 0.3 Baso # (Auto) 0.0 Abs Immat Gran (auto) 0.05 H Absolute Neuts (auto) 8.31 H Absolute Nucleated RBC 0.000 Nucleated RBC % (auto) 0.0 Smear Tech's Comments VERIFIED PT 11.1 INR 1.0 PTT (Heparin Protocol) 36.0 L D Sodium 135 Potassium 4.3 Chloride 102 Carbon Dioxide 27 Anion Gap 10 L BUN 10 Creatinine 0.73 Estim Creat Clear Calc 115.1 Estimated GFR > 60 POC Glucose Random Glucose 159 H Calcium 8.1 L D Blood Type Antibody Screen Crossmatch 12/15/20 12/15/20 07:16 11:45 WBC RBC Hgb Hct MCV MCH MCHC RDW Plt Count MPV Immature Gran % (Auto) Neut % (Auto) Lymph % (Auto) [place] % (Auto) Eos % (Auto) Baso % (Auto) Lymph # (Auto) [place] # (Auto) Eos # (Auto) Baso # (Auto) Abs Immat Gran (auto) Absolute Neuts (auto) Absolute Nucleated RBC Nucleated RBC % (auto) Smear Tech's Comments PT INR PTT (Heparin Protocol) Sodium Potassium Chloride Carbon Dioxide Anion Gap BUN Creatinine Estim Creat Clear Calc Estimated GFR POC Glucose 171 H 114 Random Glucose Calcium Blood Type Antibody Screen Crossmatch Microbiology Microbiology Results: Microbiology 12/08/20 15:06 Blood - Venous Blood Culture - Final No growth after 5 days. 12/08/20 15:06 Blood - Venous Blood Culture - Final No growth after 5 days. Quality Stroke Does the patient have a stroke diagnosis?: No VTE Prior VTE?: No VTE Risk Level:: Medical - moderate - high VTE Device Contraindication: Treatment Not Indicated VTE Drug Contraindication: N/A - Med Ordered Progress Note: A&P Assessment and plan (1) PAF (paroxysmal atrial fibrillation): Status: Acute (2) Pre-operative cardiovascular examination: Status: Acute (3) CAD (coronary artery disease): Status: Acute (4) Hx of CABG: Status: Acute (5) Peripheral vascular disease: Status: Acute (6) Diabetic foot ulcer: Status: Acute (7) PAD (peripheral artery disease): Status: Acute (8) Pressure ulcer, unstageable, with eschar: Status: Acute (9) Diabetic ulcer of foot associated with diabetes mellitus due to underlying condition, limited to breakdown of skin: Status: Acute (10) Cellulitis: Status: Acute Assessment and Plan: He will remain on empiric IV heparin at 500 units/hour without PTT follow-up and remain on the same antibiotics an arterial line will be discontinued probably in the morning
[2020-12-15 17:14] LABS: Glucose, Whole Blood 139 mg/dL (60-115)
[2020-12-15] MEDS: Heparin Sodium,Porcine/1/2NS 25,000 UNIT/250 ML IV.SOLN 5 UNIT IVCONT (17:28)
--- NOTE | 2020-12-15 18:36 | PC.NURSE ---
VSS, afebrile, SR on tele. Pt to OR for revision with Dr Alas. Pt a&O, ls clear, satting well on 2L post op. Champion draining well, pain controlled with dilaudid, pt napping post op.
[2020-12-15 19:53] LABS: Glucose, Whole Blood 113 mg/dL (60-115)
[2020-12-15] MEDS: 0.9 % Sodium Chloride Flush 3 ML SYRINGE IVFLUSH ×2 (23:27)
[2020-12-15] MEDS: Morphine Sulfate 2 MG/ML CARTRIDGE IVPUSH (23:35)
[2020-12-16] VITALS (16 sets, daily range): BP systolic 123–152; BP diastolic 57–120; PULSE 86–97; RESP 11–20; TEMP 36.8–37.1; O2SAT 94–98; BMI 23.8
[2020-12-16] MEDS: HYDROmorphone HCl 1 MG/ML SYRINGE IVPUSH ×9 (01:00→22:07)
[2020-12-16] MEDS: Piperacillin Sodium/Tazobactam 3.375 GM in 0.9 % Sodium Chloride 50 ML IV ×4 (03:08→22:06)
[2020-12-16] MEDS: 0.9 % Sodium Chloride 1,000 ML 80 ML IVCONT (03:16)
--- NOTE | 2020-12-16 04:31 | PC.NURSE ---
CARE ASSUMED 23:15..AWAKE..ALERT..ORIENTED X3...VSS...NS 0.9% 80 CC/HR..CONTINUOUS HEPARIN DRIP 500 UNITS/HR...[place] CLEAR YELLOW URINE..DRESINGS RIGHT FEMORAL AND RIGHT UPPER & LOWER LEG DRY AND INTACT....RLL COOL BUT WARMER THAN 24 HOURS AGO PER REPORT...CONTINUE (+) FEMORAL DOPPLER PULSE BUT UNABLE TO AUSCULTATE PEDAL PULSES PER REPORT...MEDICATED WITH PRN DILAUDID PER MAR FOR C/O PERSISTANT CRAMPY PAIN TO RIGHT LOWER LEG/FOOT...DRESSING RIGHT FOOT DRY/INTACT...NSR..NO ECTOPY...RESPIRATIONS EASY..SAO2 96-97% ON ROOM AIR
[2020-12-16 04:34] LABS: Hematocrit 33.5 % (42.0-52.0); Hemoglobin 11.2 g/dl (14.0-18.0); Mean Corpuscular HGB Conc 33.4 g/dl (31.0-36.0); Mean Corpuscular Hemoglobin 31.2 pg (27.0-33.0); Mean Corpuscular Volume 93.3 fL (80.0-98.0); Mean Platelet Volume 9.3 fL (9.4-12.4); Platelet Count 247 X10*3/uL (160-400); Red Blood Count 3.59 X10*6/uL (4.60-5.80); Red Cell Distribution Width 13.4 % (11.0-16.0); White Blood Count 16.7 X10*3/uL (4.8-10.8)
[2020-12-16 05:01] LABS: Vancomycin Trough 14.3 mcg/mL (10.0-20.0)
[2020-12-16] MEDS: vancomycin HCL 1,000 MG in 0.9 % Sodium Chloride 250 ML 270 MG IV ×2 (05:15→16:22)
--- NOTE | 2020-12-16 06:53 | HO.POSTANES ---
Post Anesthesia Evaluation Post Anesthesia Evaluation Vital Signs: Vital Signs Temp Pulse Resp BP Pulse Ox 12/16/20 06:00 92 18 128/64 96 12/16/20 04:58 88 18 143/62 H 96 12/16/20 03:54 90 18 140/59 H 96 12/16/20 02:55 98.7 F 90 20 152/84 H 97 12/16/20 01:52 86 16 132/57 L 96 12/16/20 01:00 88 18 132/57 L 96 12/15/20 23:56 98.8 F 90 18 132/58 L 96 12/15/20 23:00 90 18 121/51 L 97 12/15/20 22:40 99.8 F 90 16 131/55 L 12/15/20 22:00 92 15 130/56 L 96 12/15/20 21:05 99 F 92 14 121/55 L 12/15/20 21:00 101 H 15 124/64 94 12/15/20 20:49 99.7 F 96 13 130/57 L 12/15/20 20:00 99.7 F 95 14 126/57 L 94 12/15/20 19:51 92 107/52 L 12/15/20 19:00 92 15 133/58 L 95 Anesthesia: General Endotracheal-GETA Mental Status: Awake Pain Control: Satisfactory (pain difficult to control) Nausea/Vomiting: Mild Hydration: Adequate Anesthesia-Related Issues: No Anes. Related Issues Comments: Patient was brought back for revision on 12/15 due to clotting of graft as per Dr. Alas. Will reevaluate patient again today
[2020-12-16 07:53] LABS: Glucose, Whole Blood 119 mg/dL (60-115)
[2020-12-16] MEDS: 0.9 % Sodium Chloride Flush 3 ML SYRINGE IVFLUSH ×2 (07:54→15:31)
[2020-12-16] MEDS: Aspirin Enteric Coated 81 MG TABLET.DR PO (08:29)
[2020-12-16] MEDS: carvediloL 3.125 MG TABLET PO ×2 (08:29→20:05)
[2020-12-16] MEDS: Atorvastatin Calcium 80 MG TABLET PO (08:29)
[2020-12-16] MEDS: Milk of Magnesia 30 ML ORAL.SUSP PO (08:29)
[2020-12-16] MEDS: Tamsulosin HCL 0.4 MG CAPSULE PO (08:29)
[2020-12-16 09:12] LABS: Creatinine Clr Calc Pharmacy 118.4; Estimated Glomerular Filt Rate > 60
--- NOTE | 2020-12-16 09:52 | HO.VASCPN ---
Subjective Subjective Date of Service: 12/16/20 Patient reports: no new complaints and feels better Interval history: Patient seen and examined. Events overnight reviewed. He was maintained on a 500 units per hour heparin drip overnight. Appears to be doing relatively well. Pain reasonably well controlled. He was sitting up in a bed eating breakfast this morning. He continues to complain of some mild right lower extremity discomfort. Physical Exam Vital Signs: Vital Signs: Last Vital Signs Temp 98.3 F 12/16/20 08:00 Pulse 89 12/16/20 09:00 Resp 12 12/16/20 09:00 BP 138/69 12/16/20 09:00 Pulse Ox 95 12/16/20 09:00 Body Mass Index 23.8 Const: General: cooperative, healthy appearing and no acute distress Orientation/consciousness: oriented to person, oriented to place and oriented to time HENMT: Head: Yes normal to inspection Neck: Carotids: no bruits Chest: Chest palpation & inspection: normal inspection of the chest Resp: Effort & Inspection: normal respiratory effort and able to speak in complete sentences Auscultation: clear to auscultation bilaterally Cardio: Rate: regular rate Heart sounds: S1 normal heart sound present and S2 normal heart sound present Peripheral pulses: other (Right side signal over graft which may be transmitted.) GI: Inspection: Yes normal to inspection Skin: Other: Right 5th toe necrotic General skin exam: no rashes or lesions noted Wounds: wounds noted Neuro: General: oriented to person, oriented to place, oriented to time and CN's II-XI intact bilaterally Extrem: General: Yes normal to inspection, Yes full ROM and Yes no clubbing, cyanosis or edema Psych: Appearance: grossly normal and well kempt Speech and movement: Normal speech and movement present Affect: normal affect Progress Note: A&P Assessment and plan (1) PAD (peripheral artery disease): Status: Acute Assessment and Plan: Patient is status post revision of fem-pop. We went from an above knee popliteal to below-knee popliteal bypass. He did have a popliteal signal yesterday. It is not present today. It appears that his pain is better controlled and is foot appears somewhat warmer. I do not appreciate any distal signals. Is my fear that the graft has occluded again. The challenges that he has no conduit and very poor inflow and outflow seems to be a problem as well as the vessels do occlude towards the ankle level. At this time we can remove his A-line and Champion. We will gradually moved to formal anticoagulation. We will see his overall status. My fear is that he is at a high risk for amputation. This was discussed with him as well. We will maintain him on antibiotics and continue to observe that toe. Thank you for allowing us to assist in his care. Fall Risk Details Current Medications: Current Medications Acetaminophen (Acetaminophen 325 Mg Tablet) 650 mg PO Q6H PRN PRN Reason: Pain, Mild (Pain Scale 1-3) Last Admin: 12/14/20 23:28 Dose: 650 mg Documented by: Aspirin (Aspirin Enteric Coated 81 Mg Tablet.) 81 mg PO DAILY [facility] Last Admin: 12/16/20 08:29 Dose: 81 mg Documented by: Atorvastatin Calcium (Atorvastatin Calcium 80 Mg Tablet) 80 mg PO DAILY [facility] Last Admin: 12/16/20 08:29 Dose: 80 mg Documented by: Carvedilol (Carvedilol 3.125 Mg Tablet) 3.125 mg PO BID [facility]; Protocol Last Admin: 12/16/20 08:29 Dose: 3.125 mg Documented by: Glucose (Glucose Gel 15 Gm Gel..Gram.) 15 gm PO Q15M PRN; Protocol PRN Reason: per Hypoglycemia Standing Ord. Hydromorphone HCl (Hydromorphone Hcl 0.5 Mg/0.5 Ml Syringe) 0.25 mg IVPUSH Q5M PRN; Protocol PRN Reason: Pain, Severe (Pain Scale 7-10) Last Admin: 12/14/20 15:29 Dose: 0.25 mg Documented by: Hydromorphone HCl (Hydromorphone Hcl 1 Mg/Ml Syringe) 1 mg IVPUSH Q2H PRN; Protocol PRN Reason: Pain, Moderate (Pain Scale 4-6 Last Admin: 12/16/20 08:29 Dose: 1 mg Documented by: Sodium Chloride (Ns) 1,000 mls @ 80 mls/hr IVCONT .[id number] [facility] Last Admin: 12/16/20 03:16 Dose: 80 mls/hr Documented by: Heparin Sodium/Sodium Chloride () 25,000 unit in 250 mls @ 5 mls/hr IVCONT .Q24H [facility] Last Admin: 12/15/20 17:28 Dose: 500 unit/hr, 5 mls/hr Documented by: Vancomycin HCl 1,000 mg/ (Sodium Chloride) 270 mls @ 270 mls/hr IV Q12H [facility] Last Infusion: 12/16/20 06:27 Dose: Infused Documented by: Piperacillin Sod/Tazobactam (Sod 3.375 gm/ Sodium Chloride) 50 mls @ 100 mls/hr IV Q6H [facility] Last Infusion: 12/16/20 03:53 Dose: Infused Documented by: Insulin Human Lispro (Insulin Lispro 100 Unit/Ml 3 Ml Vial) 0 unit SUBCUT QIDACHS [facility]; Protocol Last Admin: 12/16/20 07:51 Dose: Not Given Documented by: Magnesium Hydroxide (Milk Of Magnesia 30 Ml Oral.Susp) 30 ml PO DAILY PRN PRN Reason: Constipation Last Admin: 12/16/20 08:29 Dose: 30 ml Documented by: Morphine Sulfate (Morphine Sulfate 2 Mg/Ml Cartridge) 2 mg IVPUSH Q4H PRN; Protocol PRN Reason: Pain, Severe (Pain Scale 7-10) Last Admin: 12/15/20 23:35 Dose: 2 mg Documented by: Ondansetron HCl (Ondansetron Hcl 4 Mg/2 Ml Vial) 4 mg IVPUSH Q8H PRN PRN Reason: Nausea and Vomiting Last Admin: 12/08/20 19:45 Dose: 4 mg Documented by: Ondansetron HCl (Ondansetron Hcl 4 Mg/2 Ml Vial) 4 mg IVPUSH ONCE PRN PRN Reason: Nausea and Vomiting Oxycodone HCl (Oxycodone Hcl Immed Release 5 Mg Tablet) 10 mg PO ONCE PRN PRN Reason: Pain, Severe (Pain Scale 7-10) Oxycodone HCl (Oxycodone Hcl Immed Release 5 Mg Tablet) 5 mg PO ONCE PRN PRN Reason: Pain, Severe (Pain Scale 7-10) Pharmacy Consult (Consult Rx Perform Med Rec) 1 each MISCELLANE ONCE PRN PRN Reason: Consult order Sodium Chloride (0.9 % Sodium Chloride Flush 3 Ml Syringe) 3 ml IVFLUSH [facility] Last Admin: 12/16/20 07:54 Dose: 3 ml Documented by: Sodium Chloride (0.9 % Sodium Chloride Flush 3 Ml Syringe) 3 ml IVFLUSH [facility] Last Admin: 12/16/20 07:54 Dose: Not Given Documented by: Tamsulosin HCl (Tamsulosin Hcl 0.4 Mg Capsule) 0.4 mg PO DAILY [facility] Last Admin: 12/16/20 08:29 Dose: 0.4 mg Documented by: Time Spent With Patient Time: Total time spent is greater than 50% in coordination of care (as documented) at patient's floor/unit and/or counseling patient: Time with patient: 25 - 35 minutes Procedures Date of Service Date of Service: 12/16/20 Quality Stroke Does the patient have a stroke diagnosis?: No VTE Prior VTE?: No VTE Risk Level:: Medical - moderate - high VTE Device Contraindication: Treatment Not Indicated VTE Drug Contraindication: N/A - Med Ordered
[2020-12-16 11:18] LABS: Glucose, Whole Blood 205 mg/dL (60-115)
--- NOTE | 2020-12-16 11:20 | PM.CCPN ---
Subjective Subjective Date of Service: 12/16/20 Interval History: 60-year-old male 12 hours status post revision of bypass graft with stable right lower extremity but still call and no chest complaints Stable normal sinus rhythm Critical Care Time (minutes): 30 Physical Exam Vital Signs: Vital Signs: Last Vital Signs Temp 98.3 F 12/16/20 08:00 Pulse 95 12/16/20 10:00 Resp 12 12/16/20 10:00 BP 151/76 H 12/16/20 10:00 Pulse Ox 97 12/16/20 10:00 Body Mass Index 23.8 Awake and alert and oriented and nonfocal Good bilateral carotid upstrokes and no neck vein distension Benign abdomen good bowel sounds no organomegaly Chest is clear Objective Data Labs CBC & Chem 7: 12/16/20 04:25 12/16/20 04:25 Labs: Laboratory Results - last 24 hr 12/13/20 12/15/20 12/15/20 09:10 11:45 17:09 WBC RBC Hgb Hct MCV MCH MCHC RDW Plt Count MPV Absolute Nucleated RBC Nucleated RBC % (auto) Creatinine Estim Creat Clear Calc Estimated GFR POC Glucose 114 139 H Vancomycin Trough Blood Type O Positive Antibody Screen NEGATIVE Crossmatch See Detail 12/15/20 12/16/20 12/16/20 19:48 04:25 04:25 WBC 16.7 H RBC 3.59 L Hgb 11.2 L Hct 33.5 L MCV 93.3 MCH 31.2 MCHC 33.4 RDW 13.4 Plt Count 247 MPV 9.3 L Absolute Nucleated RBC 0.000 Nucleated RBC % (auto) 0.0 Creatinine Estim Creat Clear Calc Estimated GFR POC Glucose 113 Vancomycin Trough 14.3 Blood Type Antibody Screen Crossmatch 12/16/20 12/16/20 12/16/20 04:25 07:50 11:15 WBC RBC Hgb Hct MCV MCH MCHC RDW Plt Count MPV Absolute Nucleated RBC Nucleated RBC % (auto) Creatinine 0.71 Estim Creat Clear Calc 118.4 Estimated GFR > 60 POC Glucose 119 H 205 H Vancomycin Trough Blood Type Antibody Screen Crossmatch Microbiology Microbiology Results: Microbiology 12/08/20 15:06 Blood - Venous Blood Culture - Final No growth after 5 days. 12/08/20 15:06 Blood - Venous Blood Culture - Final No growth after 5 days. Quality Stroke Does the patient have a stroke diagnosis?: No VTE Prior VTE?: No VTE Risk Level:: Medical - moderate - high VTE Device Contraindication: Treatment Not Indicated VTE Drug Contraindication: N/A - Med Ordered Progress Note: A&P Assessment and plan (1) PAF (paroxysmal atrial fibrillation): Status: Acute (2) CAD (coronary artery disease): Status: Acute (3) Hx of CABG: Status: Acute (4) Peripheral vascular disease: Status: Acute (5) Diabetic foot ulcer: Status: Acute (6) PAD (peripheral artery disease): Status: Acute (7) History of surgery on upper extremity: Status: Acute (8) Hx of vascular surgery: Status: Acute (9) Pressure ulcer, unstageable, with eschar: Status: Acute (10) Diabetic ulcer of foot associated with diabetes mellitus due to underlying condition, limited to breakdown of skin: Status: Acute (11) Cellulitis: Status: Acute Assessment and Plan: So the plan is to maintain heparin and antibiotics and the arterial line has been discontinued patient remains stable and will be followed primarily by vascular surgery
[2020-12-16] MEDS: Insulin Lispro 100 UNIT/ML 3 ML VIAL SUBCUT ×3 (11:24→22:06)
--- NOTE | 2020-12-16 12:52 | HO.POSTANES ---
Post Anesthesia Evaluation Post Anesthesia Evaluation Vital Signs: Vital Signs Temp Pulse Resp BP Pulse Ox 12/16/20 12:00 98.2 F 90 12 126/66 95 12/16/20 10:00 95 12 151/76 H 97 12/16/20 09:00 89 12 138/69 95 12/16/20 08:29 97 123/62 12/16/20 08:00 98.3 F 97 15 123/62 94 12/16/20 07:00 90 14 129/120 H 94 12/16/20 06:00 92 18 128/64 96 12/16/20 04:58 88 18 143/62 H 96 12/16/20 03:54 90 18 140/59 H 96 12/16/20 02:55 98.7 F 90 20 152/84 H 97 12/16/20 01:52 86 16 132/57 L 96 12/16/20 01:00 88 18 132/57 L 96 Anesthesia: General Endotracheal-GETA Mental Status: Awake Pain Control: Satisfactory Nausea/Vomiting: None Hydration: Adequate Anesthesia-Related Issues: No Anes. Related Issues
[2020-12-16] MEDS: Morphine Sulfate 2 MG/ML CARTRIDGE IVPUSH (15:34)
[2020-12-16] MEDS: Heparin Sodium,Porcine/1/2NS 25,000 UNIT/250 ML IV.SOLN 5 UNIT IVCONT (16:15)
[2020-12-16 16:20] LABS: Glucose, Whole Blood 188 mg/dL (60-115)
[2020-12-16] MEDS: 0.9 % Sodium Chloride 1,000 ML 40 ML IVCONT (19:50)
[2020-12-16] MEDS: Acetaminophen 325 MG TABLET 650 MG PO (19:51)
[2020-12-16 21:46] LABS: Glucose, Whole Blood 240 mg/dL (60-115)
[2020-12-16] MEDS: Melatonin 3 MG TABLET 6 MG PO (23:05)
[2020-12-17] VITALS (8 sets, daily range): BP systolic 102–152; BP diastolic 56–76; PULSE 81–101; RESP 12–16; TEMP 36.5–37.3; O2SAT 95–98; BMI 23.4
--- NOTE | 2020-12-17 00:03 | P.EN_ITS ---
Event Note Date of Service: 12/17/20 Event Note: 11:45 p.m., the patient has ongoing right leg and foot pain. Nat ent has been receiving Dilaudid, oxycodone on the hour as schedule or p.r.n. for pain, but these seems to bring very little relief on the patient's symptoms. Currently rates the pain 910 and compares it to when he 1st presented with the situation his dealing with in regards to his ischemic foot. Upon evaluation of the patient's leg, dropler pulses are noted in the medial aspect of the distal femoral area, the right calf is cool and this is different in comparison to yesterday as this was warmer according to nursing personnel. After taking the dressing down the right foot, necrotic areas of the 5th toe are noted, purple coloration is noted between the 4th and 5th metatarsal areas with full sensation to touch. No detectable pulse by Doppler. At this time I have called the vascular surgeon Dr. Alas informed him of the findings, unfortunately this is likely related to his ischemia. He will see the patient tomorrow, in the meantime his advice is to start the patient on full-dose DVT treatment with heparin. Will obtain a PTT level and bolus him with a loading dose followed by the drip.
[2020-12-17] MEDS: HYDROmorphone HCl 1 MG/ML SYRINGE IVPUSH (00:05)
[2020-12-17 00:18] LABS: INTERNATIONAL NORM RATIO 1.1 (0.9-1.1); Prothrombin Time 12.1 SEC (9.9-13.0)
[2020-12-17 00:21] LABS: PTT Heparin Drip 36.3 SEC (53-77.9)
[2020-12-17] MEDS: Heparin Sodium,Porcine/1/2NS 25,000 UNIT/250 ML IV.SOLN 11.17 UNIT IVCONT (00:23)
[2020-12-17] MEDS: Heparin Sodium,Porcine 5,000 UNIT/ML VIAL 6400 UNIT IVPUSH (01:09)
[2020-12-17] MEDS: 0.9 % Sodium Chloride Flush 3 ML SYRINGE IVFLUSH ×5 (01:09→15:36)
[2020-12-17] MEDS: oxyCODONE HCl Immed Release 5 MG TABLET 10 MG PO (03:34)
[2020-12-17] MEDS: Acetaminophen 325 MG TABLET 650 MG PO ×4 (03:35→22:54)
[2020-12-17] MEDS: Piperacillin Sodium/Tazobactam 3.375 GM in 0.9 % Sodium Chloride 50 ML IV ×4 (03:37→22:00)
[2020-12-17] MEDS: vancomycin HCL 1,000 MG in 0.9 % Sodium Chloride 250 ML 270 MG IV ×2 (05:37→16:50)
--- NOTE | 2020-12-17 06:41 | PC.NURSE ---
Assumed care from Francy OBRIEN at 19:00. Patient was alert and cooperative for a short time at that time and seemed oriented x4. Many reports of pain 8-9/10 of the right leg from the knee down through the foot, stabbing/throbbing was medicated with tylenol and dilaudid at about 20:00. THis was with good effect for a short amount of time, but patient seemed to become progressively delerious overnight, and was descibing places and people around him that were not actually there, and was no longer recognizing staff. He was somewhat agitated but redirectable, would sit up at edge of bed and dangle legs and reported improved pain with legs dependent. Nursing was concerned about his safety and tried to educate him about this, patient largely redirectable but occasionally had to be allowed to sit at edge of bed. PA was notified and ordered melatonin, which was administered with gratitude from the patient, but no apparent effect. Patient continued to not sleep at all overnight despite darkened room, reduced stimulation, door shut, education. He was medicated with dilaudid almost every two hours until about 3:30 am, when he consented to try oxycodone and tylenol instead, after which he was still found to be delerious, but had subjectively less pain--after 10 mg oxycodone with tylenol, which he takes at home, he said his leg felt better, but the incisions still hurt about 6/10. Patient also with changes noted to the right foot dorsum, appears mottled, and the right foot medial malleolus has +2 swelling. The leg continues to have no pulse beyond the medial anterior femoral pulse, which is dopplerable, on the right, and the more distal pulses are all absent to doppler (DP, PT, Popliteal). At that time, patient had been on heparin gtt low dose 500 U/ hour, and it was noted that Dr. Alas's not referenced a plan to start therapeutic anticoagulation, and this was called to the attention of the PA as well, who notified Dr. Alas and updated him as to the status of the patient's pulseless leg. He ordered a full-dose heparin gtt per protocol, and started it at 00:23, at 14 U/kg/hour, or about 11.17 cc/hour. This was done and a PTT-HD was 36.3, so PA ordered an 80 Unit/kg bolus, or 6400 Units IV heparin. Patient also voided 2350 ccs of urine via huertas catheter overnight. MD aware. NO bowel movement since Tuesday 12/12, had MOM yesterday, but needs more bowel regimen, day shift to follow.
[2020-12-17 07:33] LABS: Glucose, Whole Blood 176 mg/dL (60-115)
[2020-12-17 07:58] LABS: Basophils Percent Auto 0.2 % (0-2); Eosinophils Absolute Auto 0.3 X10*3/uL (0.0-0.4); Eosinophils Percent Auto 1.5 % (0-4); Hematocrit 35.6 % (42.0-52.0); Hemoglobin 11.8 g/dl (14.0-18.0); Imm Gran Pct Auto 0.6 % (0.0-0.4); Lymphocytes Absolute Auto 1.7 X10*3/uL (1.2-4.9); Lymphocytes Percent Auto 10.3 % (20-40); MANUAL DIFF FLAG SCAN; Mean Corpuscular HGB Conc 33.1 g/dl (31.0-36.0); Mean Corpuscular Hemoglobin 30.9 pg (27.0-33.0); Mean Corpuscular Volume 93.2 fL (80.0-98.0); Mean Platelet Volume 9.4 fL (9.4-12.4); Monocytes Absolute Auto 2.2 X10*3/uL (0.1-1.2); Monocytes Percent Auto 13.2 % (2-11); Neutrophils Absolute Auto 12.25 x10*3/uL (2.0-8.3); Neutrophils Percent Auto 74.2 % (45-73); Platelet Count 257 X10*3/uL (160-400); Red Blood Count 3.82 X10*6/uL (4.60-5.80); Red Cell Distribution Width 13.3 % (11.0-16.0); SCAN SMEAR FLAG 1; White Blood Count 16.5 X10*3/uL (4.8-10.8)
[2020-12-17] MEDS: Tamsulosin HCL 0.4 MG CAPSULE PO (08:03)
[2020-12-17] MEDS: Insulin Lispro 100 UNIT/ML 3 ML VIAL SUBCUT ×3 (08:03→20:24)
[2020-12-17] MEDS: Aspirin Enteric Coated 81 MG TABLET.DR PO (08:03)
[2020-12-17] MEDS: Atorvastatin Calcium 80 MG TABLET PO (08:03)
[2020-12-17] MEDS: carvediloL 3.125 MG TABLET PO ×2 (08:03→20:23)
[2020-12-17 08:12] LABS: INTERNATIONAL NORM RATIO 1.1 (0.9-1.1); Prothrombin Time 12.2 SEC (9.9-13.0)
[2020-12-17 08:15] LABS: PTT Heparin Drip 41.7 SEC (53-77.9)
[2020-12-17 08:17] LABS: Alanine Aminotransferase 8 U/L (0-40); Albumin Level 3.2 g/dL (3.5-5.0); Alkaline Phosphatase 89 U/L (39-117); Anion Gap 12 (12-20); Aspartate Amino Transferase 13 U/L (5-37); Bilirubin Total 0.4 mg/dL (0.0-1.0); Blood Urea Nitrogen 13 mg/dL (9-16); Calcium 8.2 mg/dL (8.4-10.2); Carbon Dioxide 27 mmol/L (22-29); Chloride 101 mmol/L (96-108); Creatinine Clr Calc Pharmacy 109.1; Estimated Glomerular Filt Rate > 60; Glucose Random 182 mg/dL (60-115); Sodium 136 mmol/L (135-145); Total Protein 5.8 g/dL (6.5-8.0)
[2020-12-17 08:26] LABS: SLIDE REVIEW VERIFIED
[2020-12-17] MEDS: Heparin Sodium,Porcine 5,000 UNIT/ML VIAL 3100 UNIT IVPUSH ×2 (09:38→17:47)
[2020-12-17] MEDS: oxyCODONE HCl Immed Release 5 MG TABLET PO ×3 (09:38→20:08)
[2020-12-17 11:27] LABS: Glucose, Whole Blood 142 mg/dL (60-115)
[2020-12-17] MEDS: Gabapentin 300 MG CAPSULE PO ×3 (11:29→20:22)
[2020-12-17] MEDS: Docusate Sodium 100 MG CAPSULE PO ×2 (11:29→20:23)
--- NOTE | 2020-12-17 13:20 | P.PNVS_ITS ---
Subjective Subjective Date of Service: 12/17/20 Patient reports: no new complaints and pain is less Interval history: Patient seen and examined. Events overnight reviewed. He has had increased pain. I do believe that his graft has reoccluded. He has significant inflow and outflow disease. I have not been able to establish good in-line flow of. Two attempts at this have been made. He seems to be doing relatively stable today. Pain is better controlled. He is tolerating a diet. He is being maintained on a heparin drip. Physical Exam Vital Signs: Vital Signs: Last Vital Signs Temp 97.8 F 12/17/20 07:54 Pulse 82 12/17/20 08:03 Resp 12 12/17/20 07:54 BP 136/72 12/17/20 08:03 Pulse Ox 98 12/17/20 07:54 Body Mass Index 23.4 Const: General: cooperative, healthy appearing and no acute distress Orientation/consciousness: oriented to person, oriented to place and oriented to time HENMT: Head: Yes normal to inspection Neck: Carotids: no bruits Chest: Chest palpation & inspection: normal inspection of the chest Resp: Effort & Inspection: normal respiratory effort and able to speak in complete sentences Auscultation: clear to auscultation bilaterally Cardio: Rate: regular rate Heart sounds: S1 normal heart sound present and S2 normal heart sound present Peripheral pulses: other (No signals appreciated on the right lower extremity:graft & DP/PT) GI: Inspection: Yes normal to inspection Skin: General skin exam: no rashes or lesions noted Wounds: no wounds Neuro: General: oriented to person, oriented to place, oriented to time and CN's II-XI intact bilaterally Extrem: General: Yes normal to inspection, Yes full ROM and Yes no clubbing, cyanosis or edema Psych: Appearance: grossly normal and well kempt Speech and movement: Normal speech and movement present Affect: normal affect Progress Note: A&P Assessment and plan (1) Peripheral vascular disease: Status: Acute Assessment and Plan: In short the graft has reoccluded. He is being maintained on a heparin drip. Pain control. I did have a bienvenido discussion with the patient at the risk of amp utation. He does not want amputation performed. We will transfer him out of the unit on to regular floor. We will see how he progresses over the next few days. He is requesting 2nd opinion outside. I would welcome the assistance. Unfortunate at the current time transfer situation is quite difficult as bed availability is minimal. We will see how he progresses over the next few days. I will try to reach out to my colleagues at different medical centers to see if they are accepting. Case was discussed with the hospitalist team. Fall Risk Details Current Medications: Current Medications Acetaminophen (Acetaminophen 325 Mg Tablet) 650 mg PO Q6H PRN PRN Reason: Pain, Mild (Pain Scale 1-3) Last Admin: 12/17/20 09:38 Dose: 650 mg Documented by: Aspirin (Aspirin Enteric Coated 81 Mg Tablet.) 81 mg PO DAILY [facility] Last Admin: 12/17/20 08:03 Dose: 81 mg Documented by: Atorvastatin Calcium (Atorvastatin Calcium 80 Mg Tablet) 80 mg PO DAILY [facility] Last Admin: 12/17/20 08:03 Dose: 80 mg Documented by: Carvedilol (Carvedilol 3.125 Mg Tablet) 3.125 mg PO BID [facility]; Protocol Last Admin: 12/17/20 08:03 Dose: 3.125 mg Documented by: Docusate Sodium (Docusate Sodium 100 Mg Capsule) 100 mg PO BID [facility] Last Admin: 12/17/20 11:29 Dose: 100 mg Documented by: Gabapentin (Gabapentin 300 Mg Capsule) 300 mg PO TID [facility] Last Admin: 12/17/20 11:29 Dose: 300 mg Documented by: Glucose (Glucose Gel 15 Gm Gel..Gram.) 15 gm PO Q15M PRN; Protocol PRN Reason: per Hypoglycemia Standing Ord. Heparin Sodium (Porcine) (Heparin Sodium,Porcine 5,000 Unit/Ml Vial) 3,100 unit 40 unit/kg (3100 unit) IVPUSH PROTOCOL BOLUS PRN; Protocol PRN Reason: 40 unit/kg - Heparin Protocol Last Admin: 12/17/20 09:38 Dose: 3,100 unit Documented by: Heparin Sodium (Porcine) (Heparin Sodium,Porcine 5,000 Unit/Ml Vial) 6,300 unit 80 unit/kg (6300 unit) IVPUSH PROTOCOL BOLUS PRN; Protocol PRN Reason: 80 unit/kg - Heparin Protocol Sodium Chloride (Ns) 1,000 mls @ 40 mls/hr IVCONT .Q24H [facility] Last Admin: 12/16/20 19:50 Dose: 40 mls/hr Documented by: Vancomycin HCl 1,000 mg/ (Sodium Chloride) 270 mls @ 270 mls/hr IV Q12H [facility] Last Infusion: 12/17/20 07:13 Dose: Infused Documented by: Piperacillin Sod/Tazobactam (Sod 3.375 gm/ Sodium Chloride) 50 mls @ 100 mls/hr IV Q6H [facility] Last Infusion: 12/17/20 10:10 Dose: Infused Documented by: Heparin Sodium/Sodium Chloride () 25,000 unit in 250 mls @ 0 mls/hr IVCONT .Q0M [facility]; Protocol Last Titration: 12/17/20 09:30 Dose: 16 units/kg/hr, 12.77 mls/hr Documented by: Insulin Human Lispro (Insulin Lispro 100 Unit/Ml 3 Ml Vial) 0 unit SUBCUT QIDACHS [facility]; Protocol Last Admin: 12/17/20 11:30 Dose: Not Given Documented by: Magnesium Hydroxide (Milk Of Magnesia 30 Ml Oral.Susp) 30 ml PO DAILY PRN PRN Reason: Constipation Last Admin: 12/16/20 08:29 Dose: 30 ml Documented by: Ondansetron HCl (Ondansetron Hcl 4 Mg/2 Ml Vial) 4 mg IVPUSH Q8H PRN PRN Reason: Nausea and Vomiting Last Admin: 12/08/20 19:45 Dose: 4 mg Documented by: Ondansetron HCl (Ondansetron Hcl 4 Mg/2 Ml Vial) 4 mg IVPUSH ONCE PRN PRN Reason: Nausea and Vomiting Oxycodone HCl (Oxycodone Hcl Immed Release 5 Mg Tablet) 5 mg PO Q6H PRN PRN Reason: Pain, Moderate (Pain Scale 4-6 Pharmacy Consult (Consult Rx Perform Med Rec) 1 each MISCELLANE ONCE PRN PRN Reason: Consult order Sodium Chloride (0.9 % Sodium Chloride Flush 3 Ml Syringe) 3 ml IVFLUSH [facility] Last Admin: 12/17/20 08:02 Dose: 3 ml Documented by: Sodium Chloride (0.9 % Sodium Chloride Flush 3 Ml Syringe) 3 ml IVFLUSH [facility] Last Admin: 12/17/20 08:03 Dose: 3 ml Documented by: Tamsulosin HCl (Tamsulosin Hcl 0.4 Mg Capsule) 0.4 mg PO DAILY [facility] Last Admin: 12/17/20 08:03 Dose: 0.4 mg Documented by: Time Spent With Patient Time: Total time spent is greater than 50% in coordination of care (as documented) at patient's floor/unit and/or counseling patient: Time with patient: 15 - 24 minutes Procedures Date of Service Date of Service: 12/17/20 Quality Stroke Does the patient have a stroke diagnosis?: No VTE Prior VTE?: No VTE Risk Level:: Medical - moderate - high VTE Device Contraindication: Treatment Not Indicated VTE Drug Contraindication: N/A - Med Ordered
--- NOTE | 2020-12-17 13:51 | P.PNIM_ITS ---
Subjective Subjective Date of Service: 12/17/20 Review of Systems Denies chest pain Denies shortness of breath Denies nausea vomiting diarrhea Physical Exam Vital Signs: Vital Signs: Last Vital Signs Temp 97.8 F 12/17/20 07:54 Pulse 82 12/17/20 08:03 Resp 12 12/17/20 07:54 BP 136/72 12/17/20 08:03 Pulse Ox 98 12/17/20 07:54 Body Mass Index 23.4 Const: Other: No acute distress HENMT: Other: Oropharynx clear; membranes moist Resp: Other: Clear to auscultation bilaterally no rales rhonchi or wheezes Cardio: Other: No S4 positive S1-S2 no S3 murmurs of scalp GI: Other: Soft nontender nondistended normoactive bowel sounds x4 quadrants Extrem: Other: Bilateral pitting edema; right foot erythematous dorsal aspect a bulky dressing in place Objective Data Active Medications Acetaminophen (Acetaminophen 325 Mg Tablet) 650 mg PO Q6H PRN PRN Reason: Pain, Mild (Pain Scale 1-3) Last Admin: 12/17/20 09:38 Dose: 650 mg Documented by: JOVANNY Aspirin (Aspirin Enteric Coated 81 Mg Tablet.) 81 mg PO DAILY [facility] Last Admin: 12/17/20 08:03 Dose: 81 mg Documented by: JOVANNY Atorvastatin Calcium (Atorvastatin Calcium 80 Mg Tablet) 80 mg PO DAILY [facility] Last Admin: 12/17/20 08:03 Dose: 80 mg Documented by: JOVANNY Carvedilol (Carvedilol 3.125 Mg Tablet) 3.125 mg PO BID [facility]; Protocol Last Admin: 12/17/20 08:03 Dose: 3.125 mg Documented by: JOVANNY Docusate Sodium (Docusate Sodium 100 Mg Capsule) 100 mg PO BID [facility] Last Admin: 12/17/20 11:29 Dose: 100 mg Documented by: JOVANNY Gabapentin (Gabapentin 300 Mg Capsule) 300 mg PO TID [facility] Last Admin: 12/17/20 11:29 Dose: 300 mg Documented by: JOVANNY Glucose (Glucose Gel 15 Gm Gel..Gram.) 15 gm PO Q15M PRN; Protocol PRN Reason: per Hypoglycemia Standing Ord. Heparin Sodium (Porcine) (Heparin Sodium,Porcine 5,000 Unit/Ml Vial) 3,100 unit 40 unit/kg (3100 unit) IVPUSH PROTOCOL BOLUS PRN; Protocol PRN Reason: 40 unit/kg - Heparin Protocol Last Admin: 12/17/20 09:38 Dose: 3,100 unit Documented by: JOVANNY Heparin Sodium (Porcine) (Heparin Sodium,Porcine 5,000 Unit/Ml Vial) 6,300 unit 80 unit/kg (6300 unit) IVPUSH PROTOCOL BOLUS PRN; Protocol PRN Reason: 80 unit/kg - Heparin Protocol Sodium Chloride (Ns) 1,000 mls @ 40 mls/hr IVCONT .Q24H [facility] Last Admin: 12/16/20 19:50 Dose: 40 mls/hr Documented by: JOSE Vancomycin HCl 1,000 mg/ (Sodium Chloride) 270 mls @ 270 mls/hr IV Q12H [facility] Last Infusion: 12/17/20 07:13 Dose: 0 mls/hr Documented by: JOVANNY Piperacillin Sod/Tazobactam (Sod 3.375 gm/ Sodium Chloride) 50 mls @ 100 mls/hr IV Q6H [facility] Last Infusion: 12/17/20 10:10 Dose: 0 mls/hr Documented by: JOVANNY Heparin Sodium/Sodium Chloride () 25,000 unit in 250 mls @ 0 mls/hr IVCONT .Q0M [facility]; Protocol Last Titration: 12/17/20 09:30 Dose: 16 units/kg/hr, 12.77 mls/hr Documented by: JOVANNY Cosigned by: REMA Insulin Human Lispro (Insulin Lispro 100 Unit/Ml 3 Ml Vial) 0 unit SUBCUT QIDACHS [facility]; Protocol Last Admin: 12/17/20 11:30 Dose: Not Given Documented by: JOVANNY Non-Admin Reason: No Insulin Coverage Magnesium Hydroxide (Milk Of Magnesia 30 Ml Oral.Susp) 30 ml PO DAILY PRN PRN Reason: Constipation Last Admin: 12/16/20 08:29 Dose: 30 ml Documented by: NATALIYA Ondansetron HCl (Ondansetron Hcl 4 Mg/2 Ml Vial) 4 mg IVPUSH Q8H PRN PRN Reason: Nausea and Vomiting Last Admin: 12/08/20 19:45 Dose: 4 mg Documented by: SWEETIE Ondansetron HCl (Ondansetron Hcl 4 Mg/2 Ml Vial) 4 mg IVPUSH ONCE PRN PRN Reason: Nausea and Vomiting Oxycodone HCl (Oxycodone Hcl Immed Release 5 Mg Tablet) 5 mg PO Q6H PRN PRN Reason: Pain, Moderate (Pain Scale 4-6 Pharmacy Consult (Consult Rx Perform Med Rec) 1 each MISCELLANE ONCE PRN PRN Reason: Consult order Sodium Chloride (0.9 % Sodium Chloride Flush 3 Ml Syringe) 3 ml IVFLUSH [facility] Last Admin: 12/17/20 08:02 Dose: 3 ml Documented by: JOVANNY Sodium Chloride (0.9 % Sodium Chloride Flush 3 Ml Syringe) 3 ml IVFLUSH [facility] Last Admin: 12/17/20 08:03 Dose: 3 ml Documented by: JOVANNY Tamsulosin HCl (Tamsulosin Hcl 0.4 Mg Capsule) 0.4 mg PO DAILY [facility] Last Admin: 12/17/20 08:03 Dose: 0.4 mg Documented by: JOVANNY Labs CBC & Chem 7: 12/17/20 07:49 12/17/20 07:49 Labs: Laboratory Results - last 24 hr 12/16/20 12/16/20 12/17/20 16:17 21:43 00:01 MCV MCH MCHC RDW Plt Count MPV Immature Gran % (Auto) Neut % (Auto) Lymph % (Auto) [place] % (Auto) Eos % (Auto) Baso % (Auto) Lymph # (Auto) [place] # (Auto) Eos # (Auto) Baso # (Auto) Abs Immat Gran (auto) Absolute Neuts (auto) Absolute Nucleated RBC Nucleated RBC % (auto) Smear Tech's Comments PT 12.1 INR 1.1 PTT (Heparin Protocol) 36.3 L Anion Gap Estim Creat Clear Calc Estimated GFR POC Glucose 188 H 240 H Random Glucose Calcium Total Bilirubin AST ALT Alkaline Phosphatase Total Protein Albumin 12/17/20 12/17/20 12/17/20 07:30 07:49 07:49 MCV 93.2 MCH 30.9 MCHC 33.1 RDW 13.3 Plt Count 257 MPV 9.4 Immature Gran % (Auto) 0.6 H Neut % (Auto) 74.2 H Lymph % (Auto) 10.3 L [place] % (Auto) 13.2 H Eos % (Auto) 1.5 Baso % (Auto) 0.2 Lymph # (Auto) 1.7 [place] # (Auto) 2.2 H Eos # (Auto) 0.3 Baso # (Auto) 0.0 Abs Immat Gran (auto) 0.10 H Absolute Neuts (auto) 12.25 H Absolute Nucleated RBC 0.000 Nucleated RBC % (auto) 0.0 Smear Tech's Comments VERIFIED PT INR PTT (Heparin Protocol) Anion Gap 12 Estim Creat Clear Calc 109.1 Estimated GFR > 60 POC Glucose 176 H Random Glucose 182 H Calcium 8.2 L Total Bilirubin 0.4 AST 13 ALT 8 Alkaline Phosphatase 89 D Total Protein 5.8 L D Albumin 3.2 L D 12/17/20 12/17/20 07:49 11:21 MCV MCH MCHC RDW Plt Count MPV Immature Gran % (Auto) Neut % (Auto) Lymph % (Auto) [place] % (Auto) Eos % (Auto) Baso % (Auto) Lymph # (Auto) [place] # (Auto) Eos # (Auto) Baso # (Auto) Abs Immat Gran (auto) Absolute Neuts (auto) Absolute Nucleated RBC Nucleated RBC % (auto) Smear Tech's Comments PT 12.2 INR 1.1 PTT (Heparin Protocol) 41.7 L Anion Gap Estim Creat Clear Calc Estimated GFR POC Glucose 142 H Random Glucose Calcium Total Bilirubin AST ALT Alkaline Phosphatase Total Protein Albumin Assessment and Plan (1) Peripheral vascular disease: Status: Acute (2) PAF (paroxysmal atrial fibrillation): Status: Acute (3) CAD (coronary artery disease): Status: Acute Assessment and Plan: 59 yo male with? CAD, HLD, DM, HTN, recently discharged from [facility] after being treated for right foot cellulitis with diabetic foot ulcer, patient noted to have worsening redness swelling and pain therefore presented to [facility] and now being admitted for recurrent cellulitis and right small toe gangrene. Attempts to revascularize failed x2 per vascular 1.Right foot Cellulitis /nonhealing foot ulcer and right small toe gangrene d/t diabetes ?? IV Zosyn and vancomycin day9; stable renal function . ? Discussed with vascular; will continue heparin drip. Further plans based on response ?? 2.CAD/history of paroxysmal atrial fibrillation Myocardial perfusion imaging shows basal inferior infarct with minimal is chemia in the inferoapical and inferoseptal wall of the LV myocardium in the RCA territory.? No EKG changes.? Echocardiogram consistent with the basal inferior myocardial infarction with preserved ejection fraction.? No acute issue of postoperatively 3.Hypertension Continue [place] Reg; adjust as indicated 4.Hyperlipidemia Continue statin 5. Type 2 diabetes Metformin and Farxiga on hold. Will cover with sliding scale and adjust as indicated. Resume oral therapies when medically indicated 6.DVT prophylaxis? on hepain drip Quality Stroke Does the patient have a stroke diagnosis?: No VTE Prior VTE?: No VTE Risk Level:: Medical - moderate - high VTE Device Contraindication: Treatment Not Indicated VTE Drug Contraindication: N/A - Med Ordered
[2020-12-17 15:35] LABS: Vancomycin Random 15.7 mcg/mL (15-20)
[2020-12-17 16:38] LABS: Glucose, Whole Blood 205 mg/dL (60-115)
[2020-12-17 16:49] LABS: Delay - Coag DELAY
[2020-12-17] MEDS: Heparin Sodium,Porcine/1/2NS 25,000 UNIT/250 ML IV.SOLN 12.77 UNIT IVCONT (16:50)
[2020-12-17 17:34] LABS: PTT Heparin Drip 48.3 SEC (53-77.9)
[2020-12-17 20:23] LABS: Glucose, Whole Blood 244 mg/dL (60-115)
[2020-12-17] MEDS: Melatonin 3 MG TABLET 6 MG PO (20:23)
[2020-12-17] MEDS: 0.9 % Sodium Chloride 1,000 ML 40 ML IVCONT (21:55)
[2020-12-18] VITALS: PULSE 83; TEMP 37.1
[2020-12-18 00:15] LABS: PTT Heparin Drip 54.2 SEC (53-77.9)
[2020-12-18] MEDS: oxyCODONE HCl Immed Release 5 MG TABLET PO (02:26)
[2020-12-18] MEDS: 0.9 % Sodium Chloride Flush 3 ML SYRINGE IVFLUSH ×3 (02:28→09:39)
[2020-12-18] MEDS: Piperacillin Sodium/Tazobactam 3.375 GM in 0.9 % Sodium Chloride 50 ML IV (03:32)
[2020-12-18 04:00] VITALS: PULSE 90; RESP 14; O2SAT 95
[2020-12-18 06:01] LABS: Basophils Percent Auto 0.3 % (0-2); Eosinophils Absolute Auto 0.3 X10*3/uL (0.0-0.4); Eosinophils Percent Auto 2.1 % (0-4); Hematocrit 36.8 % (42.0-52.0); Hemoglobin 12.3 g/dl (14.0-18.0); Imm Gran Abs Auto 0.07 X10*3/uL (0.00-0.03); Imm Gran Pct Auto 0.5 % (0.0-0.4); Lymphocytes Absolute Auto 1.7 X10*3/uL (1.2-4.9); Lymphocytes Percent Auto 10.9 % (20-40); MANUAL DIFF FLAG SCAN; Mean Corpuscular HGB Conc 33.4 g/dl (31.0-36.0); Mean Corpuscular Hemoglobin 31.2 pg (27.0-33.0); Mean Corpuscular Volume 93.4 fL (80.0-98.0); Mean Platelet Volume 9.6 fL (9.4-12.4); Monocytes Absolute Auto 1.7 X10*3/uL (0.1-1.2); Monocytes Percent Auto 11.4 % (2-11); Neutrophils Absolute Auto 11.3 x10*3/uL (2.0-8.3); Neutrophils Percent Auto 74.8 % (45-73); Platelet Count 292 X10*3/uL (160-400); Red Blood Count 3.94 X10*6/uL (4.60-5.80); Red Cell Distribution Width 13.2 % (11.0-16.0); SCAN SMEAR FLAG 1; White Blood Count 15.1 X10*3/uL (4.8-10.8)
[2020-12-18 06:09] LABS: Alanine Aminotransferase 9 U/L (0-40); Albumin Level 3.3 g/dL (3.5-5.0); Alkaline Phosphatase 92 U/L (39-117); Anion Gap 14 (12-20); Aspartate Amino Transferase 13 U/L (5-37); Bilirubin Total 0.4 mg/dL (0.0-1.0); Blood Urea Nitrogen 13 mg/dL (9-16); Calcium 8.1 mg/dL (8.4-10.2); Carbon Dioxide 25 mmol/L (22-29); Chloride 101 mmol/L (96-108); Creatinine Clr Calc Pharmacy 96.6; Estimated Glomerular Filt Rate > 60; Glucose Random 207 mg/dL (60-115); Potassium 4.3 mmol/L (3.3-5.1); Sodium 136 mmol/L (135-145)
[2020-12-18] MEDS: vancomycin HCL 1,000 MG in 0.9 % Sodium Chloride 250 ML 270 MG IV (06:17)
[2020-12-18 06:19] LABS: PTT Heparin Drip 51.5 SEC (53-77.9)
[2020-12-18] MEDS: Heparin Sodium,Porcine 5,000 UNIT/ML VIAL 3100 UNIT IVPUSH (06:44)
[2020-12-18 06:58] LABS: SLIDE REVIEW VERIFIED
[2020-12-18 08:00] VITALS: BP 136/77; PULSE 87; RESP 18; TEMP 36.4; O2SAT 98
[2020-12-18 08:04] LABS: Glucose, Whole Blood 203 mg/dL (60-115)
[2020-12-18] MEDS: Insulin Lispro 100 UNIT/ML 3 ML VIAL SUBCUT ×2 (09:38→12:32)
[2020-12-18] MEDS: Gabapentin 300 MG CAPSULE PO (09:38)
[2020-12-18] MEDS: Aspirin Enteric Coated 81 MG TABLET.DR PO (09:39)
[2020-12-18] MEDS: Atorvastatin Calcium 80 MG TABLET PO (09:39)
[2020-12-18 09:40] VITALS: BP 136/77; PULSE 87
[2020-12-18] MEDS: Docusate Sodium 100 MG CAPSULE PO (09:40)
[2020-12-18] MEDS: Tamsulosin HCL 0.4 MG CAPSULE PO (09:40)
[2020-12-18] MEDS: carvediloL 3.125 MG TABLET PO (09:40)
--- NOTE | 2020-12-18 10:35 | P.PNVS_ITS ---
Subjective Subjective Date of Service: 12/18/20 Patient reports: no new complaints, feels better and pain is less Interval history: 60-year-old gentleman status post fem-pop bypass above knee with subsequent revision to below-knee has gone to occlude. He appears to be doing relatively well pain well controlled. He has been formally anticoagulated. He is able to ambulate with no difficulty. Motor and sensation remained intact. He does have this nonhealing ulcer which continues to be an issue for him. He is now eager to be discharged. He reports that he has appointment with a vascular surgeon down at [facility]. He has had no issues overnight. Physical Exam Vital Signs: Vital Signs: Last Vital Signs Temp 97.5 F 12/18/20 08:00 Pulse 87 12/18/20 09:40 Resp 18 12/18/20 08:00 BP 136/77 12/18/20 09:40 Pulse Ox 98 12/18/20 08:00 Body Mass Index 23.4 Const: General: cooperative, healthy appearing and comfortable Or ientation/consciousness: oriented to person, oriented to place and oriented to time HENMT: Head: Yes normal to inspection Neck: Neck: Yes normal visual inspection Carotids: no bruits Chest: Chest palpation & inspection: normal inspection of the chest Resp: Effort & Inspection: normal respiratory effort and able to speak in complete sentences Auscultation: clear to auscultation bilaterally, no crackles, no rales, no rhonchi and no wheezes Cardio: Rate: regular rate Rhythm: regular rhythm Heart sounds: S1 normal heart sound present and S2 normal heart sound present Bruits: no ca rotid bruits Peripheral pulses: other (Right side femoral pulse only. I am unable to appreciate a DP or PT signal) GI: Inspection: Yes normal to inspection Skin: Wounds: no wounds Hair: normal Neuro: General: oriented to person, oriented to place and oriented to time Cranial nerves: Yes CN's II-XII intact bilaterally and Yes Normal hearing present Cognition (Neuro): normal cognition Motor exam (neuro): 5/5 motor strength present throughout Extrem: Other: venous exam: No significant superficial varicosities or spider telangiectasias, minimal edema General: No clubbing, No cyanosis and No edema Psych: Appearance: grossly normal Mental Status: mental status grossly normal Speech and movement: Normal speech and movement present Progress Note: A&P Assessment and plan (1) PAD (peripheral artery disease): Status: Acute Assessment and Plan: Unfortunately Mik has had a fem-pop bypass which has gone on to occlude. He has many challenges there is inflow disease in addition to outflow disease. On top of that he has no significant conduit. He may be better served at a tertiary care center where they may be able to obtain cadaveric vein. He can be discharged on antibiotics in formal anticoagulation were I believe he was on Eliquis prior to admission. Thank you for allowing us to assist in his care. He will follow up with us on an as-needed basis. Case was discussed with the hospitalist team. Fall Risk Details Current Medications: Current Medications Acetaminophen (Acetaminophen 325 Mg Tablet) 650 mg PO Q6H PRN PRN Reason: Pain, Mild (Pain Scale 1-3) Last Admin: 12/17/20 22:54 Dose: 650 mg Documented by: Aspirin (Aspirin Enteric Coated 81 Mg Tablet.) 81 mg PO DAILY [facility] Last Admin: 12/18/20 09:39 Dose: 81 mg Documented by: Atorvastatin Calcium (Atorvastatin Calcium 80 Mg Tablet) 80 mg PO DAILY [facility] Last Admin: 12/18/20 09:39 Dose: 80 mg Documented by: Carvedilol (Carvedilol 3.125 Mg Tablet) 3.125 mg PO BID [facility]; Protocol Last Admin: 12/18/20 09:40 Dose: 3.125 mg Documented by: Docusate Sodium (Docusate Sodium 100 Mg Capsule) 100 mg PO BID [facility] Last Admin: 12/18/20 09:40 Dose: 100 mg Documented by: Gabapentin (Gabapentin 300 Mg Capsule) 300 mg PO TID [facility] Last Admin: 12/18/20 09:38 Dose: 300 mg Documented by: Glucose (Glucose Gel 15 Gm Gel..Gram.) 15 gm PO Q15M PRN; Protocol PRN Reason: per Hypoglycemia Standing Ord. Heparin Sodium (Porcine) (Heparin Sodium,Porcine 5,000 Unit/Ml Vial) 3,100 unit 40 unit/kg (3100 unit) IVPUSH PROTOCOL BOLUS PRN; Protocol PRN Reason: 40 unit/kg - Heparin Protocol Last Admin: 12/18/20 06:44 Dose: 3,100 unit Documented by: Heparin Sodium (Porcine) (Heparin Sodium,Porcine 5,000 Unit/Ml Vial) 6,300 unit 80 unit/kg (6300 unit) IVPUSH PROTOCOL BOLUS PRN; Protocol PRN Reason: 80 unit/kg - Heparin Protocol Vancomycin HCl 1,000 mg/ (Sodium Chloride) 270 mls @ 270 mls/hr IV Q12H [facility] Last Infusion: 12/18/20 08:03 Dose: Infused Documented by: Piperacillin Sod/Tazobactam (Sod 3.375 gm/ Sodium Chloride) 50 mls @ 100 mls/hr IV Q6H [facility] Last Infusion: 12/18/20 05:44 Dose: Infused Documented by: Heparin Sodium/Sodium Chloride () 25,000 unit in 250 mls @ 0 mls/hr IVCONT .Q0M [facility]; Protocol Last Titration: 12/18/20 06:40 Dose: 20 units/kg/hr, 15.96 mls/hr Documented by: Sodium Chloride (Ns) 1,000 mls @ 40 mls/hr IVCONT .Q24H [facility] Stop: 12/18/20 21:15 Last Admin: 12/17/20 21:55 Dose: 40 mls/hr Documented by: Insulin Human Lispro (Insulin Lispro 100 Unit/Ml 3 Ml Vial) 0 unit SUBCUT QIDACHS [facility]; Protocol Last Admin: 12/18/20 09:38 Dose: 4 unit Documented by: Magnesium Hydroxide (Milk Of Magnesia 30 Ml Oral.Susp) 30 ml PO DAILY PRN PRN Reason: Constipation Last Admin: 12/16/20 08:29 Dose: 30 ml Documented by: Melatonin (Melatonin 3 Mg Tablet) 6 mg PO BEDTIME PRN PRN Reason: Insomnia Last Admin: 12/17/20 20:23 Dose: 6 mg Documented by: Ondansetron HCl (Ondansetron Hcl 4 Mg/2 Ml Vial) 4 mg IVPUSH Q8H PRN PRN Reason: Nausea and Vomiting Last Admin: 12/08/20 19:45 Dose: 4 mg Documented by: Ondansetron HCl (Ondansetron Hcl 4 Mg/2 Ml Vial) 4 mg IVPUSH ONCE PRN PRN Reason: Nausea and Vomiting Oxycodone HCl (Oxycodone Hcl Immed Release 5 Mg Tablet) 5 mg PO Q6H PRN PRN Reason: Pain, Moderate (Pain Scale 4-6 Last Admin: 12/18/20 02:26 Dose: 5 mg Documented by: Pharmacy Consult (Consult Rx Perform Med Rec) 1 each MISCELLANE ONCE PRN PRN Reason: Consult order Sodium Chloride (0.9 % Sodium Chloride Flush 3 Ml Syringe) 3 ml IVFLUSH [facility] Last Admin: 12/18/20 09:39 Dose: 3 ml Documented by: Sodium Chloride (0.9 % Sodium Chloride Flush 3 Ml Syringe) 3 ml IVFLUSH [facility] Last Admin: 12/18/20 09:39 Dose: Not Given Documented by: Tamsulosin HCl (Tamsulosin Hcl 0.4 Mg Capsule) 0.4 mg PO DAILY [facility] Last Admin: 12/18/20 09:40 Dose: 0.4 mg Documented by: Time Spent With Patient Time: Total time spent is greater than 50% in coordination of care (as documented) at patient's floor/unit and/or counseling patient: Time with patient: 15 - 24 minutes Procedures Date of Service Date of Service: 12/18/20 Quality Stroke Does the patient have a stroke diagnosis?: No VTE Prior VTE?: No VTE Risk Level:: Medical - moderate - high VTE Device Contraindication: Treatment Not Indicated VTE Drug Contraindication: N/A - Med Ordered
--- NOTE | 2020-12-18 11:12 | PM.DS ---
DS: Providers Provider Date of Service: 12/18/20 Date of admission: 12/08/20 16:38 Date of discharge: 12/18/20 Primary care physician: Arian Terrazas MD Consults: 12/08/20 17:06 Consult to Vascular Surgery Routine Consulting Provider: Juan Francisco Alas Reason for consultation: pvd Has provider been notified: No 12/10/20 07:33 Consult to Infectious Diseases Stat Consulting Provider: Celia Delgado Reason for consultation: diabetic foot ulcer /pvd Has provider been notified: No 12/10/20 09:48 Consult to Cardiology Routine Consulting Provider: Chaim Lane Reason for consultation: preop eval for fem-pop bypass Has provider been notified: No DS: Diagnosis Discharge Diagnosis (1) PAD (peripheral artery disease): Status: Acute DS: Summary Hospital Course Hospital Course: 60-year-old male with history of peripheral vascular disease, diabetes on insulin, coronary artery disease status post stent recently discharged from [facility] on 11/14/20, after being treated for right foot cellulitis, and right foot ulcer, patient recently underwent debridement of right toe ulcer by Dr. Richards, patient came to emergency room due to worsening redness of right foot, and swelling, associated with significant pain , he also complaining of associated chills, no fevers, patient has been sleeping on a recliner since unable to sleep flat due to significant pain in right foot, emergency room physician discussed case with Dr. Alas who recommended to admit patient for further vascular testing, labs showed elevated WBC count, x-ray foot obtained that showed large retrocalcaneal enthesophyte. Hospital course Seen by vascular and on 12/14 underwent right-sided femoral to above knee popliteal bypass with thrombectomy of popliteal artery. He was admitted to ICU overnight on a heparin drip however foot and lower extremity remain ?to touch and pain was significant. On 12/15 patient underwent revision of right above knee fem-pop bypass to right [id number] fem-pop bypass with thrombectomy of the graft and popliteal artery as well as peroneal artery.. He was observed in ICU heparin drip continued on IV antibiotics. His pain control has been adequate on oral medication but it is deemed unsuccessful by vascular surgery. He has had previous vascular surgery at [facility] and is scheduled to see his vascular surgeon in [place] on 12/24/2020. He will be discharged home to complete a course of Augmentin for cellulitis and will be maintained on Eliquis . He is strongly advised to abstain from tobacco. VNA will follow along at home for wound care Time Spent with Patient Time attestation: Total time spent providing and/or coordinating discharge services: Discharge coordination time: Greater than 30 minutes Quality: Stroke Does the patient have a stroke diagnosis?: No Physical Exam Vital Signs: Vital Signs: Last Vital Signs Temp 97.5 F 12/18/20 08:00 Pulse 87 12/18/20 09:40 Resp 18 12/18/20 08:00 BP 136/77 12/18/20 09:40 Pulse Ox 98 12/18/20 08:00 Body Mass Index 23.4 Const: Other: A awake alert no acute distress Resp: Other: Clear to auscultation. No rales rhonchi or wheezes Cardio: Other: No S4; positive S1-S2; no S3 murmur rubs or gallops GI: Other: Soft nontender nondistended with normoactive bowel sounds Neuro: Other: Cranial nerves 2-12 grossly intact as tested. Motor is 5/5 all extremities sent taste is intact however decreased right lower extremity Extrem: Other: Left lower extremity warm to touch without edema right lower extremity erythematous from tibial plateau distally for cold to touch DS: Data Data Completed and Pending Completed studies during hospitalization [Text1]: Pending at discharge 12/14/20 13:01 Surgical [PTH] Routine 12/15/20 14:21 Surgical [PTH] Routine Procedures Excision of Right Foot Subcutaneous Tissue and Fascia, Open Approach (11/11/20) Labs on day of discharge: Laboratory Results - last 24 hr 12/17/20 12/17/20 12/17/20 11: 15:03 15:03 WBC RBC Hgb Hct MCV MCH MCHC RDW Plt Count MPV Immature Gran % (Auto) Neut % (Auto) Lymph % (Auto) [place] % (Auto) Eos % (Auto) Baso % (Auto) Lymph # (Auto) [place] # (Auto) Eos # (Auto) Baso # (Auto) Abs Immat Gran (auto) Absolute Neuts (auto) Absolute Nucleated RBC Nucleated RBC % (auto) Smear Tech's Comments PTT (Heparin Protocol) 48.3 L Coag Specimen Comment DELAY Sodium Potassium Chloride Carbon Dioxide Anion Gap BUN Creatinine Estim Creat Clear Calc Estimated GFR POC Glucose 142 H Random Glucose Calcium Total Bilirubin AST ALT Alkaline Phosphatase Total Protein Albumin Random Vancomycin 15.7 12/17/20 12/17/20 12/17/20 16:32 20:18 23:48 WBC RBC Hgb Hct MCV MCH MCHC RDW Plt Count MPV Immature Gran % (Auto) Neut % (Auto) Lymph % (Auto) [place] % (Auto) Eos % (Auto) Baso % (Auto) Lymph # (Auto) [place] # (Auto) Eos # (Auto) Baso # (Auto) Abs Immat Gran (auto) Absolute Neuts (auto) Absolute Nucleated RBC Nucleated RBC % (auto) Smear Tech's Comments PTT (Heparin Protocol) 54.2 Coag Specimen Comment Sodium Potassium Chloride Carbon Dioxide Anion Gap BUN Creatinine Estim Creat Clear Calc Estimated GFR POC Glucose 205 H 244 H Random Glucose Calcium Total Bilirubin AST ALT Alkaline Phosphatase Total Protein Albumin Random Vancomycin 12/18/20 12/18/20 12/18/20 05:40 05:40 05:40 WBC 15.1 H RBC 3.94 L Hgb 12.3 L Hct 36.8 L MCV 93.4 MCH 31.2 MCHC 33.4 RDW 13.2 Plt Count 292 MPV 9.6 Immature Gran % (Auto) 0.5 H Neut % (Auto) 74.8 H Lymph % (Auto) 10.9 L [place] % (Auto) 11.4 H Eos % (Auto) 2.1 Baso % (Auto) 0.3 Lymph # (Auto) 1.7 [place] # (Auto) 1.7 H Eos # (Auto) 0.3 Baso # (Auto) 0.0 Abs Immat Gran (auto) 0.07 H Absolute Neuts (auto) 11.3 H Absolute Nucleated RBC 0.000 Nucleated RBC % (auto) 0.0 Smear Tech's Comments VERIFIED PTT (Heparin Protocol) 51.5 L Coag Specimen Comment Sodium 136 Potassium 4.3 Chloride 101 Carbon Dioxide 25 Anion Gap 14 BUN 13 Creatinine 0.87 Estim Creat Clear Calc 96.6 Estimated GFR > 60 POC Glucose Random Glucose 207 H Calcium 8.1 L Total Bilirubin 0.4 AST 13 ALT 9 Alkaline Phosphatase 92 Total Protein 6.0 L Albumin 3.3 L Random Vancomycin 12/18/20 07:53 WBC RBC Hgb Hct MCV MCH MCHC RDW Plt Count MPV Immature Gran % (Auto) Neut % (Auto) Lymph % (Auto) [place] % (Auto) Eos % (Auto) Baso % (Auto) Lymph # (Auto) [place] # (Auto) Eos # (Auto) Baso # (Auto) Abs Immat Gran (auto) Absolute Neuts (auto) Absolute Nucleated RBC Nucleated RBC % (auto) Smear Tech's Comments PTT (Heparin Protocol) Coag Specimen Comment Sodium Potassium Chloride Carbon Dioxide Anion Gap BUN Creatinine Estim Creat Clear Calc Estimated GFR POC Glucose 203 H Random Glucose Calcium Total Bilirubin AST ALT Alkaline Phosphatase Total Protein Albumin Random Vancomycin Discharge Plan Discharge Patient Disposition: Home Health Service Discharge Diagnosis: PAD/Cellulitits Referrals: Arian Terrazas MD [Primary Care Provider] - 1 Week Discharge Medications: New amoxicillin-pot clavulanate [Augmentin] 875-125 mg tablet 1 tab PO BID Qty: 20 RF: 0 Continued ondansetron HCl [Zofran] 4 mg tablet 4 mg PO Q8H PRN (Reason: nausea and vomiting) Qty: 10 RF: 0 oxycodone-acetaminophen [Percocet] 5-325 mg tablet 2 tab PO Q4-6H PRN (Reason: pain) Qty: 30 RF: 0 atorvastatin 80 mg tablet 1 tab PO DAILY RF: 0 carvedilol 6.25 mg tablet 1 tab PO BID RF: 0 metformin 850 mg tablet 1 tab PO BID RF: 0 tamsulosin 0.4 mg capsule 1 cap PO DAILY RF: 0 lisinopril 10 mg tablet 1 tab PO DAILY RF: 0 Basaglar KwikPen U-100 Insulin 100 unit/mL (3 mL) insulin pen 40 unit subcut BEDTIME RF: 0 Eliquis 5 mg tablet 1 tab PO BID RF: 0 Farxiga 10 mg tablet 1 tab PO DAILY RF: 0 aspirin 81 mg Tablet 81 mg PO DAILY RF: 0 Discharge Orders: Discharge Order (Routine); Ordered 12/18/20 Ordered By: Steve Packer Diet: advance to usual diet Activity on Discharge: As tolerated Stand Alone Forms: Patient Portal Discharge page Care Plan Goals: Follow up with vascular as scheduled Health Concerns: Complete course of Augmentin; no smoking Plan of Treatment: Vascular referral Assessment: Stable
[2020-12-18 11:17] VITALS: BP 157/79; PULSE 87; RESP 18; TEMP 37.5; O2SAT 98
--- NOTE | 2020-12-18 11:30 | MHC.CM.PN ---
PATIENT IS DISCHARGED HOME WITH RESUMPTION OF HIS [facility] SERVICES. FAMILY TO TRANSPORT
[2020-12-18 11:38] LABS: Glucose, Whole Blood 232 mg/dL (60-115)
== END 2020-12-18 14:30 | disposition home health service (06) | DRG 181 ==
LOC: HO.ED 14:54 → HO.EDOVER 16:47 → HO.S3 17:38 → HO.ICU 12-14 12:07 → HO.S3 12-18 07:01
PROVIDERS: Physician Assistant Medical; Surgery Vascular Surgery; Admitting Provider Hospitalist; Emergency Provider Emergency Medicine; PCP Internal Medicine; Visit Provider Hospitalist
PROC: B41FZZZ Fluoroscopy of Right Lower Extremity Arteries (ICD-10-PCS; principal; 2020-12-10 07:30)
PROC: 041L0JL Bypass Left Femoral Artery to Popliteal Artery with Synthetic Substitute, Open Approach (ICD-10-PCS; principal; 2020-12-14 10:30)
PROC: 041M0JL Bypass Right Popliteal Artery to Popliteal Artery with Synthetic Substitute, Open Approach (ICD-10-PCS; principal; 2020-12-15 12:00)
DX: E11.52 Type 2 diabetes mellitus with diabetic peripheral angiopathy with gangrene (principal); I70.261 Atherosclerosis of native arteries of extremities with gangrene, right leg; L97.519 Non-pressure chronic ulcer of other part of right foot with unspecified severity; L03.115 Cellulitis of right lower limb; I10 Essential (primary) hypertension; I25.10 Atherosclerotic heart disease of native coronary artery without angina pectoris; I48.0 Paroxysmal atrial fibrillation; E78.5 Hyperlipidemia, unspecified; T82.392A Other mechanical complication of femoral arterial graft (bypass), initial encounter; Z95.1 Presence of aortocoronary bypass graft; F17.210 Nicotine dependence, cigarettes, uncomplicated; Z20.822 Contact with and (suspected) exposure to COVID-19; Z71.6 Tobacco abuse counseling; Z88.5 Allergy status to narcotic agent; Z79.4 Long term (current) use of insulin; Z79.01 Long term (current) use of anticoagulants; Z79.899 Other long term (current) drug therapy
CPT/HCPCS: 36245; 36415; 73630; 75630; 75635; 76937; 78452; 80048; 80053; 80076; 80202; 82565; 82947; 83036; 83605; 83690; 85025; 85027; 85610; 85652; 85730; 86140; 86850; 86900; 86901; 86923; 87040; 87635; 88302; 88304; 88311; 93005; 93017; 93306; 93923; 93925; 99152; 99153; 99285; A9500; C1757; C1758; C1760; C1768; C1769; C1887; C1894; J0280; J1170; J2250; J2270; J2370; J2405; J2543; J2785; J3010; J3370; P9016; Q9967

== ENCOUNTER 2021-04-30 08:50 | Outpatient (RCR) | payer OTHER, SELFPAY ==
--- NOTE | ~2021-04-30 | XR_ITS ---
EXAMINATION: XR TIBIA AND FIBULA, RIGHT CLINICAL INFORMATION: BKA. Soft tissue swelling. Rule out osteo. COMPARISON: None TECHNIQUE: AP and lateral views of the right tibia and fibula were obtained. FINDINGS: There is below-knee amputation with no bony erosive changes of distal tibia or fibula. The amputation stump is regular without any gas formation or eccentric soft tissue swelling. XR/XR tibia fibula RT 2V IMPRESSION: Unremarkable below-knee amputation stump with no suspicion for osteomyelitis.
[2021-06-05 11:09] LABS: Basophils Absolute Auto 0.1 X10*3/uL (0.0-0.2); Basophils Percent Auto 0.7 % (0-2); Eosinophils Absolute Auto 0.6 X10*3/uL (0.0-0.4); Eosinophils Percent Auto 5.4 % (0-4); Hematocrit 43.5 % (42.0-52.0); Hemoglobin 13.7 g/dl (14.0-18.0); Imm Gran Abs Auto 0.06 X10*3/uL (0.00-0.03); Imm Gran Pct Auto 0.5 % (0.0-0.4); Lymphocytes Absolute Auto 1.9 X10*3/uL (1.2-4.9); Lymphocytes Percent Auto 17.1 % (20-40); MANUAL DIFF FLAG NO; Mean Corpuscular HGB Conc 31.5 g/dl (31.0-36.0); Mean Corpuscular Hemoglobin 29.7 pg (27.0-33.0); Mean Corpuscular Volume 94.4 fL (80.0-98.0); Mean Platelet Volume 10.3 fL (9.4-12.4); Monocytes Absolute Auto 1.2 X10*3/uL (0.1-1.2); Monocytes Percent Auto 10.7 % (2-11); Neutrophils Absolute Auto 7.2 x10*3/uL (2.0-8.3); Neutrophils Percent Auto 65.6 % (45-73); Platelet Count 234 X10*3/uL (160-400); Red Blood Count 4.61 X10*6/uL (4.60-5.80); Red Cell Distribution Width 12.7 % (11.0-16.0)
[2021-06-05 11:22] LABS: Estimated Average Glucose 166 mg/dL; Hemoglobin A1c % 7.4 %
[2021-06-05 11:38] LABS: Anion Gap 14 (12-20); Blood Urea Nitrogen 23 mg/dL (9-16); C Reactive Protein 0.22 mg/dL (< or = 0.50); Carbon Dioxide 32 mmol/L (22-29); Chloride 98 mmol/L (96-108); Estimated Glomerular Filt Rate > 60; Glucose Random 213 mg/dL (60-115); Potassium 5.6 mmol/L (3.3-5.1); Sodium 138 mmol/L (135-145)
[2021-06-05 12:07] LABS: Erythrocyte Sedimentation Rate 12 MM/HR (0-15)
== END 2021-08-26 13:01 | disposition home or self-care (01) ==
LOC: HO.WCC 08:50
PROVIDERS: Visit Provider Physician Assistant
DX: E11.622 Type 2 diabetes mellitus with other skin ulcer (principal); E11.51 Type 2 diabetes mellitus with diabetic peripheral angiopathy without gangrene; L97.812 Non-pressure chronic ulcer of other part of right lower leg with fat layer exposed; T87.81 Dehiscence of amputation stump; T87.53 Necrosis of amputation stump, right lower extremity; I25.2 Old myocardial infarction; Z87.891 Personal history of nicotine dependence; Z79.891 Long term (current) use of opiate analgesic
CPT/HCPCS: 11042; 11045; 15271; 36415; 73590; 80048; 83036; 84134; 85025; 85652; 86140; 99213; Q4186; Q4187

== ENCOUNTER 2023-05-19 13:00 | Outpatient (RCR) | payer OTHER, SELFPAY | END 2023-07-03 15:04 | disposition home or self-care (01) | LOC: HO.PT 13:00 | PROVIDERS: PCP Internal Medicine; Visit Provider Surgery Vascular Surgery | DX: Z96.651 Presence of right artificial knee joint (principal) | CPT/HCPCS: 97110; 97112; 97116; 97162; 97530 ==

== ENCOUNTER 2023-08-29 14:00 | Outpatient (RCR) | payer OTHER, SELFPAY | END 2023-09-25 07:23 | disposition home or self-care (01) | LOC: HO.PT 14:00 | PROVIDERS: PCP Internal Medicine; Visit Provider Surgery Vascular Surgery | DX: Z89.611 Acquired absence of right leg above knee (principal) | CPT/HCPCS: 97110; 97112; 97116; 97140; 97161 ==

== ENCOUNTER 2024-01-05 15:23 | Outpatient (RCR) | payer OTHER, SELFPAY | END 2024-01-25 14:31 | disposition home or self-care (01) | LOC: HO.PT 15:23 | PROVIDERS: PCP Internal Medicine; Visit Provider Surgery Vascular Surgery | DX: Z89.611 Acquired absence of right leg above knee (principal) | CPT/HCPCS: 97110; 97112; 97116; 97140; 97162 ==